=== PATIENT | male | born 1965 | race Caucasian/White ===

== ENCOUNTER 2017-09-25 05:50 | Day surgery (SDC) | payer MEDICAID, SELFPAY ==
[2017-09-25 06:14] VITALS: BP 140/97; PULSE 69; RESP 16; TEMP 36.5; O2SAT 98; BMI 28.0
--- NOTE | 2017-09-25 11:00 | COLBX_PTH ---
PATIENT: LISA LARSON LOC: EN U#:[id number] AGE/SX: 52/M ROOM: RE09/25/[address]: Dr. Nasreen Love MD : 1965 BED: DIS: 09/25/2017 SPEC #: [id number] RECD: 09/25/17 13:36 STATUS: DAMIR JODI #: [id number] MICKEY: 09/25/17 11:[address]: Nasreen Love DEPT: SURGICAL PATHOLOGY RECD BY: Bernadette Arredondo ENTERED: 09/25/17 14:08 SP TYPE: COLON BX OTHR DR: Dr. Tee Waite MD Tissues: POLYP Procedures: Surgery Specimen Level IV HEADER OPERATION: Colonoscopy (MAC) PRE-OP DIAGNOSIS: Screening TISSUE SUBMITTED: 25 cm polyp MICROSCOPIC DIAGNOSIS Colon, 25 cm polyp, polypectomy: Tubular adenoma. SJ:emiliano 09/28/17 MICROSCOPIC DESCRIPTION Slides are reviewed. GROSS DESCRIPTION Received in fixative is one container labeled with the patient's name and designated 25 cm polyp. The specimen consists of a pink-miller polyp measuring 1 x 0.8 x 0.6 cm. The presumed margin is inked. The specimen is trisected and totally submitted in one cassette. / AM:emiliano 09/25/17 TC:1 CPT: 69393
[2017-09-25 11:28] VITALS: BP 125/79; BP 140/97; PULSE 72; RESP 16; TEMP 36.1; O2SAT 98
[2017-09-25 11:33] VITALS: BP 126/81; BP 140/97; PULSE 71; RESP 16; O2SAT 98
[2017-09-25 11:38] VITALS: BP 139/91; BP 140/97; PULSE 68; RESP 16; O2SAT 97
[2017-09-25 11:45] VITALS: BP 137/86; BP 140/97; PULSE 65; RESP 16; TEMP 36.8; O2SAT 99
[2017-09-25 12:24] VITALS: BP 140/97
--- NOTE | 2017-09-25 12:34 | PCM.OPRPT ---
Report of Operation Date of Procedure: 09/25/17 Pre-Operative Diagnosis: screening for colon cancer Post-Operative Diagnosis: probable benign pedunculated polyp of rectosigmoid area of colon Surgery/Procedure Performed:: colonoscopy with hot snare polypectomy Description of Surgical Findings:: at rectosigmoid area - 25 cm from anal verge, pedunculated 2 cm polyp, excised completely with hot snare device, minimal hemorrhoidal changes Type of Anesthesia:: MAC Anesthesiologist: Abe Ruano Specimen's removed: rectosigmoid colon polyp Estimated Blood Loss (mL): none Fluids Replaced: see anesthesia note Description of Procedure: After informed consent was given, the patient was brought to the endoscopy suite. Appropriate time out protocol was followed. He was then placed in the supine position. Appropriate cardiac, blood pressure, and pulse oximetry monitoring was placed. After stable vital signs were noted, the patient was given anesthesia by the anesthesia provider. The patient was then placed in the left lateral decubitis position. The colonoscope was lubricated and carefully inserted into the patients anus. It was then advanced into the rectum, then into the sigmoid colon, then into the left descending colon, past the splenic flexure, into the transverse colon, past the hepatic flexure, then down into the right descending colon and into the cecum. The cecum was identified by: transillumination, confluence of the tenae coli, identification of the ileocecal valve and appendiceal orifice, and external pressure with indentation. At this point, the colonoscope was slowly retracted back and the entire colonic mucosa was examined. There was no evidence of extrinsic compression and no inflammatory changes were noted. The colon cleansing preparation was good. No intraluminal obstructing lesions, no strictures, and no ulcers were noted. There was a pedunculated polyp, 2 cm, noted at the rectosigmoid area, 25 cm from the anal verge. It was completely resected using the hot snare device. No bleeding was noted at the site. It was removed and send to pathology for analysis. Retroflex view in the rectum revealed no lesions in the rectal vault except minimal hemorrhoidal changes. The colonoscope was removed intact. Patient tolerated procedure well. - Complications none noted
--- NOTE | 2017-09-28 09:41 | PCM.HP.BLA ---
History and Physical Date of Admission: 09/25/17 HISTORY AND PHYSICAL Gabriel Carter 1965 REFERRING PHYSICIAN: Tee Waite MD CHIEF COMPLAINT: Consult (colonoscopy) HPI: The patient is a 52 year old male referred for endoscopy. Gabriel notes no history of colon complaints. He denies any change in bowel habits, weight changes, blood in stools, black tarry stools or abdominal pain. Denies upper GI complaints. Gabriel has not undergone prior endoscopy. The patient is being seen by me today at the request of Dr. Waite for my opinion and advice regarding screening colonoscopy. Past medical history significant for chronic pain for which he takes oxycodone regularly. Patient denies any cardiac or respiratory issues. He denies any known problems with sedation in the past. PAST MEDICAL HISTORY No past medical history on file. PAST SURGICAL HISTORY No past surgical history on file. CURRENT MEDICATIONS amoxicillin-clavulanic acid (AUGMENTIN) 875-125 mg per tablet Take 1 tablet by mouth twice daily for 10 days. oxyCODONE-acetaminophen (PERCOCET) 7.5-325 mg tablet Take 1 tablet by mouth twice daily as needed for up to 30 days.Earliest Fill Date: 06/25/17 buPROPion SR (ZYBAN SR; WELLBUTRIN SR) 150 mg 12 hr tablet Take 1 tablet by mouth twice daily. cyclobenzaprine (FLEXERIL) 10 mg tablet Take 1 tablet by mouth twice daily as needed. ALLERGIES: Patient has no known allergies. PERSONAL HISTORY: Marital status: Spouse name: Years of education: Number of children: Social History Main Topics Smoking status: Current Every Day Smoker Packs/day: 1.00 Years: 0.00 Smokeless tobacco: Never Used Alcohol use: Yes Comment: rarely Drug use: No FAMILY HISTORY: [place] palsy [OTHER] Mother Coronary Artery Disease Father Colon Cancer Maternal Grandfather REVIEW OF SYSTEMS: General: The patient denies fatigue, denies weight loss, denies weight gain, denies feeling hot, and denies feelings of cold. Eyes: The patient denies glaucoma, denies eye injury/surgery, does not wear glasses or contacts. Ear/Nose/Throat: The patient denies allergies, denies hayfever, denies ear infections, and denies bloody noses. Cardiovascular: The patient denies chest pain, denies heart disease, denies high blood pressure,denies cardiac stent, denies prior heart attack, denies irregular heart beat, denies high cholesterol, denies poor circulation, denies heart failure, other cardiac issues, denies claudication, denies cold feet, denies peripheral arterial stent. Respiratory: The patient denies tuberculosis, denies pneumonia, denies frequent cough, denies pulmonary embolism, denies shortness of breath, and denies coughing up blood. Gastrointestinal: The patient denies difficulty swallowing, denies acid reflux, denies ulcers, denies vomiting, denies jaundice/hepatitis, denies gallbladder problems, denies black or tarry stools, denies hemorrhoids, denies bleeding from rectum, denies diverticulitis, denies constipation, denies diarrhea, denies loss of stool control, and denies hernias. Kidney/Bladder: The patient denies kidney stones, denies urine infections, and denies bloody urine. Skin: The patient denies a history of skin cancer, denies bleeding/changing moles, and denies a history of skin rash. Neurologic: The patient denies a history of epilepsy/convulsions, denies headaches, denies head/spinal injuries, and denies stroke/TIA. Psychiatric: The patient denies psychiatric medications, denies depression, and denies voices, denies substance abuse. Endocrine: The patient denies thyroid disorders, denies diabetes, and denies hormonal problems. Hematologic: The patient denies a history of bruising, denies bleeding, and denies anemia, denies blood clots. Infections: The patient denies a history of measles and mumps, denies rheumatic fever, and denies sexually transmitted diseases. Musculoskeletal: The patient NOTES back pain/injury, NOTES back problems, denies sciatica, NOTES knee/foot trouble, denies arthritis, or denies gout. PHYSICAL EXAMINATION: General: The patient is 52 year old male, well nourished, well hydrated in no acute distress. The patient is oriented to time, place, and person. VITALS: Blood pressure 140/100, pulse 66, weight 93 kg (205 lb). Body mass index is 29.41 kg/m?. HEENT: Normal cephalic, ataumatic, pupils are equally round, sclera are anicteric, mucous membranes are moist, oropharynx is clear. Neck has no masses, asymmetry or lymphadenopathy. Respiratory: Clear to auscultation and percussion. Normal respiratory excursion and pattern. Cardiac: Examination is regular rate and rhythm. Abdominal exam: Soft, nontender, with no palpable masses. No hepatosplenomegaly. No palpable hernias. Rectal exam: exam deferred Extremities: no clubbing, cyanosis or edema. No adenopathy. IMPRESSION: encounter for screening colonoscopy, patient on narcotic for chronic pain-plan for MAC PLAN: We will plan for screening colonoscopy with MAC. We discussed the risks and benefits of the planned endoscopy. I have informed the patient that complications can occur including failure to complete the endoscopy and perforation. The patient had the opportunity to ask questions concerning the planned endoscopy. My staff has also explained the procedure to the patient in understandable terms and has given the patient printed material concerning the procedure. The patient freely consents to surgery. plan to use golytely bowel preparation for endoscopy plan for monitored anesthetic care. Diagnoses: (Z12.11) Encounter for screening for malignant neoplasm of colon (primary encounter diagnosis) Clary Royal PA-C
== END 2017-09-25 12:25 | disposition home or self-care (01) ==
LOC: EN 05:51 → AC 05:53
PROVIDERS: Family Provider Family Medicine; PCP Family Medicine; Visit Provider Surgery
PROC: 0DJD8ZZ Inspection of Lower Intestinal Tract, Via Natural or Artificial Opening Endoscopic (ICD-10-PCS; CPT 45378; principal; 2017-09-25 10:55)
DX: Z12.11 Encounter for screening for malignant neoplasm of colon (principal); D12.6 Benign neoplasm of colon, unspecified; G89.29 Other chronic pain; F17.200 Nicotine dependence, unspecified, uncomplicated
CPT/HCPCS: 45385; 88305; J7120

== ENCOUNTER 2018-02-22 06:15 | Observation (INO) | payer SELFPAY ==
[2018-02-22] VITALS (16 sets, daily range): BP systolic 116–195; BP diastolic 72–115; PULSE 52–90; RESP 10–19; TEMP 36–36.8; O2SAT 95–100; BMI 30.8; BMI 28.5; BMI 28.6
--- NOTE | 2018-02-22 06:19 | EKG12_ITS ---
Test Reason : CP Blood Pressure : / mmHG Vent. Rate : 076 BPM Atrial Rate : 076 BPM P-R Int : 128 ms QRS Dur : 084 ms QT Int : 354 ms P-R-T Axes : 062 050 040 degrees QTc Int : 398 ms Normal sinus rhythm Normal ECG Confirmed by HEATH COCHRAN, KHANH ([id number]), copy editor ISIDORO PENNINGTON ([id number]) on 02/23/2018 5:14:43 PM Referred By: DANIELA Confirmed By:KHANH JOE MD
--- NOTE | 2018-02-22 06:19 | RAD_ITS ---
STUDY: X-RAY CHEST REASON FOR EXAM: Male, 52 years old. Pain TECHNIQUE: PA and lateral COMPARISON: None. FINDINGS: The lungs are clear and expanded. There is no demonstrated pleural abnormality. Normal size heart. Normal mediastinum and corine. Normal visualized pulmonary arteries. Normal visualized aortic arch and descending thoracic aorta. Normal visualized thoracic spine. Normal visualized ribs, clavicles, and shoulders. There is no demonstrated abnormality of the visualized soft tissue structures of the upper abdomen. RAD/Chest PA and Lateral IMPRESSION: Normal x-ray examination of the chest. Electronically Signed: Frederick Bee MD at 7:09 EST , Service support ,
[2018-02-22] MEDS: Aspirin 81 MG TAB.CHEW 324 MG PO (06:22)
[2018-02-22 06:27] LABS: Absolute Lymphocyte Count 2.19 X10^3/ul (0.83-4.51); Absolute Neutrophil Count 3.6 X10^3/uL (2.0-7.7); Basophil# 0.01 X10^3/uL; Basophil% 0.1 % (0-1); Eosinophil# 0.17 X10^3/uL; Eosinophils% 2.5 % (0-5); Hematocrit 46.4 % (40-54); Hemoglobin 15.9 g/dl (13.0-16.5); Lymphocyte # 2.19 X10^3/ul (4.0); Lymphocyte % 32.1 % (19-41); Mean Corp Hgb Conc 34.3 g/gl (32-36); Mean Corpuscular Volume 93.4 fL (80-94); Mean Platelet Vol. 9.7 fl (6.2-12.0); Monocyte# 0.84 X10^3/uL; Monocyte% 12.3 % (0-10); Neutrophil % 52.9 % (47-70); Platelet Count 288 K/mm3 (150-450); RBC Distribution Width SD 44.2 fl (35.1-43.9); Red Blood Count 4.97 M/mm3 (4.6-6.2); White Blood Count 6.8 K/mm3 (4.4-11.0)
[2018-02-22 06:30] LABS: POSITIVE COUNT NO; POSITIVE DIFFERENTIAL NO; POSITIVE MORPHOLOGY NO
--- NOTE | 2018-02-22 06:33 | ED.RN ---
DR. SUAREZ SAID TO HOLD THE THIRD NITROGLYCERIN. PATIENT STILL C/O PAIN BUT HIS BP DROPPED SIGNIFICANTLY. HE ORDERED SOME MORPHINE FOR HIM.
--- NOTE | 2018-02-22 06:34 | NURSING ---
NO OLD EKGS
--- NOTE | 2018-02-22 06:36 | ED.DCSUM_ITS ---
- ER Visit Summary Date of Service: 02/22/18 Chief Complaint: Chest pain History of Present Illness: The patient is a 52 M presenting for evaluation secondary to chest pain. Patient reports that about 4:00 this morning he had a reasonably sudden onset of sharp chest pain. He reports that initially waxed a nd waned, but over the course of about the last hour or so it has become more continuous. Patient states that it is sharp located in his left chest. Associated with some shortness of breath and cough. Patient states that he gets some relief with lifting his arm, and significant worsening with taking a deep breath or coughing. He reports when he coughs he gets somewhat of a bloody taste in his mouth but has not had any overt hemoptysis. 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 Denies any history of PE. Denies any prior history of cardiovascular disease. Review of systems otherwise negative. Physical Examination: Vital signs are within normal limits, patient is afebrile. General: Patient is well-nourished well-developed and in no acute distress. Head: Normocephalic, atraumatic Eyes: Pupils equal round and reactive bilaterally, extra occular motion intact bialterally ENT: Moist mucous membranes Neck: Supple, no lymphadenopathy, no JVD, no meningismus CVS: Heart regular rate and rhythm, no murmurs, rubs or gallops, radial pulses 2+ bilaterally, 2+ PT pulses Resp: Respirations nondistressed, lung sounds clear bilaterally Abdomen: Soft, nontender, nondistended, no palpable masses, normal bowel sounds Back: Nontender Extremities: Nontender, atraumatic, active full range of motion, no peripheral edema Skin: warm, no rashes, no petechia Neuro: Alert and oriented x 4, CN 2-12 intact, no lateralizing neurological defecits Psyc: Somewhat anxious but otherwise normal affect Test Results: EKG demonstrates sinus rate is [address] segments normal T waves no evidence of acute ischemia or arrhythmia. Repeat EKG demonstrates some early repolarization with concave ST elevation noted in leads V3, V4, V5. There is no evidence of changes in leads I and aVL, abnormal aVR, and no evidence of reciprocal changes. CBC chemistry troponin and d-dimer negative. PA and lateral chest x-ray showed normal sized mediastinum, no evidence of acute cardiopulmonary pathology per my personal interpretation. Emergency Department Course and Treatment: Patient presented for evaluation secondary to chest pain. There was some concern for cardiac disease so the patient was evaluated. Initial EKG was unremarkable. A second EKG 20 minutes later was obtained, and shows some evidence of early repolarization. This does not appear to have atypical ST elevation pattern as there are no reciprocal changes, no changes in leads I and aVL. Patient was treated with aspirin nitro glycerin and morphine and did have some improvement. Patient's heart score is 4 I believe he requires admission for cardiac rule out. Patient will be admitted under the hospitalist. Disposition: Admission Impression: 1. Chest pain This note was generated with [employer] dictation software. It may contain incorrect words, spelling, and punctuation that were not noted in review of the chart prior to signing ED Disposition - Plan for ED Patient: Chief Complaint: Chest Pain Referrals: Tee Waite MD [Primary Care Provider] -
[2018-02-22] MEDS: Ondansetron 4 MG/2 ML Vial IV (06:37)
[2018-02-22] MEDS: Morphine 4 MG/ML Syringe IV ×2 (06:37→06:54)
--- NOTE | 2018-02-22 06:40 | EKG12_ITS ---
Test Reason : REPEAT Blood Pressure : / mmHG Vent. Rate : 063 BPM Atrial Rate : 063 BPM P-R Int : 126 ms QRS Dur : 084 ms QT Int : 388 ms P-R-T Axes : 053 049 045 degrees QTc Int : 397 ms Normal sinus rhythm Early repolarization Normal ECG Confirmed by HEATH COCHRAN, KHANH ([id number]), editor school photograph ISIDORO PENNINGTON ([id number]) on 02/23/2018 5:15:22 PM Referred By: DANIELA Confirmed By:KHANH JOE MD
[2018-02-22 06:54] LABS: D-Dimer Quantitative (DVT/PE) 0.47 FEU/ug/m (0.27-0.49)
--- NOTE | 2018-02-22 07:05 | EKG12_ITS ---
Test Reason : REPEAT #2 Blood Pressure : / mmHG Vent. Rate : 059 BPM Atrial Rate : 059 BPM P-R Int : 134 ms QRS Dur : 088 ms QT Int : 408 ms P-R-T Axes : 049 036 029 degrees QTc Int : 403 ms Sinus bradycardia Otherwise normal ECG Confirmed by HEATH COCHRAN, KHANH ([id number]), writer editor ISIDORO PENNINGTON ([id number]) on 02/23/2018 5:15:34 PM Referred By: DANIELA Confirmed By:KHANH JOE MD
--- NOTE | 2018-02-22 07:13 | ECHOD_ITS ---
Reason For Study: CHEST PAIN Procedure This was a 2D Doppler, Color Flow transthoracic echocardiogram. Exam performed portable in ICU/CCU. Left Ventricle Normal LV size. Left ventricular systolic function is normal. The estimated ejection fraction is 55 %. No evidence for diastolic dysfunction. No regional wall motion abnormalities noted. Right Ventricle Normal RV size. Normal systolic function. Atria Normal left atrium. Normal right atrium. Mitral Valve Normal mitral valve. Mild (1+) eccentric mitral valve insufficiency. Tricuspid Valve Normal tricuspid valve. Mild (1+) tricuspid valve insufficiency. Pulmonary artery systolic pressure is 25 mmHg. Aortic Valve Normal aortic valve. Trisinus/trileaflet aortic valve. Pulmonic Valve Normal pulmonic valve. Great Vessels Normal aortic root. The pulmonary artery is normal size. Normal inferior vena cava. Pericardium/Pleural No pericardial effusion. MMode/2D Measurements & Calculations LVIDd: 4.7 cm IVSd: 0.90 cm Ao root diam: 3.4 cm LVIDs: 3.4 cm LVPWd: 1.0 cm RVDd: 3.4 cm FS: 28.3 % LAV(MOD-bp): 44.0 ml LA A4 area: 15.8 cm2 LA dimension(2D): 3.6 cm LAV(MOD-bp) Indexed: 20.5 ml/m2 LAV(MOD-sp2): 50.3 ml LAV(MOD-sp4): 40.0 ml RA A4 area: 13.7 cm2 Time Measurements MV dec time: 0.16 sec Doppler Measurements & Calculations MV E max chris: 78.0 cm/sec Lat Peak E' Chris: 11.9 cm/sec Med Peak E' Chris: 9.4 cm/sec MV A max chris: 44.0 cm/sec E/E' lat: 6.5 E/E' med: 8.3 MV E/A: 1.8 Ao V2 max: 109.3 cm/sec LV V1 max: 89.5 cm/sec PA V2 max: 84.6 cm/sec Ao max P.8 mmHg LV V1 max P.2 mmHg TR max crhis: 230.5 cm/sec TR max P.6 mmHg Interpretation Summary Normal LV size. Left ventricular systolic function is normal. The estimated ejection fraction is 55 %. No evidence for diastolic dysfunction. Mild (1+) eccentric mitral valve insufficiency. Mild (1+) tricuspid valve insufficiency. Ordering Physician: Eliot Galdamez Referring Physician: REYES MG Performed By: Theresa Tarango, MARSHALLCS, RVT
--- NOTE | 2018-02-22 07:17 | NURSING ---
DR MIKE SUAREZ
--- NOTE | 2018-02-22 07:18 | HP.PCM_ITS ---
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 Patient symptoms started on the morning of his presentation was trying to change his truck. Pain lasted for about 30 minutes. He had tried to work through however in view of the persistent nature of the symptoms patient presented to the emergency department. Patient was given 3 doses of nitroglycerin as well as 4 baby aspirin without any relief. Initial set of cardiac enzymes came back negative given his presentation patient was admitted to a monitored bed for further management Past Medical History Past Medical History (Chronic Problems): Chronic Problems Essential hypertension (Chronic) Tobacco dependence (Chronic) Allergies No Known Allergies Allergy (Verified 02/22/18 06:20) Home Medications: Ambulatory Orders Medication Instructions Recorded Oxycodone HCl/Acetaminophen 1 tab PO BID 09/23/17 [Percocet 7.5-325 mg Tablet] Meloxicam 1 tab PO DAILY 02/22/18 Terbinafine HCl 1 tab PO DAILY 02/22/18 Smoking Status: Current every day smoker - *Family History Paternal History Items: Heart Disease - of NC at age 57 Review of Systems Constitutional: Denies: Anorexia, Chills, Fever, Night Sweats, Weight Change HEENT: Denies: Head Aches, Sinus Congestion, Sinus Drainage Cardiovascular: Reports: Chest Pain. Denies: Orthopnea, Palpitations, Paroxysmal Noc. Dyspnea Respiratory: Denies: Cough, Shortness of breath at rest, Shortness of breath upon exertion, Sputum production Gastrointestinal: Denies: Abdominal Pain, Hematemesis, Hematochezia, Nausea, Melena, Vomiting Genitourinary: Denies: Dysuria, Frequency, Hematuria, Urgency Musculoskeletal: Denies: Joint Pain, Joint Tenderness Skin: Denies: Rash Neurological: Denies: Focal weakness, Numbness, Tingling Psychiatric: Denies: Homicidal Ideations, Suicidal Ideations Hematologic/ Lymphatic: Denies: Easy Bruising, Easy Bleeding VTE Information - Inpt Only VTE Present on Admission: No VTE Mechan Device Prophylaxis: Knee High RON Hose VTE Pharm Prophylaxis ordered?: Yes Patient Problems: Active and Suspected Problems Chest pain (Acute) Objective: GENERAL: cooperative HEENT: Atraumatic; moist oral mucosa EYES; Anicteric, Normal Conjunctiva NECK; supple, normal thyroid, no distended JVD. RESPIRATORY: Diminished to auscultation bilaterally, CARDIOVASCULAR: Regular S1 S2, no audible murmurs GI: soft, non-tender, normoactive bowel sounds, : No Renal angle tenderness; EXTREMITIES: No edema, no clubbing, no cyanosis. MUSCULOSKELETAL: No Joint Tenderness; no muscle waisting NEURO: Awake; no lateralizing signs. SKIN: No Rash PSYCH; Normal affect - Physical Exam Vital Signs Temp Pulse Resp BP Pulse Ox 97.6 F L 60 15 116/72 100 02/22/18 06:16 02/22/18 06:56 02/22/18 06:56 02/22/18 06:56 02/22/18 06:56 Oxygen Flow Rate (L/min) 2 Oxygen Delivery Method Nasal Cannula Weight: 97.5 kg Body Mass Index (BMI) 30.8 Laboratory Tests Past 24 Hrs 02/22/18 02/22/18 02/22/18 06:20 06:20 06:20 WBC 6.8 RBC 4.97 Hgb 15.9 Hct 46.4 MCV 93.4 MCH 32.0 MCHC 34.3 RDW 13.0 RDW Differential 44.2 H Plt Count 288 MPV 9.7 Immature Gran % (Auto) 0.100 Neut % (Auto) 52.9 Lymph % (Auto) 32.1 [place] % (Auto) 12.3 H Eos % (Auto) 2.5 Baso % (Auto) 0.1 Absolute Neuts (auto) 3.6 Absolute Lymphs (auto) 2.19 Total Counted Not Reportable D-Dimer Quant (PE/DVT) 0.47 Sodium 142 Potassium 4.3 Chloride 109 H Carbon Dioxide 23.0 Anion Gap 10 BUN 18 Creatinine 1.09 Estim Creat Clear Calc 81.86 Est GFR (MDRD) Af Amer 91 Est GFR (MDRD) Non-Af 75 BUN/Creatinine Ratio 16.5 Glucose 96 Calcium 8.8 Troponin I < 0.015 Assessment/Plan All Active Problems Chest pain (Acute) Patient is a 52-year-old gentleman presented with chest pain 1. Chest pain patient has been placed on a monitored bed plan is rule out NC with serial cardiac enzymes if NC is ruled out patient undergo a nuclear stress test to rule out myocardial ischemia 2. Essential hypertension blood pressure controlled currently managed with diet 3. Tobacco dependence counseled on cessation, offered nicotine patch for tobacco cravings 4. DVT prophylaxis SC Lovenox Code Visit OBSV E&M: 22131 Initial observation care L3
--- NOTE | 2018-02-22 07:18 | NURSING ---
PCU OBS TOMMIE SAINZ
--- NOTE | 2018-02-22 07:29 | NURSING ---
ICU 8 PCU
[2018-02-22 07:45] LABS: Magnesium 1.9 mg/dL (1.6-2.6)
[2018-02-22 08:58] LABS: International Normalized Ratio 0.9; Prothrombin Time (Protime)PT. 12.5 SECONDS (11.7-14.9)
[2018-02-22] MEDS: oxyCODONE 5 MG Tablet PO (16:11)
[2018-02-23] VITALS (15 sets, daily range): BP systolic 141–162; BP diastolic 84–99; PULSE 56–71; RESP 14–18; TEMP 36.4–36.8; O2SAT 97–100
[2018-02-23 05:39] LABS: Hematocrit 42.7 % (40-54); Hemoglobin 14.3 g/dl (13.0-16.5); Mean Corp Hgb Conc 33.5 g/gl (32-36); Mean Corpuscular Hgb 31.5 pg (27.0-32.0); Mean Corpuscular Volume 94.1 fL (80-94); Mean Platelet Vol. 9.7 fl (6.2-12.0); Platelet Count 277 K/mm3 (150-450); RBC Distribution Width CV 12.8 % (11.6-14.6); RBC Distribution Width SD 43.2 fl (35.1-43.9); Red Blood Count 4.54 M/mm3 (4.6-6.2)
[2018-02-23 05:41] LABS: Anion Gap 6 (5-15); BUN 16 mg/dL (7-18); BUN/Creat Ratio 17.9 RATIO (10-20); Calcium,Total 8.6 mg/dL (8.5-10.1); Chloride 107 mmol/L (98-107); EST Glomerular Filtration Rate 94 mL/min (>60); Est Glom Filt Rate - Afr Amer 114 mL/min (>60); Estimated Creatinine Clearance 99.14 ml/min; Glucose 105 mg/dL (74-106); Potassium 4.6 mmol/L (3.5-5.1); Sodium Level 140 mmol/L (136-145)
[2018-02-23 05:45] LABS: Prothrombin Time (Protime)PT. 13.5 SECONDS (11.7-14.9)
[2018-02-23 05:46] LABS: Partial Thromboplast Time 29.2 Seconds (24.1-36.2)
[2018-02-23 05:55] LABS: Scan Indicated on CBC? Y/N NO
[2018-02-23] MEDS: oxyCODONE 5 MG Tablet PO (06:04)
--- NOTE | 2018-02-23 09:04 | STRESSREP ---
Stress Test Report Date: 02/23/2018 Procedure: Exercise tolerance test/nuclear imaging study Indications: Chest pain Consent: The patient Procedure: The patient exercised on a Ladarius protocol for 8 minutes completing Stage II and 2 minutes of Stage III achieving a peak heart rate of 155 beats per minute (92% predicted maximal heart rate) with peak blood pressure was 162/96 mmHg and a peak MET capacity of approximately 9 METS. The baseline ECG demonstrated sinus bradycardia. The peak exercise ECG demonstrated approximately [address] segment depression in leads II, III, aVF, and approximately 0.[address] segment depression in lead V6 with resolution to baseline in recovery There were no cardiac dysrhythmias during exercise and recovery The functional capacity was considered average The patient noted chest tightness at peak exercise with spontaneous resolution and recovery The examination was discontinued secondary to leg discomfort Impression: 1. Technically adequate (% predicted maximum heart rate greater than 85%) exercise tolerance test 2. Peak exercise ECG with approximately [address] segment depression in leads II, III, aVF, and approximately 0.[address] segment depression in lead V6 with resolution to baseline and recovering 3. Nuclear images pending Myocardial perfusion imaging study: Technique: The patient was injected with 12.0 mci of technetium-99m Cardiolite and subsequently rest SPECT Cardiolite nuclear imaging was obtained in the horizontal long, vertical long, and short axis views. The patient exercised on a Ladarius protocol for 8 minutes completing Stage II and 2 minutes of Stage III achieving a peak heart rate of 155 beats per minute (92% predicted maximal heart rate) with a peak blood pressure was 62/96 mmHg and a peak MET capacity of approximately 9 METS. The patient was injected with 35.3 mci of technetium 99 and Cardiolite and subsequently stress SPECT Cardiolite nuclear imaging was obtained in the horizontal long, vertical long, and short axis views. A gated Cardiolite study at peak stress was obtained. Interpretation: Rest and stress SPECT Cardiolite nuclear imaging status post realignment and normalization demonstrates the appearance of relative uniform tracer uptake at rest and status post stress an area of diminished tracer uptake in portions of the basal inferior septal/basal inferior segments extending to the mid inferior segments. Status post attenuation correction there appears to be relative uniform tracer uptake at rest with the exception of a small area of subtle diminished tracer uptake in the mid anterior segments and status post stress a continued small area of subtle diminished tracer uptake in the mid anterior segments. There is an systolic thickening and broadening. The gated Cardiolite study demonstrates myocardial thickening and normal wall motion. A reported LVEF is 44%. Impression: 1. Rest and stressed by current nuclear imaging demonstrate pre attenuation correction post stress myocardial perfusion changes potentially compatible with an area of stress induced myocardial ischemia involving portions of the basal inferior septal/inferior segments extending to the mid inferior segments. Status post attenuation correction this area appears to improve and/or normalize thus raising the concern of potential shifting soft tissue attenuation/artifact . Status post attenuation correction there is a small area of subtle diminished tracer uptake in the mid anterior segments at both rest and stress without significant change and potentially compensable the effect of soft tissue attenuation/artifact. 2. The gated Cardiolite study reports an LVEF of 44%. This note was generated using a voice recognition system and there may be incorrect words, spelling or punctuation that were not noted when reviewing the office note prior to saving.
[2018-02-23] MEDS: Meloxicam 15 MG Tablet PO (09:54)
[2018-02-23] MEDS: TERBINAFINE HCL 250 MG TABLET PO (09:56)
--- NOTE | 2018-02-23 09:59 | PN_ITS ---
Patient Problems: Active and Suspected Problems Chest pain (Acute) Subjective: Patient underwent a nuclear stress test on 02/23/2018 which demonstrated post stress myocardial perfusion changes potentially compatible with an area of stress induced myocardial ischemia involving portions of the basal inferior septal/inferior segments extending to the mid inferior segments.The gated Cardiolite study reports an LVEF of 44%. Consultation placed to cardiology Objective: GENERAL: cooperative HEENT: Atraumatic; moist oral mucosa EYES; Anicteric, Normal Conjunctiva NECK; supple, normal thyroid, no distended JVD. RESPIRATORY: Diminished to auscultation bilaterally, CARDIOVASCULAR: Regular S1 S2, no audible murmurs GI: soft, non-tender, normoactive bowel sounds, : No Renal angle tenderness; EXTREMITIES: No edema, no clubbing, no cyanosis. MUSCULOSKELETAL: No Joint Tenderness; no muscle waisting NEURO: Awake; no lateralizing signs. SKIN: No Rash PSYCH; Normal affect Vitals/I&O's: Vital Signs Temp Pulse Resp BP Pulse Ox 97.6 F L 59 L 14 141/94 H 98 02/23/18 09:03 02/23/18 09:03 02/23/18 09:03 02/23/18 09:03 02/23/18 09:03 Oxygen Flow Rate (L/min) 2 Oxygen Delivery Method Room Air Weight: 90.3 kg Body Mass Index (BMI) 28.5 Intake and Output for Last 24 Hours 02/21/18 02/22/18 02/23/18 23:59 23:59 23:59 Intake Total 640 / 640 Balance 640 / 640 Laboratory Results 02/22/18 11:00: Troponin I < 0.015 02/22/18 14:10: Troponin I < 0.015 02/23/18 05:15: PT 13.5, INR 1.0, APTT 29.2 02/23/18 05:15: Sodium 140, Potassium 4.6, Chloride 107, Carbon Dioxide 27.0, Anion Gap 6, BUN 16, Creatinine 0.90, Estim Creat Clear Calc 99.14, Est GFR (MDRD) Af Amer 114, Est GFR (MDRD) Non-Af 94, BUN/Creatinine Ratio 17.9, Glucose 105, Calcium 8.6 02/23/18 05:15: WBC 6.0, RBC 4.54 L, Hgb 14.3, Hct 42.7, MCV 94.1 H, MCH 31.5, MCHC 33.5, RDW 12.8, RDW Differential 43.2, Plt Count 277, MPV 9.7 Current Medications Al Hydroxide/Mg Hydroxide (Mylanta Ii) 30 ml PO Q6H PRN PRN PRN Reason: Gastric burning Enoxaparin Sodium (Lovenox) 40 mg SC DAILY@1000 JENELLE Last Admin: 02/22/18 15:21 Dose: Not Given Sodium Chloride () 250 mls @ 15 mls/hr IV .[id number] PRN PRN Reason: SALINE FLUSH Sodium Chloride () 250 mls @ 15 mls/hr IV .[id number] PRN PRN Reason: SALINE FLUSH Magnesium Hydroxide (Milk Of Magnesia) 30 ml PO DAILY PRN PRN Reason: Constipation Meloxicam (Mobic) 15 mg PO DAILY JENELLE Ondansetron HCl (Zofran) 4 mg IV Q8H PRN PRN PRN Reason: NAUSEA Oxycodone HCl (Oxyir) 5 mg PO BID PRN PRN PRN Reason: PAIN Last Admin: 02/23/18 06:04 Dose: 5 mg Psyllium Hydrophilic Mucilloid (Metamucil) 1 packet PO DAILY PRN PRN PRN Reason: CONSTIPATION Sodium Chloride () 5 - 15 ml IV UD PRN PRN Reason: SALINE FLUSH Terbinafine HCl (Terbinafine Hcl) 250 mg PO DAILY JENELLE Zolpidem Tartrate (Ambien (Generic)) 5 mg PO QHS PRN PRN PRN Reason: INSOMNIA Medical Necessity - Tobacco Use Smoking Status: Current every day smoker Assessment/Plan All Active Problems Chest pain (Acute) Patient is a 52-year-old gentleman presented with chest pain 1. Chest pain patient has been placed on a monitored bed did rule out [place] with serial cardiac enzymes. Patient underwent a nuclear stress test on 02/23/2018 which demonstrated post stress myocardial perfusion changes potentially compatible with an area of stress induced myocardial ischemia involving portions of the basal inferior septal/inferior segments extending to the mid inferior segments.The gated Cardiolite study reports an LVEF of 44%. EF on a 2D echo was 65% consultation placed to cardiology 2. Essential hypertension blood pressure controlled currently managed with diet 3. Tobacco dependence counseled on cessation, offered nicotine patch for to bacco cravings 4. DVT prophylaxis SC Lovenox Clinical Impression(s) from Imaging Studies Chest X-Ray 02/22/18 06:19 IMPRESSION: Normal x-ray examination of the chest. Electronically Signed: Frederick Bee MD at 7:09 EST , Service support , Code Visit OBSV E&M: [id number] Subsequent observation care L3
[2018-02-23] MEDS: TICAGRELOR 90 MG TABLET 180 MG PO (12:54)
[2018-02-23] MEDS: 0.9% NaCl Peripheral Flush Adult/Peds IV (13:06)
[2018-02-23] MEDS: Aspirin 81 MG TAB.CHEW PO (13:10)
--- NOTE | 2018-02-23 13:22 | CON.PCM_ITS ---
Problem List (1) Chest pain Status: Acute (2) Abnormal stress test Status: Acute (3) Essential hypertension Status: Chronic (4) Tobacco dependence Status: Chronic Reason for Consult Date of Consultation: 02/23/18 History of Present Illness: The patient is a 52 year old white male with a past medical history of hypertension who was evaluated for ongoing chest discomfort and findings of an abnormal stress nuclear imaging study. He states that he has had hypertension which is been followed but not yet treated because he is considered a borderline . To the best of his knowledge she has no other cardiovascular disease process. He states he does have a family history of cardiovascular disease where his father of a massive heart attack in his 50s. 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 It was associated with some element of dyspnea, nausea, and diaphoresis. He was able to drive his truck back to [place] where he contacted his to bring him to the emergency department. He was subsequently evaluated and found to have a negative troponin I level. His ECG demonstrated sinus rhythm with ST segment changes considered compatible with early repolarization. His chest x-ray demonstrated no acute findings. He was placed in the PCU for further evaluation and care. His troponin I levels have remained negative. His repeat ECGs have been remained without significant change. He did undergo a transthoracic echocardiogram. His left ventricle was reported as normal with an LVEF of 55%. He was noted to have mild MR/TR. He also underwent a stress nuclear imaging study. His stress nuclear imaging study did bring out symptoms at peak exercise of left-sided chest discomfort, electric cardiographic changes with ST segment depression, and nuclear imaging changes between his pre-attenuation and post attenuation images that raise concern of possible ischemia versus possible soft tissue attenuation/artifact-shifting. Thus he was recommended for further cardiovascular evaluation including diagnostic cardiac catheterization. He denies a history of orthopnea or PND or peripheral pitting edema. He denies any near syncope or syncope. He denies any history of hyperlipidemia or diabetes mellitus. He does admit to a long-standing history of tobacco use. [] Past Medical History Allergies/Adverse Reactions: Allergies No Known Allergies Allergy (Verified 02/22/18 06:20) Home Medications: Ambulatory Orders Medication Instructions Recorded Meloxicam 1 tab PO DAILY 02/22/18 Oxycodone HCl/Acetaminophen 1 tablet PO BID PRN 02/22/18 [Percocet 5/325] Terbinafine HCl 1 tab PO DAILY 02/22/18 Past Medical History (Chronic Problems): Chronic Problems Essential hypertension (Chronic) Tobacco dependence (Chronic) - *Family History Paternal History Items: Heart Disease - of [place] at age 57 Lives: Spouse/ Significant Other Smoking Status: Current every day smoker Alcohol: None Drugs: None Review of Systems - Review of Systems General: Denies: Fever, Night Sweats, Fatigue Cardiovascular: Reports: Chest Discomfort, Shortness of Breath. Denies: Orthopnea, PND, Peripheral Edema, Palpitations, Lightheadedness, Dizziness, Near Syncope, Syncope Respiratory: Denies: Cough, Sputum Production, Hemoptysis Gastrointestinal: Reports: Nausea. Denies: Hematemesis, Hematochezia, Melena Genitourinary: Denies: Dysuria, Hematuria Skin: Denies: Rash Subjectve: This is a 52-year-old white male who appears to be resting comfortably at the moment in no acute distress. Objective: Vital Signs Temp Pulse Resp BP Pulse Ox 97.6 F L 60 14 141/94 H 98 02/23/18 09:03 02/23/18 11:15 02/23/18 09:03 02/23/18 09:03 02/23/18 09:03 Oxygen Flow Rate (L/min) 2 Oxygen Delivery Method Room Air Weight: 199 lb 1.239 oz Body Mass Index (BMI) 28.5 Intake and Output for Last 24 Hours 02/21/18 02/22/18 02/23/18 23:59 23:59 23:59 Intake Total 1040 / 1040 Balance 1040 / 1040 General: Awake, Alert, Oriented x 3, Cooperative, No Acute Distress HEENT: Atraumatic, Normocephalic, PERRL, EOMI, Sclera Non Icteric Oral: Moist Mucosa Neck: Supple, Good ROM, No JVD Lungs: Clear to auscultation Cardiovascular: Regular Rhythm, Normal S1, Normal S2 Vascular: No Carotid Bruits Abdomen: Bowel Sounds Present, Soft, Non Tender Extremities: No Cyanosis, No Clubbing, No edema Neurological: No Focal Motor or Sensory Deficit Psych/Mental Status: Appropriate 02/22/18 14:10: Troponin I < 0.015 02/23/18 05:15: PT 13.5, INR 1.0, APTT 29.2 02/23/18 05:15: Sodium 140, Potassium 4.6, Chloride 107, Carbon Dioxide 27.0, An ion Gap 6, BUN 16, Creatinine 0.90, Est GFR (MDRD) Af Amer 114, Est GFR (MDRD) Non-Af 94, BUN/Creatinine Ratio 17.9, Glucose 105, Calcium 8.6 02/23/18 05:15: WBC 6.0, RBC 4.54 L, Hgb 14.3, Hct 42.7, MCV 94.1 H, MCH 31.5, MCHC 33.5, RDW 12.8, RDW Differential 43.2, Plt Count 277, MPV 9.7 Rhythm: Sinus rhythm EKG: As noted above ECHO: 02/22/2018 Interpretation Summary Normal LV size. Left ventricular systolic function is normal. The estimated ejection fraction is 55 %. No evidence for diastolic dysfunction. Mild (1+) eccentric mitral valve insufficiency. Mild (1+) tricuspid valve insufficiency. Stress Test: 02/23/2018 The patient exercised on a Ladarius protocol for 8 minutes completing Stage II and 2 minutes of Stage III achieving a peak heart rate of 155 beats per minute (92% predicted maximal heart rate) with peak blood pressure was 162/96 mmHg and a peak MET capacity of approximately 9 METS. The baseline ECG demonstrated sinus bradycardia. The peak exercise ECG demonstrated approximately [address] segment depression in leads II, III, aVF, and approximately 0.[address] segment depression in lead V6 with resolution to baseline in recovery There were no cardiac dysrhythmias during exercise and recovery The functional capacity was considered average The patient noted chest tightness at peak exercise with spontaneous resolution and recovery The examination was discontinued secondary to leg discomfort Impression: 1. Technically adequate (% predicted maximum heart rate greater than 85%) exercise tolerance test 2. Peak exercise ECG with approximately [address] segment depression in leads II, III, aVF, and approximately 0.[address] segment depression in lead V6 with resolution to baseline and recovering 3. Nuclear images pending Myocardial perfusion imaging study: Technique: The patient was injected with 12.0 mci of technetium-99m Cardiolite and subsequently rest SPECT Cardiolite nuclear imaging was obtained in the horizontal long, vertical long, and short axis views. The patient exercised on a Ladarius protocol for 8 minutes completing Stage II and 2 minutes of Stage III achieving a peak heart rate of 155 beats per minute (92% predicted maximal heart rate) with a peak blood pressure was 62/96 mmHg and a peak MET capacity of approximately 9 METS. The patient was injected with 35.3 mci of technetium 99 and Cardiolite and subsequently stress SPECT Cardiolite nuclear imaging was obtained in the horizontal long, vertical long, and short axis views. A gated Cardiolite study at peak stress was obtained. Interpretation: Rest and stress SPECT Cardiolite nuclear imaging status post realignment and normalization demonstrates the appearance of relative uniform tracer uptake at rest and status post stress an area of diminished tracer uptake in portions of the basal inferior septal/basal inferior segments extending to the mid inferior segments. Status post attenuation correction there appears to be relative uniform tracer uptake at rest with the exception of a small area of subtle diminished tracer uptake in the mid anterior segments and status post stress a continued small area of subtle diminished tracer uptake in the mid anterior segments. There is an systolic thickening and broadening. The gated Cardiolite study demonstrates myocardial thickening and normal wall motion. A reported LVEF is 44%. Impression: 1. Rest and stressed by current nuclear imaging demonstrate pre attenuation correction post stress myocardial perfusion changes potentially compatible with an area of stress induced myocardial ischemia involving portions of the basal inferior septal/inferior segments extending to the mid inferior segments. Status post attenuation correction this area appears to improve and/or normalize thus raising the concern of potential shifting soft tissue attenuation/artifact . Sta tus post attenuation correction there is a small area of subtle diminished tracer uptake in the mid anterior segments at both rest and stress without significant change and potentially compensable the effect of soft tissue attenuation/artifact. 2. The gated Cardiolite study reports an LVEF of 44%. CXR: As noted above: Please see official report Assessment/Plan 1. Chest pain The patient experienced chest pain. He does have features concerning for angina pectoris. This is a relatively nonexertional chest pain as he was driving. His chest pain does not appear to be classic with respect to history of pericarditis. He had a d-dimer level performed which was negative. Thus making it less likely that this is thromboembolic disease. There is a possibility that he could have underlying musculoskeletal discomfort related to his work. However at the present time he does have cardiovascular risk factors and he has now had an abnormal stress nuclear imaging study. Thus it was felt prudent that the patient undergo further evaluation with diagnostic cardiac catheterization. The procedure and risks were discussed with him and his . They were both agreeable to this approach. In the interim he will continue medical therapy as deemed appropriate. This will include antiplatelet therapy with aspirin and agents such as Brilinta. Other agents can be used as deemed appropriate. 2. Abnormal stress test Patient does have an abnormal stress test as noted above. Again it does raise concerns as to whether or not his stress test represents true myocardial ischemia versus a false examination secondary to shifting soft tissue attenuation/artifact. 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 3. Hypertension He states his blood pressures been described as borderline . He has not been treated for it. However his blood pressure remains elevated he should be considered for antihypertensive therapy. 4. Tobacco use The patient states he has stopped cigarette smoking the past. He states he will do so again based upon this event. Plan: The above was discussed with the patient, spouse, and Dr. Galdamez. This note was generated with [employer] dictation software. It may contain incorrect words, spelling, and punctuation that were not noted in checking the note before signing.
[2018-02-23 13:41] LABS: AST(SGOT) 20 U/L (15-37); Alanine Aminotransfer ALT/SGPT 26 U/L (16-61); Albumin, Serum 3.3 g/dL (3.2-5.0); Alkaline Phosphatase 93 U/L (45-117); Bilirubin, Direct 0.08 mg/dL (0.00-0.30); Cholesterol 111 mg/dL (200); Globulin 3.4 g/dL (2.2-4.2); High Density Lipoprotein 26 mg/dL; Protein, Total 6.7 g/dL (6.4-8.2); Triglycerides 152 mg/dL; Very Low Density Lipoprotein 30 mg/dL (5-40)
--- NOTE | 2018-02-23 14:35 | CL.D_ITS ---
Patient Name: LISA LARSON Study Date: 02/23/2018 Performing: Parag Bowers MD Ht: 70 inches 178 cm : 1965 Wt: 198.7 lbs 90 kg Age: 52 Gender: male BSA: 2.08 PROCEDURE(S) PERFORMED [id number]/LV CLINICAL PROFILE AND INDICATIONS Indications: Suspected CAD Heart Failure: None Stress/Imaging Stress Test w/SPECT MPI: Yes Result: PositiveStress Test with SPECT MPI: Positive Angina Classification Anginal Classification w/in 2 Weeks: CCS III CAD Presentations: Unstable angina. CONCLUSIONS Normal Left Ventricular End Diastolic Pressure Normal LV size, wall motion,and systolic function LVEF: by LV gram 60 % Normal coronary arteries RECOMMENDATIONS Risk factor modification Medical therapy DESCRIPTION OF PROCEDURE The patient arrived to the procedure lab. The risks and benefits of the procedure as well as a full d escription of our services here and current unavailability of surgical backup were fully explained to the patient and/or their significant other prior to the catheterization. The Timeout was completed, verifying the correct patient and procedure. The patient's procedural site was prepped and draped in the usual fashion. Local anesthetic was given subcutaneously to right radial region with Lidocaine 2% . Using a modified Seldinger technique, arterial access was obtained via the right radial artery, a 6 Fr sheath was inserted. Right Coronary Artery selective angiography was performed in multiple views using a 5 Fr. 4.0 [place] catheter. Left Ventriculography was performed in GRAVES projection using a 5 Fr. Pigtail catheter. LV to AO pullback pressures were then recorded.The arterial sheath was pulled and a TR Band was applied for hemostasis CORONARY ANGIOGRAPHY DOMINANCE: Right Dominant LEFT HEART ASSESSMENT Left Ventricular Ejection Fraction: by LV Gram 60 % Normal LV wall motion Normal Left Ventricular End Diastolic Pressure LVEDP: 14 mmHg LEFT MAIN: Angiographically normal LEFT ANTERIOR DECENDING ARTERY: Angiographically normal CIRCUMFLEX ARTERY: Angiographically normal RAMUS: Angiographically normal RIGHT CORONARY ARTERY: Angiographically normal VALVE FINDINGS: Normal Aortic Valve function Normal Mitral Valve function AORTIC ROOT: Angiographically normal COMPLICATIONS No Complications PROCEDURE MEDICATIONS Versed 1 mg IV Fentanyl 50 mcg IV Fentanyl 50 mcg IV Versed 1 mg IV Oxygen: 2 L/min via nasal cannula SUMMARY OF HEMODYNAMIC DATA Time AIR REST ECG 13:35:12 AO 129/84 (105) SA 13:58:47 LV 144/5, 16 14:13:25 LV 146/0, 14 14:13:31 LV 152/0, 18 14:14:34 LV 156/1, 23 14:14:41 LVp 149/0, 19 14:14:46 AOp 154/87 (113) 14:14:51 Signed By Parag Bowers MD On 02/23/2018 14:34:59 Parag Bowers MD
--- NOTE | 2018-02-23 16:03 | PCM.DC ---
- Discharge Diagnoses Current Active Problems: Current Active and Chronic Problems Chest pain (Acute) Essential hypertension (Chronic) Tobacco dependence (Chronic) Abnormal stress test (Acute) You will use the following diet at home:: Cardiac Your food should be the consistency of: Regular Your liquids should be the consistency of: Regular/Thin Discharge Activity: Return to Normal Activity Allergies/Adverse Reactions: Allergies No Known Allergies Allergy (Verified 02/22/18 06:20) Medications to take at Discharge Meloxicam 1 tab PO DAILY 02/22/18 Oxycodone HCl/Acetaminophen [Percocet 5-325] 1 tablet PO BID PRN 02/22/18 Terbinafine HCl 1 tab PO DAILY 02/22/18 Amlodipine [Norvasc] 5 mg PO DAILY #30 tab 02/23/18 Aspirin E.C. [Ecotrin] 81 mg PO DAILY@0800 tablet 02/23/18 The following prescriptions were given: Amlodipine [Norvasc] 5 mg PO DAILY #30 tab Primary Care Physician: Tee Waite MD [Primary Care Provider] - Please follow up with your Primary Care Physician in: 1-2 weeks Test Results: Test results from this visit will be discussed in further detail at your follow-up appointment, if applicable. Please Follow Up With: Parag Bowers MD When: 2 weeks Proposed Discharge Date: 02/23/18
--- NOTE | 2018-02-23 16:06 | DCINST_ITS ---
- Discharge Diagnoses Current Active Problems: Current Active and Chronic Problems Chest pain (Acute) Essential hypertension (Chronic) Tobacco dependence (Chronic) Abnormal stress test (Acute) You will use the following diet at home:: Cardiac Your food should be the consistency of: Regular Your liquids should be the consistency of: Regular/Thin Discharge Activity: Return to Normal Activity Allergies/Adverse Reactions: Allergies No Known Allergies Allergy (Verified 02/22/18 06:20) Medications to take at Discharge Meloxicam 1 tab PO DAILY 02/22/18 Oxycodone HCl/Acetaminophen [Percocet 5-325] 1 tablet PO BID PRN 02/22/18 Terbinafine HCl 1 tab PO DAILY 02/22/18 Amlodipine [Norvasc] 5 mg PO DAILY #30 tab 02/23/18 Aspirin E.C. [Ecotrin] 81 mg PO DAILY@0800 tablet 02/23/18 The following prescriptions were given: Amlodipine [Norvasc] 5 mg PO DAILY #30 tab Primary Care Physician: Tee Waite MD [Primary Care Provider] - Please follow up with your Primary Care Physician in: 1-2 weeks Test Results: Test results from this visit will be discussed in further detail at your follow- up appointment, if applicable. Please Follow Up With: Parag Bowers MD When: 2 weeks Proposed Discharge Date: 02/23/18
[2018-02-23] MEDS: amLODIPine 5 MG Tablet PO (17:03)
--- NOTE | 2018-02-24 12:17 | PCM.DC.SUM ---
Discharge Date and Diagnosis Date of Admission: 02/22/18 Date of Discharge: 02/24/18 - Primary Discharge Diagnosis Atypical chest pain - Secondary Discharge Diagnosis Chronic Problems Essential hypertension (Chronic) Tobacco dependence (Chronic) Hospital Course and Treatment Summary of Care Provided: Patient is a 52-year-old gentleman presented with chest pain 1. Chest pain patient has been placed on a monitored bed did rule out [facility] with serial cardiac enzymes. Patient underwent a nuclear stress test on 02/23/2018 which demonstrated post stress myocardial perfusion changes potentially compatible with an area of stress induced myocardial ischemia involving portions of the basal inferior septal/inferior segments extending to the mid inferior segments.The gated Cardiolite study reports an LVEF of 44%. EF on a 2D echo was 65% consultation placed to cardiology patient was seen by Dr. Bowers who recommended for patient undergo left heart catheterization which was performed on 02/24/2018 which was negative for any hemodynamically significant obstructive lesions. 2. Essential hypertension blood pressure controlled currently managed with diet 3. Tobacco dependence counseled on cessation, offered nicotine patch for tobacco cravings 4. DVT prophylaxis SC Lovenox - Physical Exam General: Well developed Neck: Supple Lungs: Clear to auscultation Cardiovascular: Regular rate, Regular Rhythm Extremities: No clubbing, No cyanosis Neurological: Neuro grossly intact Vital Signs Temp Pulse Resp BP Pulse Ox 98.0 F 71 14 154/88 H 98 02/23/18 16:44 02/23/18 16:44 02/23/18 16:44 02/23/18 16:44 02/23/18 16:44 Oxygen Flow Rate (L/min) 2 Oxygen Delivery Method Room Air Weight: 90.3 kg Body Mass Index (BMI) 28.5 Intake and Output for Last 24 Hours 02/22/18 02/23/18 02/24/18 23:59 23:59 23:59 Intake Total 1040 / 1040 Balance 1040 / 1040 Laboratory Tests Past 24 Hrs 02/23/18 05:15 Total Bilirubin 0.30 Direct Bilirubin 0.08 AST 20 ALT 26 Alkaline Phosphatase 93 Total Protein 6.7 Albumin 3.3 Globulin 3.4 Triglycerides 152 Cholesterol 111 LDL Cholesterol 55 VLDL Cholesterol 30 HDL Cholesterol 26 L Discharge Diet: No Restrictions Discharge Activity: Return to Normal Activity Home Medications: Medications to take at Discharge Meloxicam 1 tab PO DAILY 02/22/18 Oxycodone HCl/Acetaminophen [Percocet 5-325] 1 tablet PO BID PRN 02/22/18 Terbinafine HCl 1 tab PO DAILY 02/22/18 Amlodipine [Norvasc] 5 mg PO DAILY #30 tab 02/23/18 Aspirin E.C. [Ecotrin] 81 mg PO DAILY@0800 tablet 02/23/18 Following Prescrptions Were Given to Patient: Amlodipine [Norvasc] 5 mg PO DAILY #30 tab Primary Care Physician: Tee Waite MD [Primary Care Provider] - Please follow up with your Primary Care Physician in: 1-2 weeks Please Follow Up With: Parag Bowers MD When: 2 weeks Disposition: Home Minutes spent on discharge:: 45 Medical Necessity - Tobacco Use Smoking Status: Current every day smoker Tobacco Use: Cigarettes Meaningful Use Info Meaningful Use Diagnoses (Choose all that apply): None applicable Code Visit OBSV E&M: 38668 Observation care discharge
== END 2018-02-23 16:06 | disposition home or self-care (01) ==
LOC: ED 06:56 → ICU 07:31 → PCU 16:41
PROVIDERS: Internal Medicine Cardiovascular Disease; Admitting Provider Internal Medicine; Emergency Provider Emergency Medicine; Family Provider Family Medicine; PCP Family Medicine; Visit Provider Internal Medicine
DX: R07.89 Other chest pain (principal); R06.02 Shortness of breath; I10 Essential (primary) hypertension; Z79.899 Other long term (current) drug therapy; R94.39 Abnormal result of other cardiovascular function study; F17.210 Nicotine dependence, cigarettes, uncomplicated
CPT/HCPCS: 36415; 71046; 78452; 80048; 80061; 80076; 83735; 84484; 85025; 85027; 85379; 85610; 85730; 93005; 93017; 93306; 93458; 96374; 96375; 99152; 99153; 99218; 99251; 99285; A9500; J7050; Q9967; A4216; C1769; C1894; G0378; G0463; J2405

== ENCOUNTER 2022-06-02 12:18 | Emergency (ER) | payer BC, SELFPAY ==
[2022-06-02] VITALS (16 sets, daily range): BP systolic 56–100; BP diastolic 37–75; PULSE 58–135; RESP 13–23; TEMP 36.3–37.2; O2SAT 95–100; BMI 26.3
--- NOTE | 2022-06-02 12:32 | EX.ED.UPPERE ---
HPI History of Present Illness Chief Complaint: Upper Extremity Injury Narrative Narrative: 57-year-old male here for right arm pain. Patient notes diffuse swelling redness and pain in the right arm that started several days ago. He denies any IV drugs. Denies any recent trauma but does note he had some swelling in the finger for which she tried to drain the area. Patient denies active cancer, being bedridden for greater than 3 days, denies unilateral leg swelling, denies any varicose veins, denies any calf tenderness, denies any edema. Denies major surgery within 12 weeks, recent paralysis, previous DVT. Denies fever, chest pain or shortness of breath. Denies lower extremity swelling. [facility] Medical History (Updated 06/02/22 @ 16:[address] Papi Ricketts DO) HTN (hypertension) Home Medications aspirin 81 mg tablet,delayed release 81 mg PO DAILY@0800 02/23/18 [Rx Last Taken Unknown] lisinopril 20 mg tablet 20 mg PO DAILY 06/02/22 [History Last Taken Unknown] Allergy/AdvReac Type Severity Reaction Status Date / Time No Known Allergies Allergy Verified 06/02/22 12:24 Surgical History S/P cardiac catheterization (~02/23/18) Social History Smoking Status: Current every day smoker tobacco type: cigarettes ROS ROS ED ROS Narrative Constitutional: Denies fever HEENT: Denies sore throat Neck: Denies neck pain Cardiovascular: Denies chest pain, syncope Respiratory: Denies shortness of breath GI: Denies nausea vomiting or abdominal pain : Denies changes in urinary habits Musculoskeletal: Endorses right arm pain Neurologic: Denies numbness weakness or loss of sensation Skin denies rash EXAM Physical Exam Narrative Exam Narrative: Nursing triage notes reviewed, Vital signs reviewed Constitutional: please see mdm HENT: MMM Eyes: Pupils equal round and reactive to light, Extraocular muscles intact Neck: No stridor, no JVD, full neck ROM Lungs: Clear to auscultation, No wheezing or rales. No increased work of breathing, no conversational dyspnea, no accessory muscle use, no nasal flaring. No respiratory distress noted Heart: Regular rate and rhythm, No murmurs, No rubs and No gallops, 2+ distal pulses (radial, femoral, posterior tibial) in all extremities Abdomen: Soft, there is no tenderness, rigidity, rebound or guarding, no obvious peritoneal signs, no palpable pulsatile abdominal masses, no auscultated abdominal bruit : No CVAT Extremities: 2+ pitting edema noted right upper extremity, intact pulses, no obvious bullae, no crepitus however there is diffuse severe tenderness that is out of proportion to exam. Neuro: Intact 5/5 strength with ok sign (median), intact finger abduction (ulnar) intact wrist extension (radial n). Intact sensation in the radial, ulnar, and median nerve distributions. Skin: No rash or lesions noted Const Vital Signs: 06/02/22 12:23 06/02/22 12:27 06/02/22 12:30 Temperature 99 F Temperature Source Temporal Pulse Rate 135 H 97 88 Respiratory Rate 22 H 23 H Blood Pressure 56/44 L 64/37 L 81/53 L Blood Pressure Mean 48 46 62 Pulse Ox 98 Oxygen Delivery Method Room Air MDM MDM MDM Narrative Medical decision making narrative: Chief Complaint: Right arm pain External records reviewed: No recent advanced imaging of the chest, involved extremity. Last ED visit in 2019 for abnormal stress test MDM: Patient was initially hypotensive, tachycardic, tachypneic he was afebrile. Exam with diffuse swelling right upper extremity, no obvious crepitus ability pain was out of proportion to exam. I considered the following differential diagnosis: Right upper extremity cellulitis, necrotizing fasciitis, DVT, sepsis, flexor tenosynovitis I obtained a broad lab and imaging work-up to further elucidate etiology of his complaints. Gave the patient least 30 cc/kg bolus. He was started on broad-spectrum antibiotics after lactate and blood cultures were drawn. I obtained a right upper extremity duplex ultrasound to rule out DVT. I obtained an x-ray of the right hand rule out foreign body or signs of gas producing organism. X-ray without evidence of osteomyelitic changes, subcutaneous gas. Ultrasound showed no evidence of DVT. Patient was given broad-spectrum antibiotics. Patient also had concerning signs of severe acute kidney injury, hyperbilirubinemia, marked leukocytosis. Patient's LRINEC score is elevated which is concerning for necrotizing fasciitis. Exam also concerning for flexor tenosynovitis repeat exam shows improvement of patient symptomatology. Improvement in blood pressure. Maps greater than 65. Patient does not require pressors at this time. I did discuss with our hospitalist here admission however Dr. Guerrier recommended transfer to higher level of care given lack of hand surgical availability. I discussed the case with Dr. Hinds (orthopedic surgeon at [facility]) who recommended immediate transfer. Discussed with the ED attending physician Dr. Joseph who also accepted the case. Factors affecting care: History of hypertension, tobacco abuse chest pain abnormal stress test Social determinants of health: Every day smoker History obtained from others: Shared decision making: I will have a discussion with the patient and or visitors regarding risk/benefits of further testing or admission. They will be made aware of of the risk/benefits inherent in this decision they will be given the opportunity to voice understanding. Consults: Internal medicine, orthopedic surgery, emergency medicine [facility] Lab Data Attestation: I reviewed the patient's lab results. Lab results narrative: Right upper extremity duplex ultrasound showed no evidence of acute DVT EKG with normal sinus rhythm, normal axis, normal intervals, no obvious STEMI pattern X-ray of the right hand without foreign body, osteomyelitic changes CBC with marked leukocytosis suggestive of systemic inflammation, no anemia or thrombocytopenia noted BMP with hyponatremia, no anion gap, creatinine of 5.53. LFTs with hyperbilirubinemia CK elevated however not consistent with rhabdomyolysis CRP grossly elevated consistent with systemic inflammation Lactate elevated consistent with endorgan hypoperfusion Radiography Chest X-Ray - ED: Read by ED Physician Diagnostic Testing: I have personally reviewed the patient's chest x-ray. Chest x-ray is unremarkable for pulmonary edema, pneumothorax, pneumonia or focal cardiopulmonary abnormality. Critical Care Time Critical Care Time: Yes Critical care time (excluding procedures): 30-74 minutes, Discussing w/Patient &/or Family/Group Segment Consultant, Arranging Admission or Transfer and Performing Direct Patient Care at Bedside Discharge Plan Triage Chief Complaint: Upper Extremity Injury ED Provider: Papi Ricketts Dx/Rx/DC Orders Clinical Impression: Sepsis, Cellulitis, Acute hypotension, Acute renal failure Prescriptions: No Action aspirin 81 MG tablet 81 mg PO DAILY@0800 0RF lisinopril 20 mg tablet 20 mg PO DAILY Label Comments: take 1 tablet by mouth once daily Primary Care Provider: Tee Waite Referrals: Tee Waite MD [Primary Care Provider] -
--- NOTE | 2022-06-02 12:44 | EKG12_ITS ---
Test Reason : DIZZY Blood Pressure : / mmHG Vent. Rate : 092 BPM Atrial Rate : 092 BPM P-R Int : 128 ms QRS Dur : 090 ms QT Int : 314 ms P-R-T Axes : 077 064 060 degrees QTc Int : 388 ms Normal sinus rhythm Possible Left atrial enlargement Borderline ECG Confirmed by HEATH COCHRAN, KHANH ([id number]), technical writer and editor JESSICA BINGHAM ([id number]) on 06/05/2022 9:18:44 AM Referred By: BB Confirmed By:KHANH JOE MD
--- NOTE | 2022-06-02 12:45 | VDUE_ITS ---
Reason For Study: RUE swelling Right Proximal Right jugular vein is spontaneous, widely patent, phasic, with no intraluminal echogenicity noted. Right subclavian vein is spontaneous, widely patent, phasic, with no intraluminal echogenicity noted. Right Lower Arm Right radial vein is compressible. Right ulnar vein is compressible. Right Arm Right axillary vein is spontaneous, patent, phasic, competent, compressible and demonstrates augmentation. Right brachial vein is compressible. Right cephalic vein is compressible. Right basilic vein is compressible. Patient Safety Technically difficult study. PT had DIFFICULTY toloerating touch and compressions. Any touch caused pain. Dr. Ricketts in ED notified at 2;07 pm. VL/Venous Duplex US, Unilateral Interpretation Summary Deep veins of the right upper extremity are patent and compressible segmentally . There is no evidence of deep vein thrombosis. Superficial veins of the right upper extremity are patent and compressible segm entally. There is no evidence of superficial vein thrombosis. Ordering Physician: Papi Ricketts Referring Physician: Tee Waite Performed By: Yumiko Monique, EDMUNDO, RVT ???
--- NOTE | 2022-06-02 12:45 | RAD_ITS ---
STUDY: X-RAY - RIGHT HAND REASON FOR EXAM: Male, 57 years old. Right hand pain, swelling. Possible infection. TECHNIQUE: 3 view(s) of the hand. COMPARISON: None. FINDINGS: Normal radiocarpal articulation. Normal distal radioulnar joint. Normal visualized carpal bones. Normal carpal articulations Normal carpometacarpal articulation of the thumb. Normal second through fifth carpometacarpal joints. Normal metacarpi. Normal metacarpophalangeal joint of the thumb. Normal interphalangeal joint of the thumb. Normal proximal and distal phalanges of the thumb. Normal metacarpophalangeal joints of the second through fifth fingers. Flexion deformity of the proximal and distal phalangeal joints. Patient is unable to straighten the fingers. Normal phalanges of the second through fifth fingers. Diffuse soft tissue swelling. RAD/Hand Min 3 Views IMPRESSION: Diffuse soft tissue swelling. Electronically Signed: Basilio Mccallum MD at 13:52 EDT ,
[2022-06-02] MEDS: 0.9% Normal Saline 1,000 ML 3000 ML IV (13:02)
--- NOTE | 2022-06-02 13:04 | RAD_ITS ---
STUDY: X-RAY CHEST REASON FOR EXAM: Male, 57 years old. Hypotension, rule out pneumonia TECHNIQUE: Single AP portable view of the chest. COMPARISON: Comparison is made with prior study dated February 22, 2018. FINDINGS: EKG electrodes are seen. The lungs are clear and expanded. There is no demonstrated pleural abnormality. Normal size heart. Normal mediastinum and corine. Normal visualized pulmonary arteries. Normal visualized aortic arch and descending thoracic aorta. There are degenerative changes of the visualized thoracic spine. Normal visualized ribs, clavicles, and shoulders. There is no demonstrated abnormality of the visualized soft tissue structures of the upper abdomen. RAD/Chest 1 View (Portable) IMPRESSION: No acute abnormality is seen. Electronically Signed: Basilio Mccallum MD at 13:58 EDT ,
[2022-06-02 13:11] LABS: Absolute Neutrophil Count 24.3 X10^3/uL (2.0-7.7); Basophil% 0.4 % (0-1); Eosinophil# 0.19 X10^3/uL; Eosinophils% 0.7 % (0-5); Hematocrit 46.2 % (40-54); Hemoglobin 15.7 g/dL (13.0-16.5); Lymphocyte % 3.9 % (19-41); Mean Corpuscular Hgb 31.6 pg (27.0-32.0); Mean Platelet Vol. 9.8 fl (6.2-12.0); Monocyte# 1.78 X10^3/uL; Monocyte% 6.3 % (0-10); NRBC Flagged by Analyzer 0 % (0-5); Neutrophil # 24.27 X10^3/uL (2.7-7.7); Neutrophil % 85.7 % (47-70); POSITIVE DIFFERENTIAL YES; Platelet Count 358 K/mm3 (150-450); RBC Distribution Width CV 12.5 % (11.6-14.6); RBC Distribution Width SD 42.8 fl (35.1-43.9); Red Blood Count 4.97 M/mm3 (4.6-6.2); White Blood Count 28.3 K/mm3 (4.4-11.0)
[2022-06-02 13:15] LABS: Differential Indicated SCAN CRITERIA MET
[2022-06-02 13:20] LABS: International Normalized Ratio 1.3; Prothrombin Time (Protime)PT. 15.6 SECONDS (11.7-14.9)
[2022-06-02 13:21] LABS: Partial Thromboplast Time 34.6 Seconds (24.1-36.2)
[2022-06-02] MEDS: Ketorolac 15 MG/ML Vial IV (13:27)
[2022-06-02 13:32] LABS: CPK Total, Creatine Kinase 457 U/L (39-308)
[2022-06-02 13:45] LABS: Lactic Acid 2.1 mmol/L (0.4-1.9)
[2022-06-02 13:50] LABS: Erythrocyte Sedimentation Rate 63 mm/hr (0-20)
[2022-06-02 14:04] LABS: ALB/GLOB Ratio 0.6 RATIO (0.9-2.4); AST(SGOT) 25 U/L (15-37); Alanine Aminotransfer ALT/SGPT 25 U/L (16-61); Alkaline Phosphatase 121 U/L (45-117); Anion Gap 8 (5-15); BUN 53 mg/dL (7-18); BUN/Creat Ratio 9.6 RATIO (10-20); Calcium,Total 9.6 mg/dL (8.5-10.1); Chloride 98 mmol/L (98-107); Creatinine, Serum 5.53 mg/dL (0.70-1.30); EST Glomerular Filtration Rate 11 mL/min (>60); Est Glom Filt Rate - Afr Amer 14 mL/min (>60); Estimated Creatinine Clearance 16.18 ml/min; Globulin 4.8 g/dL (2.2-4.2); Glucose 106 mg/dL (74-106); Potassium 3.8 mmol/L (3.5-5.1); Protein, Total 7.8 g/dL (6.4-8.2); Sodium Level 129 mmol/L (136-145)
[2022-06-02] MEDS: Morphine 4 MG/ML Syringe IV (15:12)
--- NOTE | 2022-06-02 16:00 | PCM.HOSP.N ---
Hospitalist Note Paged regarding admission for Mr. Carter. Obtain checkout, reviewed chart and then went to evaluate patient. Given the severity of his restriction mobility with fairly rapid progression and severe sepsis with continued borderline blood pressures feel he needs to be evaluated at a facility with a dedicated hand surgeon available. Discussed with Dr. Ricketts, he is going to inquire about transfer to tertiary facility
--- NOTE | 2022-06-02 16:30 | NURSING ---
[facility] WAS CALLED TO TRANSPORT PATIENT TO [facility]-- ETA GIVEN WAS 90 MINUTES SO AN 1800 ETA
[2022-06-02 17:04] LABS: Reflex Lactate? Y
--- NOTE | 2022-06-02 17:59 | NURSING ---
CALLED FOR AN UPDATED ETA FROM [facility] NEW ETA IS 190
[2022-06-02 18:11] LABS: Lactic Acid 1.3 mmol/L (0.4-1.9)
[2022-06-02] MEDS: 0.9% Normal Saline 1,000 ML 999 ML IV (18:15)
--- NOTE | 2022-06-02 18:22 | ED.RN ---
PER AMANDA, NURSING CEREAL POPPER, A CENTRAL LINE IS INDICATED FOR LEVOPHED. PER DR. CHILDRESS, WE WILL NOT BE DOING A CENTRAL LINE. RUN PERIPHERALLY.
[2022-06-02 18:24] LABS: Mucous, Urine 0 SEEN /hpf (<or=2+)
[2022-06-02 18:32] LABS: Color, Urine Yellow (Yellow); Glucose, Dipstick Normal (Normal); Ketone-Dipstick 5 mg/dl (Negative); Leukocyte Esterase-Dipstick 25 /ul (Negative); Nitrite-Dipstick Negative (Negative); Occult Blood-Urine 50 /ul (Negative); Protein-Dipstick 30 mg/dl (Negative); Specific Gravity, Urine 1.025 (1.002-1.030); Urine Clarity Cloudy (Clear); Urine Urobilinogen 1 mg/dl (Normal)
--- NOTE | 2022-06-02 18:52 | EX.ED.UPPERE ---
HPI History of Present Illness Chief Complaint: Upper Extremity Injury [facility] Medical History (Updated 06/02/22 @ 16:[address] Papi Ricketts, DO) HTN (hypertension) Home Medications aspirin 81 mg tablet,delayed release 81 mg PO DAILY@0800 02/23/18 [Rx Last Taken Unknown] lisinopril 20 mg tablet 20 mg PO DAILY 06/02/22 [History Last Taken Unknown] Allergy/AdvReac Type Severity Reaction Status Date / Time No Known Allergies Allergy Verified 06/02/22 12:24 Surgical History S/P cardiac catheterization (~02/23/18) Social History Smoking Status: Current every day smoker tobacco type: cigarettes EXAM Physical Exam Const Vital Signs: 06/02/22 12:23 06/02/22 12:27 06/02/22 12:30 Temperature 99 F Temperature Source Temporal Pulse Rate 135 H 97 88 Respiratory Rate 22 H 23 H Blood Pressure 56/44 L 64/37 L 81/53 L Blood Pressure Mean 48 46 62 Pulse Ox 98 Oxygen Delivery Method Room Air 06/02/22 13:03 06/02/22 13:05 06/02/22 13:24 Temperature 97.7 F L Temperature Source Oral Pulse Rate 85 88 Respiratory Rate 16 18 Blood Pressure 98/70 98/72 Blood Pressure Mean 79 80 Pulse Ox 98 97 Oxygen Delivery Method Room Air Room Air Room Air 06/02/22 14:00 06/02/22 14:27 06/02/22 14:42 Temperature 97.8 F 98 F Temperature Source Temporal Temporal Pulse Rate 87 87 86 Respiratory Rate 17 16 19 H Blood Pressure 93/72 98/61 93/63 Blood Pressure Mean 79 73 73 Pulse Ox 98 100 100 Oxygen Delivery Method Room Air Room Air Room Air 06/02/22 14:57 06/02/22 15:12 06/02/22 16:42 Temperature 98 F 98 F 97.3 F L Temperature Source Temporal Temporal Temporal Pulse Rate 86 86 92 Respiratory Rate 13 15 13 Blood Pressure 87/61 L 100/62 87/67 L Blood Pressure Mean 69 74 73 Pulse Ox 100 100 99 Oxygen Delivery Method Room Air Room Air Room Air 06/02/22 17:00 06/02/22 18:00 06/02/22 18:27 Temperature Temperature Source Pulse Rate 77 89 78 Respiratory Rate 14 16 13 Blood Pressure 86/62 L 84/59 L 92/57 L Blood Pressure Mean 70 67 68 Pulse Ox 100 100 100 Oxygen Delivery Method Room Air Room Air 06/02/22 18:48 Temperature Temperature Source Pulse Rate 58 L Respiratory Rate 18 Blood Pressure 100/74 Blood Pressure Mean 82 Pulse Ox 95 Oxygen Delivery Method MDM MDM MDM Narrative Medical decision making narrative: Patient is being transferred to [facility]. Nurse came to tell me that the patient was just had peripheral levo ordered. They will need central line to be placed. I explained we can initiate levo on a peripheral IV initially. I went to see the patient. He actually looks shockingly good. He is pleasant he is got good color he immediately wakes up and talks. He is joking with me. We talked about putting in a central line. He states he does not even want to go to [place]. He would prefer not having that. He actually seems to have good perfusion throughout. He states he has had something similar to this happen to a knee and ankle over the last few months. I explained that he does have a high white count signs of infection signs of dehydration and he needs to be in the hospital. He states he really did not eat or drink much for couple days. He had fevers at home and was sweating. He feels dehydrated but is feeling a lot better with IV fluids. He states he had not urinated for almost 2 days. He is now starting to urinate. His lactate is also come down. He is being given more fluids as his creatinine is significantly high at 5-1/2. I think we can hold off on the central line per his wishes. We will get him some more fluids and reassess him. With more fluids, his blood pressure came up to 100/74. This patient has shown improvement in blood pressure, decrease in heart rate, improvement in lactate, is awake alert appropriate and nontoxic in appearance. At this point our Levophed is not running. I do not think he needs a central line. Lab Data Labs: Laboratory Results - last 24 hr 06/02/22 06/02/22 06/02/22 12:55 12:55 12:55 WBC 28.3 H RBC 4.97 Hgb 15.7 Hct 46.2 MCV 93.0 MCH 31.6 MCHC 34.0 RDW Std Deviation 42.8 RDW Coeff of Li 12.5 Plt Count 358 MPV 9.8 Immature Gran % (Auto) 3.000 H Neut % (Auto) 85.7 H Lymph % (Auto) 3.9 L [place] % (Auto) 6.3 Eos % (Auto) 0.7 Baso % (Auto) 0.4 Absolute Neuts (auto) 24.3 H Absolute Lymphs (auto) 1.10 Nucleated RBC % 0 Diff Path Review May foll ESR 63 H PT 15.6 H INR 1.3 APTT 34.6 Sodium 129 L Potassium 3.8 Chloride 98 Carbon Dioxide 23.0 Anion Gap 8 BUN 53 H Creatinine 5.53 H Estim Creat Clear Calc 16.18 Est GFR (MDRD) Af Amer 14 L Est GFR (MDRD) Non-Af 11 L BUN/Creatinine Ratio 9.6 L Glucose 106 Lactic Acid Calcium 9.6 Total Bilirubin 1.20 H AST 25 ALT 25 Alkaline Phosphatase 121 H Total Creatine Kinase C-React Prot Ext Range 331.00 H Total Protein 7.8 Albumin 3.0 L Globulin 4.8 H Albumin/Globulin Ratio 0.6 L 06/02/22 06/02/22 06/02/22 12:55 12:55 17:10 WBC RBC Hgb Hct MCV MCH MCHC RDW Std Deviation RDW Coeff of Li Plt Count MPV Immature Gran % (Auto) Neut % (Auto) Lymph % (Auto) [place] % (Auto) Eos % (Auto) Baso % (Auto) Absolute Neuts (auto) Absolute Lymphs (auto) Nucleated RBC % Diff Path Review ESR PT INR APTT Sodium Potassium Chloride Carbon Dioxide Anion Gap BUN Creatinine Estim Creat Clear Calc Est GFR (MDRD) Af Amer Est GFR (MDRD) Non-Af BUN/Creatinine Ratio Glucose Lactic Acid 2.1 H* 1.3 Calcium Total Bilirubin AST ALT Alkaline Phosphatase Total Creatine Kinase 457 H C-React Prot Ext Range Total Protein Albumin Globulin Albumin/Globulin Ratio Radiography Diagnostic Testing: Clinical Impression(s) from Imaging Studies Hand X-Ray 06/02/22 12:45 IMPRESSION: Diffuse soft tissue swelling. Electronically Signed: Basilio Mccallum MD at 13:52 EDT , Venous Doppler Study 06/02/22 12:45 Interpretation Summary Deep veins of the right upper extremity are patent and compressible segmentally. There is no evidence of deep vein thrombosis. Superficial veins of the right upper extremity are patent and compressible segmentally. There is no evidence of superficial vein thrombosis. Ordering Physician: Papi Ricketts Referring Physician: Tee Waite Performed By: Yumiko Monique, EDMUNDO, RVT ??? Chest X-Ray 06/02/22 13:04 IMPRESSION: No acute abnormality is seen. Electronically Signed: Basilio Mccallum MD at 13:58 EDT , Discharge Plan Triage Chief Complaint: Upper Extremity Injury ED Provider: Papi Ricketts Dx/Rx/DC Orders Clinical Impression: Sepsis, Cellulitis, Acute hypotension, Acute renal failure Prescriptions: No Action aspirin 81 MG tablet 81 mg PO DAILY@0800 0RF lisinopril 20 mg tablet 20 mg PO DAILY Label Comments: take 1 tablet by mouth once daily Primary Care Provider: Tee aWite Referrals: Tee Waite MD [Primary Care Provider] -
[2022-06-02 19:02] LABS: Urine Bilirubin Dipstick 1 mg/dL (Negative)
[2022-06-02] MEDS: fentaNYL 100 MCG/2 ML Ampul 25 MCG IV (19:08)
[2022-06-02 19:14] LABS: Bacteria RARE /hpf (None Seen); Red Blood Cells-Urine 0-5 SEEN /hpf (0-5); Squamous Epithelial Cells - UA 0-5 SEEN /hpf (0-5); White Blood Cells 0-5 SEEN /hpf (0-5)
--- NOTE | 2022-06-02 19:21 | ED.RN ---
REPORT CALLED TO [facility] RELEASE MANAGER NURSE.
[2022-06-03 12:53] LABS: Pathologist Review Reviewed
== END 2022-06-02 19:23 | disposition short-term general hospital (02) ==
PROVIDERS: Emergency Provider Emergency Medicine; PCP Family Medicine; Visit Provider Emergency Medicine
DX: A41.9 Sepsis, unspecified organism (principal); N17.9 Acute kidney failure, unspecified; R65.20 Severe sepsis without septic shock; I10 Essential (primary) hypertension; F17.210 Nicotine dependence, cigarettes, uncomplicated; M79.601 Pain in right arm; L03.90 Cellulitis, unspecified; Z79.82 Long term (current) use of aspirin
CPT/HCPCS: 71045; 73120; 73130; 80053; 81001; 82550; 83605; 85025; 85610; 85652; 85730; 86140; 87040; 87086; 93005; 93971; 96365; 96366; 96367; 96374; 99285; J7030; J7040; J7050; A4216

== ENCOUNTER 2022-09-05 11:00 | Outpatient (RCR) | payer BC, SELFPAY ==
--- NOTE | 2022-08-18 14:18 | HP.OTEVAL ---
Patient's Visit Information Visit Information Visit Information: LISA LARSON is a 57 year old M, referred to Occupational Therapy by BHARATHI CHOWDARY MD, with a diagnosis of . Date of Evaluation: 07/28/22 Occupational Therapist: Alissa Booker Subjective Subjective: Pt presents with 2 surgeries on R forearm due to infection. Pt had cut on his R finger and then swelling happened in L hand and rushed to ER d/t infection. He's had several issues with swelling in multiple extremities that have led to swelling other places. Surgery was approx 6-7 weeks ago. No restrictions on motion per doctors orders. Pt is R hand dominant. Pt recently got PIC line removed d/t having antibiotics daily. 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 Pt is off work currently due to injury. is home with him. He can now button pants and don pants independently. Can do grooming tasks but difficult. Pain R wrist/hand: Current Pain Intensity: 5 Pain Intensity Range: 4 and 10 Objective Objective/Observation: Pt with increased pain during PROM/AAROM to wrist, forearm, fingers. Pt c/o shocking pain sensation with PROM WF along dorsal hand. Pt with increased difficulty to complete 9HPT d/t issue with sensation and coordination. ROM Shoulder: WFL Elbow: WFL Forearm: WFL Wrist: L WF 65, L WE 55; R WF 20, R WE 30; L RD 15, L UD 25; R RD 10, R UD 10 Radial Abduction: L -20/65, R -20/55 Palmar Abduction: L -20/60, R -20/45 MP: R D2 -15/37, D3 -18/49, D4 -18/37, D5 -15/35 PIP: R D2 -30/67, D3 -33/72, D4 -40/75, D5 -34/72 DIP: R D2 -10/32, D3 -7/40, D4 -8/40, D5 -8/40 ROM Comments: GONSALES: R D2 80, D3 94, D4 86, D5 90 GONSALES: L D2 246, D3 249, D4 239, D5 253 Nine Hole Peg Right: 32 Left: 27 Quick DASH-Disab of Arm,Shoulder& Hand Quick DASH Score: 72.7250 Goals Goal:: Pt to demo increased R head tennis professional strength by 20# for improved use of dominant hand to lift objects with a mass grasp to complete functional tasks at home. Goal:: Pt to demo improved WE/WF by 20'/30' respectively in order to use dominant hand to complete dressing and grooming tasks with greater ease/indep and decreased pain. Goal:: Pt to demo decreased overall average pain to no more than 4/10 in order to increase compliance and participation in HEP Goal:: Pt to demo improved FMC in dominant hand in order to manipulate small objects to complete functional tasks by decreased 9HPT time of 4 seconds without drops. Goal:: Pt to demo overall decreased swelling in R digits/hand in order to improve participation in daily HEP and to decrease overall pain. Goal:: Pt to demo improved GONSALES of R MP D2-5 by 30' each digit in order to improve grasp patterns on all ADL objects. Rehabilitation General Assessment: Pt presenting with cellulitis in RUE with s/p surgery to dorsal R forearm/hand. Pt with severe limitations in ROM and head tennis professional strength on affected side compared to left. Pt is right hand dominant and has difficulty completing all tasks at home. Pt ed on importance of edema control with HEP for retrograde massage and AROM exercises. Pt would benefit from skilled OT services in OP setting x3/week for 4 weeks to reassess at that time for progress made and any POC modifications. Rehabilitation Potential: Good Anticipated Interventions Anticipated Interventions: A/AAROM/PROM, Strengthening, Edema Control, Scar Care, Massage, Desensitization, Modalities, Fine Motor Coord/Cameron, Neuro Reeducation, Sensory Stimulation and Home Program Visit Plan Frequency: 3x /Week Duration: 4 Weeks General Plan: Pt would benefit from skilled OT services 3x/week for 4 weeks for initial POC to address ROM, strength, edema, pain, and sensation to improve overall indep in ADL/IADL/work tasks. TEXT: Thank you for the opportunity to evaluate your patient. For Medicare and Medicare HMO plans, please review the plan of care and approve it. It will need to be FAXED BACK to us at [phone] for Medicare purposes. Please let me know if there are questions or concerns regarding this plan of care. Physician Signature: Date:
--- NOTE | 2022-09-08 09:01 | OTREVAL_ITS ---
Re-Evaluation Intro: BHARATHI CHOWDARY MD, It has been my pleasure to treat LISA LARSON over the last 13 visits for . Please see the progress note below for an update on the occupational therapy plan of care! Subjective Subjective: Pt arrives to appointment on time with compression glove. Pt reports he did a lot of work yesterday and am really sore this date. Pt reports that he needs to go back to work. Pt states he is returning to [employer] early Sep. in hopes to be released to work. 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 pt unsure if he will be able to tolerate shifting but states he needs the income. Objective Objective/Function: Banquet Cook strength R 31# L 89# Lateral pinch strength R 18# L 24# Tripod pinch strength R 16# L 19# Wrist at Eval 30/20 Current 45/15 MP Prior IF -15/37 MF -18/49 RF -18/37 LF -15/37 Current IF -11/45 MF -20/30 RF -20/50 LF -9/60 PIP Prior IF -30/67 MF -33/72 RF -40/75 LF -34/72 Current IF -35/69 MF -40/79 RF -45/86 LF -40/75 DIP Prior IF -10/32 MF -7/40 RF -8/40 LF -8/40 Current IF -13/35 MF -10/50 RF -14/57 LF -15/60 9HPT: Current R 27 Prior 32 pt demo with scar adhesions limit gains in ROM of wrist/digits due to limited ability to flatten hand pt was approached that a split would help prevent fisting at night and give light stretch- pt was not receptive. Plan Plan Frequency: 3x /Week Duration: 4 Weeks Visits in this POC: 14 Plan: Patient has been seen for 13 skilled OT visits for right hand and wrist infection. Pt made minimal improvements with ROM, scar management. pt continues to struggle with hypersensitivity on dorsal side of hand and forearm limiting ability to tolerate pressure. Due to limited gains question pts follow through with his HEP of PROM, AAROM, Place and hold, scar massage and edema mtg. Pt consistently states that pain medication is what he needs and would help and is insisting that he needs to return back to work. Pt made some gains today with approach of stretching post paraffin bath to increased circulation. Pt would benefit from further skilled OT treatment for 1-2x a week for 4 weeks to monitor progress and continue stretching and desensitization as pt returns back to work. 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 Goal:: Pt to demo improved WE/WF by 20'/30' respectively in order to use dominant hand to complete dressing and grooming tasks with greater ease/indep and decreased pain. Goal:: Pt to demo decreased overall average pain to no more than 4/10 in order to increase compliance and participation in HEP Goal:: Pt to demo improved FMC in dominant hand in order to manipulate small objects to complete functional tasks by decreased 9HPT time of 4 seconds without drops. Goal:: Pt to demo overall decreased swelling in R digits/hand in order to improve participation in daily HEP and to decrease overall pain. Goal:: Pt to demo improved GONSALES of R MP D2-5 by 30' each digit in order to improve grasp patterns on all ADL objects. Anticipated Interventions Anticipated Interventions Anticipated Interventions: A/AAROM/PROM, Strengthening, Edema Control, Scar Care , Massage, Desensitization, Modalities, Fine Motor Coord/Cameron, Neuro Reeducation, Sensory Stimulation and Home Program Re-Evaluation Ending Re-evaluation ending: Please do not hesitate to contact me at [phone] by phone or if you have questions or concerns regarding this new plan of care! Sincerely, Ro Merida, OTR/L, CHT
--- NOTE | 2023-01-21 07:45 | HP.OT.NRP ---
Patient Information Patient Information: LISA LARSON was seen in my office for initial evaluation on 07/28/22. The following Plan of Care was established for this patient: POC Established Initial Frequency: 3x /Week Initial Duration: 4 Weeks Plan: Patient has been seen for 13 skilled OT visits for right hand and wrist infection. Pt made minimal improvements with ROM, scar management. pt continues to struggle with hypersensitivity on dorsal side of hand and forearm limiting ability to tolerate pressure. Due to limited gains question pts follow through with his HEP of PROM, AAROM, Place and hold, scar massage and edema mtg. Pt consistently states that pain medication is what he needs and would help and is insisting that he needs to return back to work. Pt made some gains today with approach of stretching post paraffin bath to increased circulation. Pt would benefit from further skilled OT treatment for 1-2x a week for 4 weeks to monitor progress and continue stretching and desensitization as pt returns back to work. Anticipated Interventions Anticipated Interventions: A/AAROM/PROM, Strengthening, Edema Control, Scar Care, Massage, Desensitization, Modalities, Fine Motor Coord/Cameron, Neuro Reeducation, Sensory Stimulation and Home Program Last Seen Last Seen: This patient was last seen in our office 09/05/22. Pertinent comments regarding their Occupational therapy will appear below: Pt was seen in OT for 13 sessions. Pt has not scheduled further apts and due to time lapse in services pt is d/c. At this point I will be discontinuing this patient from occupational therapy. I would be happy to see this patient again in the future if found appropriate by the physician. Thank you! Ro Merida, OTR/L, CHT
== END 2022-09-05 19:00 | disposition home or self-care (01) ==
LOC: OT 11:00
PROVIDERS: PCP Family Medicine; Referring Provider Orthopaedic Surgery; Visit Provider Orthopaedic Surgery
DX: L03.113 Cellulitis of right upper limb (principal); M72.6 Necrotizing fasciitis
CPT/HCPCS: 97110; 97140; 97165; 97530

== ENCOUNTER 2022-11-24 10:37 | Emergency (ER) | payer BC, SELFPAY ==
[2022-11-24 10:39] VITALS: BP 153/91; PULSE 93; RESP 16; TEMP 36.3; O2SAT 100; BMI 27.9
--- NOTE | 2022-11-24 10:46 | EX.ED.DYSGE1 ---
HPI History of Present Illness Chief Complaint: Rash Informant: patient Onset/Context/Timing Onset: Days (5) Context: Sudden Onset Timing: Continuous Quality: Itching, burning, sharp Location: Left side Worsened by: Nothing Relieved by: Hot shower Narrative Narrative: Patient presents with painful rash to the left lower back that wraps around to his abdomen. Patient states this has been going on for the last 5 days. Patient states the pain is getting progressively worse. Patient describes his pain as sharp, burning, and itching. Patient states it is over the left side of his abdomen. Patient dates he gets better with a hot shower. Patient denies any fevers or chills. Patient denies any cough. Patient denies any nausea or vomiting. Patient denies any discharge or drainage. [facility] Medical History HTN (hypertension) Home Medications aspirin 81 mg tablet,delayed release 81 mg PO DAILY@0800 02/23/18 [Rx Last Taken Unknown] lisinopril 20 mg tablet 20 mg PO DAILY 06/02/22 [History Last Taken Unknown] hydrocodone-acetaminophen 5-325mg 5mg-325mg 1 tab PO Q6H PRN PRN Pain 3 days #10 TABLETS 11/24/22 [Rx Last Taken Unknown] valacyclovir 1 gram tablet (Valtrex) 1,000 mg PO TID 7 days #21 tabs 11/24/22 [Rx Last Taken Unknown] Allergy/AdvReac Type Severity Reaction Status Date / Time No Known Allergies Allergy Verified 11/24/22 10:40 Surgical History S/P cardiac catheterization (~02/23/18) Social History Smoking Status: Current every day smoker tobacco type: cigarettes ROS ROS ED Constitutional Constitutional ED: Denies chills or fever(s) Eyes Eyes: Denies blurry vision or change in vision ENT ENT ED: Denies rhinorrhea or sore throat Cardiovascular Cardiovascular: Denies chest pain or palpitations Respiratory/Chest Respiratory/Chest: Denies cough or dyspnea Gastrointestinal Gastrointestinal: Denies nausea or vomiting Genitourinary Genitourinary ED: Denies dysuria or hematuria Musculoskeletal Musculoskeletal: Reports back pain; Denies neck pain Integumentary Reports rash; Denies abscess Neurologic Neurologic: Denies headache(s) or weakness Allergic/Immunologic Allergic/Immunologic ED: Denies mouth swelling or urticaria EXAM Physical Exam Const Vital Signs: 11/24/22 10:39 Temperature 97.4 F L Temperature Source Temporal Pulse Rate 93 Respiratory Rate 16 Blood Pressure 153/91 H Blood Pressure Mean 111 Pulse Ox 100 Oxygen Delivery Method Room Air Positive well nourished and well developed General Appearance ED: well developed and NAD HEENT Reports moist mucous membranes Chest Wall inspection of chest normal and palpation of chest normal Resp normal respiratory effort and clear to auscultation bilaterally Cardio regular rate and regular rhythm GI non-tender and non-distended Palpation: soft Extremity normal to inspection Neuro oriented x3, CN's II-XII intact bilaterally and no sensory deficits noted Sensorium / Orientation: alert Motor Exam: strength 5/5 throughout Psych mental status grossly normal Skin Skin Narrative: There is a patchy erythematous macular rash along the left T10 dermatome. There are no vesicles noted. There is no discharge or drainage. There is no crusting noted. There is no petechia noted. There is no involvement of the mucous membranes. There is no sloughing of the skin. There is no involvement of the palms or soles. MDM MDM MDM Narrative Medical decision making narrative: Smoking cessation was discussed. Patient was advised that this is likely varicella-zoster. Patient was given prescription for Valtrex. Patient was given a prescription for a short course of Minong. Patient was instructed to follow-up with his primary care physician in 5 to 7 days. Patient understood and was agreeable with the plan. All questions were answered. Discharge Plan Triage Chief Complaint: Rash ED Provider: Trey Meneses Dx/Rx/DC Orders Clinical Impression: Tobacco dependence, Varicella zoster Instructions: ED Shingles (Herpes Zoster) Prescriptions: New valacyclovir [Valtrex] 1 gram tablet 1,000 mg PO TID 7 Days Qty: 21 0RF hydrocodone-acetaminophen [hydrocodone-acetaminophen] 5-325 mg tablet 1 tab PO Q6H PRN PRN (Reason: Pain) 3 Days Qty: 10 0RF No Action aspirin 81 MG tablet 81 mg PO DAILY@0800 0RF lisinopril 20 mg tablet 20 mg PO DAILY Patient Comments: take 1 tablet by mouth once daily Primary Care Provider: Tee Waite Referrals: Tee Waite MD [Primary Care Provider] - 5-7 Days Disposition Disposition: Home, Self Care
[2022-11-24] MEDS: HYDROcodone Bitartrate/Apap 5/325 Tablet PO (11:06)
[2022-11-24 11:13] VITALS: BP 134/78; PULSE 64; RESP 14; TEMP 36.4; O2SAT 99
== END 2022-11-24 11:16 | disposition home or self-care (01) ==
LOC: ED 11:13
PROVIDERS: Emergency Provider Emergency Medicine; PCP Family Medicine; Visit Provider Emergency Medicine
DX: B02.1 Zoster meningitis (principal); I10 Essential (primary) hypertension; F17.210 Nicotine dependence, cigarettes, uncomplicated
CPT/HCPCS: 99282

== ENCOUNTER 2023-02-16 21:33 | Emergency (ER) | payer BC, SELFPAY ==
[2023-02-16 21:34] VITALS: BP 124/101; PULSE 109; RESP 18; TEMP 35.8; O2SAT 98; BMI 28.2
--- NOTE | 2023-02-16 22:04 | CT_ITS ---
STUDY: CT ABDOMEN AND PELVIS WITH CONTRAST REASON FOR EXAM: Male, 57 years old. LLQ Pain RADIATION DOSAGE (If Supplied By Facility): CTDIvol = ( 14.32 ) mGy, DLP = ( 981.74 ) mGycm TECHNIQUE: Transaxial images were obtained from the dome of the diaphragm to the symphysis pubis without oral contrast. IV 100mL Isovue-370 was administered. Sagittal and coronal images were reconstructed. Individualized dose optimization techniques were used for this CT. COMPARISON: None. FINDINGS: The visualized lung bases are unremarkable. The visualized portions of the heart are within normal limits. Normal liver. Normal gallbladder and extrahepatic biliary system. Normal spleen. Normal pancreas. Normal bilateral adrenal glands. Right lower renal pole simple cyst measuring 2.3 cm. Otherwise normal right kidney. Mild left hydronephrosis and hydroureter with mild periureteral stranding. The left ureter is distended to near the UV junction. The stone measuring 4.5 mm seen located approximately 1.8 cm above the UV junction. Normal visualized stomach. Normal small intestine. Increased fecal debris within the colon, more significant along the descending portion consistent with constipation. The appendix is visualized and appears normal. Normal abdominal aorta. Normal inferior vena cava. Normal retroperitoneum. Normal urinary bladder. Normal abdominal wall. There are diffuse degenerative changes of the visualized lumbar spine. CT/Abdomen/Pelvis W IV Cont ONLY IMPRESSION: Mild left hydronephrosis due to a 4.5 mm stone seen 1.8 cm above the UV junction. Constipation. Right lower renal pole simple cyst as described measuring 2.3 cm with no further follow-up imaging recommended. Electronically Signed: Nuria Ugalde MD at 23:12 EST ,
--- NOTE | 2023-02-16 22:05 | ED.VIS.GI ---
HPI HPI - GI History of Present Illness Chief Complaint: Abd Pain Narrative Narrative: 57-year-old male past medical history of hypertension, chronic pain in his right arm, started on Lyrica recently presents with 3 days of left lower quadrant abdominal pain radiating to the other side. States his pain started on Thursday, lasted all day, then went away Thursday. It came back this morning. He describes it more of his pain, but then it becomes very sharp and stabbing. He denies any previous abdominal surgeries. He states he has not had a bowel movement in the last few days. He tried an enema without relief. He is nauseated but has not vomited. He denies any dysuria or hematuria. No exacerbating or alleviating factors. [facility] Medical History HTN (hypertension) Home Medications aspirin 81 mg tablet,delayed release 81 mg PO DAILY@0800 02/23/18 [Rx Last Taken Unknown] lisinopril 20 mg tablet 20 mg PO DAILY 06/02/22 [History Last Taken Unknown] hydrocodone-acetaminophen 5-325mg 5mg-325mg 1 tab PO Q6H PRN PRN Pain 3 days #10 TABLETS 11/24/22 [Rx Last Taken Unknown] valacyclovir 1 gram tablet (Valtrex) 1,000 mg PO TID 7 days #21 tabs 11/24/22 [Rx Last Taken Unknown] hydrocodone-acetaminophen 5-325mg 5mg-325mg 1 tab PO Q6H PRN PRN Pain 3 days #12 TABLETS 02/17/23 [Rx Last Taken Unknown] ketorolac 10 mg tablet 10 mg PO TID PRN pain 5 days #15 tabs 02/17/23 [Rx Last Taken Unknown] tamsulosin 0.4 mg capsule (Flomax) 0.4 mg PO QHS #10 caps 02/17/23 [Rx Last Taken Unknown] Allergy/AdvReac Type Severity Reaction Status Date / Time No Known Allergies Allergy Verified 02/16/23 21:36 Surgical History S/P cardiac catheterization (~02/23/18) Social History Smoking Status: Current every day smoker tobacco type: cigarettes ROS ROS ED ROS Narrative Constitutional: No fever, no chills. HEENT: No sore throat. No neck pain. No loss of vision. No rhinorrhea. Cardiovascular: No chest pain. No palpitations. No pedal edema. Respiratory: No cough, no shortness of breath. Abdominal: Left lower quadrant abdominal pain. Positive nausea. No vomiting. Patient. Genitourinary: No dysuria. No hematuria. Musculoskeletal: No myalgias. No arthralgias. Neurologic: No headaches. No dizziness. No lightheadedness. Skin: No rash. No change in color. Psychiatric: No depression. No anxiety. EXAM Physical Exam Narrative Exam Narrative: Afebrile. Vital signs noted. HEENT: Normocephalic. Atraumatic. PERRL, EOMI. Neck soft and supple. No point tenderness or step off. Cardiovascular: Regular rate and rhythm. No murmurs, rubs, or gallops appreciated. Respiratory: No tachypnea. Lungs clear to auscultation bilaterally. Gastrointestinal: Abdomen soft, tenderness in left lower quadrant with normoactive bowel sounds. No distention. No rebound or guarding. Neurological: Awake. Alert. Nonfocal, nonlateralizing. Skin: No rash. Normal color. No pallor. Musculoskeletal: No pedal edema. Full range of motion extremities. Const Vital Signs: 02/16/23 21:34 Temperature 96.5 F L Temperature Source Temporal Pulse Rate 109 H Respiratory Rate 18 Blood Pressure 124/101 H Blood Pressure Mean 108 Pulse Ox 98 MDM MDM MDM Narrative Medical decision making narrative: Differential diagnosis would be fecal impaction versus bowel obstruction versus diverticulitis versus colitis. Comprehensive workup was pursued. Patient does have intermittent tachycardia. He will be bolused normal saline 1 L intravenously. He was administered morphine and ondansetron for pain. I do feel that CT imaging with IV contrast is indicated. I reviewed his laboratory work and he has slightly elevated white count of 14.6 which I think is nonspecific, hemoglobin normal at 15.3, platelet count normal at 395. Electrolyte panel shows chloride elevated at 108 with a creatinine of 1.78 and BUN of 21. Previously had a creatinine as high as 5. I do feel that this may be more of a chronic kidney injury. Glucose is appropriately elevated at 105. AST is low at 12 with a normal ALT of 23. Alk phos normal at 113. Lipase normal at 16. Urinalysis is negative for infection with 0 WBCs and 0 RBCs. I do not feel antibiotics are indicated. I reviewed the CT imaging and the radiology report for the CT of the abdomen and pelvis which shows a right renal cyst, but of most significance is a 4.5 mm ureteral stone that is located 1.8 cm above the left ureterovesicular junction. I do feel this is the cause of his pain. Repeat examination after morphine shows him to be improved. He was given an additional dose of Toradol to help with his pain. While I do not feel antibiotics are indicated, I do feel he can be discharged to follow-up with urology. He was referred to Dr. Chong. Return instructions were reviewed. I wrote him prescriptions for [place] although he is in pain management he states he does not have a narcotic contract with pain management. He is only taking Lyrica. He was also given a prescription for Toradol and told not to take his Mobic. I wrote him a prescription for Flomax and informed him of the risk of dizziness as well. Return instructions to the emergency department were reviewed. Disposition is discharged home in stable condition. History & Record Review Discussion w/independent historian: Patient and Family () Additional record(s) reviewed:: Prior labs Lab Data Attestation: I reviewed the patient's lab results. Labs: Laboratory Results - last 24 hr 02/16/23 02/16/23 22:18 23:46 WBC 14.6 H RBC 5.03 Hgb 15.3 Hct 45.0 MCV 89.5 MCH 30.4 MCHC 34.0 RDW Std Deviation 39.7 RDW Coeff of Li 12.2 Plt Count 395 MPV 9.5 Immature Gran % (Auto) 0.300 Neut % (Auto) 68.1 Lymph % (Auto) 20.5 [place] % (Auto) 9.9 Eos % (Auto) 0.8 Baso % (Auto) 0.4 Absolute Neuts (auto) 9.9 H Absolute Lymphs (auto) 2.99 Nucleated RBC % 0 Sodium 137 Potassium 4.2 Chloride 108 H Carbon Dioxide 23.0 Anion Gap 6 BUN 21 H Creatinine 1.78 H Estim Creat Clear Calc 47.28 Est GFR (MDRD) Af Amer 51 L Est GFR (MDRD) Non-Af 42 L BUN/Creatinine Ratio 11.8 Glucose 105 Calcium 9.9 Total Bilirubin 0.60 AST 12 L ALT 23 Alkaline Phosphatase 113 Total Protein 7.3 Albumin 3.4 Globulin 3.9 Albumin/Globulin Ratio 0.9 Lipase 16 Urine Color Yellow Urine Clarity Clear Urine pH 6.0 Ur Specific [place] 1.010 Urine Protein Negative Urine Glucose (UA) Normal Urine Ketones 5 H Urine Occult Blood Negative Urine Nitrite Negative Urine Bilirubin Negative Urine Urobilinogen Normal Ur Leukocyte Esterase Negative Urine RBC 0 SEEN Urine WBC 0 SEEN Ur Squamous Epith Cells 0 SEEN Urine Bacteria 0 SEEN Urine Mucus 0 SEEN Radiography Diagnostic Testing: Clinical Impression(s) from Imaging Studies Abdomen/Pelvis CT 02/16/23 22:04 IMPRESSION: Mild left hydronephrosis due to a 4.5 mm stone seen 1.8 cm above the UV junction. Constipation. Right lower renal pole simple cyst as described measuring 2.3 cm with no further follow-up imaging recommended. Electronically Signed: Nuria Ugalde MD at 23:12 EST Reading Location ID and State: [facility] / [place] , Service support , Discharge Plan Triage Chief Complaint: Abd Pain ED Provider: Terrance Segundo Dx/Rx/DC Orders Clinical Impression: Kidney cysts, Ureterolithiasis Prescriptions: New hydrocodone-acetaminophen 5-325 mg tablet 1 tab PO Q6H PRN PRN (Reason: Pain) 3 Days Qty: 12 0RF tamsulosin [Flomax] 0.4 mg capsule 0.4 mg PO QHS Qty: 10 0RF ketorolac 10 mg tablet 10 mg PO TID PRN (Reason: pain) 5 Days Qty: 15 0RF No Action aspirin 81 MG tablet 81 mg PO DAILY@0800 0RF lisinopril 20 mg tablet 20 mg PO DAILY Patient Comments: take 1 tablet by mouth once daily valacyclovir [Valtrex] 1 gram tablet 1,000 mg PO TID 7 Days Qty: 21 0RF hydrocodone-acetaminophen [hydrocodone-acetaminophen] 5-325 mg tablet 1 tab PO Q6H PRN PRN (Reason: Pain) 3 Days Qty: 10 0RF Primary Care Provider: Tee Waite Referrals: Jeffrey Chong MD [Med Staff - Active Staff] - 3-5 Days Tee Waite MD [Primary Care Provider] - Activity Restrictions/Additional Instructions: Return with fever, intractable pain, new or worsening symptoms. Do not take Mobic with Toradol. Inform your pain management doctor that you are given a prescription for [place] for your ureteral/kidney stone. Disposition Disposition: Home, Self Care
[2023-02-16] MEDS: Morphine 4 MG/ML Syringe IV (22:18)
[2023-02-16] MEDS: Ondansetron 4 MG/2 ML Vial IV (22:18)
[2023-02-16] MEDS: 0.9% Normal Saline (1000mL) 1,000 ML 1000 ML IV (22:18)
[2023-02-16 22:25] LABS: Absolute Lymphocyte Count 2.99 X10^3/uL (0.83-4.51); Absolute Neutrophil Count 9.9 X10^3/uL (2.0-7.7); Basophil# 0.06 X10^3/uL; Basophil% 0.4 % (0-1); Eosinophil# 0.11 X10^3/uL; Eosinophils% 0.8 % (0-5); Hemoglobin 15.3 g/dL (13.0-16.5); Lymphocyte # 2.99 X10^3/ul (0.83-4.51); Lymphocyte % 20.5 % (19-41); Mean Corpuscular Hgb 30.4 pg (27.0-32.0); Mean Corpuscular Volume 89.5 fL (80-94); Mean Platelet Vol. 9.5 fl (6.2-12.0); Monocyte# 1.44 X10^3/uL; Monocyte% 9.9 % (0-10); NRBC Flagged by Analyzer 0 % (0-5); Neutrophil # 9.93 X10^3/uL (2.7-7.7); Neutrophil % 68.1 % (47-70); Platelet Count 395 K/mm3 (150-450); RBC Distribution Width CV 12.2 % (11.6-14.6); RBC Distribution Width SD 39.7 fl (35.1-43.9); Red Blood Count 5.03 M/mm3 (4.6-6.2); White Blood Count 14.6 K/mm3 (4.4-11.0)
--- OUTSIDE RECORDS SUMMARY | 2023-02-16 22:29 | XMS RPT_ITS | CCD ---
Author Name Unknown Address [address] [place] [address] Organization [facility] Care Team Providers Care Podiatric Surgeon Name Role Phone Reyes Waite MD Primary Care Provider Papi Ricketts DO Primary Care Provider Reyes Waite MD Primary Care Provider Papi Ricketts DO Primary Care Provider REYES WAITE Primary Care Unavailable REYES WAITE Attending Unavailable REYES WAITE Primary Care Unavailable ZURI, ELMER Referring Unavailable ZURI, ELMER Referring Unavailable REYES WAITE Primary Care Unavailable ZURI, ELMER Attending Unavailable REYES WAITE Primary Care Unavailable CHAPARRO GRESHAM Attending Unavailab le REYES WAITE Primary Care Unavailable ZURI, ELMER Attending Unavailable REYES WAITE Primary Care Unavailable REYES WAITE Primary Care Unavailable ZURI, ELMER Referring Unavailable REYES WAITE Primary Care Unavailable ZURI, ELMER Attending Unavailable NISA, PAPI Primary Care Unavailable KODAKANDLA, NARSIMHA KELLER Admitting Unava ilable RY FOSTER Attending Unavailable JERRY BELTRAN Consulting Unavailable FERNANDO WRIGHT Attending Unavailable BHARATHI AYALA Referring Unavailable NISA, PAPI Primary Care Unavailable BHARATHI AYALA Attending Unavailable NISA, PAPI Primary Care Unavailable SEAN GREEN Attending Unavailable NISA, PAPI Primary Care Unavailable BHRAATHI AYALA Attending Unavailable NISA, PAPI Primary Care Unavailable SEAN GREEN Attending Unavailable NISA, PAPI Primary Care Unavailable BHARATHI AYALA Attending Unavailable NISA, PAPI Primary Care Unavailable BHARATHI AYALA Attending Unavailable NISA, PAPI Primary Care Unavailable SEAN GREEN Attending Unavailable NISA, PAPI Primary Care Unavailable BHARATHI AYALA Attending Unavailable NISA, PAPI Primary Care Unavailable BHARATHI AYALA Attending Unavailable NISA, PAPI Primary Care Unavailable Allergies Allergy Classification Reported Allergen(s) Allergy Type Date of Onset Reaction(s) Facility (8 sources) Naproxen; Translations: [NAPROXEN] Drug Allergy 04-18-2019 GI Upset [facility] Medications Current Medications Medication Drug Class(es) Dates Sig (Normalized) Sig (Original) amitriptyline hydrochloride 10 mg oral tablet (1 source) Tricyclic Antidepressant Start: 11-28-2022 End: 12-28-2022 take 1 tablet by mouth once daily at bedtime amitriptyline (ELAVIL) 10 mg tablet Take 1 tablet by mouth daily at bedtime. 30 tablet 0 11/28/2022 12/28/2022 Active Completed/Discontinued Medications Medication Drug Class(es) Dates Sig (Normalized) Sig (Original) acetaminophen 325 mg oral tablet (2 sources) Start: 06-03-2022 End: 06-08-2022 take 1 tablet by mouth every four hours acetaminophen (Tylenol) tablet 650 mg aluminum hydroxide 40 mg/ml / magnesium hydroxide 40 mg/ml / simethicone 4 mg/ml oral suspension (2 sources) Start: 06-06-2022 End: 06-08-2022 take 20 mL by mouth every six hours as needed for gastroesophageal reflux disease aluminum & magnesium hydroxide-simethic one (Mylanta) 200-200-20 MG/5ML oral suspension 20 mL aspirin 81 mg delayed release oral tablet (18 sources) Platelet Aggregation Inhibitor, Nonsteroidal Anti-inflammatory Drug Start: 02-18-2022 End: 09-25-2022 take 2 tablets by mouth once daily aspirin, enteric coated (ASPIRIN, ENTERIC COATED) 81 mg EC tablet Take 2 tablets by mouth once daily. 0 02/18/2022 Active Problems Active Problems Problem Classification Problem Date Documented Da te Episodic/Chronic Anxiety disorders (7 sources) Anxiety; Translations: [Anxiety disorder, unspecified] Onset: 08-27-2018 08-27-2018 Chronic Essential hypertension (20 sources) Essential hypertension; Translations: [Essential (primary) hypertension] Onset: 04-22-2018 04-22-2018 Chronic Miscellaneous mental health disorders (7 sources) Chronic insomnia; Translations: [Psychophysiologic insomnia] Onset: 04-07-2017 04-07-2017 Chronic Other connective tissue disease (1 source) Tendonitis of right patellar tendon; Translations: [Patellar tendinitis, right knee] Episodic Other connective tissue disease (1 source) Chronic pain of right upper limb; Translations: [Pain in right arm] 09-25-2022 Episodic Other connective tissue disease (2 sources) Pain in right arm; Translations: [Pain in right arm] Onset: 01-13-2023 Episodic Other nervous system disorders (2 sources) Other chronic pain; Translations: [Other chronic pain] Onset: 01-13-2023 Chronic Substance-related disorders (7 sources) Smoker; Translations: [Nicotine dependence, unspecified, uncomplicated] Onset: 04-07-2017 04-07-2017 Chronic Viral infection (1 source) Herpes zoster without complication; Translations: [Zoster without complications] 11-28-2022 Episodic Past or Other Problems Problem Classification Problem Date Documented Da te Episodic/Chronic Acute and unspecified renal failure (4 sources) Acute injury of kidney; Translations: [Acute kidney failure, unspecified] Onset: 06-02-2022 Episodic Fluid and electrolyte disorders (2 sources) Hyperkalemia; Translations: [Hyperkalemia] Onset: 03-06-2022 Episodic Other aftercare (8 sources) Patient encounter status; Translations: [Encounter for therapeutic drug level monitoring] Onset: 12-31-2016 12-31-2016 Episodic Other connective tissue disease (6 sources) Myofascial pain syndrome of lumbar spine; Translations: [Myalgia, other site] Onset: 05-15-2021 05-15-2021 Episodic Other connective tissue disease (20 sources) Necrotizing fasciitis; Translations: [Necrotizing fasciitis] Onset: 06-02-2022 Episodic Other connective tissue disease (1 source) Necrotizing fasciitis; Translations: [Necrotizing fasciitis (HCC)] Onset: 06-03-2022 Episodic Other non-traumatic joint disorders (7 sources) Pain in right knee; Translations: [Pain in joint, lower leg] Onset: 01-19-2017 01-19-2017 Episodic Other non-traumatic joint disorders (1 source) Pain in left ankle and joints of left foot; Translations: [Acute left ankle pain] Onset: 05-26-2022 Episodic Other screening for suspected conditions (not mental disorders or infectious disease) (1 source) Encounter for screening for malignant neoplasm of prostate; Translations: [Screening for prostate cancer] Onset: 02-18-2022 Episodic Skin and subcutaneous tissue infections (20 sources) Cellulitis of skin; Translations: [Cellulitis, unspecified] Onset: 06-02-2022 Episodic Spondylosis; intervertebral disc disorders; other back problems (20 sources) Lumbago with sciatica; Translations: [Lumbago with sciatica, right side] Onset: 12-31-2016 Episodic Sprains and strains (7 sources) Shoulder strain; Translations: [Strain of unspecified muscle, fascia and tendon at shoulder and upper arm level, left arm, initial encounter] Onset: 03-26-2016 03-26-2016 Episodic Superficial injury; contusion (7 sources) Contusion of left shoulder; Translations: [Contusion of left shoulder, initial encounter] Onset: 03-26-2016 03-26-2016 Episodic Results Test Name Value Interpretation Reference Range Facil ity Vital Signs Date Time Vital Sign Value Performing Clinician Faci lity 11-28-2022 10:22-0400 Body temperature 97.5 [degF] Chaparro Gresham MD Work Phone: [facility] 11-28-2022 10:22-0400 Diastolic blood pressure 76 mm[Hg] Chaparro Gresham MD Work Phone: [facility] 11-28-2022 10:22-0400 Heart rate 104 /min Chaparro Gresham MD Work Phone: [facility] 11-28-2022 10:22-0400 Respiratory rate 18 /min Chaparro Gresham MD Work Phone: [facility] 11-28-2022 10:22-0400 SaO2% (BldA) [Mass fraction] 96 % Chaparro Gresham MD Work Phone: [facility] 11-28-2022 10:22-0400 Systolic blood pressure 130 mm[Hg] Chaparro Gresham MD Work Phone: [facility] 09-25-2022 10:15-0400 Body height 177.8 cm Bharathi Ayala MD Work Phone: [facility] [facility] 09-25-2022 10:15-0400 Body mass index (BMI) [Ratio] 27.98 kg/m2 Bharathi Ayala MD Work Phone: [facility] 09-25-2022 10:15-0400 Body weight 88.45 kg Bharathi Ayala MD Work Phone: [facility] 09-25-2022 10:15-0400 Diastolic blood pressure 68 mm[Hg] Bharathi Ayala MD Work Phone: [facility] 09-25-2022 10:15-0400 Systolic blood pressure 120 mm[Hg] Bharathi Ayala MD Work Phone: [facility] 07-24-2022 09:55-0400 Body height 177.8 cm Bharathi Ayala MD Work Phone: [facility] 07-24-2022 09:55-0400 Body mass index (BMI) [Ratio] 27.26 kg/m2 Bharathi Ayala MD Work Phone: [facility] 07-24-2022 09:55-0400 Body weight 86.18 kg Bharathi Ayala MD Work Phone: [facility] 07-24-2022 09:55-0400 Diastolic blood pressure 72 mm[Hg] Bharathi Ayala MD Work Phone: [facility] 07-24-2022 09:55-0400 Systolic blood pressure 114 mm[Hg] Bharathi Ayala MD Work Phone: [facility] 06-19-2022 10:05-0400 Body height 177.8 cm Bharathi Ayala MD Work Phone: [facility] 06-19-2022 10:05-0400 Body mass index (BMI) [Ratio] 27.41 kg/m2 Bharathi Ayala MD Work Phone: [facility] 06-19-2022 10:05-0400 Body weight 86.64 kg Bharathi Ayala MD Work Phone: [facility] 06-19-2022 10:05-0400 Diastolic blood pressure 76 mm[Hg] Bharathi Ayala MD Work Phone: [facility] 06-19-2022 10:05-0400 Systolic blood pressure 118 mm[Hg] Bharathi Ayala MD Work Phone: [facility] 06-17-2022 13:50-0400 Body height 177.8 cm Sean Peter DO Work Phone: [facility] 06-17-2022 13:50-0400 Body mass index (BMI) [Ratio] 27.41 kg/m2 Sean Peter DO Work Phone: [facility] 06-17-2022 13:50-0400 Body temperature 97.59 [degF] Sean Peter DO Work Phone: [facility] 06-17-2022 13:50-0400 Body weight 86.64 kg Sean Peter DO Work Phone: [facility] 06-17-2022 13:50-0400 Diastolic blood pressure 80 mm[Hg] Sean Peter DO Work Phone: [facility] 06-17-2022 13:50-0400 Heart rate 79 /min Sean Peter DO Work Phone: [facility] 06-17-2022 13:50-0400 SaO2% (BldA) [Mass fraction] 91 % Sean Peter DO Work Phone: [facility] 06-17-2022 13:50-0400 Systolic blood pressure 122 mm[Hg] Sean Peter DO Work Phone: [facility] 06-11-2022 13:01-0400 Body height 177.8 cm Bharathi Ayala MD Work Phone: [facility] 06-11-2022 13:01-0400 Body mass index (BMI) [Ratio] 27.41 kg/m2 Bharathi Ayala MD Work Phone: 06-11-2022 13:01-0400 Body weight 86.64 kg Bharathi Ayala MD Work Phone: 06-07-2022 20:20-0400 Body temperature 97.7 [degF] Beau Voll DO Work Phone: 06-07-2022 20:20-0400 Diastolic blood pressure 87 mm[Hg] Beau Voll DO Work Phone: 06-07-2022 20:20-0400 Heart rate 70 /min Beau Voll DO Work Phone: 06-07-2022 20:20-0400 Respiratory rate 16 /min Beau Voll DO Work Phone: 06-07-2022 20:20-0400 SaO2% (BldA) [Mass fraction] 97 % Beau Voll DO Work Phone: 06-07-2022 20:20-0400 Systolic blood pressure 158 mm[Hg] Beau Voll DO Work Phone: 06-02-2022 20:36-0400 Body height 177.8 cm Beau Voll DO Work Phone: 06-02-2022 20:36-0400 Body mass index (BMI) [Ratio] 27.98 kg/m2 Beau Voll DO Work Phone: 06-02-2022 20:36-0400 Body weight 88.45 kg Beau Voll DO Work Phone: 06-02-2022 11:45-0400 Body temperature 96.49 [degF] Elmer Rodriguez APRN.ADJUNCT NURSING FACULTY Work Phone: [facility] 06-02-2022 11:45-0400 Body weight 90.27 kg Elmer Zuri NDIAYE Work Phone: [facility] 06-02-2022 11:45-0400 Heart rate 74 /min Elmer Zuri HEAVY DUTY TRUCK MECHANIC.ADJUNCT NURSING FACULTY Work Phone: [facility] 06-02-2022 11:45-0400 Respiratory rate 24 /min Elmer Zuri HEAVY DUTY TRUCK MECHANIC.ADJUNCT NURSING FACULTY Work Phone: [facility] 04-24-2022 09:52-0400 Body weight 90.45 kg Reyes Waite MD Work Phone: [facility] 04-24-2022 09:52-0400 Diastolic blood pressure 98 mm[Hg] Reyes Waite MD Work Phone: [facility] 04-24-2022 09:52-0400 Heart rate 88 /min Reyes Waite MD Work Phone: [facility] 04-24-2022 09:52-0400 Respiratory rate 16 /min Reyes Waite MD Work Phone: [facility] 04-24-2022 09:52-0400 Systolic blood pressure 142 mm[Hg] Reyes Waite MD Work Phone: [facility] 02-18-2022 13:35-0500 Body weight 91.17 kg Elmer Zuri HEAVY DUTY TRUCK MECHANIC.ADJUNCT NURSING FACULTY Work Phone: [facility] 02-18-2022 13:35-0500 Diastolic blood pressure 80 mm[Hg] Elmer Zuri HEAVY DUTY TRUCK MECHANIC.ADJUNCT NURSING FACULTY Work Phone: [facility] 02-18-2022 13:35-0500 Heart rate 93 /min Elmer Zuri HEAVY DUTY TRUCK MECHANIC.ADJUNCT NURSING FACULTY Work Phone: [facility] 02-18-2022 13:35-0500 Respiratory rate 16 /min Elmer Zuri HEAVY DUTY TRUCK MECHANIC.ADJUNCT NURSING FACULTY Work Phone: [facility] 02-18-2022 13:35-0500 SaO2% (BldA) [Mass fraction] 98 % Elmer Zuri HEAVY DUTY TRUCK MECHANIC.ADJUNCT NURSING FACULTY Work Phone: [facility] 02-18-2022 13:35-0500 Systolic blood pressure 112 mm[Hg] Elmer Zuri HEAVY DUTY TRUCK MECHANIC.ADJUNCT NURSING FACULTY Work Phone: [facility] 05-03-2021 09:26-0400 Body weight 88.18 kg An Haagen HEAVY DUTY TRUCK MECHANIC.ADJUNCT NURSING FACULTY Work Phone: [facility] 05-03-2021 09:26-0400 Diastolic blood pressure 82 mm[Hg] An Haagen HEAVY DUTY TRUCK MECHANIC.ADJUNCT NURSING FACULTY Work Phone: [facility] 05-03-2021 09:26-0400 Heart rate 123 /min An Haagen HEAVY DUTY TRUCK MECHANIC.ADJUNCT NURSING FACULTY Work Phone: [facility] 05-03-2021 09:26-0400 Respiratory rate 20 /min An Haagen HEAVY DUTY TRUCK MECHANIC.ADJUNCT NURSING FACULTY Work Phone: [facility] 05-03-2021 09:26-0400 SaO2% (BldA) [Mass fraction] 94 % An Haagen HEAVY DUTY TRUCK MECHANIC.ADJUNCT NURSING FACULTY Work Phone: [facility] 05-03-2021 09:26-0400 Systolic blood pressure 142 mm[Hg] An Haagen HEAVY DUTY TRUCK MECHANIC.ADJUNCT NURSING FACULTY Work Phone: [facility] Encounters Encounter Date Encounter Type Care Provider Facility Start: 01-13-2023 End: 01-13-2023 ambulatory [facility] Start: 12-23-2022 Telephone encounter Fernando woods MD Work Phone: [facility] Procedures Date Procedure Procedure Detail Performing Clinician Start: 07-14-2022 Basic metabolic 2000 panel - Serum or Plasma Sean Green DO Work Phone: Start: 07-14-2022 Complete blood count with white cell differential, automated Sean Green DO Work Phone: Start: 07-09-2022 Complete blood count with white cell differential, automated Sean Green DO Work Phone: Start: 07-01-2022 Follow-up visit Follow-up SEAN CALVIN Start: 06-08-2022 Basic metabolic pane l calcium total Hina Cook MD Work Phone: Start: 06-08-2022 C-reactive protein Katie Cook MD Work Phone: Start: 06-07-2022 Basic metabolic pane l calcium total Hina Cook MD Work Phone: Start: 06-07-2022 C-reactive protein Katie Cook MD Work Phone: Start: 06-06-2022 Ecg routine ecg w/le ast 12 lds trcg only w/o i&r Ry Foster MD Work Phone: Start: 06-06-2022 Radiologic exam ches t single view Kirston Call HEAVY DUTY TRUCK MECHANIC - ADJUNCT NURSING FACULTY Work Phone: Start: 06-06-2022 Basic metabolic pane l calcium total Hina Cook MD Work Phone: Start: 06-06-2022 C-reactive protein Katie Cook MD Work Phone: Start: 06-05-2022 End: 06-05-2022 Incision & drainage forearm&/wrist bursa Bharathi Ayala MD Work Phone: Start: 06-05-2022 Basic metabolic pane l calcium total Hina Cook MD Work Phone: Start: 06-05-2022 Drug screen quantita tive vancomycin Hina Cook MD Work Phone: Start: 06-04-2022 Basic metabolic pane l calcium total Hina Cook MD Work Phone: Start: 06-04-2022 Drug screen quantita tive vancomycin Hina Cook MD Work Phone: Start: 06-03-2022 End: 06-03-2022 Culture bacterial any source anaerobic iso&id Bharathi Ayala MD Work Phone: Start: 06-03-2022 End: 06-03-2022 Incision & drainage forearm&/wrist bursa Bharathi Ayala MD Work Phone: Start: 06-03-2022 Assay of lactate Lily Foster MD Work Phone: Start: 06-03-2022 Bacteria identified in Blood by Culture Reny Mar MD Work Phone: Start: 06-03-2022 Radiologic exam ches t single view Johanna Bates PA-C Work Phone: Start: 06-03-2022 Ecg routine ecg w/le ast 12 lds trcg only w/o i&r Johanna Bates PA-C Work Phone: Start: 06-03-2022 C-reactive protein Katie Cook MD Work Phone: Start: 06-03-2022 Comprehensive metabo lic panel Rob Dick MD Work Phone: Start: 06-02-2022 Basic metabolic pane l calcium total Reny Mar MD Work Phone: Start: 06-02-2022 ABO and Rh group [Ty pe] in Blood by Confirmatory method Reny Mar MD Work Phone: Start: 06-02-2022 Bacteria identified in Blood by Culture Reny Mar MD Work Phone: Start: 06-02-2022 Blood typing serolog ic rh (d) Reny Mar MD Work Phone: Start: 06-02-2022 Radex forearm 2 views T juliann Mar MD Work Phone: Start: 06-02-2022 C-reactive protein Richard Cabral PA-C Work Phone: Start: 06-02-2022 End: 06-02-2022 Comprehensive metabolic panel Jesse Cabral PA-C Work Phone: Start: 06-02-2022 Manual differential performed [Presence] in Blood Jesse Cabral PA-C Work Phone: Start: 12-07-2020 Adult depression scr eening assessment An Garrison APRN.ADJUNCT NURSING FACULTY Work Phone: Start: 03-13-2018 Lipid 1996 panel - S bassam or Plasma Chaparro Gresham MD Work Phone: Start: 09-25-2017 Colonoscopy An Reinoso deanna CARRILLO.ADJUNCT NURSING FACULTY Work Phone: Plan of Treatment Date Care Activity Detail Author Start: 02-18-2027 PROSTATE CANCER SCRE ENING DISCUSSION PROSTATE CANCER SCREENING DISCUSSION [facility] Start: 2025 RSV Immunization age d 60 or older (1 - 1-dose 60+ series) RSV Immunization aged 60 or older (1 - 1-dose 60+ series) Start: 03-06-2025 DIABETES SCREEN DIABETES SCREEN [facility] Start: 03-06-2025 Diabetes Screening Diabetes Screenin g [facility] Start: 02-18-2025 DIABETES SCREEN DIABETES SCREEN [facility] Start: 11-29-2023 Annual PCP Team Fluorescent Solution Mixer kemal Disease Visit Annual PCP Team Chronic Disease Visit [facility] Start: 06-03-2023 ANNUAL PCP TEAM ROAST MASTER KEMAL DISEASE VISIT ANNUAL PCP TEAM CHRONIC DISEASE VISIT [facility] Start: 04-25-2023 ANNUAL PCP TEAM ROAST MASTER KEMAL DISEASE VISIT ANNUAL PCP TEAM CHRONIC DISEASE VISIT [facility] Start: 03-13-2023 Lipid 1996 panel - S bassam or Plasma Lipid Screening [facility] Start: 03-13-2023 LIPID SCREEN LIPID SCREEN [facility] Start: 02-18-2023 ANNUAL PCP TEAM ROAST MASTER KEMAL DISEASE VISIT ANNUAL PCP TEAM CHRONIC DISEASE VISIT [facility] Start: 02-18-2023 BP CONTROLLED (<130/80) BP CONTROLLE D (<130/80) [facility] Start: 02-18-2023 HEPATITIS C SCREENING HEPATITIS C SC MARISOL [facility] Immunizations Immunization Date Immunization Notes Care Provider Corrie koo 01-11-2018 influenza virus vaccine, unspecified formulation Chaparro Gresham MD Work Phone: [facility] Payers Date Payer Category Payer Unknown JOLENE COTTRELL PPO [id number] 2020-Present [phone] [address] [place] [address] PPO [id number] 2020 Unknown [id number] 2020 Unknown [id number] Social History Date Type Detail Facility Start: 04-23-2021 End: 02-18-2022 Tobacco smoking status NHIS Ex-smoker [facility] Start: 04-23-2021 End: 09-25-2022 Cigarettes smoked current (pack per day) - Reported 1 [facility] Start: 04-23-2021 End: 06-17-2022 Tobacco use and exposure Smokeless tobacco non-user [facility] Start: 05-03-2021 End: 11-28-2022 Alcohol intake Current drinker of alcohol (finding) [facility] Start: 07-02-2017 History SDOH Alcohol Comment rarely [facility] Start: 04-02-2018 End: 02-18-2022 Tobacco Comment Quit smoking, occasional hit off 's cigarettes [facility] Start: 1965 Sex Assigned At Not on file [facility] Start: 04-23-2021 End: 07-22-2022 Exposure to SARS-CoV-2 (event) Not sure [facility] History of tobacco use Current smoker [facility] History of tobacco use Cigarette Smoker C [facility] Start: 04-24-2022 End: 06-17-2022 Tobacco smoking status VAIS Smokes tobacco daily [facility] Start: 06-03-2022 Tobacco smoking status VAIS Tobacco smoking consumption unknown Start: 06-03-2022 History SDOH Alcohol Frequency 2 Start: 06-17-2022 End: 09-25-2022 Alcohol intake Ex-drinker (finding) Start: 06-02-2022 End: 09-25-2022 Alcohol Use Disorder Identification Test - Consumption [AUDIT-C] How often to you hav e a drink containing alcohol? Monthly or less Average Number of Drinks Not on file [facility] Work Phone: Clinical Notes 05-03-2021 to 12-23-2022 Telephone Encounter - Arpita Cano MA - 12/23/2022 6:01 PM ESTTelephone Encounter - Arpita Cano MA - 12/23/2022 6:01 PM ESTTelephone Encounter - Adina Morris - 12/23/2022 3:41 PM EST Note Date & Type Note Facility 12-23-2022 Telephone encounter Note Called informed ppw mailed 12-23-2022 Miscellaneous Notes Called informed ppw mailed Name of caller: Arpita Contact phone number: [phone] Relationship to Patient: spouse/SO Provider: Dr. Wright Practice: [facility] Chief Complaint/Reason for Call: Arpita states that the pt was suppose to receive a business process specialist packet via postal mail and it still has not been received. Arpita states that she would like for the packet to be mailed to the pt home address as soon as possible so he can have them filled out in time for his 01/13 appt. Please advise. Best time of day caller can be reached: Any Patient advised that office/PCP has 24-48 business hours to return their call: No documented in this encounter 12-23-2022 Telephone encounter Note Name of caller: Arpita Contact phone number: [phone] Relationship to Patient: spouse/SO Provider: Dr. Wright Practice: [facility] Chief Complaint/Reason for Call: Arpita states that the pt was suppose to receive a business process specialist packet via postal mail and it still has not been received. Arpita states that she would like for the packet to be mailed to the pt home address as soon as possible so he can have them filled out in time for his 01/13 appt. Please advise. Best time of day caller can be reached: Any Patient advised that office/PCP has 24-48 business hours to return their call: No 11-28-2022 Note HNO ID: [id number] Author: Chaparro Gresham MD Service: ? Author Type: Physician Type: Progress Notes Filed: 11/28/2022 2:17 PM Note Text: Chief Complaint Patient presents with: ER F/U: Shingles HPI Gabriel Carter is a 57 year old male who presents here today for ER Follow Up. Patient evaluated in the ED on 11/24 for complaint of left lower back that wrapped around his abdomen which started 5 days prior. Diagnosed with shingles of T10 dermatome. Given rx for 7 days of Valtrex and Batchelor for home. Since discharge, patient has been taking the Valtrex as prescribed without side effects. Patient states that he took his last Batchelor this morning which has not been helping. Also tried aleve without improvement in his pain. Denies fever/chills, new rash or lesions. Past medical history, appointments, medications, allergies reviewed. Previous Medical History PAST MEDICAL HISTORY Diagnosis Date Essential hypertension Previous Surgical History PAST SURGICAL HISTORY Procedure Laterality Date COLONOSCOPY 09/2017 PAST SURGICAL HISTORY OF N/A 02/22/2018 Heart Cath at [facility] Family History FAMILY HISTORY Problem Relation Age of Onset other (Harrison palsy) Mother Coronary Artery Disease Father Colon Cancer Maternal Grandfather Patient Allergies ALLERGIES Allergen Reactions Naproxen GI Upset Pt notes he is not allergic to this. Is okay with taking this. Current Medications Current Outpatient Medications on File Prior to Visit Medication Sig valACYclovir (VALTREX) 500 mg tablet Take 500 mg by mouth three times a day. lisinopril (ZESTRIL, PRINIVIL) 20 mg tablet Take 1 tablet by mouth once daily. pantoprazole DR (PROTONIX) 40 mg tablet Take 1 tablet by mouth daily before breakfast. Take on empty stomach, 1/2 hr before meal. (Patient not taking: Reported on 11/28/2022) aspirin, enteric coated (ASPIRIN, ENTERIC COATED) 81 mg EC tablet Take 2 tablets by mouth once daily. (Patient not taking: Reported on 11/28/2022) cyclobenzaprine (FLEXERIL) 10 mg tablet Take 1 tablet by mouth three times daily as needed for muscle spasm. (Patient not taking: Reported on 11/28/2022) gabapentin (NEURONTIN) 100 mg capsule Take 1-2 capsules by mouth three times daily as needed for up to 30 days. fluticasone (FLONASE) 50 mcg/actuation nasal spray Use 2 Sprays in each nostril once daily. Rinse mouth after use. (Patient not taking: Reported on 11/28/2022) No current facility-administered medications on file prior to visit. Social History Social History Tobacco Use Smoking status: Every Day Packs/day: 1 Types: Cigarettes Smokeless tobacco: Never Tobacco comments: Quit smoking, occasional hit off 's cigarettes Vaping Use Vaping Use: Never used Substance Use Topics Alcohol use: Yes Comment: rarely Drug use: No Review of Symptoms REVIEW OF SYSTEMS See HPI EXAM: BP 130/76 Pulse 104 Temp 36.4 ?C (97.5 ?F) Resp 18 SpO2 96% General Appearance: Well appearing, alert, in no acute distress, well-hydrated, well nourished.. Skin: Healing shingles rash of left T10 dermatome without open sores, cellulitis, or new lesions. Health Maintenance List Hepatitis B Vaccine(1 of 3 - 3-dose series) Never done Covid-19 Vaccine(1) Never done Pneumococcal Vaccine(1 - PCV) Never done DTaP,Tdap,Td Vaccine(1 - Tdap) Never done Shingrix Vaccine(1 of 2) Never done Colorectal Cancer Screening due on 09/25/2022 Influenza Vaccine(1) due on 10/10/2022 Hepatitis C Screening due on 02/18/2023 BP Controlled (<130/80) due on 02/18/2023 Lipid Screening due on 03/13/2023 Annual PCP Team Chronic Disease Visit due on 06/03/2023 Diabetes Screening due on 03/06/2025 Prostate Cancer Screening Discussion due on 02/18/2027 Depression Assessment Completed HIV Screening Discontinued ASSESSMENT/PLAN: 1. Herpes zoster without complication - ICD9: 053.9, ICD10: B02.9 Rash healing with continued pain. 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 Recommend starting on Amitriptyline 10 mg nightly with OTC analgesics. If not improving pain, will increase to 25 mg. Discussed possible transmission to others who have not had chicken pox when he has open sores. Chaparro Gresham MD [facility] 11-28-2022 History of Present illness Narrative Chief Complaint Patient presents with: ER F/U: Shingles HPI Gabriel Carter is a 57 year old male who presents here today for ER Follow Up. Patient evaluated in the ED on 11/24 for complaint of left lower back that wrapped around his abdomen which started 5 days prior. Diagnosed with shingles of T10 dermatome. Given rx for 7 days of Valtrex and Batchelor for home. Since discharge, patient has been taking the Valtrex as prescribed without side effects. Patient states that he took his last Batchelor this morning which has not been helping. Also tried aleve without improvement in his pain. Denies fever/chills, new rash or lesions. Past medical history, appointments, medications, allergies reviewed. Previous Medical History PAST MEDICAL HISTORY Diagnosis Date Essential hypertension Previous Surgical History PAST SURGICAL HISTORY Procedure Laterality Date COLONOSCOPY 09/2017 PAST SURGICAL HISTORY OF N/A 02/22/2018 Heart Cath at [facility] Family History FAMILY HISTORY Problem Relation Age of Onset other (Harrison palsy) Mother Coronary Artery Disease Father Colon Cancer Maternal Grandfather Patient Allergies ALLERGIES Allergen Reactions Naproxen GI Upset Pt notes he is not allergic to this. Is okay with taking this. Current Medications Current Outpatient Medications on File Prior to Visit Medication Sig valACYclovir (VALTREX) 500 mg tablet Take 500 mg by mouth three times a day. lisinopril (ZESTRIL, PRINIVIL) 20 mg tablet Take 1 tablet by mouth once daily. pantoprazole DR (PROTONIX) 40 mg tablet Take 1 tablet by mouth daily before breakfast. Take on empty stomach, 1/2 hr before meal. (Patient not taking: Reported on 11/28/2022) aspirin, enteric coated (ASPIRIN, ENTERIC COATED) 81 mg EC tablet Take 2 tablets by mouth once daily. (Patient not taking: Reported on 11/28/2022) cyclobenzaprine (FLEXERIL) 10 mg tablet Take 1 tablet by mouth three times daily as needed for muscle spasm. (Patient not taking: Reported on 11/28/2022) gabapentin (NEURONTIN) 100 mg capsule Take 1-2 capsules by mouth three times daily as needed for up to 30 days. fluticasone (FLONASE) 50 mcg/actuation nasal spray Use 2 Sprays in each nostril once daily. Rinse mouth after use. (Patient not taking: Reported on 11/28/2022) No current facility-administered medications on file prior to visit. Social History Social History Tobacco Use Smoking status: Every Day Packs/day: 1 Types: Cigarettes Smokeless tobacco: Never Tobacco comments: Quit smoking, occasional hit off 's cigarettes Vaping Use Vaping Use: Never used Substance Use Topics Alcohol use: Yes Comment: rarely Drug use: No Review of Symptoms REVIEW OF SYSTEMS See HPI EXAM: BP 130/76 Pulse 104 Temp 36.4 C (97.5 F) Resp 18 SpO2 96% General Appearance: Well appearing, alert, in no acute distress, well-hydrated, well nourished.. Skin: Healing shingles rash of left T10 dermatome without open sores, cellulitis, or new lesions. Health Maintenance List Hepatitis B Vaccine(1 of 3 - 3-dose series) Never done Covid-19 Vaccine(1) Never done Pneumococcal Vaccine(1 - PCV) Never done DTaP,Tdap,Td Vaccine(1 - Tdap) Never done Shingrix Vaccine(1 of 2) Never done Colorectal Cancer Screening due on 09/25/2022 Influenza Vaccine(1) due on 10/10/2022 Hepatitis C Screening due on 02/18/2023 BP Controlled (<130/80) due on 02/18/2023 Lipid Screening due on 03/13/2023 Annual PCP Team Chronic Disease Visit due on 06/03/2023 Diabetes Screening due on 03/06/2025 Prostate Cancer Screening Discussion due on 02/18/2027 Depression Assessment Completed HIV Screening Discontinued ASSESSMENT/PLAN: 1. Herpes zoster without complication - ICD9: 053.9, ICD10: B02.9 Rash healing with continued pain. 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 Recommend starting on Amitriptyline 10 mg nightly with OTC analgesics. If not improving pain, will increase to 25 mg. Discussed possible transmission to others who have not had chicken pox when he has open sores. Chaparro Gresham MD documented in this encounter [facility] 09-29-2022 Telephone encounter Note Scheduled appointment 09-29-2022 Miscellaneous Notes Scheduled appointment Name of caller: Gabriel Contact phone number: [phone] Relationship to Patient: patient Provider: Practice: Pain Management Chief Complaint/Reason for Call: Patient states he has a referral and is requesting a call back for a new patient appointment. Please advise Best time of day caller can be reached: Any Patient advised that office/PCP has 24-48 business hours to return their call: No documented in this encounter 09-26-2022 Telephone encounter Note Name of caller: Gabriel Contact phone number: [phone] Relationship to Patient: patient Provider: Practice: Pain Management Chief Complaint/Reason for Call: Patient states he has a referral and is requesting a call back for a new patient appointment. Please advise Best time of day caller can be reached: Any Patient advised that office/PCP has 24-48 business hours to return their call: No 09-25-2022 History of Present illness Narrative Images from the original note were not included. [facility] [address] [place] [address] Dept: [phone] Dept 09/25/2022 Chief Complaint Patient presents with Post-op DOS 06/05/2022 Repeat excisional debridement skin, subcutaneous tissue, and fascia of right hand/wrist/forearm measuring 300 sq cm with secondary wound closure. DOS 06/03/2022 Excisional debridement skin, subcutaneous tissue, and fascia of right hand/wrist/forearm measuring 300 sq cm, extensor synovectomy right wrist. SUBJECTIVE Edward is approximately 4 months s/p repeat excisional debridement skin, subcutaneous tissue, and fascia of right hand/wrist/forearm measuring 300 sq cm with secondary wound closure AND DOS 06/03/2022 Excisional debridement skin, subcutaneous tissue, and fascia of right hand/wrist/forearm measuring 300 sq cm, extensor synoectomy right wrist. He is taking Tylenol for pain relief. He complains of continued symptoms to include persistent hand and wrist stiffness, his last OT appt was 2 weeks ago, on hold currently due to Insurance authorization. Still complains of pain along the dorsum of the hand. Stiffness of the wrist and fingers slowly improving. OBJECTIVE BP 120/68 Ht 5' 10 (1.778 m) Wt 195 lb (88.5 kg) BMI 27.98 kg/m Ortho Exam Focused Exam of the RIGHT Upper Extremity Wound completely healed. No swelling in the wrist or forearm. Mild global swelling throughout the entire to the hand improved from previous. Finger range of motion per clinical images below. Wrist ROM: Flexion 10 Extension 20 Supination 80 Pronation 80 Clinical image(s): IMAGING NONE ASSESSMENT (M72.6) Necrotizing fasciitis of forearm (CMS/HCC) (HCC) (L03.113) Cellulitis of right upper extremity 1. Necrotizing fasciitis of forearm (CMS/HCC) (HCC) 2. Cellulitis of right upper extremity PLAN Edward is recovering as expected. Told him there is not much else I can offer him other than considering MCP extension contracture releases which I would not recommend at this point. He was in agreement. He will continue working aggressive range of motion and strengthening to pain tolerance and follow-up in apparent basis. OTC medications for pain. Future Imaging: NONE Bharathi Ayala MD Hand and Upper Extremity Surgery [facility] Department of Orthopaedics and Sports Medicine 09/25/2022 at 10:18 AM (Please note that portions of this note may have been completed with a voice recognition program. Efforts were made to edit the dictations but occasionally words are mis-transcribed.) \ documented in this encounter 09-25-2022 Instructions Yoel Knowles ATC - 09/25/2022 10:15 AM EDT Referred to Department: [facility] Family Medicine & Pain Management Address: [place] documented in this encounter 07-24-2022 History of Present illness Narrative Images from the original note were not included. [facility] [address] [place] [address] Dept: [phone] Dept 07/24/2022 Chief Complaint Patient presents with Post-op Wound check, DOS 06/05/2022 Repeat excisional debridement skin, subcutaneous tissue, and fascia of right hand/wrist/forearm measuring 300 sq cm with secondary wound closure. DOS 06/03/2022 Excisional debridement skin, subcutaneous tissue, and fascia of right hand/wrist/forearm measuring 300 sq cm, extensor synovectomy right wrist. SUBJECTIVE Edward is approximately 7 week(s) s/p repeat excisional debridement skin, subcutaneous tissue, and fascia of right hand/wrist/forearm measuring 300 sq cm with secondary wound closure AND DOS 06/03/2022 Excisional debridement skin, subcutaneous tissue, and fascia of right hand/wrist/forearm measuring 300 sq cm, extensor synoectomy right wrist. He is no longer taking anything for pain. He denies significant complaints other than the expected amount of pain. His PICC line was removed on 07/22/22. OBJECTIVE BP 114/72 Ht 5' 10 (1.778 m) Wt 190 lb (86.2 kg) BMI 27.26 kg/m Ortho Exam Wound completely healed. No swelling in the wrist or forearm. Mild global swelling throughout the entire to the hand improved from previous. Finger range of motion per clinical images below. Wrist ROM: Flexion 10 Extension 30 Supination 60 Pronation 80 Clinical image(s): IMAGING NONE ASSESSMENT (M72.6) Necrotizing fasciitis of forearm (CMS/HCC) ([facility]) (L03.113) Cellulitis of right upper extremity 1. Necrotizing fasciitis of forearm (CMS/HCC) ([facility]) External referral to Occupational Therapy 2. Cellulitis of right upper extremity External referral to Occupational Therapy PLAN Edphyllis is infection free. He has wrist and finger stiffness secondary to swelling and disuse. I gave him prescription to work aggressive hand therapy in [place] to help regain motion. I was very clear with him that he is to stretch past his pain limitations in order to achieve the best possible functional outcome. He requested pain medication which I declined stating at this point he needs to transition to OTC medications. He will follow-up in 2 months time. Immobilization: NO immobilization required at this point - FULL ROM encouraged without resitrictions Weight Bearing: Weight Bearing As Tolerated Rehabilitation: OT/PT Rx given: To follow protocol. Follow-up: Edphyllis will followup with me in 8 weeks. He knows to call the office with any questions or concerns in the interim. Future Imaging: NONE Bharathi Ayala MD Hand and Upper Extremity Surgery [facility] Department of Orthopaedics and Sports Medicine 07/24/2022 at 10:08 AM (Please note that portions of this note may have been completed with a voice recognition program. Efforts were made to edit the dictations but occasionally words are mis-transcribed.) documented in this encounter 07-24-2022 Instructions Yoel Knowles ATC - 07/24/2022 10:00 AM EDT [facility] Occupational therapy Address: [address] [place] [address], [place] [address] documented in this encounter 07-22-2022 Note [facility] Infectious Diseases Attending Outpatient Progress Note HISTORY OF PRESENT ILLNESS Mr. Carter is a 57 y/o M w/ PMH of HTN. He presents to the ID clinic 07/22/22 for a post-hospitalization f/u visit for 06/17/22. He was admitted to [facility] 06/02-06/09. He originally presented to [facility] ED 06/02 for RUE swelling. He was transferred from outside ED d/t concern of RUE NF. Reported a RUE abrasion a few days prior to presentation. ED w/u was notable for WBC 24.3, Hgb 12.3, ESR/CRP 61/236.3, SCr 3.74. RUE XR showed no acute findings. Orthopedics consulted, and he underwent debridement of RUE. CXs were (+) for S pyogenes. He was d/c'd w/ IV ceftriaxone x14d. He presented to the ID clinic for f/u 06/17; was noted to have continued pain and swelling; therapy was extended by 2w. He presents today for f/u. Patient reports ongoing pain of the RUE; mild swelling present on dorsum of hand, but area appears significantly improved. Wound has closed. Denies F/C, N/V, abdominal pain. No further complaints. Review of Systems Constitutional: Negative for appetite change, chills, diaphoresis, fatigue and fever. Respiratory: Negative for cough, shortness of breath and wheezing. Cardiovascular: Negative for chest pain, palpitations and leg swelling. Gastrointestinal: Negative for abdominal distention, abdominal pain, constipation, diarrhea, nausea and vomiting. Skin: Positive for wound. Negative for color change. Social History Socioeconomic History Marital status: Spouse name: Not on file Number of children: Not on file Years of education: Not on file Highest education level: Not on file Occupational History Not on file Tobacco Use Smoking status: Every Day Packs/day: 0.50 Types: Cigarettes Smokeless tobacco: Never Substance and Sexual Activity Alcohol use: Not Currently Drug use: Not Currently Sexual activity: Yes Other Topics Concern Not on file Social History Narrative Not on file Social Determinants of Health Financial Resource Strain: Not on file Food Insecurity: Not on file Transportation Needs: Not on file Physical Activity: Not on file Stress: Not on file Social Connections: Not on file Intimate Partner Violence: Not on file Housing Stability: Not on file Past Medical History: Diagnosis Date High blood pressure No family history on file. Visit Vitals BP 122/78 Pulse 63 Temp 36.4 ?C (97.6 ?F) Wt Readings from Last 3 Encounters: 07/22/22 190 lb (86.2 kg) 07/03/22 190 lb (86.2 kg) 07/01/22 190 lb (86.2 kg) Physical Exam Constitutional: Appearance: He is not ill-appearing or diaphoretic. HENT: Head: Normocephalic and atraumatic. Nose: Nose normal. Mouth/Throat: Mouth: Mucous membranes are dry. Eyes: General: No scleral icterus. Extraocular Movements: Extraocular movements intact. Pupils: Pupils are equal, round, and reactive to light. Cardiovascular: Rate and Rhythm: Normal rate and regular rhythm. Pulses: Normal pulses. Heart sounds: Normal heart sounds. No murmur heard. No friction rub. No gallop. Pulmonary: Effort: Pulmonary effort is normal. No respiratory distress. Breath sounds: Normal breath sounds. No wheezing, rhonchi or rales. Abdominal: General: Abdomen is flat. Bowel sounds are normal. There is no distension. Palpations: Abdomen is soft. There is no mass. Tenderness: There is no abdominal tenderness. Hernia: No hernia is present. Musculoskeletal: General: Normal range of motion. Cervical back: Normal range of motion and neck supple. Right lower leg: No edema. Left lower leg: No edema. Comments: Mild swelling present on dorsum of R hand RUE surgical incision site present; no visible drainage Skin: General: Skin is warm and dry. Capillary Refill: Capillary refill takes less than 2 seconds. Neurological: General: No focal deficit present. Mental Status: He is alert. Psychiatric: Mood and Affect: Mood normal. Judgment: Judgment normal. Orders Only on 07/21/2022 Component Date Value Ref Range Status White Blood Cell Count 07/21/2022 4.7 3.8 - 10.8 Thousand/uL Final RBC 07/21/2022 4.27 4.20 - 5.80 Million/uL Final HEMOGLOBIN 07/21/2022 13.0 (L) 13.2 - 17.1 g/dL Final HEMATOCRIT 07/21/2022 38.5 38.5 - 50.0 % Final MCV 07/21/2022 90.2 80.0 - 100.0 fL Final MCH 07/21/2022 30.4 27.0 - 33.0 pg Final MCHC 07/21/2022 33.8 32.0 - 36.0 g/dL Final RDW 07/21/2022 13.1 11.0 - 15.0 % Final Platelet Count 07/21/2022 339 140 - 400 Thousand/uL Final Mean Platelet Volume (MPV) 07/21/2022 9.5 7.5 - 12.5 fL Final Absolute Neutrophils 07/21/2022 2,167 1,500 - 7,800 cells/uL Final ABSOLUTE LYMPHOCYTES - [facility] 07/21/2022 1,669 850 - 3,900 cells/uL Final Monocytes Absolute 07/21/2022 635 200 - 950 cells/uL Final ABSOLUTE EOSINOPHILS - [facility] 07/21/2022 212 15 - 500 cells/uL Final ABSOLUTE BASOPHILS - [facility] 07/21/2022 19 0 - 200 cells/uL Final Neutrophils Relative 07/21 (more content not included)... [facility] 07-17-2022 Note Patient: Gabriel sousater Procedure Summary Date: 06/03/22 Room / Location: [address] Operating Room Anesthesia Start: 1603 Anesthesia Stop: 1757 Procedure: INCISION AND DRAINAGE FOREARM AND OR WRIST BURSA, WOUND VAC PLACEMENT (Right: Wrist) Diagnosis: Cellulitis of right upper extremity (Cellulitis of right upper extremity [L03.113]) Surgeons: Bharathi Ayala MD Responsible Provider: Christoph Maldonado MD Anesthesia Type: general ASA Status: 2 Anesthesia Type: general Vitals Value Taken Time BP 90/62 06/03/221999 Temp 36.7 ?C (98 ?F) 06/03/22 175 Pulse 66 06/03/221999 Resp 14 06/03/221999 SpO2 100 % 06/03/22 1930 Anesthesia Post Evaluation Patient location during evaluation: PACU Patient participation: complete - patient participated Level of consciousness: awake and alert Pain management: satisfactory to patient Airway patency: patent Dental Injury: no Cardiovascular status: acceptable, blood pressure returned to baseline and hemodynamically stable Respiratory status: acceptable and spontaneous ventilation Hydration status: euvolemic Nausea/Vomiting: controlled No notable events documented. Patient can be discharged once all PACU criteria has been met. [facility] 07-17-2022 Note Patient: Gabriel balbuenapenter Procedure Summary Date: 06/03/22 Room / Location: [address] Operating Room Anesthesia Start: 1603 Anesthesia Stop: 1757 Procedure: INCISION AND DRAINAGE FOREARM AND OR WRIST BURSA, WOUND VAC PLACEMENT (Right: Wrist) Diagnosis: Cellulitis of right upper extremity (Cellulitis of right upper extremity [L03.113]) Surgeons: Bharathi Ayala MD Responsible Provider: Christoph Maldonado MD Anesthesia Type: general ASA Status: 2 Anesthesia Type: general Vitals Value Taken Time BP 90/62 06/03/221999 Temp 36.7 ?C (98 ?F) 06/03/22 1752 Pulse 66 06/03/221999 Resp 14 06/03/221999 SpO2 100 % 06/03/22 1930 Anesthesia Post Evaluation Patient location during evaluation: PACU Patient participation: complete - patient participated Level of consciousness: awake and alert Pain management: satisfactory to patient Multimodal analgesia pain management approach Airway patency: patent Two or more strategies used to mitigate risk of obstructive sleep apnea Cardiovascular status: acceptable and hemodynamically stable Respiratory status: acceptable Hydration status: acceptable No notable events documented. MIPS #[id number] PONV Patient received an inhalational anesthetic (4554F) Patient exhibits three or more risk factors for PONV (4556F) Patient received at leaset 2 prophylactic Rx PONV anti-emtic agents of different classes preop and/or intraop (G9775) MIPS # 424 Perioperative Temperature Management Anesthesia time was 60 minutes or longer (4255F) Anesthesai administered was General (inhalational or TIVA) or Neuraxial block (X0424) At least one body temperature greater than 95.8F/35.5C achieved within the 30 mins immediately prior to or the 15 minutes immediately following anesthesia end time (G9771) MIPS #477 Multimodal Pain Management Not emergent case Patient was administered multimodal pain management (two or more drugs and/or interventions excluding systemic opioids) in the periopeartive period occurring at some time between 6 hours prior to anesthesia start time until discharged from PACU (G2148) MIPS #404 Anesthesiology Smoking Abstinence The patient is not a current smoker (e.g. cigarette, cigar, pipe, e-cigarette/vaping/marijuana) If no stop here (XX404) I completed my handoff to the receiving clinician during which we: 1. Identified the patient 2. Identified the responsible provider 3. Reviewed the pertinent medical history 4. Discussed the surgical course 5. Reviewed intra-op anesthesia management and issues during anesthesia 6. Set expectations for post-procedure period 7. Allowed opportunity for questions and acknowledgement of understanding. [facility] 07-01-2022 Note Medical Group Infectious Diseases Attending Outpatient Progress Note HISTORY OF PRESENT ILLNESS Mr. Carter is a 57 y/o M w/ PMH of HTN. He presents to the ID clinic 07/01/22 for a post-hospitalization f/u visit for 06/17/22. He was admitted to [facility] 06/02-06/09. He originally presented to [facility] ED 06/02 for RUE swelling. He was transferred from outside ED d/t concern of RUE NF. Reported a RUE abrasion a few days prior to presentation. ED w/u was notable for WBC 24.3, Hgb 12.3, ESR/CRP 61/236.3, SCr 3.74. RUE XR showed no acute findings. Orthopedics consulted, and he underwent debridement of RUE. CXs were (+) for S pyogenes. He was d/c'd w/ IV ceftriaxone x14d. He presented to the ID clinic for f/u 06/17; was noted to have continued pain and swelling; therapy was extended by 2w. He presents today w/ similar complaints, but states that the swelling is starting to improve. Wound is starting to close. Denies F/C, N/V, abdominal pain. No further complaints. Review of Systems Constitutional: Negative for appetite change, chills, diaphoresis, fatigue and fever. Respiratory: Negative for cough, shortness of breath and wheezing. Cardiovascular: Negative for chest pain, palpitations and leg swelling. Gastrointestinal: Negative for abdominal distention, abdominal pain, constipation, diarrhea, nausea and vomiting. Skin: Positive for color change and wound. Social History Socioeconomic History Marital status: Spouse name: Not on file Number of children: Not on file Years of education: Not on file Highest education level: Not on file Occupational History Not on file Tobacco Use Smoking status: Every Day Packs/day: 0.50 Types: Cigarettes Smokeless tobacco: Never Substance and Sexual Activity Alcohol use: Not Currently Drug use: Not Currently Sexual activity: Yes Other Topics Concern Not on file Social History Narrative Not on file Social Determinants of Health Financial Resource Strain: Not on file Food Insecurity: Not on file Transportation Needs: Not on file Physical Activity: Not on file Stress: Not on file Social Connections: Not on file Intimate Partner Violence: Not on file Housing Stability: Not on file Past Medical History: Diagnosis Date High blood pressure No family history on file. Visit Vitals BP 122/76 (BP Location: Left arm, Patient Position: Sitting, BP Cuff Size: Adult) Pulse (!) 113 Temp 36.5 ?C (97.7 ?F) Wt Readings from Last 3 Encounters: 07/03/22 190 lb (86.2 kg) 07/01/22 190 lb (86.2 kg) 06/26/22 190 lb (86.2 kg) Physical Exam Constitutional: Appearance: He is not ill-appearing or diaphoretic. HENT: Head: Normocephalic and atraumatic. Nose: Nose normal. Mouth/Throat: Mouth: Mucous membranes are dry. Eyes: General: No scleral icterus. Extraocular Movements: Extraocular movements intact. Pupils: Pupils are equal, round, and reactive to light. Cardiovascular: Rate and Rhythm: Normal rate and regular rhythm. Pulses: Normal pulses. Heart sounds: Normal heart sounds. No murmur heard. No friction rub. No gallop. Pulmonary: Effort: Pulmonary effort is normal. No respiratory distress. Breath sounds: Normal breath sounds. No wheezing, rhonchi or rales. Abdominal: General: Abdomen is flat. Bowel sounds are normal. There is no distension. Palpations: Abdomen is soft. There is no mass. Tenderness: There is no abdominal tenderness. Hernia: No hernia is present. Musculoskeletal: General: Swelling, tenderness, deformity and signs of injury present. Normal range of motion. Cervical back: Normal range of motion and neck supple. Right lower leg: No edema. Left lower leg: No edema. Comments: Mild swelling present on dorsum of R hand RUE surgical incision site present; no visible drainage Skin: General: Skin is warm and dry. Capillary Refill: Capillary refill takes less than 2 seconds. Neurological: General: No focal deficit present. Mental Status: He is alert. Psychiatric: Mood and Affect: Mood normal. Judgment: Judgment normal. Lab Requisition on 06/30/2022 Component Date Value Ref Range Status Auto WBC 06/30/2022 5.8 3.6 - 10.7 10*3/uL Final RBC 06/30/2022 3.97 (L) 4.40 - 5.90 10*6/uL Final Hemoglobin 06/30/2022 12.2 (L) 13.0 - 18.0 g/dL Final Hematocrit 06/30/2022 36.0 (L) 40.0 - 52.0 % Final MCV 06/30/2022 90.7 80.0 - 98.0 fL Final MCH 06/30/2022 30.7 26.0 - 34.0 pg Final MCHC 06/30/2022 33.9 32.0 - 36.0 % Final RDW 06/30/2022 12.1 11.5 - 14.5 % Final Platelets 06/30/2022 326 140 - 440 10*3/uL Final MPV 06/30/2022 9.7 7.4 - 12.4 fL Final Neutrophils Relative 06/30/2022 44.3 40.0 - 80.0 % Final Lymphocytes Relative 06/30/2022 36.6 20.0 - 40.0 % Final Monocytes Relative 06/30/2022 11.7 (H) 2.0 - 10.0 % Final Eosinophils Relative 06/30/2022 6.4 (H) 1.0 - 6.0 % Final Basophils Relative 06/30/2022 0.7 0.0 - 2.0 % Final Immature Grans % 06/30/2022 0.3 (H) (more content not included)... [facility] 06-19-2022 History of Present illness Narrative Images from the original note were not included. [facility] [address] [place] [address] Dept: [phone] Dept 06/19/2022 Chief Complaint Patient presents with Post-op DOS 06/05/2022 Repeat excisional debridement skin, subcutaneous tissue, and fascia of right hand/wrist/forearm measuring 300 sq cm with secondary wound closure. DOS 06/03/2022 Excisional debridement skin, subcutaneous tissue, and fascia of right hand/wrist/forearm measuring 300 sq cm, extensor synoectomy right wrist SUBJECTIVE Edward is approximately 2 week(s) s/p repeat excisional debridement skin, subcutaneous tissue, and fascia of right hand/wrist/forearm measuring 300 sq cm with secondary wound closure AND DOS 06/03/2022 Excisional debridement skin, subcutaneous tissue, and fascia of right hand/wrist/forearm measuring 300 sq cm, extensor synoectomy right wrist. He is taking Oxycodone as needed for pain relief. He is changing the dressing once or twice daily. He will continue his antibiotic once daily and the antibiotic was extended for two more weeks per ID on Thursday. Continues to complain of pain. Taking 2-3 times daily. Drainage has decreased and only present on the dorsal wrist. No systemic complaints. Tolerating his antibiotics. OBJECTIVE BP 118/76 Ht 5' 10 (1.778 m) Wt 191 lb (86.6 kg) BMI 27.41 kg/m Ortho Exam Focused Exam of the RIGHT Upper Extremity All incisions healing appropriately. Skin over the dorsal wrist drying up an eschar. Majority of skin and soft tissues and appear to be healing without issue. Overall swelling decreased. Diffusely tender over the dorsal hand and wrist but decreased and without evidence of crepitation. Stiffness of the thumb and finger secondary to pain. Clinical image(s): IMAGING NONE ASSESSMENT (M72.6) Necrotizing fasciitis of forearm (CMS/HCC) (HCC) 1. Necrotizing fasciitis of forearm (CMS/HCC) ([facility]) PLAN Gabriel had the proximal one half of the sutures removed today in the office. He can continue working aggressive range of motion of the elbow wrist and fingers particularly focusing on the MCP joints. Understands he may have an element of permanent stiffness if he does not work through the pain and range of motion. Follow-up next week for remaining suture removal. Prescription of oxycodone was refilled to be taken twice daily with plans to continue to decrease frequency. Immobilization: NO immobilization required at this point - FULL ROM encouraged without resitrictions Weight Bearing: Non Weight Bearing Rehabilitation: NO formal rehabilitation required at this point. Follow-up: Gabriel will followup with me in 1 week for rest of suture removal. He knows to call the office with any questions or concerns in the interim. Future Imaging: NONE Bharathi Ayala MD Hand and Upper Extremity Surgery [facility] Department of Orthopaedics and Sports Medicine 06/19/2022 at 10:42 AM (Please note that portions of this note may have been completed with a voice recognition program. Efforts were made to edit the dictations but occasionally words are mis-transcribed.) documented in this encounter 06-19-2022 Instructions Bharathi Ayala MD - 06/19/2022 10:00 AM EDT Take Oxycodone 5mg twice daily Take Naproxen 500mg twice daily Take Tylenol 1000mg three times daily documented in this encounter 06-17-2022 Note [facility] Attending Outpatient Progress Note HISTORY OF PRESENT ILLNESS Mr. Carter is a 57 y/o M w/ PMH of HTN. He presents to the ID clinic 06/17/22 for a post-hospitalization f/u visit for 06/17/22. He was admitted to [facility] 06/02-06/09. He originally presented to [facility] ED 06/02 for RUE swelling. He was transferred from outside ED d/t concern of RUE NF. Reported a RUE abrasion a few days prior to presentation. ED w/u was notable for WBC 24.3, Hgb 12.3, ESR/CRP 61/236.3, SCr 3.74. RUE XR showed no acute findings. Orthopedics consulted, and he underwent debridement of RUE. CXs were (+) for S pyogenes. He was d/c'd w/ IV ceftriaxone x14d. During my assessment, patient reports ongoing pain of the RUE; mild swelling present on dorsum of hand. States that the pain has been ongoing for several days; unchanged over the last 24h. There is an open area of the surgical site on the dorsum; remainder of incision is healing appropriately. He is scheduled to see surgery in 2 days. Pt was asked if he would be willing to go to ER; pt stated that he did not want to go. He was instructed to go if his pain becomes worse. Denies F/C, N/V, abdominal pain. No further complaints. Review of Systems Constitutional: Negative for appetite change, chills, diaphoresis, fatigue and fever. Respiratory: Negative for cough, shortness of breath and wheezing. Cardiovascular: Negative for chest pain, palpitations and leg swelling. Gastrointestinal: Negative for abdominal distention, abdominal pain, constipation, diarrhea, nausea and vomiting. Skin: Positive for color change, rash and wound. Social History Socioeconomic History Marital status: Spouse name: Not on file Number of children: Not on file Years of education: Not on file Highest education level: Not on file Occupational History Not on file Tobacco Use Smoking status: Every Day Packs/day: 0.50 Types: Cigarettes Smokeless tobacco: Never Substance and Sexual Activity Alcohol use: Not Currently Drug use: Not Currently Sexual activity: Not Currently Other Topics Concern Not on file Social History Narrative Not on file Social Determinants of Health Financial Resource Strain: Not on file Food Insecurity: Not on file Transportation Needs: Not on file Physical Activity: Not on file Stress: Not on file Social Connections: Not on file Intimate Partner Violence: Not on file Housing Stability: Not on file Past Medical History: Diagnosis Date High blood pressure No family history on file. Visit Vitals BP 122/80 (BP Location: Left arm, Patient Position: Sitting, BP Cuff Size: Adult) Pulse 79 Temp 36.4 ?C (97.6 ?F) Wt Readings from Last 3 Encounters: 06/17/22 191 lb (86.6 kg) 06/11/22 191 lb (86.6 kg) 06/02/22 195 lb (88.5 kg) Physical Exam Constitutional: Appearance: He is not ill-appearing or diaphoretic. HENT: Head: Normocephalic and atraumatic. Nose: Nose normal. Mouth/Throat: Mouth: Mucous membranes are dry. Eyes: General: No scleral icterus. Extraocular Movements: Extraocular movements intact. Pupils: Pupils are equal, round, and reactive to light. Cardiovascular: Rate and Rhythm: Normal rate and regular rhythm. Pulses: Normal pulses. Heart sounds: Normal heart sounds. No murmur heard. No friction rub. No gallop. Pulmonary: Effort: Pulmonary effort is normal. No respiratory distress. Breath sounds: Normal breath sounds. No wheezing, rhonchi or rales. Abdominal: General: Abdomen is flat. Bowel sounds are normal. There is no distension. Palpations: Abdomen is soft. There is no mass. Tenderness: There is no abdominal tenderness. Hernia: No hernia is present. Musculoskeletal: General: Swelling, tenderness, deformity and signs of injury present. Normal range of motion. Cervical back: Normal range of motion and neck supple. Right lower leg: No edema. Left lower leg: No edema. Comments: Mild swelling present on dorsum of R hand RUE surgical incision site present; no visible drainage Skin: General: Skin is warm and dry. Capillary Refill: Capillary refill takes less than 2 seconds. Findings: Erythema and lesion present. Neurological: General: No focal deficit present. Mental Status: He is alert. Psychiatric: Mood and Affect: Mood normal. Judgment: Judgment normal. No results displayed because visit has over 200 results. ASSESSMENT/PLAN 1. Necrotizing fasciitis (HCC) 2. Cellulitis of right upper extremity ADDITIONAL PLAN NOTES Patient reports ongoing pain of the RUE; mild swelling present on dorsum of hand. Pt was asked if he would be willing to go to ER; pt stated that he did not want to go. He was instructed to go if his pain becomes worse. Will extend ABX x2 weeks, will f/u in 2 weeks to re-assess. On this date, 06/17/22 I have spent 30 minutes reviewing previous notes, test results and face to face with the patie (more content not included)... [facility] 06-17-2022 Telephone encounter Note Patient was seen in office by Dr Green. Ceftriaxone was extended for 2 weeks. Spoke to Pelon at [facility] and [facility] giving new stop date both voiced understanding of new orders. 06-17-2022 Miscellaneous Notes Patient was seen in office by Dr Green. Ceftriaxone was extended for 2 weeks. Spoke to Pelon at [facility] giving new stop date both voiced understanding of new orders. Patient discharged with [facility] and [facility]. I spoke with Gabriel and he is aware of his follow up with Dr. Green. Images from the original note were not included. Patient still admitted will need discharge information. Patient will need notified of follow up appt on 06/17/22 @130pm documented in this encounter 06-17-2022 History of Present illness Narrative [facility] Attending Outpatient Progress Note HISTORY OF PRESENT ILLNESS Mr. Carter is a 57 y/o M w/ PMH of HTN. He presents to the ID clinic 06/17/22 for a post-hospitalization f/u visit for 06/17/22. He was admitted to [facility] 06/02-06/09. He originally presented to [facility] ED 06/02 for RUE swelling. He was transferred from outside ED d/t concern of RUE NF. Reported a RUE abrasion a few days prior to presentation. ED w/u was notable for WBC 24.3, Hgb 12.3, ESR/CRP 61/236.3, SCr 3.74. RUE XR showed no acute findings. Orthopedics consulted, and he underwent debridement of RUE. CXs were (+) for S pyogenes. He was d/c'd w/ IV ceftriaxone x14d. During my assessment, patient reports ongoing pain of the RUE; mild swelling present on dorsum of hand. States that the pain has been ongoing for several days; unchanged over the last 24h. There is an open area of the surgical site on the dorsum; remainder of incision is healing appropriately. He is scheduled to see surgery in 2 days. Pt was asked if he would be willing to go to ER; pt stated that he did not want to go. He was instructed to go if his pain becomes worse. Denies F/C, N/V, abdominal pain. No further complaints. Review of Systems Constitutional: Negative for appetite change, chills, diaphoresis, fatigue and fever. Respiratory: Negative for cough, shortness of breath and wheezing. Cardiovascular: Negative for chest pain, palpitations and leg swelling. Gastrointestinal: Negative for abdominal distention, abdominal pain, constipation, diarrhea, nausea and vomiting. Skin: Positive for color change, rash and wound. Social History Socioeconomic History Marital status: Spouse name: Not on file Number of children: Not on file Years of education: Not on file Highest education level: Not on file Occupational History Not on file Tobacco Use Smoking status: Every Day Packs/day: 0.50 Types: Cigarettes Smokeless tobacco: Never Substance and Sexual Activity Alcohol use: Not Currently Drug use: Not Currently Sexual activity: Not Currently Other Topics Concern Not on file Social History Narrative Not on file Social Determinants of Health Financial Resource Strain: Not on file Food Insecurity: Not on file Transportation Needs: Not on file Physical Activity: Not on file Stress: Not on file Social Connections: Not on file Intimate Partner Violence: Not on file Housing Stability: Not on file Past Medical History: Diagnosis Date High blood pressure No family history on file. Visit Vitals BP 122/80 (BP Location: Left arm, Patient Position: Sitting, BP Cuff Size: Adult) Pulse 79 Temp 36.4 C (97.6 F) Wt Readings from Last 3 Encounters: 06/17/22 191 lb (86.6 kg) 06/11/22 191 lb (86.6 kg) 06/02/22 195 lb (88.5 kg) Physical Exam Constitutional: Appearance: He is not ill-appearing or diaphoretic. HENT: Head: Normocephalic and atraumatic. Nose: Nose normal. Mouth/Throat: Mouth: Mucous membranes are dry. Eyes: General: No scleral icterus. Extraocular Movements: Extraocular movements intact. Pupils: Pupils are equal, round, and reactive to light. Cardiovascular: Rate and Rhythm: Normal rate and regular rhythm. Pulses: Normal pulses. Heart sounds: Normal heart sounds. No murmur heard. No friction rub. No gallop. Pulmonary: Effort: Pulmonary effort is normal. No respiratory distress. Breath sounds: Normal breath sounds. No wheezing, rhonchi or rales. Abdominal: General: Abdomen is flat. Bowel sounds are normal. There is no distension. Palpations: Abdomen is soft. There is no mass. Tenderness: There is no abdominal tenderness. Hernia: No hernia is present. Musculoskeletal: General: Swelling, tenderness, deformity and signs of injury present. Normal range of motion. Cervical back: Normal range of motion and neck supple. Right lower leg: No edema. Left lower leg: No edema. Comments: Mild swelling present on dorsum of R hand RUE surgical incision site present; no visible drainage Skin: General: Skin is warm and dry. Capillary Refill: Capillary refill takes less than 2 seconds. Findings: Erythema and lesion present. Neurological: General: No focal deficit present. Mental Status: He is alert. Psychiatric: Mood and Affect: Mood normal. Judgment: Judgment normal. No results displayed because visit has over 200 results. ASSESSMENT/PLAN 1. Necrotizing fasciitis (HCC) 2. Cellulitis of right upper extremity ADDITIONAL PLAN NOTES Patient reports ongoing pain of the RUE; mild swelling present on dorsum of hand. Pt was asked if he would be willing to go to ER; pt stated that he did not want to go. He was instructed to go if his pain becomes worse. Will extend ABX x2 weeks, will f/u in 2 weeks to re-assess. On this date, 06/17/22 I have spent 30 minutes reviewing previous notes, test results and face to face with the patient discussing the diagnosis and importance of compliance with the treatment plan as well as documenting on the day of the visit. documented in this encounter 06-11-2022 History of Present illness Narrative Images from the original note were not included. [facility] [address] [facility] [address] Dept: [phone] Dept 06/11/2022 Chief Complaint Patient presents with Post-op DOS 06/05/2022 Repeat excisional debridement skin, subcutaneous tissue, and fascia of right hand/wrist/forearm measuring 300 sq cm with secondary wound closure. DOS 06/03/2022 Excisional debridement skin, subcutaneous tissue, and fascia of right hand/wrist/forearm measuring 300 sq cm, extensor synoectomy right wrist SUBJECTIVE Edward is approximately 6 day(s) s/p DOS 06/05/2022 Repeat excisional debridement skin, subcutaneous tissue, and fascia of right hand/wrist/forearm measuring 300 sq cm with secondary wound closure. DOS 06/03/2022 Excisional debridement skin, subcutaneous tissue, and fascia of right hand/wrist/forearm measuring 300 sq cm, extensor synoectomy right wrist. He is taking oxycodone for pain relief. He denies significant complaints other than the expected amount of pain. His is changing the dressing at home once a day Denies any systemic complaints. Pain is mostly along the dorsal wrist. Has been tolerating antibiotics without issue. OBJECTIVE Ht 5' 10 (1.778 m) Wt 191 lb (86.6 kg) BMI 27.41 kg/m Ortho Exam Focused Exam of the RIGHT Upper Extremity See clinical images. All wounds intact with nylon sutures. Overall swelling markedly improved from hospitalization. Finger and wrist stiffness secondary to pain. Skin over the dorsal wrist appears viable with slight superficial sloughing and fibrinous tissue. No expressible drainage or purulence. No fluctuance or crepitation. Neurovascularly intact with exception of decreased sensation along the dorsal hand. Clinical Photos: IMAGING NONE ASSESSMENT (M72.6) Necrotizing fasciitis of forearm (CMS/HCC) ([facility]) (L03.113) Cellulitis of right upper extremity 1. Necrotizing fasciitis of forearm (CMS/HCC) ([facility]) 2. Cellulitis of right upper extremity PLAN Edphyllis is recovering as expected. I recommended twice daily dry dressing changes and early range of motion elbow wrist and hand. He is to continue with his antibiotics and a prescription of oxycodone was provided. He will follow-up next week for repeat evaluation. Knows to call the office if his symptoms should worsen in any way. Immobilization: NO immobilization required at this point - FULL ROM encouraged without resitrictions Weight Bearing: Non Weight Bearing Rehabilitation: NO formal rehabilitation required at this point. Follow-up: Gabriel will followup with me in 1 weeks. He knows to call the office with any questions or concerns in the interim. Future Imaging: NONE Bharathi Ayala MD Hand and Upper Extremity Surgery [facility] Department of Orthopaedics and Sports Medicine 06/11/2022 at 1:27 PM (Please note that portions of this note may have been completed with a voice recognition program. Efforts were made to edit the dictations but occasionally words are mis-transcribed.) documented in this encounter 06-11-2022 Instructions Jaylene Escobar ATC - 06/11/2022 1:00 PM EDT Please send clinical photos to [email or web address] Please include your name and date of in the subject line of e-mail documented in this encounter 06-09-2022 Miscellaneous Notes called back and information listed below given. Ann Bautista LPN Called and left message on patients voicemail to return call to the office and ask to speak with a triage nurse. Please relay message to below from PCP. Shobha Thompson Ma OK for Protonix as ordered Reyes Waite MD Pt's calls to report that pt was at [facility] and was released yesterday. Pt had an infection in arm that required surgery. Pt has been having acid reflux really bad per . At the hospital they checked to make sure it was nothing to do with pt's heart and every checked out. reports they were advised to call pcp to get rx for something for acid reflux. is asking if provider will send rx to the local pharmacy. China Tobias LPN documented in this encounter [facility] 06-09-2022 Telephone encounter Note Patient discharged with [facility]. I spoke with Gabriel and he is aware of his follow up with Dr. Green. 06-08-2022 Note Discharge Summary Gabriel Carter : 1965 ADMIT DATE: 06/02/2022 DISCHARGE DATE: 06/08/2022 PRIMARY CARE PHYSICIAN: Papi Ricketts VISIT STATUS: Admission CODE STATUS: Prior DISCHARGE DIAGNOSES: Principal Problem: Cellulitis of right upper extremity Active Problems: HTN (hypertension) Necrotizing fasciitis (HCC) Cellulitis of right upper extremity and necrotizing fasciitis only/Leukocytosis--no sepsis on admission HOSPITAL COURSE: Gabriel Carter is a 57 y.o. male who presents to the emergency department for evaluation of right arm swelling and infection. Patient was transferred from outside ED for concerns for necrotizing fasciitis. Patient said initially he had an abrasion to his right hand a few days ago. Patient said the redness and swelling has increased and since traveled up his right arm. Denies any fever or chills. Denies any IV drug use. Denies any numbness or tingling in his right arm. In ED labs showed white blood cell count 24.3. Hemoglobin 12.3. Sed rate 61. CRP 236.3. Creatinine 3.74. Uric acid 6.1. INR 1.1. Right forearm xray as interpreted by me and confirmed by radiologist showed no acute findings. patient was admitted and placed on broad antibiotics. Seen by Ortho and underwent Incision and debridement (06/03), wound vac was placed and wound left open. He has subsequent surgery on 06/05 with Closure. Cultures grew Strep. Followed by ID and planned for 14 days of rocephin on discharge after cultures revealed Strep pyogenes. Picc placed, drain removed from surgical site. Patient stabilized and was clear for DC home with [facility] on 06/08. Pateint had ANGELIA on presentation that resolverd during hospitalization. Patient had high BP's once ANGELIA resolved he was put back on lisinopril at higher dose. SIGNIFICANT DIAGNOSTIC STUDIES: Patient Name: GABRIEL CARTER : 1965 Exam Date/Time: 06/02/2022 21:29 Procedure: XR FOREARM 2 VIEWS RIGHT Ordering Provider: JOSEPH MATTHEW Reason For Exam: pain/Reduced ROM/hx trauma CLINICAL INFORMATION: Right arm pain after trauma. Limited range of motion. AP and lateral views of the right forearm are provided. FINDINGS: The osseous structures are unremarkable. There is no fracture or dislocation. The bone mineralization is within normal limits. There is no radiopaque foreign body. IMPRESSION: 1. No acute findings. CONSULTANTS: Bharathi Ayala MD - orthopedics Jerry Beltran MD-Nephrology Sean Green DO- Infectious Disease RECOMMENDED NEXT STEPS: Complete course of IV antibiotics Followup with Ortho in 1-2 weeks Followup with PCP in approx 1 week DISCHARGE MEDICATIONS: Medication List START taking these medications oxyCODONE 5 MG immediate release tablet Commonly known as: Roxicodone Take 1 tablet (5 mg) by mouth every 4 hours as needed for moderate pain (4-6) for up to 3 days. CHANGE how you take these medications lisinopril 20 MG tablet Take 1 tablet (20 mg) by mouth daily. Do not start before June 09, 2022. What changed: medication strength how much to take CONTINUE taking these medications aspirin 81 MG EC tablet CEFTRIAXONE SODIUM IV Where to Get Your Medications These medications were sent to [facility]/pharmacy #[id number] - [place], [place] - [address] FROM [facility] [address], [facility] [address] Hours: 24-hours lisinopril 20 MG tablet oxyCODONE 5 MG immediate release tablet DIET: regular ACTIVITY: as tolerated. COMPLEXITY OF FOLLOW UP: [] Moderate Complexity: follow up within 7-14 calendar days (99374) [x] Severe Complexity: follow up within 7 calendar days (66305) FOLLOW UP TESTING, PENDING RESULTS OR REFERRALS AT TRANSITIONAL CARE VISIT: [] Yes [x] No DISPOSITION: Home with Home Health Care Follow up with Bharathi Ayala MD [address] [place] [id number] Follow up in 1 week(s) Papi Ricketts DO [address] [facility] [address] Follow up Patient provided Oxycodone on Discharge- PDMP reviewed. INSTRUCTIONS TO MA/SW: Please call patient on day after discharge (must document patient contacted within 2 business days of discharge). FOLLOW UP QUESTIONS FOR MA/SW: 1. Did you get medications filled and taking them as instructed from discharge? 2. Are you following your discharge instructions from your hospital stay? 3. Please confirm patient is scheduled for a follow up appointment within the above time frame. DISCHARGE TIME: >30 minuites SIGNED: Ry Foster MD 06/09/2022, 8:20 AM [facility] 06-08-2022 Nurse Note Dressing completed per ordered, educated patient's spouse through process. Spouse verbalizes understanding. Discharge instructions reviewed with patient and spouse, all questions answered, patient and spouse verbalize understanding. Patient take to private vehicle by wheelchair. 06-08-2022 Nurse Note Dressing completed per ordered, educated patient's spouse through process. Spouse verbalizes understanding. Discharge instructions reviewed with patient and spouse, all questions answered, patient and spouse verbalize understanding. Patient take to private vehicle by wheelchair. Completed patients dressing change. Patient tolerated well. Paged ortho that pt is refusing to keep arm and hand in ciarra wrap and splint. Dr Mar aware and told to give the pt ice for his arm. He would be up to see the pt. documented in this encounter 06-08-2022 Miscellaneous Notes Patient Choice Patient Name: GABRIEL CARTER Date of : 1965 All Providers Sent Referral Name: [facility] Phone: [phone] Address: [address] [place] [address] Name: At Home Phone: [phone] Address: [address] [place] [address] Name: [facility] Phone: [phone] Address: [address] [place] [address] Name: [facility] - [facility] (All Offices) Phone: [phone] Address: [address] [address] Name: [facility] Phone: [phone] Address: [address] [place] [address] Name: [facility] Phone: [phone] Address: [address] [place] [address] Name: [facility] Phone: [phone] Address: [address] [place] [address] Name: [facility] Phone: [phone] Address: [address] [place] [address] Name: [facility] Address: [address] [place] [address] Name: [facility] Phone: [phone] Address: [address] [place] [address] Name: [facility] Address: [address] [place] [address] Name: [facility] Address: [address] [place] [address] Name: [facility] [place] (Home Health) Address: [address] [place] [address] Start PACC Note Home Health Referral Educated patient on Home Care and services available. Patient offered choice of available HHC and agreeable to SN / PTservices with [facility] - Home Care. Care Types: [facility] Isolation Precautions: No active isolations Social Determinates of Health: Tobacco Use: Not on file Social History Substance and Sexual Activity Alcohol Use None Social History Substance and Sexual Activity Drug Use Not on file Does the patient have any financial resource strain? No Does the patient have any food insecurities? No Does the patient have any housing instabilities? No If any of the above is noted as yes - consider a [employer] SUPERINTENDENT evaluation once the patient returns home. START PATIENT REGISTRATION INFORMATION Order Information Order Signing Physician: Ry Foster MD Service Ordered RN ?: Yes Service Ordered PT ?: Yes Service Ordered OT ?: No Service Ordered ST ?: No Service Ordered [employer] SUPERINTENDENT?:No Service Ordered REMNANTS CUTTER?: No Following Physician: DR Bharathi Ayala Following Physician Overseeing Physician: (Required for Residents only) Agreeable to Follow? Yes Date/Time of Call 06/08/22 12:13 PM Office is closed Care Coordination SOC Call from [facility] Required?: No Same Day SOC?: No Primary Care Physician: Papi Ricketts DO Primary Care Physician Primary Care Physician Address: [address] / [facility] [address] Visit Instructions: N/A Service Discharge Location Type: Home with Home Health Care Service Facility Name: N/A Service Floor Facility: N/A Service Room No: N/A Demographics Patient Last Name: Emma Patient First Name: Gabriel Language/Communication Barrier: n/a Service Address: [address] [facility] [address] [facility] Service City: [facility] [address]: [place] Service ZIP: [address] Service (home) Other phone numbers: Arpita [phone] Emergency Contact: Extended Emergency Contact Information Primary Emergency Contact: arpita tolbert Mobile Relation: Relative Preferred language: Faroese Early Childhood Specialist needed? No Admission Information Admit Date: 06/02/2022 Patient status at discharge: Inpatient Admitting Diagnosis ANGELIA (acute kidney injury) (CMS/HCC) (HCC) [N17.9] Cellulitis of right upper extremity [L03.113] Caregiver Information Caregiver First Name: Arpita Caregiver Last Name: Uriel Caregiver Relationship to Patient spouse Caregiver Caregiver Notes: N/A HITECH [employer] List HIGHTECH: HI TECH - IV Orders: Ceftriaxone 2,000 mg every 24 hrs IV Method of Administration: IV Date and Time of Next Dose Due: 06/09/2022 between 12 noon and 2 pm Infusion Company: [facility] Infectious Disease Physician: Dr Sean Green Teachable Caregiver Teachable Caregiver First Name: Arpita Teachable Caregiver Last Name: Uriel Teachable Caregiver Relationship to Patient: spouse Teachable Caregiver Teachable Caregiver Notes: N/A Teachable Caregiver available for SOC visit?: Yes Teachable Caregiver agreeable to provide skilled HITECH care per physician's orders?: Yes HIGHTECH: HI TECH - WOUND CARE Orders: - Wound care as follows: Dress wound with adaptic, 4x4s, kerlix, and CIARRA 2 times daily. Teach pt and CG. Instruct on signs/symptoms infection. Wound following physician: Dr Bharathi Ayala Last time wound care completed?: 06/08/2022 Supplies sent home?: Yes How many days are covered with supplies?: 3 Days Teachable Caregiver Teachable Caregiver First Name: Arpita Trevino Caregiver Last Name: Uriel Trevino Caregiver Relationship to Patient: spouse Teachable Caregiver Teachable Caregiver Notes: N/A Teachable Caregiver available for SOC visit?: Yes Teachable Caregiver agreeable to provide skilled HITECH care per physician's orders?: Yes END PATIENT REGISTRATION INFORMATION Pt Home Health goal to remain at home COVID Status 1. Do you have any upper respiratory symptoms (cough, SOB, Fever)? Yes 2. Have you been exposed to anyone with COVID-19 Virus? No Answer only if pending or positive for COVID-19? 1. Agreeable to wear PPE at each visit? No 2. Is the hospital supplying them with PPE upon Discharge? No Start PACC Summary General Report/ Additional Comments Interval History: Gabriel Carter is a 57 y.o. male who presents to the emergency department for evaluation of right arm swelling and infection. Patient was transferred from outside ED for concerns for necrotizing fasciitis. Patient said initially he had an abrasion to his right hand a few days ago. Patient said the redness and swelling has increased and since traveled up his right arm. Denies any fever or chills. Denies any IV drug use. Denies any numbness or tingling in his right arm. In ED labs showed white blood cell count 24.3. Hemoglobin 12.3. Sed rate 61. CRP 236.3. Creatinine 3.74. Uric acid 6.1. INR 1.1. Right forearm xray as interpreted by me and confirmed by radiologist showed no acute findings. patient was admitted and placed on broad antibiotics. Seen by Ortho and underwent Incision and debridement (06/03) Discharge Date: 06/08/2022 Referral Source-PACC: (Hospital/Unit): [facility] / H-6109/H-6109 A End PACC Note Problem: Pain - Adult Goal: Verbalizes/displays adequate comfort level or baseline comfort level Outcome: Progressing Problem: Safety - Adult Goal: Free from fall injury Outcome: Progressing Problem: Discharge Planning Goal: Discharge to home or other facility with appropriate resources Outcome: Progressing Problem: Problem Interventions Goal: Assess Nutritional Intake Outcome: Progressing Images from the original note were not included. CARE COORDINATION DAILY NOTE/UPDATE Medical Plan: s/p I&D of RUE on 06/03 and rpt I&D of RUE on 06/05. PICC line placed 06/06. ID recommending ceftriaxone 2g every 24 hours with completion date of 06/20/22. Discharge Plan: home with Theresa available Thursday06/09/22, if patient receives IV antibiotic Thursday he can discharge home and be seen Thursday. Discharge Barriers: pending medical clearance and home care SOC 06/09/22 This TCC was tasked to follow this patient through the weekend assisting with discharge planning. Chart was reviewed. Expected discharge and Discharge Milestones reviewed and updated. TCC will continue to follow. Attempted to confirm patients discharge plan at the bedside, unsure if patient wishes to continue with the home care option or Outpatient options include [facility] or [facility]. Discharge Milestones and Delays Expected Date/Time: 06/09/[address] discharge order Enter post-discharge transportation status Complete med reconciliation Request transport Case mgmt discharge readiness PT discharge readiness Expected Discharge History Expected Date/Time Set By Reviewed At 06/09/2022 Adina Allan RN 06/07/2022 8:05 AM TCC estimate- pending medical clearance and home care SOC 06/09/22 Unknown GASPER Colon 06/06/2022 9:34 AM SW est Unknown GASPER Colon 06/05/2022 9:05 AM Unknown GASPER Colon 06/04/2022 9:16 AM 06/05/2022 Soco Jean, MEDICAL FACILITIES SECTION DIRECTOR 06/03/2022 9:49 AM 06/05/2022 Soco Jean, GASPER 06/03/2022 9:42 AM NPO- poss OR-if agrees 06/05/2022 Soco Jean, GASPER 06/03/2022 9:42 AM NPO- poss OR 06/05/2022 Jesse Cabral PA-C 06/03/2022 2:09 AM 06/05/2022 Jesse Cabral PA-C 06/02/2022 11:51 PM Length of Stay (Days): 5 GMLOS: 3.0 Case Management Progress Note TCC rec'd secure chat msg from Dr. Green that pt to receive PICC line with minimum of 2 weeks IV Antibiotics at [place]. Surgical drain remains, ortho notes plan to check in am. HC-L following and notified TCC that no home care agencies available Sat or Sun for home infusions and wound care needs if discharged prior to Thursday's antibiotic. TCC phoned [facility] at [phone] and left VMM with request to call back to discuss DC needs of pt. Contact info provided. Discharge Plan: Home Care available Thursday, if patient receives IV Antibiotic Thursday, can discharge home and be seen for timely administration on Thursday. Backup Options include [facility] or [facility]. Driving time to [facility] noted to be ~15 mins away from pts hometown of [place] whereas [facility] location is ~35 Pt refusing to work w/therapy and refused to speak with HC-L so he can sleep. TCC not able to meet w/him to discuss options above. Requested wknd TCC to follow and provided assistance if needed. Attempt to talk to pt, pt request I come back tomorrow, he is sleeping and doesn't want bothered now. Followed up with TCC regarding discharge plan. Informed TCC, at Home is unable to see pt for SOC until Thursday06/09/2022 due to staffing issues on weekend. Will send referral to other agencies that accept insurance/go to pt's area to see if any agency may be able to accept referral and able to see on weekend. Referrals sent to 12 agencies, received no from 8 and no response from 4. MARAVILLA can see pt on Thursday if pt is agreeable for agency and benefits. Will have w/e PACC follow up with pt. TCC was made aware earlier this afternoon. IV order received this evening and sent to [facility]. Images from the original note were not included. Care Management Progress Note Medical Plan: S/p repeat I&D with closure on 06/05. Surgical drain managed by Ortho. ID following with surgical cultures from I&D on 06/03 pending. BID dressing changes. Receiving IV Rocephin and pain managed with po meds. Trending BMP, CBC and CRP Discharge plan: Home Pending final ID plan- will need LT antibiotics and PICC line HC-L following Will review OP Infusion option available at [facility]. TCC will continue to follow Discharge Milestones and Delays Expected Date/Time: Unknown Discharge Milestones Place discharge order Enter post-discharge transportation status Complete med reconciliation Request transport Case mgmt discharge readiness PT discharge readiness Expected Discharge History Expected Date/Time Set By Reviewed At Unknown GASPER Colon 06/06/2022 9:34 AM est Unknown GASPER Colon 06/05/2022 9:05 AM Unknown GASPER Colon 06/04/2022 9:16 AM 06/05/2022 Soco Jean, [facility] 06/03/2022 9:49 AM 06/05/2022 Soco Jean, [facility] 06/03/2022 9:42 AM NPO- poss OR-if agrees 06/05/2022 GASPER Conroy 06/03/2022 9:42 AM NPO- poss OR 06/05/2022 Jesse Cabral PA-C 06/03/2022 2:09 AM 06/05/2022 Jesse Cabral PA-C 06/02/2022 11:51 PM Length of Stay (Days): 4 GMLOS: 3.0 Update to she will meet patient in room 6109 Images from the original note were not included. [place] [address] [address] [place] [id number] Dept: [phone] Loc: [phone] Operative Report Patient Name: Gabriel Carter Date of : 1965 Date of Surgery: 06/05/2022 Preoperative Diagnosis: Right upper extremity necrotizing fasciitis Postoperative Diagnosis: Same, with no extension of infection proximal to the elbow. Minimal necrosis skin flaps dorsal hand/wrist. Procedure: Repeat excisional debridement skin, subcutaneous tissue, and fascia of right hand/wrist/forearm measuring 300 sq cm with secondary wound closure Surgeon: Bharathi Ayala MD 1st Assist: Hina Cook MD 2nd Assist: None Implants: None Specimens Removed: None Anesthesia: General Local Anesthesia: None Tourniquet: Brachium Estimated Blood Loss: <5ml Pre Operative Antibiotics: Scheduled on the floor Post Operative Photos: Indications: Mr. Gabriel Carter is a 57 y.o. year-old male who presents today for second look debridement of right upper extremity necrotizing fasciitis and possible wound closure. I have discussed with him, preoperatively, the complications, limitations, expectations, alternatives, and risks of surgical intervention which he has demonstrated understanding. No guarantees were given or implied. After having all of his questions answered to his satisfaction, Mr. Gabriel Carter has provided written informed consent to proceed. Please see previous notes for full operative risk discussion. Procedure: Gabriel Carter was identified in the preoperative waiting area. His operative site was initialed and consent was reviewed. Final questions were answered. He was brought to the operating room and placed in the supine position. All bony prominences were well padded. The operative extremity was prepped and draped in the usual sterile fashion. A surgical timeout was then performed with the patient's identification, the procedure to be performed being reviewed, verification that the patient had received preoperative antibiotics if indicated, and verification of the correct surgical site. The patient's ASA was verified by the nurse screwdown operator and the anesthesia staff. Fire risk was assessed. Clay was used to exsanguinate the limb and the tourniquet was inflated to 250mm Hg. Previously placed wound VAC sponge was removed. The dorsum of the index finger wound was close inspected. There is no evidence of further necrosis. The dorsal hand, wrist, and forearm was close inspected. There was no evidence of infection at the most proximal extent of the wound. The skin flaps are largely viable with the exception of about 2 mm on both the radial and ulnar skin flaps directly overlying the wrist. All nonviable skin, subcutaneous tissue, and fascia was sharply excised from the entirety of the wound which measured 30 cm x 10 cm. I again copiously irrigated the wound with normal saline and felt it was safe to close the wound primarily. I placed a medium Hemovac drain along the dorsal forearm musculature brought out through the radial skin flap. Skin flaps were repairable over the dorsal hand and wrist with slight tension. The remainder of the wound was tension-free. The wounds were then dressed with Xeroform and fluffed gauze followed by Ciarra wrap from the fingertips to the mid brachium. The tourniquet was deflated and the fingers pinked up nicely with a capillary refill less than 2 seconds. Mr. Gabriel Carter was taken to the recovery room in stable condition. POST OPERATIVE PLAN Twice daily dry dressing changes Antibiotics per ID Encourage thumb and finger range of motion Pull drain Thursday morning Daily clinical images on rounds No plans for additional surgery F/U in office 2-3 days after DC Outpatient Follow-up XRays: None Bharathi Ayala MD Date: 06/05/2022 Location: [facility] OR Name: Gabriel Carter, : 1965, Diagnosis Pre-op Diagnosis * Necrotizing fasciitis (HCC) [M72.6] Post-op Diagnosis * Necrotizing fasciitis (HCC) [M72.6] Procedures INCISION AND DRAINAGE FOREARM AND OR WRIST BURSA, POSSIBLE CLOSURE, POSSIBLE WOUND VAC APPLICATION 73649 - [place] INCISION & DRAINAGE FOREARM&/WRIST BURSA Surgeons * Bharathi Ayala - Primary Procedure Summary Anesthesia: General ASA: III Estimated Blood Loss: 10 mL Drains: Closed/Suction Drain Inferior;Proximal;Right Accordion 10 Fr. (Active) Staff: Counter Person: Aldo Palafox RN Relief Counter Person: Elva Winkler RN Scrub Person: Shavon Short RN Findings: please see full op note Complications: None; patient tolerated the procedure well. Specimens Collected: No specimens collected during this procedure. Wound Class: Class IV: Dirty Blood Products: None Prophylactic Antibiotics: Procedure appropriate prophylactic antibiotic(s) given within 1 hour of surgical incision (two hours if receiving Vancomycin or flouroquinolone) Plan: -Weight bearing: NWB RUE -Ok for ROM as tolerated to RUE, encourage finger, hand, wrist, elbow ROM -BID dressing changes per nursing -Please redress with adaptic, 4x4s, kerlix, and CIARRA wraps -Drain in place (stitched in) -Please empty and record output q shift -Will d/w Dr. Ayala on 06/07 re drain outputs and determine if drain can be pulled -No return to OR planned -OK for diet from ortho standpoint -Abx per ID -OR cx +GPCs, strep pyogenes -DVT prophylaxis/medical management/pain control per 1 team -F/u OP w/ Dr Ayala in 1 weeks, discharge instructions in AVS Associated attestation - Bharathi Ayala MD - 06/06/2022 3:05 PM EDT Agree Bharathi Ayala MD Images from the original note were not included. Care Management Progress Note 57 yo here s/p I&D of R forearm with wound vac placement for necrotizing fasciitis on 06/03. NPO after midnight for RTOR tomorrow for repeat I&D and possible closure with ortho. ID- following, receiving IV Clinda, Zosyn and Vanc. Nephrology following for ANGELIA. Discharge Plan: Anticipate home with home health for wound care and possible LT IV ABX HC-L following with OOP benefits for HH noted. TCC will cont to follow and discuss options with pt after tomorrow's surgery to discuss next steps in DCP. Discharge Milestones and Delays Expected Date/Time: Unknown Discharge Milestones Place discharge order Enter post-discharge transportation status Complete med reconciliation Request transport Case mgmt discharge readiness OT discharge readiness Expected Discharge History Expected Date/Time Set By Reviewed At Unknown Kristen Perkins [facility] 06/04/2022 9:16 AM SW est 06/05/2022 Soco Jean [facility] 06/03/2022 9:49 AM 06/05/2022 Soco Jean [facility] 06/03/2022 9:42 AM NPO- poss OR-if agrees 06/05/2022 Soco Jean [facility] 06/03/2022 9:42 AM NPO- poss OR 06/05/2022 Jesse Cabral PA-C 06/03/2022 2:09 AM 06/05/2022 Jesse Cabral PA-C 06/02/2022 11:51 PM Length of Stay (Days): 2 GMLOS: No GMLOS Documented Day Worker following case for Discharge Needs. Check benefits for possible home IV needs. Per [facility]: Referral Received Jolene eff02/09/2022 DED $5000 ($ 4968.71 remaining) OOP $5000 ($ 4968.71 remaining) Coinsurance 0%. He wont have any upfront cost. Patient's Alison, updated and will meet patient in his room Patient family/visitor updated by RN at this time. [place] [address] [place] [phone] Dept: [phone] Loc: [phone] Operative Report Patient Name: Gabriel Carter Date of : 1965 Date of Surgery: 06/03/2022 Preoperative Diagnosis: Right upper extremity cellulitis Postoperative Diagnosis: Same, with clinical findings suggestive of necrotizing fasciitis coursing along the dorsal hand, wrist, and forearm. Procedure: Excisional debridement skin, subcutaneous tissue, and fascia of right hand/wrist/forearm measuring 300 sq cm Extensor synovectomy right wrist Application wound VAC measuring 2 cm by 30 cm Surgeon: Bharathi Ayala MD 1st Assist: Hina Cook MD 2nd Assist: None Implants: None Specimens Removed: Swab (X1), Tissue (X2) Anesthesia: General Local Anesthesia: None Tourniquet: Brachium Estimated Blood Loss: <5ml Pre Operative Antibiotics: Scheduled on the floor Indications: Mr. Gabriel Carter is a 57 y.o. year-old male transferred up from outside hospital with several day history of worsening right hand cellulitis and pain. He was seen at [facility] with markedly elevated infectious labs and transferred to [facility]. On arrival at [facility] the patient stated that he felt better after having started IV antibiotics. His symptoms had not progressed with serial checks and a trial of conservative care with IV antibiotics was offered. His exam overnight remained unchanged and the following day decision was made to take him for operative debridement. I have discussed with him, preoperatively, the complications, limitations, expectations, alternatives, and risks of surgical intervention which he has demonstrated understanding. No guarantees were given or implied. After having all of his questions answered to his satisfaction, Mr. Gabriel Carter has provided written informed consent to proceed. Please see previous notes for full operative risk discussion. Procedure: Gabriel Carter was identified in the preoperative waiting area. His operative site was initialed and consent was reviewed. Final questions were answered. He was brought to the operating room and placed in the supine position. All bony prominences were well padded. The operative extremity was prepped and draped in the usual sterile fashion. A surgical timeout was then performed with the patient's identification, the procedure to be performed being reviewed, verification that the patient had received preoperative antibiotics if indicated, and verification of the correct surgical site. The patient's ASA was verified by the nurse screwdown operator and the anesthesia staff. Fire risk was assessed. Clay was used to exsanguinate the limb and the tourniquet was inflated to 250mm Hg. A longitudinal incision was made centered over the third MCP joint extending across the dorsal wrist and forearm to the lateral elbow. Gross purulence was noted in the subcutaneous tissue along the dorsum of the hand and wrist which was swabbed for culture. There was significant subcu cutaneous fat necrosis of the skin flaps over the dorsum of the hand and wrist. In the dorsal forearm there was dishwater fluid and boggy. Fascial soft tissues with a slight [place] green hue. The subcutaneous tissue was well adherent to the underlying fascia radially but easily finger dissected from the fascia ulnarly to the level of the ulnar shaft. There was significant edema in the subcutaneous tissues without significant fat necrosis in the forearm. The edema and boggy soft tissues extended to the level of the lateral epicondyle. I extended my incision more proximal to the elbow and at this level the subcutaneous tissues and fascia appeared normal. With the hand, wrist, and forearm exposed I turned my attention to excisional debridement of any nonviable skin subcutaneous tissue and fascia. The majority of the soft tissue involvement was in the dorsal hand and wrist. There was extensive synovitis of the extensor tendons of the fourth compartment distal to the retinaculum. Synovitis was sharply excised from each individual tendon. The radial sensory nerve and dorsal ulnar cutaneous nerves were identified and protected within the skin flaps. The radial and ulnar flaps extended to the first metacarpal and fifth metacarpal respectively. A separate longitudinal incision was made over the dorsum of the index finger MCP joint overlying a small superficial ulcer. Ulcer was excised in full-thickness skin flaps elevated. Again, there is necrotic subcutaneous tissues noted but extensor tendons intact. Any nonviable soft tissues were sharply excised from the next finger. Following debridement of the entire dorsal hand, wrist, and forearm the entire wound measured 30 cm in length by 10 cm in width. Several liters of gravity fed normal saline were passed through the subcu tissues while gently curetting any remaining necrotic tissue. Incisions over the dorsum of the index and middle fingers were closed with nylon sutures. The remainder of the wound from the dorsal hand to the lateral elbow was packed with a black wound VAC sponge followed by a wound VAC bandage which was hooked to suction achieving excellent seal. The tourniquet was then deflated. The hand pinked up nicely in all 5 digits demonstrated brisk capillary refill less than 2 seconds. Patient was then placed in a well-padded posterior slab splint. Mr. Gabriel Carter was taken to the recovery room in stable condition. POST OPERATIVE PLAN Continue broad-spectrum antibiotics for necrotizing fasciitis Plan for second look debridement and possible closure in 48 hours Outpatient Follow-up XRays: None Bharathi Ayala MD Care Managment Initial Assessment Date: 06/03/2022 Patient Name: Gabriel Carter : 1965 Patient Information Source of Information: Cognition/Language: WFL - Within Functional Limits Permission given to speak with patient operations support representative/caregiver as indicated: Confirmation of Payer with patient/family: Yes Payer Name: Jolene Pacheco [email or web address] [place] : No Confirmation of Primary Care Physician: Confirmed PCP Name: Dr Ricketts Seen in last 2 years?: Yes Primary Caregiver: Self If assistance needed, confirmed caregiver ready, willing and able to care for patient at discharge: Confirmed with: Living Arrangements Current Residence: House Number of Floors 2 Number of Entry Steps: 4 Bed/Bath Levels: Both second floor Facility: Facility Name: Plan to Return: Lives with: Spouse/significant other, Children Support Systems: Spouse/significant other, Children, Parent, Family members, Friends/neighbors Activities of Daily Living Ambulation: Independent Bathing/Dressing: Independent Elimination/Continence/Toileting: Independent Feeding: Independent Who Assists with Activities of Daily Living: Instrumental Activities of Daily Living Prescription Coverage: Yes Pharmacy Used: [facility] in [place] Medication Management: Independent Transportation/Shopping: Independent Transportation Mode: Car Needs Assistance with Transportation at Discharge: No Meal Preparation: Assistance Provider Meal Prep Assistance Provider Name: family Laundry/Cleaning: Assistance Provider Laundry/Cleaning Assistance Provider Name: family Finances/Bill Paying: Assistance Provider Finances/Bill Payer Assistance Provider Name: family Communication: Independent Types of Care Services/Equipment Utilized Care Services: (n/a) Dialysis Type: NA Durable Medical Equipment: (n/a) Patient's Goal/Discharge Plan Patient expects to be discharged to: home Discharge Planning Actions: Continue to follow Patient's Choice Rights and [employer] and Collaborative Relationships Disclosed as Indicated for Post-Acute Care: Interdisciplinary Team Engagement: Social Work Referral for: Additional Information: Went into room introduced self and role to pt. He appears A 0 x 3. He was a transfer from [facility] for R arm swelling and possible need for surgery. ID, Nephrology, and ortho consulted. Started on IV antibiotics and IV fluids. Ortho wants to take to surgery and debride site. May need a wound vac. Wants to go home when stable, will follow for needs. Neetu Miranda RN documented in this encounter 06-08-2022 Note Formatting of this n ote might be different from the original. Patient Choice Patient Name: GABRIEL CARTER Date of : 1965 All Providers Sent Referral Name: [facility] Phone: [phone] Address: [facility] [place] [address] Name: [facility] Phone: [phone] Address: [address] [place], [place] [id number] Name: [facility] Phone: [phone] Address: [address] [place] [address] Name: [facility] [place] (All Offices) Phone: [phone] Address: [address] [place] [address] [address]: [facility] Phone: [phone] Address: [address] [place] [address] Name: [facility] Phone: [phone] Address: [address] [place] [address] Name: [facility] Phone: [phone] Address: [address] [place] [address] Name: [facility] Phone: [phone] Address: [address] [place] [address] Name: [facility] Address: [address] [facility] [address] [place] [address] Name: [facility] Phone: [phone] Address: [address] [place] [address] Name: [facility] Address: [address] [facility] [place] [address] Name: [facility] Address: [address] [facility] [address] [place] [address] Name: [facility] ([facility] Health) Address: [address] [facility] [address] [place] [address] 06-08-2022 Note Formatting of this n ote might be different from the original. Patient Choice Patient Name: GABRIEL CARTER Date of : 1965 All Providers Sent Referral Name: [facility] Phone: [phone] Address: [address] [place] [address] Name: [facility] Phone: [phone] Address: [address] [place] [address] Name: [facility] Phone: [phone] Address: [address] [place] [address] Name: [facility] [place] (All Offices) Phone: [phone] Address: [address] [place] [address] [facility] Phone: [phone] Address: [address] [place] [address] Name: [facility] Phone: [phone] Address: [address] [place] [address] Name: [facility] Phone: [phone] Address: [address] [place] [address] Name: [facility] Phone: [phone] Address: [address] [place] [address] [facility]: [facility] Address: [address] [facility] [address] [place] [address] Name: [facility] Phone: [phone] Address: [address] [place] [address] Name: [facility] Address: [address] [facility] [place] [address] Name: [facility] Address: [address] [facility] [place] [address] Name: [facility] ([facility] Health) Address: [address] [facility] [address] [place] [address] 06-08-2022 Note Start PACC Note Home Health Referral Educated patient on Home Care and services available. Patient offered choice of available HHC and agreeable to SN / PTservices with at Home - Home Care. Care Types: [facility] Isolation Precautions: No active isolations Social Determinates of Health: Tobacco Use: Not on file Social History Substance and Sexual Activity Alcohol Use None Social History Substance and Sexual Activity Drug Use Not on file Does the patient have any financial resource strain? No Does the patient have any food insecurities? No Does the patient have any housing instabilities? No If any of the above is noted as yes - consider a [employer] SUPERINTENDENT evaluation once the patient returns home. START PATIENT REGISTRATION INFORMATION Order Information Order Signing Physician: Ry Foster MD Service Ordered RN ?: Yes Service Ordered PT ?: Yes Service Ordered OT ?: No Service Ordered ST ?: No Service Ordered [employer] SUPERINTENDENT?:No Service Ordered REMNANTS CUTTER?: No Following Physician: DR Bharathi Ayala Following Physician Overseeing Physician: (Required for Residents only) Agreeable to Follow? Yes Date/Time of Call 06/08/22 12:13 PM Office is closed Care Coordination SOC Call from [facility] Required?: No Same Day SOC?: No Primary Care Physician: Papi Ricketts DO Primary Care Physician Primary Care Physician Address: [address] [facility] / [facility] [address] Visit Instructions: N/A Service Discharge Location Type: Home with Home Health Care Service Facility Name: N/A Service Floor Facility: N/A Service Room No: N/A Demographics Patient Last Name: Emma Patient First Name: Gabriel Language/Communication Barrier: n/a Service Address: [address] [place] [address] Service City: [facility] [place]: [place] Service ZIP: [address] Service (home) Other phone numbers: Arpita [phone] Emergency Contact: Extended Emergency Contact Information Primary Emergency Contact: arpita tolbert Mobile Relation: Relative Preferred language: Faroese Early Childhood Specialist needed? No Admission Information Admit Date: 06/02/2022 Patient status at discharge: Inpatient Admitting Diagnosis ANGELIA (acute kidney injury) (CMS/HCC) (HCC) [N17.9] Cellulitis of right upper extremity [L03.113] Caregiver Information Caregiver First Name: Arpita Caregiver Last Name: Uriel Caregiver Relationship to Patient spouse Caregiver Caregiver Notes: N/A [employer] List HIGHTECH: HI TECH - IV Orders: Ceftriaxone 2,000 mg every 24 hrs IV Method of Administration: IV Date and Time of Next Dose Due: 06/09/2022 between 12 noon and 2 pm Infusion Company: [employer] Infusion Infectious Disease Physician: Dr Sean Green Teachable Caregiver Teachable Caregiver First Name: Arpita Teachable Caregiver Last Name: Uriel Teachable Caregiver Relationship to Patient: spouse Teachable Caregiver Teachable Caregiver Notes: N/A Teachable Caregiver available for SOC visit?: Yes Teachable Caregiver agreeable to provide skilled HITECH care per physician's orders?: Yes HIGHTECH: HI TECH - WOUND CARE Orders: - Wound care as follows: Dress wound with adaptic, 4x4s, kerlix, and CIARRA 2 times daily. Teach pt and CG. Instruct on signs/symptoms infection. Wound following physician: Dr Bharathi Ayala Last time wound care completed?: 06/08/2022 Supplies sent home?: Yes How many days are covered with supplies?: 3 Days Teachable Caregiver Teachable Caregiver First Name: Arpita Teachable Caregiver Last Name: Uriel Teachable Caregiver Relationship to Patient: spouse Teachable Caregiver Teachable Caregiver Notes: N/A Teachable Caregiver available for SOC visit?: Yes Teachable Caregiver agreeable to provide skilled HITECH care per physician's orders?: Yes END PATIENT REGISTRATION INFORMATION Pt Home Health goal to remain at home COVID Status 1. Do you have any upper respiratory symptoms (cough, SOB, Fever)? Yes 2. Have you been exposed to anyone with COVID-19 Virus? No Answer only if pending or positive for COVID-19? 1. Agreeable to wear PPE at each visit? No 2. Is the hospital supplying them with PPE upon Discharge? No Start PACC Summary General Report/ Additional Comments Interval History: Gabriel Carter is a 57 y.o. male who presents to the emergency department for evaluation of right arm swelling and infection. Patient was transferred from outside ED for concerns for necrotizing fasciitis. Patient said initially he had an abrasion to his right hand a few days ago. Patient said the redness and swelling has increased and since traveled up his right arm. Denies any fever or chills. Denies any IV drug use. Denies any numbness or tingling in his right arm. In ED labs showed white blood cell count 24.3. Hemoglobin 12.3. Sed rate 61. (more content not included)... [facility] 06-08-2022 Note Formatting of this n ote is different from the original. Start PACC Note Home Health Referral Educated patient on Home Care and services available. Patient offered choice of available HHC and agreeable to SN / PTservices with [facility]. Care Types: [facility] Isolation Precautions: No active isolations Social Determinates of Health: Tobacco Use: Not on file Social History Substance and Sexual Activity Alcohol Use None Social History Substance and Sexual Activity Drug Use Not on file Does the patient have any financial resource strain? No Does the patient have any food insecurities? No Does the patient have any housing instabilities? No If any of the above is noted as yes - consider a [employer] SUPERINTENDENT evaluation once the patient returns home. START PATIENT REGISTRATION INFORMATION Order Information Order Signing Physician: Ry Foster MD Service Ordered RN ?: Yes Service Ordered PT ?: Yes Service Ordered OT ?: No Service Ordered ST ?: No Service Ordered [employer] SUPERINTENDENT?:No Service Ordered REMNANTS CUTTER?: No Following Physician: DR Bharathi Ayala Following Physician Overseeing Physician: (Required for Residents only) Agreeable to Follow? Yes Date/Time of Call 06/08/22 12:13 PM Office is closed Care Coordination SOC Call from [facility] Required?: No Same Day SOC?: No Primary Care Physician: Papi Ricketts DO Primary Care Physician Primary Care Physician Address: [address] [place] [address] / [place] [address] Visit Instructions: N/A Service Discharge Location Type: Home with Home Health Care Service Facility Name: N/A Service Floor Facility: N/A Service Room No: N/A Demographics Patient Last Name: Emma Patient First Name: Gabriel Language/Communication Barrier: n/a Service Address: [address] [facility] Service City: [facility] [place]: [place] Service ZIP: [address] Service (home) Other phone numbers: Arpita [phone] Emergency Contact: Extended Emergency Contact Information Primary Emergency Contact: arpita tolbert Mobile Relation: Relative Preferred language: Faroese Early Childhood Specialist needed? No Admission Information Admit Date: 06/02/2022 Patient status at discharge: Inpatient Admitting Diagnosis ANGELIA (acute kidney injury) (CMS/HCC) (HCC) [N17.9] Cellulitis of right upper extremity [L03.113] Caregiver Information Caregiver First Name: Arpita Caregiver Last Name: Uriel Caregiver Relationship to Patient spouse Caregiver Caregiver Notes: N/A [employer] HIGHTECH: HI TECH - IV Orders: Ceftriaxone 2,000 mg every 24 hrs IV Method of Administration: IV Date and Time of Next Dose Due: 06/09/2022 between 12 noon and 2 pm Infusion Company: [employer] Infusion Infectious Disease Physician: Dr Sean Green Teachable Caregiver Teachable Caregiver First Name: Arpita Reeves Last Name: Uriel Reeves Relationship to Patient: spouse Teachable Caregiver Teachable Caregiver Notes: N/A Teachable Caregiver available for SOC visit?: Yes Teachable Caregiver agreeable to provide skilled HITECH care per physician's orders?: Yes HIGHTECH: [employer] TECH - WOUND CARE Orders: - Wound care as follows: Dress wound with adaptic, 4x4s, kerlix, and CIARRA 2 times daily. Teach pt and CG. Instruct on signs/symptoms infection. Wound following physician: Dr Bharathi Ayala Last time wound care completed?: 06/08/2022 Supplies sent home?: Yes How many days are covered with supplies?: 3 Days Teachable Caregiver Teachable Caregiver First Name: Arpita Trevino Caregiver Last Name: Uriel Trevino Caregiver Relationship to Patient: spouse Teachable Caregiver Teachable Caregiver Notes: N/A Teachable Caregiver available for SOC visit?: Yes Teachable Caregiver agreeable to provide skilled HITECH care per physician's orders?: Yes END PATIENT REGISTRATION INFORMATION Pt Home Health goal to remain at home COVID Status 1. Do you have any upper respiratory symptoms (cough, SOB, Fever)? Yes 2. Have you been exposed to anyone with COVID-19 Virus? No Answer only if pending or positive for COVID-19? 1. Agreeable to wear PPE at each visit? No 2. Is the hospital supplying them with PPE upon Discharge? No Start PACC Summary General Report/ Additional Comments Interval History: Gabriel Carter is a 57 y.o. male who presents to the emergency department for evaluation of right arm swelling and infection. Patient was transferred from outside ED for concerns for necrotizing fasciitis. Patient said initially he had an abrasion to his right hand a few days ago. Patient said the redness and swelling has increased and since traveled up his right arm. Denies any fever or chills. Denies any IV drug use. Denies any numbness or tingling in his right arm. In ED labs showed white blood cell count 24.3. Hemoglobin 12.3. Sed rate 61. CRP 236.3. Creatinine 3.74. Uric acid 6.1. INR 1.1. Right forearm xray as interpreted by me and confirmed by radiologist showed no acute findings. patient was admitted and placed on broad antibiotics. Seen by Ortho and underwent Incision and debridement (06/03) Discharge Date: 06/08/2022 Referral Source-PACC: (Hospital/Unit): [facility] [id number] A End PACC Note 06-08-2022 Note Formatting of this n ote is different from the original. Start PACC Note Home Health Referral Educated patient on Home Care and services available. Patient offered choice of available HHC and agreeable to SN / PTservices with at Home - Home Care. Care Types: [facility] Isolation Precautions: No active isolations Social Determinates of Health: Tobacco Use: Not on file Social History Substance and Sexual Activity Alcohol Use None Social History Substance and Sexual Activity Drug Use Not on file Does the patient have any financial resource strain? No Does the patient have any food insecurities? No Does the patient have any housing instabilities? No If any of the above is noted as yes - consider a [employer] SUPERINTENDENT evaluation once the patient returns home. START PATIENT REGISTRATION INFORMATION Order Information Order Signing Physician: Ry Foster MD Service Ordered RN ?: Yes Service Ordered PT ?: Yes Service Ordered OT ?: No Service Ordered ST ?: No Service Ordered [employer] SUPERINTENDENT?:No Service Ordered REMNANTS CUTTER?: No Following Physician: DR Bharathi Ayala Following Physician Overseeing Physician: (Required for Residents only) Agreeable to Follow? Yes Date/Time of Call 06/08/22 12:13 PM Office is closed Care Coordination SOC Call from [facility] Required?: No Same Day SOC?: No Primary Care Physician: Papi Ricketts DO Primary Care Physician Primary Care Physician Address: [address] [place] [address] / [facility] [address] Visit Instructions: N/A Service Discharge Location Type: Home with Home Health Care Service Facility Name: N/A Service Floor Facility: N/A Service Room No: N/A Demographics Patient Last Name: Emma Patient First Name: Gabriel Language/Communication Barrier: n/a Service Address: [address] [facility] Service City: [facility] [place] Service [place]IP: [address] Service (home) Other phone numbers: Arpita [phone] Emergency Contact: Extended Emergency Contact Information Primary Emergency Contact: arpita tolbert Mobile Relation: Relative Preferred language: Faroese Early Childhood Specialist needed? No Admission Information Admit Date: 06/02/2022 Patient status at discharge: Inpatient Admitting Diagnosis ANGELIA (acute kidney injury) (CMS/HCC) (HCC) [N17.9] Cellulitis of right upper extremity [L03.113] Caregiver Information Caregiver First Name: Arpita Caregiver Last Name: Uriel Caregiver Relationship to Patient spouse Caregiver Caregiver Notes: N/A [employer] List HIGHTECH: HI TECH - IV Orders: Ceftriaxone 2,000 mg every 24 hrs IV Method of Administration: IV Date and Time of Next Dose Due: 06/09/2022 between 12 noon and 2 pm Infusion Company: [facility] Infectious Disease Physician: Dr Sean Green Teachable Caregiver Teachable Caregiver First Name: Arpita Teachable Caregiver Last Name: Uriel Teachable Caregiver Relationship to Patient: spouse Teachable Caregiver Teachable Caregiver Notes: N/A Teachable Caregiver available for SOC visit?: Yes Teachable Caregiver agreeable to provide skilled HITECH care per physician's orders?: Yes HIGHTECH: HI TECH - WOUND CARE Orders: - Wound care as follows: Dress wound with adaptic, 4x4s, kerlix, and CIARRA 2 times daily. Teach pt and CG. Instruct on signs/symptoms infection. Wound following physician: Dr Bharathi Ayala Last time wound care completed?: 06/08/2022 Supplies sent home?: Yes How many days are covered with supplies?: 3 Days Teachable Caregiver Teachable Caregiver First Name: Arpita Teachable Caregiver Last Name: Uriel Teachable Caregiver Relationship to Patient: spouse Teachable Caregiver Teachable Caregiver Notes: N/A Teachable Caregiver available for SOC visit?: Yes Teachable Caregiver agreeable to provide skilled HITECH care per physician's orders?: Yes END PATIENT REGISTRATION INFORMATION Pt Home Health goal to remain at home COVID Status 1. Do you have any upper respiratory symptoms (cough, SOB, Fever)? Yes 2. Have you been exposed to anyone with COVID-19 Virus? No Answer only if pending or positive for COVID-19? 1. Agreeable to wear PPE at each visit? No 2. Is the hospital supplying them with PPE upon Discharge? No Start PACC Summary General Report/ Additional Comments Interval History: Gabriel Carter is a 57 y.o. male who presents to the emergency department for evaluation of right arm swelling and infection. Patient was transferred from outside ED for concerns for necrotizing fasciitis. Patient said initially he had an abrasion to his right hand a few days ago. Patient said the redness and swelling has increased and since traveled up his right arm. Denies any fever or chills. Denies any IV drug use. Denies any numbness or tingling in his right arm. In ED labs showed white blood cell count 24.3. Hemoglobin 12.3. Sed rate 61. CRP 236.3. Creatinine 3.74. Uric acid 6.1. INR 1.1. Right forearm xray as interpreted by me and confirmed by radiologist showed no acute findings. patient was admitted and placed on broad antibiotics. Seen by Ortho and underwent Incision and debridement (06/03) Discharge Date: 06/08/2022 Referral Source-PACC: (Hospital/Unit): [facility] / H-6109/H-6109 A End PACC Note T 06-08-2022 Note Hospitalist Progress Note 06/08/[id number]: Please secure chat me for patient care issues. [phone]: Please secure chat [facility] Hospitalist for any issues. Subjective: Admit Date: 06/02/2022 PCP: Papi Ricketts DO Room#: H-6109/H-6109 A Interval History: Gabriel Carter is a 57 y.o. male who presents to the emergency department for evaluation of right arm swelling and infection. Patient was transferred from outside ED for concerns for necrotizing fasciitis. Patient said initially he had an abrasion to his right hand a few days ago. Patient said the redness and swelling has increased and since traveled up his right arm. Denies any fever or chills. Denies any IV drug use. Denies any numbness or tingling in his right arm. In ED labs showed white blood cell count 24.3. Hemoglobin 12.3. Sed rate 61. CRP 236.3. Creatinine 3.74. Uric acid 6.1. INR 1.1. Right forearm xray as interpreted by me and confirmed by radiologist showed no acute findings. patient was admitted and placed on broad antibiotics. Seen by Ortho and underwent Incision and debridement (06/03) 06/08 - patient feels fine, does not want to go to outpatient infusion center, wants [facility] for IV abx Adult diet Regular 24HR INTAKE/OUTPUT: Intake/Output Summary (Last 24 hours) at 06/08/2022 0957 Last data filed at 06/08/2022 0527 Gross per 24 hour Intake -- Output 900 ml Net -900 ml Past Medical History: History reviewed. No pertinent past medical history. LABS: CBC: Recent Labs 06/06/2211306/07/2221506/08/22113 WBC 12.3* 10.9* 10.2 RBC 3.91* 3.96* 4.10* HGB 12.0* 12.4* 12.9* HCT 35.8* 36.4* 37.5* MCV 91.6 92.0 91.5 RDW 13.6 13.3 13.2 PLT 372 438 508* BMP: Recent Labs 06/06/2211306/07/2221506/08/22113 NA 135 135 132* K 4.5 4.2 4.7 CL 107 105 102 CO2 23 27 30 BUN 27* 17 14 CREATININE 1.17 0.96 0.89 GLUCOSE 186* 86 93 CALCIUM 8.0* 8.2* 8.2* ANIONGAP 4 3 0* LIVER PROFILE:No results for input(s): AST, ALT, BILITOT, ALKPHOS, PROT in the last 72 hours. No lab exists for component: LABALBU PT/INR: No results for input(s): PROTIME, INR in the last 72 hours. CARDIAC ENZYMES: No results for input(s): TROPONINI in the last 72 hours. Procalcitonin: No results found for: PROCAL COVID-19 PCR: No results for input(s): COVID19 in the last 72 hours. Objective: Vitals: BP (!) 158/87 (BP Location: Left arm, Patient Position: Lying) Pulse 70 Temp 36.5 ?C (97.7 ?F) (Temporal) Resp 16 Ht 1.778 m (5' 10 ) Wt 88.5 kg (195 lb) SpO2 97% BMI 27.98 kg/m? Pulse Ox: SpO2 Av % Min: 97 % Max: 97 % Constitutional: General: He is not in acute distress. Appearance: Normal appearance. HENT: Mouth/Throat: Mouth: Mucous membranes are moist. Eyes: Extraocular Movements: Extraocular movements intact. Pupils: Pupils are equal, round, and reactive to light. Cardiovascular: Rate and Rhythm: Normal rate and regular rhythm. Pulses: Normal pulses. Heart sounds: Normal heart sounds. Pulmonary: Effort: Pulmonary effort is normal. Breath sounds: Normal breath sounds. Skin: Comments: Right forearm is wrapped up and covered with wound vac off. Drain out. Neurological: Mental Status: He is alert. acetaminophen, 650 mg, Oral, Q4H cefTRIAXone, 2,000 mg, IntraVENous, q24h heparin flush, 250 Units, IntraCATHeter, q12h Lidocaine, 1 patch, Topical, Daily lisinopril, 20 mg, Oral, Daily pantoprazole, 40 mg, Oral, qAM AC sodium chloride 0.9%, 10 mL, IntraCATHeter, q12h Assessment Cellulitis of right upper extremity evaluated for necrotizing infection No superficial necrosis or blistering Ortho following- > post I&D 06/03 -and repeat surgery 06/05 with closure Antibiotic deescalated based on culture to Rocephin with plan for 14 days treatment intraop-> growing strep pyogenes PICC in place HHC to be set up tomorrow. Possible DC tomorrow thereafter 2. ANGELIA:resolved Prerenal due to infection and NSAIDs 3. Leukocytosis: Due to 1, 4. HTN lisinopril Medical Decision Making -am labs, replace lytes prn -increase activity -DVT prophylaxis: [] Lovenox [] Heparin [] SCDs [x] Encourage ambulation [] Already on Anticoagulation Extended Emergency Contact Information Primary Emergency Contact: arpita tolbert Mobile Relation: Relative Preferred language: Faroese Early Childhood Specialist needed? No Ry Foster MD Division of Hospitalist Medicine [facility] PAGER: [employer] [facility] [employer] [facility] 06-08-2022 History of Present illness Narrative Images from the original note were not included. Hospitalist Progress Note 06/08/[id number]: Please secure chat [place] for patient care issues. [phone]: Please secure chat [facility] Hospitalist for any issues. Subjective: Admit Date: 06/02/2022 PCP: Papi Ricketts DO Room#: H-6109/H-6109 A Interval History: Gabriel Carter is a 57 y.o. male who presents to the emergency department for evaluation of right arm swelling and infection. Patient was transferred from outside ED for concerns for necrotizing fasciitis. Patient said initially he had an abrasion to his right hand a few days ago. Patient said the redness and swelling has increased and since traveled up his right arm. Denies any fever or chills. Denies any IV drug use. Denies any numbness or tingling in his right arm. In ED labs showed white blood cell count 24.3. Hemoglobin 12.3. Sed rate 61. CRP 236.3. Creatinine 3.74. Uric acid 6.1. INR 1.1. Right forearm xray as interpreted by me and confirmed by radiologist showed no acute findings. patient was admitted and placed on broad antibiotics. Seen by Ortho and underwent Incision and debridement (06/03) 06/08 - patient feels fine, does not want to go to outpatient infusion center, wants [facility] for IV abx Adult diet Regular 24HR INTAKE/OUTPUT: Intake/Output Summary (Last 24 hours) at 06/08/2022 0991 Last data filed at 06/08/2022 0527 Gross per 24 hour Intake -- Output 900 ml Net -900 ml Past Medical History: History reviewed. No pertinent past medical history. LABS: CBC: Recent Labs 06/06/2211306/07/2221506/08/22113 WBC 12.3* 10.9* 10.2 RBC 3.91* 3.96* 4.10* HGB 12.0* 12.4* 12.9* HCT 35.8* 36.4* 37.5* MCV 91.6 92.0 91.5 RDW 13.6 13.3 13.2 PLT 372 438 508* BMP: Recent Labs 06/06/2211306/07/2221506/08/22113 NA 135 135 132* K 4.5 4.2 4.7 CL 107 105 102 CO2 23 27 30 BUN 27* 17 14 CREATININE 1.17 0.96 0.89 GLUCOSE 186* 86 93 CALCIUM 8.0* 8.2* 8.2* ANIONGAP 4 3 0* LIVER PROFILE:No results for input(s): AST, ALT, BILITOT, ALKPHOS, PROT in the last 72 hours. No lab exists for component: LABALBU PT/INR: No results for input(s): PROTIME, INR in the last 72 hours. CARDIAC ENZYMES: No results for input(s): TROPONINI in the last 72 hours. Procalcitonin: No results found for: PROCAL COVID-19 PCR: No results for input(s): COVID19 in the last 72 hours. Objective: Vitals: BP (!) 158/87 (BP Location: Left arm, Patient Position: Lying) Pulse 70 Temp 36.5 C (97.7 F) (Temporal) Resp 16 Ht 1.778 m (5' 10 ) Wt 88.5 kg (195 lb) SpO2 97% BMI 27.98 kg/m Pulse Ox: SpO2 Av % Min: 97 % Max: 97 % Constitutional: General: He is not in acute distress. Appearance: Normal appearance. HENT: Mouth/Throat: Mouth: Mucous membranes are moist. Eyes: Extraocular Movements: Extraocular movements intact. Pupils: Pupils are equal, round, and reactive to light. Cardiovascular: Rate and Rhythm: Normal rate and regular rhythm. Pulses: Normal pulses. Heart sounds: Normal heart sounds. Pulmonary: Effort: Pulmonary effort is normal. Breath sounds: Normal breath sounds. Skin: Comments: Right forearm is wrapped up and covered with wound vac off. Drain out. Neurological: Mental Status: He is alert. acetaminophen, 650 mg, Oral, Q4H cefTRIAXone, 2,000 mg, IntraVENous, q24h heparin flush, 250 Units, IntraCATHeter, q12h Lidocaine, 1 patch, Topical, Daily lisinopril, 20 mg, Oral, Daily pantoprazole, 40 mg, Oral, qAM AC sodium chloride 0.9%, 10 mL, IntraCATHeter, q12h Assessment Cellulitis of right upper extremity evaluated for necrotizing infection No superficial necrosis or blistering Ortho following- > post I&D 06/03 -and repeat surgery 06/05 with closure Antibiotic deescalated based on culture to Rocephin with plan for 14 days treatment intraop-> growing strep pyogenes PICC in place HHC to be set up tomorrow. Possible DC tomorrow thereafter 2. ANGELIA:resolved Prerenal due to infection and NSAIDs 3. Leukocytosis: Due to 1, 4. HTN lisinopril Medical Decision Making -am labs, replace lytes prn -increase activity -DVT prophylaxis: [] Lovenox [] Heparin [] SCDs [x] Encourage ambulation [] Already on Anticoagulation Extended Emergency Contact Information Primary Emergency Contact: arpita tolbert Mobile Relation: Relative Preferred language: Faroese Early Childhood Specialist needed? No Ry Foster MD Division of Hospitalist Medicine [facility] PAGER: Epic chat Images from the original note were not included. [place] [address] [address] [place] [id number] Dept: [phone] Loc: [phone] Orthopedic Progress Note Name: Gabriel Carter Date:06/08/2022 Attending:Ry Foster MD Subjective WBC slightly decreased. Reports continued pain on dorsal ulnar side of forearm but overall pain is controlled with medication. Denies fevers/chills o/n. AFVSS. WBC continuing to downtrend. Objective Vitals: Vitals: 06/06/22 1950 06/07/22 0527 06/07/22 0853 06/07/222019 BP: 130/64 (!) 151/80 134/74 (!) 158/87 BP Location: Left arm Left arm Patient Position: Lying Lying Pulse: 73 75 70 70 Resp: 18 16 16 16 Temp: 36.3 C (97.4 F) 36.8 C (98.3 F) 37.2 C (98.9 F) 36.5 C (97.7 F) TempSrc: Temporal Temporal Temporal Temporal SpO2: 100% 96% 96% 97% Weight: Height: Physical Exam: General: NAD RUE Incisions c/d/I. Some fibrinous exudate noted from dorsal wrist. Small amt of clear drainage noted from either side of incisions. No expressible purulence Erythema continues to improved. None near elbow/prox forearm. Dressing: Clean mildly saturated with serous drainage SILT: Radial/Ulnar/Median distributions Motor: +AIN/PIN/Hand Intrinsic BCR all digits TTP about incisions and on ulnar side of forearm. LABS: Recent Labs 06/06/2211306/07/2221506/08/22113 WBC 12.3* 10.9* 10.2 HGB 12.0* 12.4* 12.9* HCT 35.8* 36.4* 37.5* PLT 372 438 508* Recent Labs 06/06/2211306/07/2221506/08/22113 NA 135 135 132* K 4.5 4.2 4.7 CL 107 105 102 CO2 23 27 30 BUN 27* 17 14 CREATININE 1.17 0.96 0.89 CALCIUM 8.0* 8.2* 8.2* No results for input(s): INR in the last 72 hours. Recent Labs 06/06/2211306/07/2221506/08/22113 CRP 65.0* 43.3* 63.0* No results for input(s): HCG in the last 72 hours. Assessment Gabriel is a 57 y.o.male s/p I&D of RUE on 06/03 and rpt I&D of RUE on 06/05 Plan -Updated Dr. Ayala. No further surgical intervention planned. -Weight bearing: NWB RUE -Ok for ROM as tolerated to RUE, encourage finger, hand, wrist, elbow ROM -BID dressing changes per nursing -Please redress with adaptic, 4x4s, kerlix, and CIARRA wraps -Abx per ID -OR cx +strep pyogenes -DVT prophylaxis/medical management/pain control per 1 team -Ortho to follow and see q2 days while in patient. Will next see patient 06/10. Images from the original note were not included. Hospitalist Progress Note 06/07/[id number]: Please secure chat me for patient care issues. [phone]: Please secure chat [facility] Hospitalist for any issues. Subjective: Admit Date: 06/02/2022 PCP: Papi Ricketts DO Room#: H-6109/H-6109 A Interval History: Gabriel Carter is a 57 y.o. male who presents to the emergency department for evaluation of right arm swelling and infection. Patient was transferred from outside ED for concerns for necrotizing fasciitis. Patient said initially he had an abrasion to his right hand a few days ago. Patient said the redness and swelling has increased and since traveled up his right arm. Denies any fever or chills. Denies any IV drug use. Denies any numbness or tingling in his right arm. In ED labs showed white blood cell count 24.3. Hemoglobin 12.3. Sed rate 61. CRP 236.3. Creatinine 3.74. Uric acid 6.1. INR 1.1. Right forearm xray as interpreted by me and confirmed by radiologist showed no acute findings. patient was admitted and placed on broad antibiotics. Seen by Ortho and underwent Incision and debridement (06/03) 06/07 - doing well, pain controlled, drain removed from hand/arm. Denies fevers Adult diet Regular 24HR INTAKE/OUTPUT: Intake/Output Summary (Last 24 hours) at 06/07/2022 1103 Last data filed at 06/07/2022 0535 Gross per 24 hour Intake -- Output 805 ml Net -805 ml Past Medical History: History reviewed. No pertinent past medical history. LABS: CBC: Recent Labs 06/05/22 0158 06/06/22 0114 06/07/22 0216 WBC 22.1* 12.3* 10.9* RBC 3.57* 3.91* 3.96* HGB 11.1* 12.0* 12.4* HCT 32.7* 35.8* 36.4* MCV 91.6 91.6 92.0 RDW 13.6 13.6 13.3 PLT 323 372 438 BMP: Recent Labs 06/05/22 0158 06/06/22 0114 06/07/22 0216 NA 136 135 135 K 4.7 4.5 4.2 CL 110* 107 105 CO2 19* 23 27 BUN 31* 27* 17 CREATININE 1.37* 1.17 0.96 GLUCOSE 118* 186* 86 CALCIUM 8.2* 8.0* 8.2* ANIONGAP 6 4 3 LIVER PROFILE:No results for input(s): AST, ALT, BILITOT, ALKPHOS, PROT in the last 72 hours. No lab exists for component: LABALBU PT/INR: No results for input(s): PROTIME, INR in the last 72 hours. CARDIAC ENZYMES: No results for input(s): TROPONINI in the last 72 hours. Procalcitonin: No results found for: PROCAL COVID-19 PCR: No results for input(s): COVID19 in the last 72 hours. Objective: Vitals: BP 134/74 Pulse 70 Temp 37.2 C (98.9 F) (Temporal) Resp 16 Ht 5' 10 (1.778 m) Wt 195 lb (88.5 kg) SpO2 96% BMI 27.98 kg/m Pulse Ox: SpO2 Av % Min: 96 % Max: 100 % Constitutional: General: He is not in acute distress. Appearance: Normal appearance. HENT: Mouth/Throat: Mouth: Mucous membranes are moist. Eyes: Extraocular Movements: Extraocular movements intact. Pupils: Pupils are equal, round, and reactive to light. Cardiovascular: Rate and Rhythm: Normal rate and regular rhythm. Pulses: Normal pulses. Heart sounds: Normal heart sounds. Pulmonary: Effort: Pulmonary effort is normal. Breath sounds: Normal breath sounds. Skin: Comments: Right forearm is wrapped up and covered with wound vac off. Drain out. Neurological: Mental Status: He is alert. Medications: acetaminophen, 650 mg, Oral, Q4H cefTRIAXone, 2,000 mg, IntraVENous, q24h heparin flush, 250 Units, IntraCATHeter, q12h Lidocaine, 1 patch, Topical, Daily lisinopril, 20 mg, Oral, Daily sodium chloride 0.9%, 10 mL, IntraCATHeter, q12h Assessment Cellulitis of right upper extremity evaluated for necrotizing infection No superficial necrosis or blistering Ortho following- > post I&D 06/03 -and repeat surgery 06/05 with closure Antibiotic deescalated based on culture to Rocephin with plan for 14 days treatment intraop-> growing strep pyogenes 2. ANGELIA:resolved Prerenal due to infection and NSAIDs 3. Leukocytosis: Due to 1, 4. HTN Increase lisinopril as BP not at goal. Medical Decision Making -DVT prophylaxis: [] Lovenox [] Heparin [x] SCDs [x] Encourage ambulation [] Already on Anticoagulation Anticipated Discharge - Date - 06/09 - Location - Home with Home Health Care - Pending the following - [facility] setup Extended Emergency Contact Information Primary Emergency Contact: arpita tolbert Mobile Relation: Relative Preferred language: Faroese Early Childhood Specialist needed? No Ry Foster MD Division of Hospitalist Medicine [facility] PAGER: Epic chat Physical Therapy Facility/Department: Physical Therapy Initial Evaluation NAME: Gabriel Carter : 1965 Date of Service: 06/07/2022 Discharge Recommendations: Home independently PT Equipment Recommendations Equipment Needed: No Assessment Requires PT Follow-Up: No Assessment: Pt is a 57 year old male who comes into the clinic with a diagnosis of necrotizing facsitis with I&D's on 06/03 and 06/05. He completed all transfers, ambulation, and stair training independently at this date and acknowleged his non-weight bearing precautions of his right upper extremity. His current biggest complaint is pain in the right upper extremity. He lives at home with and daughter who will be home 01/09. He has 4 steps to enter house with bed and bath on first floor. Expected discharge to home independently when cleared from physician. No current acute physical therapy needs at this time. Decision Making: Low Complexity No Skilled PT: Independent with functional mobility No Skilled PT: Independent with functional mobility Patient Diagnosis(es): The primary encounter diagnosis was Cellulitis of right upper extremity. Diagnoses of ANGELIA (acute kidney injury) (CMS/HCC) ([facility]) and Necrotizing fasciitis ([facility]) were also pertinent to this visit. has no past medical history on file. has a past surgical history that includes Incision and drainage of wound (Right, 06/03/2022) and Incision and drainage of wound (Right, 06/05/2022). Restrictions Restrictions/Precautions Restrictions/Precautions: Weight Bearing Required Braces or Orthoses?: No Upper Extremity Weight Bearing Restrictions Right Upper Extremity Weight Bearing: Non Weight Bearing Vision/Hearing Vision: Within Functional Limits Hearing: Functional/adequate for paticipation in therapy Cognition/Orientation Overall Cognitive Status: WNL Overall Orientation Status: Within Normal Limits Subjective General Chart Reviewed: Yes Patient Assessed for Rehabilitation Services: Yes Family / Caregiver Present: No Diagnosis: Cellultitis of Right Upper Extremity Follows Commands: Within Functional Limits Subjective Subjective: Patient in bed upon entering room, recieving meds from nurse. Patient agreeable to PT. 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 Type of Occupation: [employer] Objective AROM RLE (degrees) RLE AROM: WFL AROM LLE (degrees) LLE AROM : WFL Strength RLE Comment: 5/5 Strength LLE Comment: 5/5 Bed mobility Bridging: Independent Rolling to Left: Independent Supine to Sit: Independent Sit to Supine: Independent Scooting: Independent Transfers Sit to Stand: Independent Stand to sit: Independent Lateral Transfers: Independent Ambulation Ambulation: Yes Ambulation 1 Surface 1: Level tile Device 1: No device Assistance 1: Independent Distance (ft) 1: 400 Stairs Rails 1: Left Device 1: No device Assistance 1: Independent Number of Steps 1: 10 Balance Posture: Good Sitting - Static: Good, + Sitting - Dynamic: Good, + Standing - Static: Good, + Standing - Dynamic: Good, + Plan Times per Week: D/C PT Safety Safety Devices Safety Devices in Place: Yes Type of Devices: Left in bed, Call light within reach Outcomes Score AM-PAC Score AM-PAC Inpatient Mobility Raw Score: 24 Mobility Inpatient [facility] G-Code Modifier: CH Goals Encounter Problems Encounter Problems (Active) Pain - Adult Education Education Given To: Patient Education Provided: Goals, PT Role, Plan of Care, Transfer Training, Equipment, General Safety, Precautions Education Method: Demonstration, Verbal Barriers to Learning: None Education Outcome: Verbalized understanding, Demonstrated understanding Therapy Time Individual Co-treatment Time In 0854 Time Out 0904 Minutes 10 Urbano Wilson PT PT wore appropriate PPE needs throughout PT session. Images from the original note were not included. [place] [address] [address] [place] [id number] Dept: [phone] Loc: [phone] Orthopedic Progress Note Name: Gabriel Carter Date:06/07/2022 Attending:Ry Foster MD Subjective Doing well this morning. CRP 43. WBC continues to trend down (12.3 to 10.9). AFVSS. Still having plenty of ulnar sided forearm pain but unchanged since after surgery. Objective Vitals: Vitals: 06/06/22 0752 06/06/22 1838 06/06/22 1950 06/07/22 0527 BP: (!) 140/83 (!) 183/78 130/64 (!) 151/80 BP Location: Left arm Left arm Patient Position: Lying Lying Pulse: 63 61 73 75 Resp: 16 20 18 16 Temp: 36.6 C (97.8 F) 36.8 C (98.2 F) 36.3 C (97.4 F) 36.8 C (98.3 F) TempSrc: Temporal Temporal Temporal Temporal SpO2: 97% 100% 100% 96% Weight: Height: Physical Exam: General: NAD RUE Incisions c/d/I. Some fibrinous exudate noted from dorsal wrist area. Clear drainage noted from either side of incisions. No expressible purulence Erythema improved Drain removed after releasing suction. No purulence, serous drainage present in tubing. Dressing: Clean mildly saturated with serous drainage SILT: Radial/Ulnar/Median distributions Motor: +AIN/PIN/Hand Intrinsic BCR all digits TTP all about incisions, angela on ulnar side of forearm. LABS: Recent Labs 06/05/2215706/06/2211306/07/22215 WBC 22.1* 12.3* 10.9* HGB 11.1* 12.0* 12.4* HCT 32.7* 35.8* 36.4* PLT 323 372 438 Recent Labs 06/05/2215706/06/2211306/07/22215 NA 136 135 135 K 4.7 4.5 4.2 CL 110* 107 105 CO2 19* 23 27 BUN 31* 27* 17 CREATININE 1.37* 1.17 0.96 CALCIUM 8.2* 8.0* 8.2* No results for input(s): INR in the last 72 hours. Recent Labs 06/05/2215706/06/2211306/07/22215 CRP 138.3* 65.0* 43.3* No results for input(s): HCG in the last 72 hours. Assessment Gabriel is a 57 y.o.male s/p I&D of RUE on 06/03 and rpt I&D of RUE on 06/05 Plan -Updated Dr. Ayala. No further surgical intervention planned. -Weight bearing: NWB RUE -Ok for ROM as tolerated to RUE, encourage finger, hand, wrist, elbow ROM -BID dressing changes per nursing -Please redress with adaptic, 4x4s, kerlix, and CIARRA wraps -Drain removed -No return to OR planned -OK for diet from ortho standpoint -Abx per ID -OR cx +GPCs, strep pyogenes -DVT prophylaxis/medical management/pain control per 1 team Physical Therapy Received orders for PT eval and treat. Pt currently refusing, stating he just got back from using the restroom and did not want to participate with PT at this time. Will re attempt as able. Araceli Lehman PT DPT [facility] Progress Note Following for ANGELIA Patient reports RUE pain, some dyspnea. Vitals: BP (!) 140/83 (BP Location: Left arm, Patient Position: Lying) Pulse 63 Temp 36.6 C (97.8 F) (Temporal) Resp 16 Ht 1.778 m (5' 10 ) Wt 88.5 kg (195 lb) SpO2 97% BMI 27.98 kg/m BLOOD PRESSURE RANGE: Systolic (24hrs), Av , Min:116 , Max:157 ; Diastolic (24hrs), Av, Min:68, Max:105 24HR INTAKE/OUTPUT: Intake/Output Summary (Last 24 hours) at 06/06/2022 1347 Last data filed at 06/06/2022 1246 Gross per 24 hour Intake 1200 ml Output 695 ml Net 505 ml Physical exam: Constitutional: NAD, calm Skin: dry Respiratory: no rales appreciated on anterior chest auscultation Abdomen: nontender Ext: no lower extremity edema Data: Labs: Recent Labs 06/04/22 0503 06/05/22 0158 06/06/22 0114 WBC 20.3* 22.1* 12.3* HGB 12.3* 11.1* 12.0* HCT 37.3* 32.7* 35.8* MCV 92.4 91.6 91.6 PLT 319 323 372 Recent Labs 06/04/22 0503 06/05/22 0158 06/06/22 0114 NA 138 136 135 K 5.0 4.7 4.5 CL 109* 110* 107 CO2 18* 19* 23 GLUCOSE 148* 118* 186* CALCIUM 8.5 8.2* 8.0* BUN 32* 31* 27* CREATININE 1.38* 1.37* 1.17 Assessment: Gabriel Carter is a 57 y.o. male who present to outside ER for evaluation of RUE swelling, admitted with concern for necrotizing fasciitis. Nephrology following for ANGELIA. ANGELIA- previously with Scr at 1.05mg/dl in 03/06/2022, recent Scr up at 3.74mg/dl -Scr improved at 1.17mg/dl -suspect etiology prerenal combined with NSAID use Electrolytes -hyponatremia -resolved Acid/base- appears compensated Plan: -monitor renal function, electrolytes -okay off IVF Parker Patel APRN - [facility] Associated attestation - Sudeep Vera MD - 06/06/2022 3:47 PM EDT Patient seen and examined. Agree with note as outlined by CARPET MEASURER below -feels ok -appetite is good -off ivf -abx ongoing -renal function stable at 1.17mg/dL -nephrology will monitor peripherally Thank you, please call [phone] with any concerns. Sudeep Vera MD Images from the original note were not included. Hospitalist Progress Note 06/06/[id number]: Please secure chat me for patient care issues. [phone]: Please secure chat [facility] Hospitalist for any issues. Subjective: Admit Date: 06/02/2022 PCP: Papi Ricketts DO Room#: H-6109/H-6109 A Interval History: Gabriel Carter is a 57 y.o. male who presents to the emergency department for evaluation of right arm swelling and infection. Patient was transferred from outside ED for concerns for necrotizing fasciitis. Patient said initially he had an abrasion to his right hand a few days ago. Patient said the redness and swelling has increased and since traveled up his right arm. Denies any fever or chills. Denies any IV drug use. Denies any numbness or tingling in his right arm. In ED labs showed white blood cell count 24.3. Hemoglobin 12.3. Sed rate 61. CRP 236.3. Creatinine 3.74. Uric acid 6.1. INR 1.1. Right forearm xray as interpreted by me and confirmed by radiologist showed no acute findings. patient was admitted and placed on broad antibiotics. Seen by Ortho and underwent Incision and debridement (06/03) 06/06 - post repeat surgery with closure of skin yesterday, drain still in place, patient comfortable without complaint Adult diet Regular 24HR INTAKE/OUTPUT: Intake/Output Summary (Last 24 hours) at 06/06/2022 1145 Last data filed at 06/06/2022 0500 Gross per 24 hour Intake 1200 ml Output 690 ml Net 510 ml Past Medical History: History reviewed. No pertinent past medical history. LABS: CBC: Recent Labs 06/04/22 0503 06/05/22 0158 06/06/22 0114 WBC 20.3* 22.1* 12.3* RBC 4.04* 3.57* 3.91* HGB 12.3* 11.1* 12.0* HCT 37.3* 32.7* 35.8* MCV 92.4 91.6 91.6 RDW 13.3 13.6 13.6 PLT 319 323 372 BMP: Recent Labs 06/04/22 0503 06/05/22 0158 06/06/22 011 NA 138 136 135 K 5.0 4.7 4.5 CL 109* 110* 107 CO2 18* 19* 23 BUN 32* 31* 27* CREATININE 1.38* 1.37* 1.17 GLUCOSE 148* 118* 186* CALCIUM 8.5 8.2* 8.0* ANIONGAP 10 6 4 LIVER PROFILE:No results for input(s): AST, ALT, BILITOT, ALKPHOS, PROT in the last 72 hours. No lab exists for component: LABALBU PT/INR: No results for input(s): PROTIME, INR in the last 72 hours. CARDIAC ENZYMES: No results for input(s): TROPONINI in the last 72 hours. Procalcitonin: Lab Results Component Value Date PROCAL 2.20 (H) 06/04/2022 COVID-19 PCR: No results for input(s): COVID19 in the last 72 hours. Objective: Vitals: BP (!) 140/83 (BP Location: Left arm, Patient Position: Lying) Pulse 63 Temp 36.6 C (97.8 F) (Temporal) Resp 16 Ht 5' 10 (1.778 m) Wt 195 lb (88.5 kg) SpO2 97% BMI 27.98 kg/m Pulse Ox: SpO2 Av.8 % Min: 97 % Max: 100 % Constitutional: General: He is not in acute distress. Appearance: Normal appearance. HENT: Mouth/Throat: Mouth: Mucous membranes are moist. Eyes: Extraocular Movements: Extraocular movements intact. Pupils: Pupils are equal, round, and reactive to light. Cardiovascular: Rate and Rhythm: Normal rate and regular rhythm. Pulses: Normal pulses. Heart sounds: Normal heart sounds. Pulmonary: Effort: Pulmonary effort is normal. Breath sounds: Normal breath sounds. Skin: Comments: Right forearm is wrapped up and covered with wound vac in place Neurological: Mental Status: He is alert. Medications: acetaminophen, 650 mg, Oral, Q4H cefTRIAXone, 2,000 mg, IntraVENous, q24h Lidocaine, 1 patch, Topical, Daily Assessment Cellulitis of right upper extremity evaluating for necrotizing infection No superficial necrosis or blistering Ortho following- > post I&D 06/03 -and repeat surgery 06/05 with closure Continue Broad spectrum ABX Follow cultures- intraop-> growing strep ID consulted as well -> deescalate to Rocephin for 14 days 2. ANGELIA:resolved Prerenal due to infection and NSAIDs 3. Leukocytosis: Due to 1, follow cultures 4. HTN Resume lisinopril now that renal fx normalized Medical Decision Making -DVT prophylaxis: [] Lovenox [] Heparin [] SCDs [x] Encourage ambulation [] Already on Anticoagulation Extended Emergency Contact Information Primary Emergency Contact: arpita tolbert Mobile Relation: Relative Preferred language: Faroese Early Childhood Specialist needed? No Ry Foster MD Division of Hospitalist Medicine Acute care solutions PAGER: Playfire chat PAGING: The Acute Pain Service providers are available exclusively via [employer] SECURE CHAT. APS does not utilize pagers. Due to the current environment of [place] [address], PPE was worn for the duration of all face to face encounters including but not limited to an N95 in accordance with CDC and hospital guidelines. 06/06/2022 Subjective: We have been asked to see this 57 y.o. male for post operative pain management s/p RUE I&D for necrotizing fasciitis Reviewed Chest X ray 06/02/22 RICKY, no pages. On arrival, pt lying in bed sleeping. Pt awakens easily to voice. Pt states pain is currently well controlled. He c/o tenderness of RUE, states he is trying to limit narcotics for pain control. He is tolerating diet, denies nausea/vomiting. States he is ambulating without difficulty. PMH reviewed below Sedation score: 1: Awake and alert Pain Severity: moderate Pain Location: RUE Pain Quality: tender Aggravating Factors: Moving Alleviating Factors: Rest/Pain medications Pain Management: n/a The patient's medical history and physical assessment, medications, allergies, patient's current medical condition, imaging, and labs were reviewed as part of this consultation. [x] Patient's Medications have been reviewed. [x] Patient's OARRS report (PDMP) have been reviewed. Social History Tobacco Use Smoking Status Not on file Smokeless Tobacco Not on file Social History Substance and Sexual Activity Alcohol Use None Social History Substance and Sexual Activity Drug Use Not on file Objective Findings: Height: 177.8 cm (5' 10 ) Weight: 88.5 kg (195 lb) BMI (Calculated): 27.98 Vital signs: Blood pressure (!) 140/83, pulse 63, temperature 36.6 C (97.8 F), temperature source Temporal, resp. rate 16, height 1.778 m (5' 10 ), weight 88.5 kg (195 lb), SpO2 97 %. Allergies: Patient has no known allergies. History reviewed. No pertinent past medical history. Past Surgical History: Procedure Laterality Date INCISION AND DRAINAGE OF WOUND Right 06/03/2022 INCISION AND DRAINAGE OF WOUND Right 06/05/2022 incision and drainage forearm and wrist bursa No family history on file. Patient Active Problem List Diagnosis Cellulitis of right upper extremity Necrotizing fasciitis (HCC) HTN (hypertension) Review of Systems Constitutional: Negative for chills and fever. HENT: Negative for trouble swallowing. Eyes: Negative for visual disturbance. Respiratory: Negative for shortness of breath. Cardiovascular: Negative for chest pain. Gastrointestinal: Negative for abdominal pain, nausea and vomiting. Musculoskeletal: Positive for arthralgias. Skin: Positive for wound (surgical). Neurological: Negative for dizziness and headaches. Psychiatric/Behavioral: Negative for confusion. The patient is not nervous/anxious. Physical Exam Vitals and nursing note reviewed. Constitutional: General: He is not in acute distress. HENT: Head: Normocephalic and atraumatic. Eyes: General: Vision grossly intact. Cardiovascular: Rate and Rhythm: Normal rate. Pulmonary: Effort: Pulmonary effort is normal. Abdominal: Palpations: Abdomen is soft. Musculoskeletal: General: Normal range of motion. Cervical back: Normal range of motion. Skin: General: Skin is warm and dry. Comments: Dressing RUE C/D/I Neurological: Mental Status: He is alert and oriented to person, place, and time. Psychiatric: Mood and Affect: Mood normal. Behavior: Behavior normal. Lab Results Component Value Date CREATININE 1.17 06/06/2022 AST 34 06/03/2022 ALT 21 06/03/2022 Pain Management Adjuvants: 0700 --> 0700 06/05/2022 Scheduled APAP 3,250 mg PRN Hydromorphone 1 mg Oxycodone 50 mg Assessment / Pain Management Plan: Acute Postsurgical RUE pain Multimodal pain regimen: BLOCK: n/a Continue Acetaminophen 650 mg po q4h scheduled ATC. Liver enzymes WNL, last checked: 06/03/22 Continue Lidocaine patch x 1. Cut and place as needed. Continue Oxycodone 5 - 10 mg po q4h prn moderate to severe breakthrough pain. Continue Hydromorphone 0.25 mg - 0.5 mg IVP q4h prn moderate to severe breakthrough pain. Please utilize oral medications first. Recommend short course prescription for Percocet 5-325 1 tablet Q 6 hours PRN. Continue Methocarbamol 1000 mg PO TID PRN. Order Naloxone 0.4 mg IVP prn opioid reversal. PRN if respiratory rate is less than 6/min and patient is difficult to arouse then notify physician STAT. Mix 9 mL of sodium chloride 0.9% with 0.4 mg (1 mL) of naloxone (NARCAN) in 10 mL syringe. (Note: dilution is 0.04 mg/mL) Give 0.08 mg (2 mL of special dilution), slow IV push, repeat up to 0.4 mg (10 mL) or until patient is responsive to physical stimulation and respiratory rate is equal to or greater than 6 breaths/min. Continue to observe, if no response within 3 minutes of administration of 0.4 mg (10 mL) total, repeat dose (0.4 mg as administered previously). Necrotizing fascitis Pt is s/p RUE I&D for necrotizing fasciitis See #1 Constipation At risk for opioid induced constipation Patient currently receiving opioids for pain management necessitating a bowel regimen. Recommend initiating scheduled Sennakot-S 8.6/50mg, 1 tablet PO BID. Would also recommend Milk of Magnesia 400mg/5ml, administer 30mL by mouth daily PRN. Opioid Use Acute: Expected to be short term post op pain, see #1 OARRS reviewed for past two years. Flexeril filled 02/18/22 Reviewed and educated patient on responsible use of opioids: after surgery, it can be normal to experience pain. If it is mild and you can move about without great difficulty or discomfort, you may not need to take pain medication. It is very important to take your pain medication only as needed. Avoiding excessive or unnecessary medication, will enable you to progress your activity each day to improve your muscle tone and movement, deep breathing, digestion, circulation and your body's ability to heal itself. Patient pain is well controlled at this time on current pain regimen. We will sign off at this time. Please re-consult our service if patient's pain becomes uncontrolled. Thank you for inviting us to participate in the care of this patient. Plan discussed with patient who appears to understand and agrees. PAGING: The Acute Pain Service providers are available exclusively via [employer]. APS does not utilize pagers. Vancomycin therapy has been discontinued by Dr. Sean Green on 06/06/22. Thank you for the consult. Pharmacy signing off for vancomycin dosing. Abbi Solitario RPh, PharmD Date: 06/06/22 Time: 10:42 AM Images from the original note were not included. Pharmacy Managed Vancomycin Dosing Service Progress Note Consult Date: 06/06/22 Room:[facility]/1380 A Patient Name: Gabriel Carter Lab Results Component Value Date CREATININE 1.17 06/06/2022 CREATININE 1.37 (H) 06/05/2022 CREATININE 1.38 (H) 06/04/2022 BUN 27 (H) 06/06/2022 BUN 31 (H) 06/05/2022 BUN 32 (H) 06/04/2022 WBC 12.3 (H) 06/06/2022 WBC 22.1 (H) 06/05/2022 WBC 20.3 (H) 06/04/2022 Assessment/Plan: Updated InsightRx: [x] doses administered [x] Scr Current regimen vancomycin 1500 mg every 24 hours, predicted AUC = 416 mg/L*hr (goal 400-600 mg/L*hr) Scr continues to improve. Will order another random vancomycin level for 06/07 in the am. Probability of AUC24 > 400: 56 % Probability of nephrotoxicity (Lodise RADHA 2008): 7 % Please page/call with questions. Date: 06/06/22 Time: 10:39 AM Abbi Solitario RPh PharmD (available on [employer]) Images from the original note were not included. [facility] - Infectious Diseases Attending Progress Note Subjective: Following for RUE necrotizing fascitis. During my assessment, patient reports mild RUE pain post-procedure. He denies f/c, n/v/d, SOB, cough, or abdominal pain. No further complaints at this time. Plan is for RTOR today for repeat debridement and possible closure. Vital signs- BP 140/83 Lab data- Labs reviewed; WBC 12.3, Hgb 12.0 Antimicrobial therapy- IV vancomycin, piperacillin/tazobactam, clindamycin Micro reports- RUE tissue CXs (+) for S pyogenes Discharge planning- TBD Code- FULL Objective: Vitals: Patient Vitals for the past 24 hrs: BP Temp Temp src Pulse Resp SpO2 06/06/22 0752 (!) 140/83 36.6 C (97.8 F) Temporal 63 16 97 % 06/05/222033 116/68 36.5 C (97.7 F) Temporal 65 16 97 % 06/05/22 1730 (!) 157/99 36.2 C (97.2 F) -- 60 15 99 % 06/05/22 1715 (!) 155/105 -- -- 65 15 99 % 06/05/22 1710 -- -- -- 58 -- -- 06/05/22 1700 (!) 146/98 -- -- 61 15 99 % 06/05/22 1645 (!) 141/88 -- -- 60 -- 100 % 06/05/22 1642 (!) 146/96 36.1 C (97 F) Temporal -- 16 100 % 06/05/22 1344 (!) 145/96 36.1 C (97 F) Temporal 56 16 99 % Physical Exam Constitutional: Appearance: He is not ill-appearing or diaphoretic. HENT: Head: Normocephalic and atraumatic. Nose: Nose normal. Mouth/Throat: Mouth: Mucous membranes are dry. Eyes: General: No scleral icterus. Extraocular Movements: Extraocular movements intact. Pupils: Pupils are equal, round, and reactive to light. Cardiovascular: Rate and Rhythm: Normal rate and regular rhythm. Pulses: Normal pulses. Heart sounds: Normal heart sounds. No murmur heard. No friction rub. No gallop. Pulmonary: Effort: Pulmonary effort is normal. No respiratory distress. Breath sounds: Normal breath sounds. No wheezing, rhonchi or rales. Abdominal: General: Abdomen is flat. Bowel sounds are normal. There is no distension. Palpations: Abdomen is soft. There is no mass. Tenderness: There is no abdominal tenderness. Hernia: No hernia is present. Musculoskeletal: General: Deformity and signs of injury present. Normal range of motion. Cervical back: Normal range of motion and neck supple. Right lower leg: No edema. Left lower leg: No edema. Comments: RUE wrapped Skin: General: Skin is warm and dry. Capillary Refill: Capillary refill takes less than 2 seconds. Neurological: General: No focal deficit present. Mental Status: He is alert. Psychiatric: Mood and Affect: Mood normal. Judgment: Judgment normal. Labs: Lab Results Component Value Date/Time NA 135 06/06/2022113 K 4.5 06/06/2022113 CL 107 06/06/2022113 CO2 23 06/06/2022113 BUN 27 (H) 06/06/2022113 CREATININE 1.17 06/06/2022113 GLUCOSE 186 (H) 06/06/2022113 CALCIUM 8.0 (L) 06/06/2022 011 PROT 5.6 (L) 06/03/2022215 BILITOT 0.8 06/03/2022215 ALKPHOS 113 06/03/2022215 AST 34 06/03/2022215 ALT 21 06/03/2022215 PROCAL 2.20 (H) 06/04/2022 0503 Lab Results Component Value Date/Time WBC 12.3 (H) 06/06/2022113 HGB 12.0 (L) 06/06/2022 011 HCT 35.8 (L) 06/06/2022113 PLT 372 06/06/2022113 LYMPHOPCT 3.2 (L) 06/03/2022215 MONOPCT 4.6 06/03/2022215 BASOPCT 0.3 06/03/2022215 NEUTROABS 20.0 (H) 06/03/2022215 Micro: 06/02 Blood CXs x2 NGTD 06/03 RUE tissue CXs (+) for S pyogenes Lines/Drains/Airways: 06/02 LUE PIV x2 Radiography/Echo/Other: 06/02 XR forearm 2 views right No acute findings 06/03 XR chest 1 view No acute cardiopulmonary process. Antimicrobials, Start/End Dates: 06/02- vancomycin 06/02- piperacillin/tazobactam 06/02- clindamycin Impression: Mr. Carter is a 57 y/o M w/ PMH of HTN. Presented to [facility] ED 06/02 for RUE swelling. He was transferred from outside ED d/t concern of RUE NF. Reported a RUE abrasion a few days prior to presentation. ED w/u was notable for WBC 24.3, Hgb 12.3, ESR/CRP 61/236.3, SCr 3.74. RUE XR showed no acute findings. Orthopedics consulted; s/p debridement. Cxs (+) for S pyogenes. The ID service is following for RUE skin and soft tissue infection. Plan: 1. Right upper extremity necrotizing fascitis d/t S pyogenes - Presented to [facility] ED 06/02 for RUE swelling - Transferred from outside ED d/t concern of RUE NF - Reported a RUE abrasion a few days prior to presentation - ED w/u was notable for WBC 24.3, Hgb 12.3, ESR/CRP 61/236.3, SCr 3.74 - s/p debridement by ortho; RUE tissue CXs (+) for S pyogenes - Currently on IV vancomycin, piperacillin/tazobactam, clindamycin - Will de-escalate to ceftriaxone - Will treat for at least 14 days - OPAT form written; PICC line ordered - Will f/u with patient in the ID clinic at end of therapy 2. Acute kidney injury 3. Hypertension Recommendations: 1. Will de-escalate to ceftriaxone 2. Will treat for at least 14 days 3. OPAT form written; PICC line ordered 4. Will f/u with patient in the ID clinic at end of therapy 5. No opposition to discharge from ID standpoint The ID service will sign off; feel free to call back with any further questions or concerns. Total time 35 minutes on this day of encounter includes counseling, coordinating plan of care, record and documentation review before and after visit including documentation and time not explicitly included on EMR time stamp for accounting for open encounter. Sean Green DO Infectious Diseases Office Tel. [phone] Images from the original note were not included. [place] [address] [facility] [address] [place] [id number] Dept: [phone] Loc: [phone] Orthopedic Progress Note Name: Gabriel Carter Date:06/06/2022 Attending:Ry Foster MD Subjective Doing well this AM. Feeling much better. We discussed importance of moving the arm and I encouraged ROM of the fingers, wrist, elbow. Objective Vitals: Vitals: 06/05/22 1710 06/05/22 1715 06/05/220 06/05/222033 BP: (!) 155/105 (!) 157/99 116/68 BP Location: Patient Position: Pulse: 58 65 60 65 Resp: 15 15 16 Temp: 36.2 C (97.2 F) 36.5 C (97.7 F) TempSrc: Temporal SpO2: 99% 99% 97% Weight: Height: Physical Exam: General: NAD RUE Incision about the dorsal IF, LF, hand, forearm C/D/I No expressible drainage Drain in place with serous output Dressing: Clean/Dry/Intact SILT: Radial/Ulnar/Median distributions Motor: +AIN/PIN/Hand Intrinsic BCR all digits LABS: Recent Labs 06/04/22 0503 06/05/22 0158 06/06/22 0114 WBC 20.3* 22.1* 12.3* HGB 12.3* 11.1* 12.0* HCT 37.3* 32.7* 35.8* PLT 319 323 372 Recent Labs 06/04/22 0503 06/05/22 0158 06/06/22 0114 NA 138 136 135 K 5.0 4.7 4.5 CL 109* 110* 107 CO2 18* 19* 23 BUN 32* 31* 27* CREATININE 1.38* 1.37* 1.17 CALCIUM 8.5 8.2* 8.0* No results for input(s): INR in the last 72 hours. Recent Labs 06/04/22 0503 06/05/22 0158 06/06/22 0114 SEDRATE 101* -- -- CRP -- 138.3* 65.0* No results for input(s): HCG in the last 72 hours. Assessment Gabriel is a 57 y.o.male s/p I&D of RUE on 06/03 and rpt I&D of RUE on 06/05 Plan -Weight bearing: NWB RUE -Ok for ROM as tolerated to RUE, encourage finger, hand, wrist, elbow ROM -BID dressing changes per nursing -Please redress with adaptic, 4x4s, kerlix, and CIARRA wraps -Drain in place (stitched in) -Please empty and record output q shift -Will d/w Dr. Ayala on 06/07 re drain outputs and determine if drain can be pulled -No return to OR planned -OK for diet from ortho standpoint -Abx per ID -OR cx +GPCs, strep pyogenes -DVT prophylaxis/medical management/pain control per 1 team Hina Cook MD Orthopaedic Surgery, PGY-4 [phone] Nutrition Assessment Type and Reason for Visit: Initial, RD Nutrition Re-Screen/LOS, Wound Nutrition Recommendations/Plan: Recommend re-initiating Regular PO diet as medically feasible, would also trial Dayday (wound healing ONS) BID as appropriate. RD to monitor PO intake, weight, labs, fluid & follow up weekly. Malnutrition Assessment: Malnutrition Status: Insufficient data (as pt was OOR at time of RD visit, limited data seen in chart) Nutrition Assessment: Pt with no noted PMH presented for eval of right arm swelling and infection. Per chart, pt was transferred from outside ED with concerns for necrotizing fasciitis. Per chart, pt stated that initially he had an abrasion to his R hand a few days prior and then noticed increased redness and swelling which then traveled up his right arm, no fever/chills and no hx of IV drug use; work-up in ED noted WBC 24.3, CRP 236.3, SCr 3.74, R forearm xray without acute findings; pt had previously been started on abx (at [place] [facility]) which had improved his pain; Ortho was consulted and evaluated pt's RUE, noting exam is not concerning for necrotizing fasciitis however labs/work-up is (no skin maifestations or necrotizing infection, no bullae and no focal areas of necrosis), decision was made to completed I&D of forearm with wound vac placement; Nephrology also consulted for ANGELIA (susptect to be prerenal combined with NSAID use); pt NPO this morning as well for repeat I&D and possible closure; ID consulted for recs on antimicrobial therapy, pt on IV vancomycin, piperacillin/taxobactam, clindamycin. Pt OOR for procedure at time of RD visit. Estimated Daily Nutrient Needs: Energy Requirements Based On: Kcal/kg Weight Used for Energy Requirements: [place] Weight for Energy Calculation (kg): 75.5 kg Total Energy Requirements (kcals/day): 5587-8958 kcal/day (25-30 kcal/kg) Weight Used for Protein Requirements: [place] Weight in Kg Used for Protein Requirements: 75.5 kg Estimated Total Protein (g/day): 90-98 gm protein/day (1.2-1.3 gm protein/kg), monitor renal function Estimated Daily Total Fluid (ml/day): per MD Nutrition Related Findings: +BS, last BM 06/01; mild RUE edema; medications reviewed; labs: BG (118), SCr (1.37, improving) Wound Type: Surgical Incision, Wound Vac (to R forearm, further surgeries planned; Es[place] 20) Current Nutrition Therapies: NPO diet NPO except: Sips of Water with Meds Current Oral Intake Average Meal Intake: NPO Average Supplements Intake: NPO Anthropometric Measures: Height: 177.8 cm (5' 10 ) Admission Body Weight: 88.5 kg (195 lb) (stated) Usual Body Weight: (No weight hx in EMR to review) [place] Body Weight (lbs) (Calculated): 166 lbs [place] Body Weight (Kg) (Calculated): 75 kg Weight Adjustment For: No Adjustment BMI Categories: Overweight (BMI 25.0-29.9) Nutrition Diagnosis: Increased nutrient needs related to increase demand for energy/nutrients as evidenced by wounds Nutrition Interventions: Nutrition Education/Counseling: Education not indicated Coordination of Nutrition Care: Continue to monitor while inpatient Plan of Care discussed with: N/A, pt OOR Goals: Goals: Initiate PO diet, within 2 days, PO intake 75% or greater Nutrition Monitoring and Evaluation: Behavioral-Environmental Outcomes: (N/A) Food/Nutrient Intake Outcomes: Food and Nutrient Intake, Supplement Intake (as appropriate) Physical Signs/Symptoms Outcomes: Biochemical Data, Meal Time Behavior, Fluid Status or Edema, Skin, Weight Discharge Planning: Too soon to determine China Maciel RD Contact: Secure chat or *[phone] [facility] Progress Note Following for ANGELIA Patient reports RUE pain, some dyspnea, generalized chest soreness. Vitals: BP 132/76 (BP Location: Left arm) Pulse 60 Temp 36.8 C (98.2 F) (Temporal) Resp 18 Ht 1.778 m (5' 10 ) Wt 88.5 kg (195 lb) SpO2 98% BMI 27.98 kg/m BLOOD PRESSURE RANGE: Systolic (24hrs), Av , Min:110 , Max:138 ; Diastolic (24hrs), Av, Min:56, Max:80 24HR INTAKE/OUTPUT: Intake/Output Summary (Last 24 hours) at 06/05/2022 1153 Last data filed at 06/05/2022 0625 Gross per 24 hour Intake -- Output 475 ml Net -475 ml Physical exam: Constitutional: NAD, alert Cardiovascular: S1, S2 Respiratory: no rales appreciated during anterior chest auscultation Abdomen: nontender Ext: no lower extremity edema Data: Labs: Recent Labs 06/03/2221506/04/22 0503 06/05/22 0158 WBC 22.0* 20.3* 22.1* HGB 11.9* 12.3* 11.1* HCT 35.9* 37.3* 32.7* MCV 93.8 92.4 91.6 PLT 280 319 323 Recent Labs 06/03/2221506/04/22 0503 06/05/22 0158 NA 132* 138 136 K 3.5 5.0 4.7 CL 107 109* 110* CO2 21* 18* 19* GLUCOSE 105* 148* 118* CALCIUM 7.2* 8.5 8.2* MG 1.8 -- -- BUN 48* 32* 31* CREATININE 3.09* 1.38* 1.37* Assessment: Gabriel Carter is a 57 y.o. male who present to outside ER for evaluation of RUE swelling, admitted with concern for necrotizing fasciitis. Nephrology following for ANGELIA. ANGELIA- previously with Scr at 1.05mg/dl in 03/06/2022, recent Scr up at 3.74mg/dl -Scr improved at 1.37mg/dl -suspect etiology prerenal combined with NSAID use -has had improvement with volume expansion Electrolytes -hyponatremia -resolved Acid/base- mild acidemia with bicarb at 19 Plan: -monitor renal function, electrolytes -start LR as patient NPO, x12 hours Parker Patel APRN - [employer]SING [employer] Images from the original note were not included. Hospitalist Progress Note 06/05/[id number]: Please secure chat me for patient care issues. [phone]: Please secure chat [facility] Hospitalist for any issues. Subjective: Admit Date: 06/02/2022 PCP: Papi Ricketts DO Room#: [id number]/[id number] Interval History: Gabriel Carter is a 57 y.o. male who presents to the emergency department for evaluation of right arm swelling and infection. Patient was transferred from outside ED for concerns for necrotizing fasciitis. Patient said initially he had an abrasion to his right hand a few days ago. Patient said the redness and swelling has increased and since traveled up his right arm. Denies any fever or chills. Denies any IV drug use. Denies any numbness or tingling in his right arm. In ED labs showed white blood cell count 24.3. Hemoglobin 12.3. Sed rate 61. CRP 236.3. Creatinine 3.74. Uric acid 6.1. INR 1.1. Right forearm xray as interpreted by me and confirmed by radiologist showed no acute findings. patient was admitted and placed on broad antibiotics. Seen by Ortho and underwent Incision and debridement (06/03) 06/05- plan to return to OR today for further surgery and possible closure of arm. Patient no complaint besides everybody waking me up NPO diet NPO except: Sips of Water with Meds 24HR INTAKE/OUTPUT: Intake/Output Summary (Last 24 hours) at 06/05/2022 1140 Last data filed at 06/05/2022 0625 Gross per 24 hour Intake -- Output 475 ml Net -475 ml Past Medical History: No past medical history on file. LABS: CBC: Recent Labs 06/03/22 0216 06/04/22 0503 06/05/22 0158 WBC 22.0* 20.3* 22.1* RBC 3.83* 4.04* 3.57* HGB 11.9* 12.3* 11.1* HCT 35.9* 37.3* 32.7* MCV 93.8 92.4 91.6 RDW 13.4 13.3 13.6 PLT 280 319 323 BMP: Recent Labs 06/03/22 0216 06/04/22 0503 06/05/22 0158 NA 132* 138 136 K 3.5 5.0 4.7 CL 107 109* 110* CO2 21* 18* 19* BUN 48* 32* 31* CREATININE 3.09* 1.38* 1.37* GLUCOSE 105* 148* 118* CALCIUM 7.2* 8.5 8.2* ANIONGAP 4 10 6 LIVER PROFILE: Recent Labs 06/02/22205306/03/22 0216 AST 30 34 ALT 21 21 BILITOT 0.8 0.8 ALKPHOS 81 113 PROT 5.8* 5.6* PT/INR: Recent Labs 06/02/220 PROTIME 11.6 INR 1.1 CARDIAC ENZYMES: No results for input(s): TROPONINI in the last 72 hours. Procalcitonin: Lab Results Component Value Date PROCAL 2.20 (H) 06/04/2022 COVID-19 PCR: No results for input(s): COVID19 in the last 72 hours. Objective: Vitals: BP 132/76 (BP Location: Left arm) Pulse 60 Temp 36.8 C (98.2 F) (Temporal) Resp 18 Ht 5' 10 (1.778 m) Wt 195 lb (88.5 kg) SpO2 98% BMI 27.98 kg/m Pulse Ox: SpO2 Av % Min: 97 % Max: 99 % Physical Exam Constitutional: General: He is not in acute distress. Appearance: Normal appearance. HENT: Mouth/Throat: Mouth: Mucous membranes are moist. Eyes: Extraocular Movements: Extraocular movements intact. Pupils: Pupils are equal, round, and reactive to light. Cardiovascular: Rate and Rhythm: Normal rate and regular rhythm. Pulses: Normal pulses. Heart sounds: Normal heart sounds. Pulmonary: Effort: Pulmonary effort is normal. Breath sounds: Normal breath sounds. Skin: Comments: Right forearm is wrapped up and covered with wound vac in place Neurological: Mental Status: He is alert. Medications: acetaminophen, 650 mg, Oral, Q4H clindamycin, 900 mg, IntraVENous, q8h Lidocaine, 1 patch, Topical, Daily piperacillin-tazobactam, 3,375 mg, IntraVENous, q8h vancomycin, 1,500 mg, IntraVENous, q24h Assessment Cellulitis of right upper extremity evaluating for necrotizing infection No superficial necrosis or blistering Ortho following- > post I&D 06/03 - plan to return to OR today Continue Broad spectrum ABX Follow cultures- intraop ID consulted as well Followup after surgery 2. ANGELIA: Prerenal due to infection and NSAIDs Nephrology following Improving 3. Leukocytosis: Due to 1, follow cultures 4. HTN hold lisinopril due to ANGELIA may be able to resume soon. Medical Decision Making -DVT prophylaxis: [] Lovenox [] Heparin [] SCDs [x] Encourage ambulation [] Already on Anticoagulation Extended Emergency Contact Information Primary Emergency Contact: arpita tolbert Mobile Relation: Relative Preferred language: Faroese Early Childhood Specialist needed? No Ry Foster MD Division of Hospitalist Medicine Acute care solutions PAGER: Epic chat Images from the original note were not included. [facility] - Infectious Diseases Attending Progress Note Subjective: Following for RUE necrotizing fascitis. During my assessment, patient reports mild RUE pain post-procedure. He denies f/c, n/v/d, SOB, cough, or abdominal pain. No further complaints at this time. Plan is for RTOR today for repeat debridement and possible closure. Vital signs- WNL Lab data- Labs reviewed; WBC 22.1, Hgb 11.1 Antimicrobial therapy- IV vancomycin, piperacillin/tazobactam, clindamycin Micro reports- RUE tissue CXs (+) for GPC in clusters Discharge planning- TBD Code- FULL Objective: Vitals: Patient Vitals for the past 24 hrs: BP Temp Temp src Pulse Resp SpO2 06/05/22 0938 132/76 36.8 C (98.2 F) Temporal 60 18 98 % 06/05/22 0457 138/80 36.4 C (97.6 F) Temporal 58 19 98 % 06/05/22 0104 124/76 36.6 C (97.9 F) Temporal 58 16 99 % 06/04/22 2104 118/74 36.2 C (97.2 F) Temporal 53 16 98 % 06/04/22 1654 123/75 37.1 C (98.7 F) Temporal 62 20 97 % 06/04/22 1238 110/56 (!) 35.9 C (96.6 F) Temporal 51 20 98 % Physical Exam Constitutional: Appearance: He is not ill-appearing or diaphoretic. HENT: Head: Normocephalic and atraumatic. Nose: Nose normal. Mouth/Throat: Mouth: Mucous membranes are dry. Eyes: General: No scleral icterus. Extraocular Movements: Extraocular movements intact. Pupils: Pupils are equal, round, and reactive to light. Cardiovascular: Rate and Rhythm: Normal rate and regular rhythm. Pulses: Normal pulses. Heart sounds: Normal heart sounds. No murmur heard. No friction rub. No gallop. Pulmonary: Effort: Pulmonary effort is normal. No respiratory distress. Breath sounds: Normal breath sounds. No wheezing, rhonchi or rales. Abdominal: General: Abdomen is flat. Bowel sounds are normal. There is no distension. Palpations: Abdomen is soft. There is no mass. Tenderness: There is no abdominal tenderness. Hernia: No hernia is present. Musculoskeletal: General: Deformity and signs of injury present. Normal range of motion. Cervical back: Normal range of motion and neck supple. Right lower leg: No edema. Left lower leg: No edema. Comments: RUE wrapped Skin: General: Skin is warm and dry. Capillary Refill: Capillary refill takes less than 2 seconds. Neurological: General: No focal deficit present. Mental Status: He is alert. Psychiatric: Mood and Affect: Mood normal. Judgment: Judgment normal. Labs: Lab Results Component Value Date/Time NA 136 06/05/2022157 K 4.7 06/05/2022157 CL 110 (H) 06/05/2022157 CO2 19 (L) 06/05/2022157 BUN 31 (H) 06/05/2022157 CREATININE 1.37 (H) 06/05/2022157 GLUCOSE 118 (H) 06/05/2022157 CALCIUM 8.2 (L) 06/05/2022157 PROT 5.6 (L) 06/03/20226 BILITOT 0.8 06/03/2022215 ALKPHOS 113 06/03/2022215 AST 34 06/03/2022215 ALT 21 06/03/2022215 PROCAL 2.20 (H) 06/04/2022 0503 Lab Results Component Value Date/Time WBC 22.1 (H) 06/05/2022157 HGB 11.1 (L) 06/05/2022157 HCT 32.7 (L) 06/05/20228 PLT 323 06/05/2022 0158 LYMPHOPCT 3.2 (L) 06/03/2022215 MONOPCT 4.6 06/03/2022215 BASOPCT 0.3 06/03/2022 021 NEUTROABS 20.0 (H) 06/03/2022 0216 Micro: 06/02 Blood CXs x2 NGTD 06/03 RUE tissue CXs (+) for GPC in clusters Lines/Drains/Airways: 06/02 LUE PIV x2 Radiography/Echo/Other: 06/02 XR forearm 2 views right No acute findings 06/03 XR chest 1 view No acute cardiopulmonary process. Antimicrobials, Start/End Dates: 06/02- vancomycin 06/02- piperacillin/tazobactam 06/02- clindamycin Impression: Mr. Carter is a 57 y/o M w/ PMH of HTN. Presented to [facility] ED 06/02 for RUE swelling. He was transferred from outside ED d/t concern of RUE NF. Reported a RUE abrasion a few days prior to presentation. ED w/u was notable for WBC 24.3, Hgb 12.3, ESR/CRP 61/236.3, SCr 3.74. RUE XR showed no acute findings. Orthopedics consulted; s/p debridement. The ID service is following for RUE skin and soft tissue infection. Plan: 1. Right upper extremity necrotizing fascitis - Presented to [facility] ED 06/02 for RUE swelling - Transferred from outside ED d/t concern of RUE NF - Reported a RUE abrasion a few days prior to presentation - ED w/u was notable for WBC 24.3, Hgb 12.3, ESR/CRP 61/236.3, SCr 3.74 - s/p debridement by ortho; RUE tissue CXs (+) for GPC in clusters - Maintain IV vancomycin, piperacillin/tazobactam, clindamycin - Await intra-op CXs to adjust accordingly - RTOR today for repeat debridement and possible closure 2. Acute kidney injury 3. Hypertension Recommendations: 1. Maintain IV vancomycin, piperacillin/tazobactam, clindamycin 2. Await intra-op CXs to adjust accordingly 3. RTOR today for repeat debridement and possible closure The ID service will continue to follow. Total time 35 minutes on this day of encounter includes counseling, coordinating plan of care, record and documentation review before and after visit including documentation and time not explicitly included on EMR time stamp for accounting for open encounter. Sean Green DO Infectious Diseases Office Tel. [phone] Images from the original note were not included. [facility] TELEMETRY [address] [place] [id number] Dept: [phone] Loc: [phone] Orthopedic Progress Note Name: Gabriel Carter Date:06/05/2022 Attending:Ry Foster MD Subjective No events o/n. Pain somewhat improved. Understands plan for surgery today. Objective Vitals: Vitals: 06/04/22 1654 06/04/22 2104 06/05/22 0104 06/05/22 0457 BP: 123/75 118/74 124/76 138/80 BP Location: Left arm Left arm Patient Position: Lying Lying Pulse: 62 53 58 58 Resp: 20 16 16 19 Temp: 37.1 C (98.7 F) 36.2 C (97.2 F) 36.6 C (97.9 F) 36.4 C (97.6 F) TempSrc: Temporal Temporal Temporal Temporal SpO2: 97% 98% 99% 98% Weight: Height: Physical Exam: General: NAD RUE No progressive erythema proximal to the incision and wound vac. TTP proximal to incision improved. TTP about incision. No erythema or TTP volarly. Able to wiggle hands. Decreased sensation in dorsal radial sensory distribution , otherwise SILT to hand. BCR to all finger. LABS: Recent Labs 06/03/22 0216 06/04/22 0503 06/05/22 0158 WBC 22.0* 20.3* 22.1* HGB 11.9* 12.3* 11.1* HCT 35.9* 37.3* 32.7* PLT 280 319 323 Recent Labs 06/03/22 0216 06/04/22 0503 06/05/22 0158 NA 132* 138 136 K 3.5 5.0 4.7 CL 107 109* 110* CO2 21* 18* 19* BUN 48* 32* 31* CREATININE 3.09* 1.38* 1.37* CALCIUM 7.2* 8.5 8.2* Recent Labs 06/02/22 2130 INR 1.1 Recent Labs 06/02/22 2054 06/03/22 0216 06/04/22 0503 06/05/22 0158 SEDRATE 61* -- 101* -- CRP 236.3* 222.7* -- 138.3* No results for input(s): HCG in the last 72 hours. Assessment Edphyllis is a 57 y.o.male s/p RUE I&D for necrotizing fasciitis 06/03 Plan -Weight bearing: NWB RUE -Keep splint C/D/I -Keep WV in place to RUE -Plan for RTOR on 06/05 for rpt I&D and possible closure -NPO @MN 06/05 -OK for diet today -Trend labs -CBC, BMP, CRP -ID consult for abx recs -Continue broad spectrum -Continue clindamycin due to concerns for necrotizing fascitis -OR cultures pending -Medical management/pain control per 1 team -Ortho team to follow Ray Romero MD Orthopaedic Surgery PGY-3 *[id number] Brief orthopedic progress note: Ortho to bedside for afternoon skin check and to review consent for repeat I&D with possible closure of the right upper extremity on 06/05. On exam erythema does not extend proximally past the splint. A small window was made on the lateral portion of the elbow. There is no significant erythema. There is mild tenderness to palpation the patient states this is improved since yesterday. Wound VAC is in place in suction is intact. Posterior slab splint is in place on right upper extremity. Patient is able to wiggle all 5 digits on the right upper extremity. BCR to all 5 digits. Sensation intact all 5 digits. Risk and benefits of the repeat I&D tomorrow were discussed with the patient. Patient has decided to proceed with surgery at this time. We will make him n.p.o. at midnight. Plan: -Weight bearing: NWB RUE -Keep splint C/D/I -Keep WV in place to RUE -Plan for RTOR on 06/05 for rpt I&D and possible closure -NPO @MN 06/05 -Added -Consented -OK for diet today -Trend labs -CBC, BMP, CRP -ID consult for abx recs -Continue broad spectrum -Continue clindamycin due to concerns for necrotizing fascitis -OR cultures, pending. Moderate PMNs. Few gram-positive cocci. -Medical management/pain control per 1 team -Ortho team to follow. Please page ortho resident masonry instructor with any further concerns. Tasia Jarrett MD PGY-1 Orthopaedic Surgery 06/04/2022 3:53 PM Nutrition rescreen completed. Patient referred to the Dietitian. Wound. Images from the original note were not included. Hospitalist Progress Note 06/04/2022 [phone]: Please secure chat wy for patient care issues. [phone]: Please secure chat [facility] Hospitalist for any issues. Subjective: Admit Date: 06/02/2022 PCP: Papi Ricketts DO Room#: H-6109/[id number] A Interval History: Gabriel Carter is a 57 y.o. male who presents to the emergency department for evaluation of right arm swelling and infection. Patient was transferred from outside ED for concerns for necrotizing fasciitis. Patient said initially he had an abrasion to his right hand a few days ago. Patient said the redness and swelling has increased and since traveled up his right arm. Denies any fever or chills. Denies any IV drug use. Denies any numbness or tingling in his right arm. In ED labs showed white blood cell count 24.3. Hemoglobin 12.3. Sed rate 61. CRP 236.3. Creatinine 3.74. Uric acid 6.1. INR 1.1. Right forearm xray as interpreted by me and confirmed by radiologist showed no acute findings. patient was admitted and placed on broad antibiotics. Seen by Ortho and underwent Incision and debridement yesterday (06/03). 06/04- patient seen in am following surgery, I&D still open with wound vac in place. Pain controlled, no fevers overnight. NPO diet NPO except: Sips of Water with Meds Adult diet Regular @[id number]@ 24HR INTAKE/OUTPUT: Intake/Output Summary (Last 24 hours) at 06/04/2022 1309 Last data filed at 06/03/2022 1752 Gross per 24 hour Intake 400 ml Output 235 ml Net 165 ml Past Medical History: No past medical history on file. LABS: CBC: Recent Labs 06/02/22233306/03/2221506/04/22 0503 WBC 24.7* 22.0* 20.3* RBC 3.99* 3.83* 4.04* HGB 12.2* 11.9* 12.3* HCT 36.5* 35.9* 37.3* MCV 91.6 93.8 92.4 RDW 14.0 13.4 13.3 PLT 293 280 319 BMP: Recent Labs 06/02/22 23306/03/226 06/04/22 0503 NA 132* 132* 138 K 3.7 3.5 5.0 CL 105 107 109* CO2 21* 21* 18* BUN 53* 48* 32* CREATININE 3.40* 3.09* 1.38* GLUCOSE 115* 105* 148* CALCIUM 7.5* 7.2* 8.5 ANIONGAP 6 4 10 LIVER PROFILE: Recent Labs 06/02/22205306/03/22215 AST 30 34 ALT 21 21 BILITOT 0.8 0.8 ALKPHOS 81 113 PROT 5.8* 5.6* PT/INR: Recent Labs 06/02/22 2130 PROTIME 11.6 INR 1.1 CARDIAC ENZYMES: No results for input(s): TROPONINI in the last 72 hours. Procalcitonin: Lab Results Component Value Date PROCAL 2.20 (H) 06/04/2022 COVID-19 PCR: No results for input(s): COVID19 in the last 72 hours. Objective: Vitals: BP 110/56 Pulse 51 Temp (!) 35.9 C (96.6 F) (Temporal) Resp 20 Ht 5' 10 (1.778 m) Wt 195 lb (88.5 kg) SpO2 98% BMI 27.98 kg/m Pulse Ox: SpO2 Av.3 % Min: 95 % Max: 100 % Physical Exam Constitutional: General: He is not in acute distress. Appearance: Normal appearance. HENT: Mouth/Throat: Mouth: Mucous membranes are moist. Eyes: Extraocular Movements: Extraocular movements intact. Pupils: Pupils are equal, round, and reactive to light. Cardiovascular: Rate and Rhythm: Normal rate and regular rhythm. Pulses: Normal pulses. Heart sounds: Normal heart sounds. Pulmonary: Effort: Pulmonary effort is normal. Breath sounds: Normal breath sounds. Skin: Comments: Right forearm is wrapped up and covered with wound vac in place Neurological: Mental Status: He is alert. Medications: acetaminophen, 650 mg, Oral, Q4H clindamycin, 900 mg, IntraVENous, q8h Lidocaine, 1 patch, Topical, Daily piperacillin-tazobactam, 3,375 mg, IntraVENous, q8h vancomycin, 1,500 mg, IntraVENous, q24h Assessment Cellulitis of right upper extremity evaluating for necrotizing infection No superficial necrosis or blistering Ortho following- > post I&D yesterday Will eventually go back to OR for possible recurrent debridement and closure. Continue Broad spectrum ABX Follow cultures- intraop ID consulted as well Followup after surgery ANGELIA: Prerenal due to infection and NSAIDs Nephrology following Improving Leukocytosis: Due to 1, follow cultures HTN hold lisinopril Medical Decision Making -DVT prophylaxis: [] Lovenox [] Heparin [x] SCDs [] Encourage ambulation [] Already on Anticoagulation Extended Emergency Contact Information Primary Emergency Contact: arpita tolbert Mobile Relation: Relative Preferred language: Faroese Early Childhood Specialist needed? No Ry Foster MD Division of Hospitalist Medicine Acute care solutions PAGER: Epic chat [facility] Progress Note Following for ANGELIA Patient reports RUE pain, some dyspnea. Vitals: BP 130/79 Pulse 60 Temp (!) 35.9 C (96.7 F) (Temporal) Resp 20 Ht 1.778 m (5' 10 ) Wt 88.5 kg (195 lb) SpO2 97% BMI 27.98 kg/m BLOOD PRESSURE RANGE: Systolic (24hrs), Av , Min:86 , Max:130 ; Diastolic (24hrs), Av, Min:59, Max:79 24HR INTAKE/OUTPUT: Intake/Output Summary (Last 24 hours) at 06/04/2022 1225 Last data filed at 06/03/2022 1752 Gross per 24 hour Intake 400 ml Output 235 ml Net 165 ml Physical exam: Constitutional: NAD, alert Cardiovascular: S1, S2 Respiratory: bilateral vesicular breath sounds Abdomen: nontender Ext: no lower extremity edema Data: Labs: Recent Labs 06/02/22233306/03/226 06/04/22 0503 WBC 24.7* 22.0* 20.3* HGB 12.2* 11.9* 12.3* HCT 36.5* 35.9* 37.3* MCV 91.6 93.8 92.4 PLT 293 280 319 Recent Labs 06/02/22233306/03/226 06/04/22 0503 NA 132* 132* 138 K 3.7 3.5 5.0 CL 105 107 109* CO2 21* 21* 18* GLUCOSE 115* 105* 148* CALCIUM 7.5* 7.2* 8.5 MG -- 1.8 -- BUN 53* 48* 32* CREATININE 3.40* 3.09* 1.38* Assessment: Gabriel Carter is a 57 y.o. male who present to outside ER for evaluation of RUE swelling, admitted with concern for necrotizing fasciitis. Nephrology following for ANGELIA. ANGELIA- previously with Scr at 1.05mg/dl in 03/06/2022, recent Scr up at 3.74mg/dl -Scr improved at 1.38mg/dl -suspect etiology prerenal combined with NSAID use -has had improvement with volume expansion Electrolytes -hyponatremia -resolved Acid/base- mild acidemia with bicarb at 18 Plan: -monitor renal function, electrolytes -stop IVF LORENA Freedman CNP Pt seen and examined independently by me. I reviewed with SADIE Pearson the medical history and the findings on physical examination. I discussed the patient s diagnosis and concur with the treatment plan as documented in his note. Please call [phone] or message me through [employer] with any questions or concerns. Images from the original note were not included. [facility] - Infectious Diseases Attending Progress Note Subjective: Following for RUE skin and soft tissue infection. During my assessment, patient reports mild RUE pain post-procedure. He denies f/c, n/v/d, SOB, cough, or abdominal pain. No further complaints at this time. Vital signs- T96.7F, RR20 Lab data- Labs reviewed; WBC 20.3, Hgb 12.3 Antimicrobial therapy- IV vancomycin, piperacillin/tazobactam, clindamycin Micro reports- RUE tissue CXs (+) for GPC in clusters Discharge planning- TBD Code- FULL Objective: Vitals: Patient Vitals for the past 24 hrs: BP Temp Temp src Pulse Resp SpO2 06/04/22 0834 130/79 (!) 35.9 C (96.7 F) Temporal 60 20 97 % 06/04/22 0440 101/62 36.1 C (97 F) Temporal 60 16 -- 06/04/22 0030 111/70 36.3 C (97.4 F) Temporal 59 16 97 % 06/03/222028 100/59 (!) 35.9 C (96.7 F) Temporal 66 16 99 % 06/03/221999 90/62 -- -- 66 14 -- 06/03/22 1930 86/60 -- -- 70 12 100 % 06/03/22 191 92/68 -- -- 75 11 100 % 06/03/22 1900 95/63 -- -- 80 15 100 % 06/03/22 185 -- -- -- 87 15 100 % 06/03/22 184 93/62 -- -- 75 14 100 % 06/03/22 1830 95/69 -- -- 80 14 100 % 06/03/22 1815 95/72 -- -- 90 14 95 % 06/03/22 1800 95/66 -- -- 86 11 95 % 06/03/22 1752 97/63 36.7 C (98 F) Temporal 87 12 100 % 06/03/22 1405 -- -- -- 80 -- 95 % Physical Exam Constitutional: Appearance: He is not ill-appearing or diaphoretic. HENT: Head: Normocephalic and atraumatic. Nose: Nose normal. Mouth/Throat: Mouth: Mucous membranes are dry. Eyes: General: No scleral icterus. Extraocular Movements: Extraocular movements intact. Pupils: Pupils are equal, round, and reactive to light. Cardiovascular: Rate and Rhythm: Normal rate and regular rhythm. Pulses: Normal pulses. Heart sounds: Normal heart sounds. No murmur heard. No friction rub. No gallop. Pulmonary: Effort: Pulmonary effort is normal. No respiratory distress. Breath sounds: Normal breath sounds. No wheezing, rhonchi or rales. Abdominal: General: Abdomen is flat. Bowel sounds are normal. There is no distension. Palpations: Abdomen is soft. There is no mass. Tenderness: There is no abdominal tenderness. Hernia: No hernia is present. Musculoskeletal: General: Deformity and signs of injury present. Normal range of motion. Cervical back: Normal range of motion and neck supple. Right lower leg: No edema. Left lower leg: No edema. Comments: RUE wrapped Skin: General: Skin is warm and dry. Capillary Refill: Capillary refill takes less than 2 seconds. Neurological: General: No focal deficit present. Mental Status: He is alert. Psychiatric: Mood and Affect: Mood normal. Judgment: Judgment normal. Labs: Lab Results Component Value Date/Time NA 138 06/04/2022 050 K 5.0 06/04/2022 050 CL 109 (H) 06/04/2022 050 CO2 18 (L) 06/04/2022502 BUN 32 (H) 06/04/2022502 CREATININE 1.38 (H) 06/04/2022502 GLUCOSE 148 (H) 06/04/2022502 CALCIUM 8.5 06/04/2022502 PROT 5.6 (L) 06/03/2022215 BILITOT 0.8 06/03/2022215 ALKPHOS 113 06/03/2022215 AST 34 06/03/2022215 ALT 21 06/03/2022215 PROCAL 2.20 (H) 06/04/2022 050 Lab Results Component Value Date/Time WBC 20.3 (H) 06/04/2022 050 HGB 12.3 (L) 06/04/2022 050 HCT 37.3 (L) 06/04/2022 050 PLT 319 06/04/2022 050 LYMPHOPCT 3.2 (L) 06/03/2022215 MONOPCT 4.6 06/03/2022215 BASOPCT 0.3 06/03/2022 021 NEUTROABS 20.0 (H) 06/03/2022 021 Micro: 06/02 Blood CXs x2 NGTD 06/03 RUE tissue CXs (+) for GPC in clusters Lines/Drains/Airways: 06/02 LUE PIV x2 Radiography/Echo/Other: 06/02 XR forearm 2 views right No acute findings 06/03 XR chest 1 view No acute cardiopulmonary process. Antimicrobials, Start/End Dates: 06/02- vancomycin 06/02- piperacillin/tazobactam 06/02- clindamycin Impression: Mr. Carter is a 57 y/o M w/ PMH of HTN. Presented to [facility] ED 06/02 for RUE swelling. He was transferred from outside ED d/t concern of RUE NF. Reported a RUE abrasion a few days prior to presentation. ED w/u was notable for WBC 24.3, Hgb 12.3, ESR/CRP 61/236.3, SCr 3.74. RUE XR showed no acute findings. Orthopedics consulted; s/p debridement. The ID service is following for RUE skin and soft tissue infection. Plan: 1. Right upper extremity skin and soft tissue infection - Presented to [facility] ED 06/02 for RUE swelling - Transferred from outside ED d/t concern of RUE NF - Reported a RUE abrasion a few days prior to presentation - ED w/u was notable for WBC 24.3, Hgb 12.3, ESR/CRP 61/236.3, SCr 3.74 - s/p debridement by ortho; RUE tissue CXs (+) for GPC in clusters - Maintain IV vancomycin, piperacillin/tazobactam, clindamycin - Await intra-op CXs to adjust accordingly 2. Acute kidney injury 3. Hypertension Recommendations: 1. Maintain IV vancomycin, piperacillin/tazobactam, clindamycin 2. Await intra-op CXs to adjust accordingly The ID service will continue to follow. Total time 35 minutes on this day of encounter includes counseling, coordinating plan of care, record and documentation review before and after visit including documentation and time not explicitly included on EMR time stamp for accounting for open encounter. Sean Green DO Infectious Diseases Office Tel. [phone] Physical Therapy PT orders received. Pt is declining all OOB mobility until his next surgery tomorrow. States the R UE is still too painful and weak, unable to tolerate holding up the arm. Pt is scheduled to return to the OR tomorrow 06/05. Will return 06/06. Patient's serum creatinine has decreased from 3.09 to 1.38 mg/dL in the last 24 hours. Will adjust Vancomycin dose from 750 mg every 24 hours to 1500 mg every 24 hours. New random Vancomycin level will be drawn tomorrow 06/05/22. Will assess level and adjust dose as appropriate. Ashwin Lewis, EdmundoD. Images from the original note were not included. [place] [address] [facility] [address] [place] [id number] Dept: [phone] Loc: [phone] Orthopedic Progress Note Name: Gabriel Carter Date:06/04/2022 Attending:Ry Foster MD Subjective No events o/n. No increasing pain. Reports that he has some numbness overlying dorsal hand. Denies any fevers or chills. Denies any other complaints. Objective Vitals: Vitals: 06/03/22199906/03/22202806/04/22 0030 06/04/22 0440 BP: 90/62 100/59 111/70 101/62 BP Location: Left arm Left arm Left arm Left arm Patient Position: Lying Lying Lying Pulse: 66 66 59 60 Resp: 14 16 16 16 Temp: (!) 35.9 C (96.7 F) 36.3 C (97.4 F) 36.1 C (97 F) TempSrc: Temporal Temporal Temporal SpO2: 99% 97% Weight: Height: Physical Exam: General: NAD RUE No progressive erythema proximal to the incision and wound vac. There is TTP just proximal to incision but patient reports that it is actually painful below proximal aspect of incision. TTP about incision. No erythema or TTP volarly. Able to wiggle hands. Decreased sensation in dorsal radial sensory distribution , otherwise SILT to hand. BCR to all finger. LABS: Recent Labs 06/02/22233306/03/226 06/04/22 0503 WBC 24.7* 22.0* 20.3* HGB 12.2* 11.9* 12.3* HCT 36.5* 35.9* 37.3* PLT 293 280 319 Recent Labs 06/02/22 2334 06/03/226 06/04/22 0503 NA 132* 132* 138 K 3.7 3.5 5.0 CL 105 107 109* CO2 21* 21* 18* BUN 53* 48* 32* CREATININE 3.40* 3.09* 1.38* CALCIUM 7.5* 7.2* 8.5 Recent Labs 06/02/22 2130 INR 1.1 Recent Labs 06/02/22205306/03/226 06/04/22 0503 SEDRATE 61* -- 101* CRP 236.3* 222.7* -- No results for input(s): HCG in the last 72 hours. Assessment Gabriel is a 57 y.o.male s/p RUE I&D for necrotizing fasciitis 06/03 Plan -Weight bearing: NWB RUE -Keep splint C/D/I -Keep WV in place to RUE -Plan for RTOR on 06/05 for rpt I&D and possible closure -NPO @[place] 06/05 -will confirm add -Consent pending -OK for diet today -Trend labs -CBC, BMP, CRP -ID consult for abx recs -Continue broad spectrum -Continue clindamycin due to concerns for necrotizing fascitis -OR cultures pending -Medical management/pain control per 1 team -Ortho team to follow Ray Romero MD Orthopaedic Surgery PGY-3 *[id number] Images from the original note were not included. Hospitalist Progress Note 06/03/[id number]: Please secure chat me for patient care issues. [phone]: Please secure chat [facility] Hospitalist for any issues. Subjective: Admit Date: 06/02/2022 PCP: Papi Ricketts DO Room#: OR/NONE Interval History: Gabriel Carter is a 57 y.o. male who presents to the emergency department for evaluation of right arm swelling and infection. Patient was transferred from outside ED for concerns for necrotizing fasciitis. Patient said initially he had an abrasion to his right hand a few days ago. Patient said the redness and swelling has increased and since traveled up his right arm. Denies any fever or chills. Denies any IV drug use. Denies any numbness or tingling in his right arm. In ED labs showed white blood cell count 24.3. Hemoglobin 12.3. Sed rate 61. CRP 236.3. Creatinine 3.74. Uric acid 6.1. INR 1.1. Right forearm xray as interpreted by me and confirmed by radiologist showed no acute findings. Did have an x-ray of his forearm on the right side which did not appreciate any underlying subcutaneous emphysema. Ortho consulted in ED, they are planning to continue to monitor the patient and potentially take him to surgery. NPO diet 24HR INTAKE/OUTPUT: Intake/Output Summary (Last 24 hours) at 06/03/2022 1407 Last data filed at 06/03/2022 1316 Gross per 24 hour Intake 581.67 ml Output 750 ml Net -168.33 ml Past Medical History: No past medical history on file. LABS: CBC: Recent Labs 06/02/22 2054 06/02/22 2334 06/03/22 0216 WBC 24.3* 24.7* 22.0* RBC 4.00* 3.99* 3.83* HGB 12.3* 12.2* 11.9* HCT 37.5* 36.5* 35.9* MCV 93.9 91.6 93.8 RDW 13.1 14.0 13.4 PLT 291 293 280 BMP: Recent Labs 06/02/22205306/02/22233306/03/22 0216 NA 132* 132* 132* K 3.8 3.7 3.5 CL 105 105 107 CO2 21* 21* 21* BUN 53* 53* 48* CREATININE 3.74* 3.40* 3.09* GLUCOSE 93 115* 105* CALCIUM 7.2* 7.5* 7.2* ANIONGAP 6 6 4 LIVER PROFILE: Recent Labs 06/02/22205306/03/22215 AST 30 34 ALT 21 21 BILITOT 0.8 0.8 ALKPHOS 81 113 PROT 5.8* 5.6* PT/INR: Recent Labs 06/02/222129 PROTIME 11.6 INR 1.1 CARDIAC ENZYMES: No results for input(s): TROPONINI in the last 72 hours. Procalcitonin: No results found for: PROCAL COVID-19 PCR: No results for input(s): COVID19 in the last 72 hours. Objective: Vitals: BP 95/66 (BP Location: Left arm, Patient Position: Lying) Pulse 88 Temp 36.6 C (97.9 F) (Temporal) Resp 12 Ht 5' 10 (1.778 m) Wt 195 lb (88.5 kg) SpO2 99% BMI 27.98 kg/m Pulse Ox: SpO2 Av.2 % Min: 90 % Max: 99 % Medications: sodium chloride, 75 mL/hr, Last Rate: 75 mL/hr (06/03/22 1145) [APR Hold] clindamycin, 900 mg, IntraVENous, q8h [APR Hold] piperacillin-tazobactam, 3,375 mg, IntraVENous, q8h [APR Hold] vancomycin, 750 mg, IntraVENous, q24h Physical Exam Constitutional: General: He is not in acute distress. Appearance: Normal appearance. HENT: Mouth/Throat: Mouth: Mucous membranes are moist. Eyes: Extraocular Movements: Extraocular movements intact. Pupils: Pupils are equal, round, and reactive to light. Cardiovascular: Rate and Rhythm: Normal rate and regular rhythm. Pulses: Normal pulses. Heart sounds: Normal heart sounds. Pulmonary: Effort: Pulmonary effort is normal. Breath sounds: Normal breath sounds. Skin: Comments: extensive cellulitic findings with demarcated margin lines. No overt necrosis on surface Neurological: Mental Status: He is alert. Assessment Cellulitis of right upper extremity evaluating for necrotizing infection No superficial necrosis or blistering Ortho following Planning I&D today Stable from IM standpoint to proceed Broad spectrum ABX Follow cultures ID consulted as well Followup after surgery ANGELIA: Prerenal due to infection and NSAIDs Nephrology following Improving Leukocytosis: Due to 1, follow cultures HTN hold lisinopril -DVT prophylaxis: [] Lovenox [] Heparin [x] SCDs [] Encourage ambulation [] Already on Anticoagulation Extended Emergency Contact Information Primary Emergency Contact: arpita tolbert Mobile Relation: Relative Preferred language: Faroese Early Childhood Specialist needed? No Ry Foster MD Division of Hospitalist Medicine Acute care [facility] PAGER: Epic chat I personally evaluated the patient on the floor. States his symptoms are largely unchanged since his morning exam. Continues to endorse pain along the dorsal hand, wrist, and forearm. Denies any systemic complaints but complains of being thirsty. Examination of the right upper extremity reveals diffuse global swelling along the dorsal soft tissues of the hand and wrist. Erythema extending to the lateral elbow without associated soft tissue swelling in the forearm. Exquisitely tender to palpation along the dorsal hand and wrist. Mildly tender palpation along the dorsal forearm musculature. No crepitation with deep palpation. Pain along the dorsal forearm musculature with passive wrist range of motion. No tenderness along the volar forearm or palm. Lymphangitic streak along the medial brachium unchanged and within previous demarcation. I had a long discussion with Gabriel. I explained to him that his labs continue to be concerning despite nearly 24 hours of IV antibiotics. His exam certainly has not worsened but also has not demonstrated significant improvement. For that reason I recommend formal debridement of his dorsal hand, wrist, and forearm with potential VAC placement. He understands that depending on what is seen at the time of surgery he may require serial debridements with the potential for even needing soft tissue coverage. He told me he is in agreement with this and would rather not continue to observe for improvement. All questions were answered and consent was signed. Plan for debridement right upper extremity this afternoon. Bharathi Ayala MD Images from the original note were not included. Orthopaedic Progress Note Ortho to bedside for repeat exam. Patient asleep on my arrival. Patient reports that the pain is significantly improved. He is refusing to wear the right splint due to it being too tight. Denies numbness and tingling has improved range of motion. Physical exam: Right upper extremity: Slight improvement of erythema from previous borders The dorsal swelling of the hand and forearm are overall unchanged. There is no palpable fluctuance. There is tenderness palpation of the dorsal hand and forearm. There is no palpable bullae there is no skin discoloration or focal necrosis. +SILT Ax/M/R/U distributions +Ax/AIN/PIN/U motor function +Radial pulse palpable See clinical photo below: ASSESSMENT: 57 y.o. male with severe right upper extremity erythema and swelling, concern for necrotizing fasciitis, with improving exam PLAN: -D/w Dr. Ayala -Patient presents with approximately 3-day history of worsening right upper extremity erythema and swelling. This began on the hand and has since progressed to the dorsal forearm. Patient does present with severe electrolyte abnormalities including hyponatremia, significantly elevated white blood cell count, CRP and ESR elevated as well as creatinine. All of these are significantly concerning for necrotizing fasciitis. Physical exam however is not convincingly consistent with necrotizing fasciitis. There are no skin manifestations of a necrotizing infection. There is no bullae there is no focal areas of necrosis. There is no discoloration. Time course of his infection is also not consistent with necrotizing fasciitis. Patient does report that his exam is significantly improved since administration of antibiotics at [place] [facility]. We will monitor patient for improvement with a short threshold to proceed to the OR should his exam worsen. -Exam stable thus far. Will recheck patient again at approximately 0800 -Status post splinting in the ED, patient currently refusing to wear splint -Continue IV antibiotics per ED/primary, recommend clindamycin given concern for possible necrotizing infection -Labs improving -Keep patient n.p.o., hold antibiotics in anticipation of possible operative intervention -Admit to medicine -Medical management, pain control, antibiotics per medicine -Consider infectious disease consult -Ortho to follow for serial exams. Should patient become unstable or exam significantly worsen please contact orthopedic surgery resident on-call immediately Reny Mar MD PGY2 Orthopaedic Surgery 06/03/2022 7:51 AM Images from the original note were not included. Orthopaedic Progress Note Ortho to bedside for repeat exam. Patient resting comfortably on my arrival. Patient reports that the pain in the right arm has improved. He did remove the right splint as he felt that it was too tight. Patient denies numbness and tingling. He reports that he has improved range of motion in the right wrist and decreased pain with movement of the right upper extremity. Physical exam:: Right upper extremity: No extension of erythema beyond the previously demarcated borders. The dorsal swelling of the hand and forearm are overall unchanged. There is no palpable fluctuance. There is tenderness palpation of the dorsal hand and forearm. There is no palpable bullae there is no skin discoloration or focal necrosis. +SILT Ax/M/R/U distributions +Ax/AIN/PIN/U motor function +Radial pulse palpable See clinical photo below: ASSESSMENT: 57 y.o. male with severe right upper extremity erythema and swelling, concern for necrotizing fasciitis, with stable exam PLAN: -D/w Dr. Ayala -Patient presents with approximately 3-day history of worsening right upper extremity erythema and swelling. This began on the hand and has since progressed to the dorsal forearm. Patient does present with severe electrolyte abnormalities including hyponatremia, significantly elevated white blood cell count, CRP and ESR elevated as well as creatinine. All of these are significantly concerning for necrotizing fasciitis. Physical exam however is not convincingly consistent with necrotizing fasciitis. There are no skin manifestations of a necrotizing infection. There is no bullae there is no focal areas of necrosis. There is no discoloration. Time course of his infection is also not consistent with necrotizing fasciitis. Patient does report that his exam is significantly improved since administration of antibiotics at [place] ED. We will monitor patient for improvement with a short threshold to proceed to the OR should his exam worsen. -Exam stable thus far. Will recheck patient again at approximately 0400 -Status post splinting in the ED -Continue IV antibiotics per ED/primary, recommend clindamycin given concern for possible necrotizing infection -We will repeat exam at midnight -We will repeat labs at midnight -Keep patient n.p.o., hold antibiotics in anticipation of possible operative intervention -Admit to medicine -Medical management, pain control, antibiotics per medicine -Consider infectious disease consult -Ortho to follow for serial exams. Should patient become unstable or exam significantly worsen please contact orthopedic surgery resident on-call immediately Reny Mar MD PGY2 Orthopaedic Surgery 06/03/2022 2:42 AM documented in this encounter 06-08-2022 Plan of care note Problem: Pain - Adult Goal: Verbalizes/displays adequate comfort level or baseline comfort level Outcome: Progressing Problem: Safety - Adult Goal: Free from fall injury Outcome: Progressing Problem: Discharge Planning Goal: Discharge to home or other facility with appropriate resources Outcome: Progressing Problem: Problem Interventions Goal: Assess Nutritional Intake Outcome: Progressing 06-08-2022 Nurse Note Completed patients dressing change. Patient tolerated well. 06-07-2022 Note Hospitalist Progress Note 06/07/2022 [phone]: Please secure chat wy for patient care issues. [phone]: Please secure chat [facility] Hospitalist for any issues. Subjective: Admit Date: 06/02/2022 PCP: Papi Ricketts DO Room#: [id number]/[id number] A Interval History: Gabriel Carter is a 57 y.o. male who presents to the emergency department for evaluation of right arm swelling and infection. Patient was transferred from outside ED for concerns for necrotizing fasciitis. Patient said initially he had an abrasion to his right hand a few days ago. Patient said the redness and swelling has increased and since traveled up his right arm. Denies any fever or chills. Denies any IV drug use. Denies any numbness or tingling in his right arm. In ED labs showed white blood cell count 24.3. Hemoglobin 12.3. Sed rate 61. CRP 236.3. Creatinine 3.74. Uric acid 6.1. INR 1.1. Right forearm xray as interpreted by me and confirmed by radiologist showed no acute findings. patient was admitted and placed on broad antibiotics. Seen by Ortho and underwent Incision and debridement (06/03) 06/07 - doing well, pain controlled, drain removed from hand/arm. Denies fevers Adult diet Regular 24HR INTAKE/OUTPUT: Intake/Output Summary (Last 24 hours) at 06/07/2022 1103 Last data filed at 06/07/2022 0535 Gross per 24 hour Intake -- Output 805 ml Net -805 ml Past Medical History: History reviewed. No pertinent past medical history. LABS: CBC: Recent Labs 06/05/22 0158 06/06/22 0114 06/07/22215 WBC 22.1* 12.3* 10.9* RBC 3.57* 3.91* 3.96* HGB 11.1* 12.0* 12.4* HCT 32.7* 35.8* 36.4* MCV 91.6 91.6 92.0 RDW 13.6 13.6 13.3 PLT 323 372 438 BMP: Recent Labs 06/05/22 0158 06/06/22 0114 06/07/22215 NA 136 135 135 K 4.7 4.5 4.2 CL 110* 107 105 CO2 19* 23 27 BUN 31* 27* 17 CREATININE 1.37* 1.17 0.96 GLUCOSE 118* 186* 86 CALCIUM 8.2* 8.0* 8.2* ANIONGAP 6 4 3 LIVER PROFILE:No results for input(s): AST, ALT, BILITOT, ALKPHOS, PROT in the last 72 hours. No lab exists for component: LABALBU PT/INR: No results for input(s): PROTIME, INR in the last 72 hours. CARDIAC ENZYMES: No results for input(s): TROPONINI in the last 72 hours. Procalcitonin: No results found for: PROCAL COVID-19 PCR: No results for input(s): COVID19 in the last 72 hours. Objective: Vitals: BP 134/74 Pulse 70 Temp 37.2 ?C (98.9 ?F) (Temporal) Resp 16 Ht 5' 10 (1.778 m) Wt 195 lb (88.5 kg) SpO2 96% BMI 27.98 kg/m? Pulse Ox: SpO2 Av % Min: 96 % Max: 100 % Constitutional: General: He is not in acute distress. Appearance: Normal appearance. HENT: Mouth/Throat: Mouth: Mucous membranes are moist. Eyes: Extraocular Movements: Extraocular movements intact. Pupils: Pupils are equal, round, and reactive to light. Cardiovascular: Rate and Rhythm: Normal rate and regular rhythm. Pulses: Normal pulses. Heart sounds: Normal heart sounds. Pulmonary: Effort: Pulmonary effort is normal. Breath sounds: Normal breath sounds. Skin: Comments: Right forearm is wrapped up and covered with wound vac off. Drain out. Neurological: Mental Status: He is alert. Medications: acetaminophen, 650 mg, Oral, Q4H cefTRIAXone, 2,000 mg, IntraVENous, q24h heparin flush, 250 Units, IntraCATHeter, q12h Lidocaine, 1 patch, Topical, Daily lisinopril, 20 mg, Oral, Daily sodium chloride 0.9%, 10 mL, IntraCATHeter, q12h Assessment Cellulitis of right upper extremity evaluated for necrotizing infection No superficial necrosis or blistering Ortho following- > post I&D 06/03 -and repeat surgery 06/05 with closure Antibiotic deescalated based on culture to Rocephin with plan for 14 days treatment intraop-> growing strep pyogenes 2. ANGELIA:resolved Prerenal due to infection and NSAIDs 3. Leukocytosis: Due to 1, 4. HTN Increase lisinopril as BP not at goal. Medical Decision Making -DVT prophylaxis: [] Lovenox [] Heparin [x] SCDs [x] Encourage ambulation [] Already on Anticoagulation Anticipated Discharge - Date - 06/09 - Location - Home with Home Health Care - Pending the following - [facility] setup Extended Emergency Contact Information Primary Emergency Contact: arpita tolbert Mobile Relation: Relative Preferred language: Faroese Early Childhood Specialist needed? No Ry Foster MD Division of Hospitalist Medicine Acute care solutions PAGER: [employer] [facility] 06-07-2022 Note Formatting of this n ote is different from the original. Images from the original note were not included. CARE COORDINATION DAILY NOTE/UPDATE Medical Plan: s/p I&D of RUE on 06/03 and rpt I&D of RUE on 06/05. PICC line placed 06/06. ID recommending ceftriaxone 2g every 24 hours with completion date of 06/20/22. Discharge Plan: home with RENITA and PINEDA available Thursday06/09/22, if patient receives IV antibiotic Thursday he can discharge home and be seen Thursday. Discharge Barriers: pending medical clearance and home care SOC 06/09/22 This TCC was tasked to follow this patient through the weekend assisting with discharge planning. Chart was reviewed. Expected discharge and Discharge Milestones reviewed and updated. TCC will continue to follow. Attempted to confirm patients discharge plan at the bedside, unsure if patient wishes to continue with the home care option or Outpatient options include [facility] or [facility]. Discharge Milestones and Delays Expected Date/Time: 06/09/[address] discharge order Enter post-discharge transportation status Complete med reconciliation Request transport Case mgmt discharge readiness PT discharge readiness Expected Discharge History Expected Date/Time Set By Reviewed At 06/09/2022 Adina Allan RN 06/07/2022 8:05 AM TCC estimate- pending medical clearance and home care SOC 06/09/22 Unknown GASPER Colon 06/06/2022 9:34 AM SW est Unknown GASPER Colon 06/05/2022 9:05 AM Unknown GASPER Colon 06/04/2022 9:16 AM 06/05/2022 [place], GASPER 06/03/2022 9:49 AM 06/05/2022 DANYEL ConroyW 06/03/2022 9:42 AM NPO- poss OR-if agrees 06/05/2022 GASPER Conroy 06/03/2022 9:42 AM NPO- poss OR 06/05/2022 Jesse Cabral PA-C 06/03/2022 2:09 AM 06/05/2022 Jesse Cabral PA-C 06/02/2022 11:51 PM Length of Stay (Days): 5 GMLOS: 3.0 06-07-2022 Note Formatting of this n ote is different from the original. Images from the original note were not included. CARE COORDINATION DAILY NOTE/UPDATE Medical Plan: s/p I&D of RUE on 06/03 and rpt I&D of RUE on 06/05. PICC line placed 06/06. ID recommending ceftriaxone 2g every 24 hours with completion date of 06/20/22. Discharge Plan: home with RENITA and PINEDA available Thursday06/09/22, if patient receives IV antibiotic Thursday he can discharge home and be seen Thursday. Discharge Barriers: pending medical clearance and home care SOC 06/09/22 This TCC was tasked to follow this patient through the weekend assisting with discharge planning. Chart was reviewed. Expected discharge and Discharge Milestones reviewed and updated. TCC will continue to follow. Attempted to confirm patients discharge plan at the bedside, unsure if patient wishes to continue with the home care option or Outpatient options include [facility] or [facility]. Discharge Milestones and Delays Expected Date/Time: 06/09/[address] discharge order Enter post-discharge transportation status Complete med reconciliation Request transport Case mgmt discharge readiness PT discharge readiness Expected Discharge History Expected Date/Time Set By Reviewed At 06/09/2022 Adina Allan RN 06/07/2022 8:05 AM TCC estimate- pending medical clearance and home care SOC 06/09/22 Unknown GASPER Colon 06/06/2022 9:34 AM SW est Unknown GASPER Colon 06/05/2022 9:05 AM Unknown GASPER Colon 06/04/2022 9:16 AM 06/05/2022 Soco Jean, MEDICAL FACILITIES SECTION DIRECTOR 06/03/2022 9:49 AM 06/05/2022 Soco Jean, MEDICAL FACILITIES SECTION DIRECTOR 06/03/2022 9:42 AM NPO- poss OR-if agrees 06/05/2022 Soco Jean, MEDICAL FACILITIES SECTION DIRECTOR 06/03/2022 9:42 AM NPO- poss OR 06/05/2022 Jesse Cabral PA-C 06/03/2022 2:09 AM 06/05/2022 Jesse Cabral PA-C 06/02/2022 11:51 PM Length of Stay (Days): 5 GMLOS: 3.0 06-06-2022 Note PICC Procedure Note 06/06/22 at 5:26 PM Gabriel Carter : 1965(57 y.o.) History/labs/allergies reviewed. Indication: RUE necrotizing fascitis, ltabx Consent was obtained after explaining the procedure, indication, risks to patient and/or next of kin. Time out: Completed immediately prior to the start of the procedure which included verification of the correct patient, correct site and agreement on the procedure to be done. Sterile prep: Complete handwashing care was performed by all involved personnel prior to initiation of the procedure. Full maximum sterile field/barrier technique was followed (with cap and mask, gloves and sterile gown, as well as broad field sterile drapes). Local disinfection was performed with broad field application of dyed chloraprep solution, which was allowed to dry fully prior to the initiation of the procedure. Local anesthetic: Aqueous lidocaine 1% used Ultrasound guidance used. Site prior to insertion: ecchymoses Lot # [id number] Catheter type: 5 Citizen [place] Double Lumen Location: Left basilic vein Trimmed at 49 cm ; inserted at 49 Procedure: The site was prepped with chlorprep solution. Using modified seldinger technique, the above vessel was located venous access obtained with 20g 1.88cm catheter. Wire advanced, microintroducer inserted over wire, wire removed, picc positioned through introducer. The site was reprepped with chlorprep solution followed by placement of an antiseptic device and secured in place via securement device and covered with occlusive dressing. Hemostasis was assured at the termination of procedure. PICC info and BSI info sheet left at bedside. Complications: No apparent complications Follow up Chest X-Ray: Ordered. Placed by Corbin Valdivia APRN [facility] 06-06-2022 Note Central Line Inserti on Checklist - PICC per Central Access Team 06/06/22 at 5:26 PM Procedure: [x] Central Venous Catheter Insertion - PICC (see PICC Procedure note same date) Time Out: [x] Completed immediately prior to the start of the procedure which included verification of the correct patient, correct site and agreement on the procedure to be done [] Unable to be completed due to emergent procedure Central Line Bundle: [x] Proceduralist(s) performed hand hygiene prior to starting procedure The following were worn by the proceduralist(s) throughout the procedure: [x] Hat [x] Mask [x] Sterile gown [x] Sterile gloves [x] Skin was prepped per policy --> [x] Upper Arm Site: Chlorhexidine was used to prep the skin using a vigorous, side to side motion for a minimum of 30 seconds and was allowed to air dry for at least 30 seconds. [x] Patient was draped per policy (Full body drape for central venous catheter; fenestrated drape for arterial line insertion) [x] Everyone in the room wore a mask during the procedure Patient and/or Family Education: [x] Type of Catheter [x] Catheter Care [x] Hand Hygiene [x] Signs and Symptoms of Infection Sterile Technique Used Throughout Procedure: [x] Yes [] Sterility temporarily compromised. Procedure stopped immediately and safety concern discussed. Sterility maintained in subsequent attempt.* *If sterility is not achieved after safety discussion, follow escalation policy. Proceduralist: Corbin Valdivia APRN [facility] 06-06-2022 Procedure note Images from the original note were not included. PICC Procedure Note 06/06/22 at 5:26 PM Jhonphyllis Carter : 1965(57 y.o.) History/labs/allergies reviewed. Indication: RUE necrotizing fascitis, ltabx Consent was obtained after explaining the procedure, indication, risks to patient and/or next of kin. Time out: Completed immediately prior to the start of the procedure which included verification of the correct patient, correct site and agreement on the procedure to be done. Sterile prep: Complete handwashing care was performed by all involved personnel prior to initiation of the procedure. Full maximum sterile field/barrier technique was followed (with cap and mask, gloves and sterile gown, as well as broad field sterile drapes). Local disinfection was performed with broad field application of dyed chloraprep solution, which was allowed to dry fully prior to the initiation of the procedure. Local anesthetic: Aqueous lidocaine 1% used Ultrasound guidance used. Site prior to insertion: [employer] Lot # [id number] Catheter type: 5 Citizen [place] Double Lumen Location: Left basilic vein Trimmed at 49 cm ; inserted at 49 Procedure: The site was prepped with chlorprep solution. Using modified seldinger technique, the above vessel was located venous access obtained with 20g 1.88cm catheter. Wire advanced, microintroducer inserted over wire, wire removed, picc positioned through introducer. The site was reprepped with chlorprep solution followed by placement of an antiseptic device and secured in place via securement device and covered with occlusive dressing. Hemostasis was assured at the termination of procedure. PICC info and BSI info sheet left at bedside. Complications: No apparent complications Follow up Chest X-Ray: Ordered. Placed by Corbin Valdivia APRN Phone: 06-06-2022 Procedure note Central Line Insertion Checklist - PICC per Central Access Team 06/06/22 at 5:26 PM Procedure: [x] Central Venous Catheter Insertion - PICC (see PICC Procedure note same date) Time Out: [x] Completed immediately prior to the start of the procedure which included verification of the correct patient, correct site and agreement on the procedure to be done [] Unable to be completed due to emergent procedure Central Line Bundle: [x] Proceduralist(s) performed hand hygiene prior to starting procedure The following were worn by the proceduralist(s) throughout the procedure: [x] Hat [x] Mask [x] Sterile gown [x] Sterile gloves [x] Skin was prepped per policy --> [x] Upper Arm Site: Chlorhexidine was used to prep the skin using a vigorous, side to side motion for a minimum of 30 seconds and was allowed to air dry for at least 30 seconds. [x] Patient was draped per policy (Full body drape for central venous catheter; fenestrated drape for arterial line insertion) [x] Everyone in the room wore a mask during the procedure Patient and/or Family Education: [x] Type of Catheter [x] Catheter Care [x] Hand Hygiene [x] Signs and Symptoms of Infection Sterile Technique Used Throughout Procedure: [x] Yes [] Sterility temporarily compromised. Procedure stopped immediately and safety concern discussed. Sterility maintained in subsequent attempt.* *If sterility is not achieved after safety discussion, follow escalation policy. Proceduralist: Corbin Valdivia APRN [facility] 06-06-2022 Procedure note Images from the original note were not included. [facility] Procedure Note 06/06/22 at 5:26 PM Gabriel Carter : 1965(57 y.o.) History/labs/allergies reviewed. Indication: RUE necrotizing fascitis, ltabx Consent was obtained after explaining the procedure, indication, risks to patient and/or next of kin. Time out: Completed immediately prior to the start of the procedure which included verification of the correct patient, correct site and agreement on the procedure to be done. Sterile prep: Complete handwashing care was performed by all involved personnel prior to initiation of the procedure. Full maximum sterile field/barrier technique was followed (with cap and mask, gloves and sterile gown, as well as broad field sterile drapes). Local disinfection was performed with broad field application of dyed chloraprep solution, which was allowed to dry fully prior to the initiation of the procedure. Local anesthetic: Aqueous lidocaine 1% used Ultrasound guidance used. Site prior to insertion: marcio Lot # [id number] Catheter type: 5 Citizen [place] Double Lumen Location: Left basilic vein Trimmed at 49 cm ; inserted at 49 Procedure: The site was prepped with chlorprep solution. Using modified seldinger technique, the above vessel was located venous access obtained with 20g 1.88cm catheter. Wire advanced, microintroducer inserted over wire, wire removed, picc positioned through introducer. The site was reprepped with chlorprep solution followed by placement of an antiseptic device and secured in place via securement device and covered with occlusive dressing. Hemostasis was assured at the termination of procedure. PICC info and BSI info sheet left at bedside. Complications: No apparent complications Follow up Chest X-Ray: Ordered. Placed by Corbin Valdivia APRN Central Line Insertion Checklist - PICC per Central Access Team 06/06/22 at 5:26 PM Procedure: [x] Central Venous Catheter Insertion - PICC (see PICC Procedure note same date) Time Out: [x] Completed immediately prior to the start of the procedure which included verification of the correct patient, correct site and agreement on the procedure to be done [] Unable to be completed due to emergent procedure Central Line Bundle: [x] Proceduralist(s) performed hand hygiene prior to starting procedure The following were worn by the proceduralist(s) throughout the procedure: [x] Hat [x] Mask [x] Sterile gown [x] Sterile gloves [x] Skin was prepped per policy --> [x] Upper Arm Site: Chlorhexidine was used to prep the skin using a vigorous, side to side motion for a minimum of 30 seconds and was allowed to air dry for at least 30 seconds. [x] Patient was draped per policy (Full body drape for central venous catheter; fenestrated drape for arterial line insertion) [x] Everyone in the room wore a mask during the procedure Patient and/or Family Education: [x] Type of Catheter [x] Catheter Care [x] Hand Hygiene [x] Signs and Symptoms of Infection Sterile Technique Used Throughout Procedure: [x] Yes [] Sterility temporarily compromised. Procedure stopped immediately and safety concern discussed. Sterility maintained in subsequent attempt.* *If sterility is not achieved after safety discussion, follow escalation policy. Proceduralist: Corbin Valdivia APRN documented in this encounter 06-06-2022 Note Case Management Prog ress Note TCC rec'd secure chat msg from Dr. Green that pt to receive PICC line with minimum of 2 weeks IV Antibiotics at [place]. Surgical drain remains, ortho notes plan to check in am. HC-L following and notified TCC that no home care agencies available Sat or Sun for home infusions and wound care needs if discharged prior to Thursday's antibiotic. TCC phoned [facility] at [phone] and left VMM with request to call back to discuss DC needs of pt. Contact info provided. Discharge Plan: Home Care available Thursday, if patient receives IV Antibiotic Thursday, can discharge home and be seen for timely administration on Thursday. Backup Options include [facility] or [facility]. Driving time to [facility] noted to be ~15 mins away from pts hometown of [place] whereas [facility] location is ~35 Pt refusing to work w/therapy and refused to speak with HC-L so he can sleep. TCC not able to meet w/him to discuss options above. Requested wknd TCC to follow and provided assistance if needed. [facility] 06-06-2022 Telephone encounter Note Images from the original note were not included. Patient still admitted will need discharge information. Patient will need notified of follow up appt on 06/17/22 @130pm 06-06-2022 Note Formatting of this n ote might be different from the original. Case Management Progress Note TCC rec'd secure chat msg from Dr. Green that pt to receive PICC line with minimum of 2 weeks IV Antibiotics at [place]. Surgical drain remains, ortho notes plan to check in am. HC-L following and notified TCC that no home care agencies available Sat or Sun for home infusions and wound care needs if discharged prior to Thursday's antibiotic. TCC phoned [facility] at [phone] and left VMM with request to call back to discuss DC needs of pt. Contact info provided. Discharge Plan: Home Care available Thursday, if patient receives IV Antibiotic Thursday, can discharge home and be seen for timely administration on Thursday. Backup Options include [facility] or [facility]. Driving time to [facility] noted to be ~15 mins away from pts hometown of [place] whereas [facility] location is ~35 Pt refusing to work w/therapy and refused to speak with HC-L so he can sleep. TCC not able to meet w/him to discuss options above. Requested wknd TCC to follow and provided assistance if needed. 06-06-2022 Note Formatting of this n ote might be different from the original. Case Management Progress Note TCC rec'd secure chat msg from Dr. Green that pt to receive PICC line with minimum of 2 weeks IV Antibiotics at [place]. Surgical drain remains, ortho notes plan to check in am. HC-L following and notified TCC that no home care agencies available Sat or Sun for home infusions and wound care needs if discharged prior to Thursday's antibiotic. TCC phoned [facility] at [phone] and left VMM with request to call back to discuss DC needs of pt. Contact info provided. Discharge Plan: Home Care available Thursday, if patient receives IV Antibiotic Thursday, can discharge home and be seen for timely administration on Thursday. Backup Options include [facility] or [facility]. Driving time to [facility] noted to be ~15 mins away from pts hometown of [place] whereas [facility] location is ~35 Pt refusing to work w/therapy and refused to speak with HC-L so he can sleep. TCC not able to meet w/him to discuss options above. Requested wknd TCC to follow and provided assistance if needed. 06-06-2022 Note Formatting of this n ote might be different from the original. Attempt to talk to pt, pt request I come back tomorrow, he is sleeping and doesn't want bothered now. Followed up with TCC regarding discharge plan. Informed TCC, at [facility] is unable to see pt for SOC until Thursday06/09/2022 due to staffing issues on weekend. Will send referral to other agencies that accept insurance/go to pt's area to see if any agency may be able to accept referral and able to see on weekend. Referrals sent to 12 agencies, received no from 8 and no response from 4. [facility] can see pt on Thursday if pt is agreeable for agency and benefits. Will have w/e [facility] follow up with pt. TCC was made aware earlier this afternoon. IV order received this evening and sent to [facility]. 06-06-2022 Note Formatting of this n ote might be different from the original. Attempt to talk to pt, pt request I come back tomorrow, he is sleeping and doesn't want bothered now. Followed up with TCC regarding discharge plan. Informed ROHAN, at [facility] is unable to see pt for SOC until Thursday06/09/2022 due to staffing issues on weekend. Will send referral to other agencies that accept insurance/go to pt's area to see if any agency may be able to accept referral and able to see on weekend. Referrals sent to 12 agencies, received no from 8 and no response from 4. [facility] can see pt on Thursday if pt is agreeable for agency and benefits. Will have w/e [facility] follow up with pt. TCC was made aware earlier this afternoon. IV order received this evening and sent to [facility]. 06-06-2022 Note Hospitalist Progress Note 06/06/[id number]: Please secure chat me for patient care issues. [phone]: Please secure chat [facility] Hospitalist for any issues. Subjective: Admit Date: 06/02/2022 PCP: Papi Ricketts DO Room#: H-6109/H-6109 A Interval History: Gabriel Carter is a 57 y.o. male who presents to the emergency department for evaluation of right arm swelling and infection. Patient was transferred from outside ED for concerns for necrotizing fasciitis. Patient said initially he had an abrasion to his right hand a few days ago. Patient said the redness and swelling has increased and since traveled up his right arm. Denies any fever or chills. Denies any IV drug use. Denies any numbness or tingling in his right arm. In ED labs showed white blood cell count 24.3. Hemoglobin 12.3. Sed rate 61. CRP 236.3. Creatinine 3.74. Uric acid 6.1. INR 1.1. Right forearm xray as interpreted by me and confirmed by radiologist showed no acute findings. patient was admitted and placed on broad antibiotics. Seen by Ortho and underwent Incision and debridement (06/03) 06/06 - post repeat surgery with closure of skin yesterday, drain still in place, patient comfortable without complaint Adult diet Regular 24HR INTAKE/OUTPUT: Intake/Output Summary (Last 24 hours) at 06/06/2022 1145 Last data filed at 06/06/2022 0500 Gross per 24 hour Intake 1200 ml Output 690 ml Net 510 ml Past Medical History: History reviewed. No pertinent past medical history. LABS: CBC: Recent Labs 06/04/22 0503 06/05/22 0158 06/06/22 0114 WBC 20.3* 22.1* 12.3* RBC 4.04* 3.57* 3.91* HGB 12.3* 11.1* 12.0* HCT 37.3* 32.7* 35.8* MCV 92.4 91.6 91.6 RDW 13.3 13.6 13.6 PLT 319 323 372 BMP: Recent Labs 06/04/22 0503 06/05/22 0158 06/06/22 0114 NA 138 136 135 K 5.0 4.7 4.5 CL 109* 110* 107 CO2 18* 19* 23 BUN 32* 31* 27* CREATININE 1.38* 1.37* 1.17 GLUCOSE 148* 118* 186* CALCIUM 8.5 8.2* 8.0* ANIONGAP 10 6 4 LIVER PROFILE:No results for input(s): AST, ALT, BILITOT, ALKPHOS, PROT in the last 72 hours. No lab exists for component: LABALBU PT/INR: No results for input(s): PROTIME, INR in the last 72 hours. CARDIAC ENZYMES: No results for input(s): TROPONINI in the last 72 hours. Procalcitonin: Lab Results Component Value Date PROCAL 2.20 (H) 06/04/2022 COVID-19 PCR: No results for input(s): COVID19 in the last 72 hours. Objective: Vitals: BP (!) 140/83 (BP Location: Left arm, Patient Position: Lying) Pulse 63 Temp 36.6 ?C (97.8 ?F) (Temporal) Resp 16 Ht 5' 10 (1.778 m) Wt 195 lb (88.5 kg) SpO2 97% BMI 27.98 kg/m? Pulse Ox: SpO2 Av.8 % Min: 97 % Max: 100 % Constitutional: General: He is not in acute distress. Appearance: Normal appearance. HENT: Mouth/Throat: Mouth: Mucous membranes are moist. Eyes: Extraocular Movements: Extraocular movements intact. Pupils: Pupils are equal, round, and reactive to light. Cardiovascular: Rate and Rhythm: Normal rate and regular rhythm. Pulses: Normal pulses. Heart sounds: Normal heart sounds. Pulmonary: Effort: Pulmonary effort is normal. Breath sounds: Normal breath sounds. Skin: Comments: Right forearm is wrapped up and covered with wound vac in place Neurological: Mental Status: He is alert. Medications: acetaminophen, 650 mg, Oral, Q4H cefTRIAXone, 2,000 mg, IntraVENous, q24h Lidocaine, 1 patch, Topical, Daily Assessment Cellulitis of right upper extremity evaluating for necrotizing infection No superficial necrosis or blistering Ortho following- > post I&D 06/03 -and repeat surgery 06/05 with closure Continue Broad spectrum ABX Follow cultures- intraop-> growing strep ID consulted as well -> deescalate to Rocephin for 14 days 2. ANGELIA:resolved Prerenal due to infection and NSAIDs 3. Leukocytosis: Due to 1, follow cultures 4. HTN Resume lisinopril now that renal fx normalized Medical Decision Making -DVT prophylaxis: [] Lovenox [] Heparin [] SCDs [x] Encourage ambulation [] Already on Anticoagulation Extended Emergency Contact Information Primary Emergency Contact: arpita tolbert Mobile Relation: Relative Preferred language: Faroese Early Childhood Specialist needed? No Ry Foster MD Division of Hospitalist Medicine [facility] PAGER: [employer] [facility] 06-06-2022 Note Care Management Prog ress Note Medical Plan: S/p repeat I&D with closure on 06/05. Surgical drain managed by Ortho. ID following with surgical cultures from I&D on 06/03 pending. BID dressing changes. Receiving IV Rocephin and pain managed with po meds. Trending BMP, CBC and CRP Discharge plan: Home Pending final ID plan- will need LT antibiotics and PICC line HC-L following Will review OP Infusion option available at [facility]. TCC will continue to follow Discharge Milestones and Delays Expected Date/Time: Unknown Discharge Milestones Place discharge order Enter post-discharge transportation status Complete med reconciliation Request transport Case mgmt discharge readiness PT discharge readiness Expected Discharge History Expected Date/Time Set By Reviewed At Unknown GASPER Colon 06/06/2022 9:34 AM SW est Unknown GASPER Colon 06/05/2022 9:05 AM Unknown GASPER Colon 06/04/2022 9:16 AM 06/05/2022 Soco Jean, MEDICAL FACILITIES SECTION DIRECTOR 06/03/2022 9:49 AM 06/05/2022 Soco Jean, [facility] 06/03/2022 9:42 AM NPO- poss OR-if agrees 06/05/2022 Soco Jean, [facility] 06/03/2022 9:42 AM NPO- poss OR 06/05/2022 Jesse Cabral PA-C 06/03/2022 2:09 AM 06/05/2022 Jesse Cabral PA-C 06/02/2022 11:51 PM Length of Stay (Days): 4 GMLOS: 3.0 [facility] 06-06-2022 Note Pharmacy Managed Van comycin Dosing Service Progress Note Consult Date: 06/06/22 Room:[address] Patient Name: Gabriel Carter Lab Results Component Value Date CREATININE 1.17 06/06/2022 CREATININE 1.37 (H) 06/05/2022 CREATININE 1.38 (H) 06/04/2022 BUN 27 (H) 06/06/2022 BUN 31 (H) 06/05/2022 BUN 32 (H) 06/04/2022 WBC 12.3 (H) 06/06/2022 WBC 22.1 (H) 06/05/2022 WBC 20.3 (H) 06/04/2022 Assessment/Plan: Updated [employer]: [x] doses administered [x] Scr Current regimen vancomycin 1500 mg every 24 hours, predicted AUC = 416 mg/L*hr (goal 400-600 mg/L*hr) Scr continues to improve. Will order another random vancomycin level for 06/07 in the am. Probability of AUC24 > 400: 56 % Probability of nephrotoxicity (Lodise RADHA 2008): 7 % Please page/call with questions. Date: 06/06/22 Time: 10:39 AM Abbi Solitario RPh PharmD (available on [employer]) [facility] 06-06-2022 Note Medical Group - Infectious Diseases Attending Progress Note Subjective: Following for RUE necrotizing fascitis. During my assessment, patient reports mild RUE pain post-procedure. He denies f/c, n/v/d, SOB, cough, or abdominal pain. No further complaints at this time. Plan is for RTOR today for repeat debridement and possible closure. Vital signs- BP 140/83 Lab data- Labs reviewed; WBC 12.3, Hgb 12.0 Antimicrobial therapy- IV vancomycin, piperacillin/tazobactam, clindamycin Micro reports- RUE tissue CXs (+) for S pyogenes Discharge planning- TBD Code- FULL Objective: Vitals: Patient Vitals for the past 24 hrs: BP Temp Temp src Pulse Resp SpO2 06/06/22 0752 (!) 140/83 36.6 ?C (97.8 ?F) Temporal 63 16 97 % 06/05/22 2034 116/68 36.5 ?C (97.7 ?F) Temporal 65 16 97 % 06/05/22 1730 (!) 157/99 36.2 ?C (97.2 ?F) -- 60 15 99 % 06/05/22 1715 (!) 155/105 -- -- 65 15 99 % 06/05/22 1710 -- -- -- 58 -- -- 06/05/22 1700 (!) 146/98 -- -- 61 15 99 % 06/05/22 1645 (!) 141/88 -- -- 60 -- 100 % 06/05/22 1642 (!) 146/96 36.1 ?C (97 ?F) Temporal -- 16 100 % 06/05/22 1344 (!) 145/96 36.1 ?C (97 ?F) Temporal 56 16 99 % Physical Exam Constitutional: Appearance: He is not ill-appearing or diaphoretic. HENT: Head: Normocephalic and atraumatic. Nose: Nose normal. Mouth/Throat: Mouth: Mucous membranes are dry. Eyes: General: No scleral icterus. Extraocular Movements: Extraocular movements intact. Pupils: Pupils are equal, round, and reactive to light. Cardiovascular: Rate and Rhythm: Normal rate and regular rhythm. Pulses: Normal pulses. Heart sounds: Normal heart sounds. No murmur heard. No friction rub. No gallop. Pulmonary: Effort: Pulmonary effort is normal. No respiratory distress. Breath sounds: Normal breath sounds. No wheezing, rhonchi or rales. Abdominal: General: Abdomen is flat. Bowel sounds are normal. There is no distension. Palpations: Abdomen is soft. There is no mass. Tenderness: There is no abdominal tenderness. Hernia: No hernia is present. Musculoskeletal: General: Deformity and signs of injury present. Normal range of motion. Cervical back: Normal range of motion and neck supple. Right lower leg: No edema. Left lower leg: No edema. Comments: RUE wrapped Skin: General: Skin is warm and dry. Capillary Refill: Capillary refill takes less than 2 seconds. Neurological: General: No focal deficit present. Mental Status: He is alert. Psychiatric: Mood and Affect: Mood normal. Judgment: Judgment normal. Labs: Lab Results Component Value Date/Time NA 135 06/06/2022113 K 4.5 06/06/2022113 CL 107 06/06/2022113 CO2 23 06/06/2022113 BUN 27 (H) 06/06/2022113 CREATININE 1.17 06/06/2022113 GLUCOSE 186 (H) 06/06/2022113 CALCIUM 8.0 (L) 06/06/2022113 PROT 5.6 (L) 06/03/2022215 BILITOT 0.8 06/03/2022215 ALKPHOS 113 06/03/2022215 AST 34 06/03/2022215 ALT 21 06/03/2022215 PROCAL 2.20 (H) 06/04/2022 0503 Lab Results Component Value Date/Time WBC 12.3 (H) 06/06/2022113 HGB 12.0 (L) 06/06/2022113 HCT 35.8 (L) 06/06/2022113 PLT 372 06/06/2022113 LYMPHOPCT 3.2 (L) 06/03/2022215 MONOPCT 4.6 06/03/2022215 BASOPCT 0.3 06/03/2022215 NEUTROABS 20.0 (H) 06/03/20226 Micro: 06/02 Blood CXs x2 NGTD 06/03 RUE tissue CXs (+) for S pyogenes Lines/Drains/Airways: 06/02 LUE PIV x2 Radiography/Echo/Other: 06/02 XR forearm 2 views right No acute findings 06/03 XR chest 1 view No acute cardiopulmonary process. Antimicrobials, Start/End Dates: 06/02- vancomycin 06/02- piperacillin/tazobactam 06/02- clindamycin Impression: Mr. Carter is a 57 y/o M w/ PMH of HTN. Presented to [facility] ED 06/02 for RUE swelling. He was transferred from outside ED d/t concern of RUE NF. Reported a RUE abrasion a few days prior to presentation. ED w/u was notable for WBC 24.3, Hgb 12.3, ESR/CRP 61/236.3, SCr 3.74. RUE XR showed no acute findings. Orthopedics consulted; s/p debridement. Cxs (+) for S pyogenes. The ID service is following for RUE skin and soft tissue infection. Plan: 1. Right upper extremity necrotizing fascitis d/t S pyogenes - Presented to [facility] ED 06/02 for RUE swelling - Transferred from outside ED d/t concern of RUE NF - Reported a RUE abrasion a few days prior to presentation - ED w/u was notable for WBC 24.3, Hgb 12.3, ESR/CRP 61/236.3, SCr 3.74 - s/p debridement by ortho; RUE tissue CXs (+) for S pyogenes - Currently on IV vancomycin, piperacillin/tazobactam, clindamycin - Will de-escalate to ceftriaxone - Will treat for at least 14 days - OPAT form written; PICC line ordered - Will f/u with patient in the ID clinic at end of therapy 2. Acute kidney injury 3. Hypertension Recommendations: 1. Will de-escalate to ceftriaxone 2. Will treat for at least 14 days 3. OPAT form written; PICC line ordered 4. Will f/u with patient in the ID clinic at end of (more content not included)... [facility] 06-06-2022 Note Formatting of this n ote is different from the original. Images from the original note were not included. Care Management Progress Note Medical Plan: S/p repeat I&D with closure on 06/05. Surgical drain managed by Ortho. ID following with surgical cultures from I&D on 06/03 pending. BID dressing changes. Receiving IV Rocephin and pain managed with po meds. Trending BMP, CBC and CRP Discharge plan: Home Pending final ID plan- will need LT antibiotics and PICC line HC-L following Will review OP Infusion option available at [facility]. TCC will continue to follow Discharge Milestones and Delays Expected Date/Time: Unknown Discharge Milestones Place discharge order Enter post-discharge transportation status Complete med reconciliation Request transport Case mgmt discharge readiness PT discharge readiness Expected Discharge History Expected Date/Time Set By Reviewed At Unknown Kristen Perkins [facility] 06/06/2022 9:34 AM SW est Unknown Kristen Perkins [facility] 06/05/2022 9:05 AM Unknown Kristen Perkins, [facility] 06/04/2022 9:16 AM 06/05/2022 [place], [facility] 06/03/2022 9:49 AM 06/05/2022 [place], [facility] 06/03/2022 9:42 AM NPO- poss OR-if agrees 06/05/2022 [place], [facility] 06/03/2022 9:42 AM NPO- poss OR 06/05/2022 Jesse Cabral PA-C 06/03/2022 2:09 AM 06/05/2022 Jesse Cabral PA-C 06/02/2022 11:51 PM Length of Stay (Days): 4 GMLOS: 3.0 [facility] 06-06-2022 Note Formatting of this n ote is different from the original. Images from the original note were not included. Care Management Progress Note Medical Plan: S/p repeat I&D with closure on 06/05. Surgical drain managed by Ortho. ID following with surgical cultures from I&D on 06/03 pending. BID dressing changes. Receiving IV Rocephin and pain managed with po meds. Trending BMP, CBC and CRP Discharge plan: Home Pending final ID plan- will need LT antibiotics and PICC line HC-L following Will review OP Infusion option available at [facility]. TCC will continue to follow Discharge Milestones and Delays Expected Date/Time: Unknown Discharge Milestones Place discharge order Enter post-discharge transportation status Complete med reconciliation Request transport Case mgmt discharge readiness PT discharge readiness Expected Discharge History Expected Date/Time Set By Reviewed At Unknown Kristen RobMeghan Perkins, [facility] 06/06/2022 9:34 AM SW est Unknown Kristen Perkins, [facility] 06/05/2022 9:05 AM Unknown Kristen Perkins, [facility] 06/04/2022 9:16 AM 06/05/2022 [place], [facility] 06/03/2022 9:49 AM 06/05/2022 [place], [facility] 06/03/2022 9:42 AM NPO- poss OR-if agrees 06/05/2022 [place] [facility] 06/03/2022 9:42 AM NPO- poss OR 06/05/2022 Jesse Cabral PA-C 06/03/2022 2:09 AM 06/05/2022 Jesse Cabral PA-C 06/02/2022 11:51 PM Length of Stay (Days): 4 GMLOS: 3.0 [facility] 06-05-2022 Note Patient: Gabriel packer Procedure Summary Date: 06/05/22 Room / Location: [facility] Operating Room Anesthesia Start: 151 Anesthesia Stop: 1644 Procedure: INCISION AND DRAINAGE FOREARM AND OR WRIST BURSA, POSSIBLE CLOSURE, POSSIBLE WOUND VAC APPLICATION (Right: Wrist) Diagnosis: Necrotizing fasciitis (HCC) (Necrotizing fasciitis (HCC) [M72.6]) Surgeons: Bharathi Ayala MD Responsible Provider: Santiago Nava MD Anesthesia Type: general ASA Status: 3 Anesthesia Type: general Vitals Value Taken Time BP 141/88 06/05/22 1645 Temp 97.3 06/05/22 1647 Pulse 58 06/05/22 1647 Resp 16 06/05/22 1647 SpO2 100 % 06/05/22 1647 Vitals shown include unvalidated device data. Anesthesia Post Evaluation Patient location during evaluation: PACU Patient participation: complete - patient participated Level of consciousness: awake and alert Pain management: satisfactory to patient Airway patency: patent Dental Injury: no Cardiovascular status: acceptable, blood pressure returned to baseline and hemodynamically stable Respiratory status: acceptable and spontaneous ventilation Hydration status: euvolemic Nausea/Vomiting: controlled No notable events documented. Patient can be discharged once all PACU criteria has been met. [facility] 06-05-2022 Note Patient: Gabriel packer Procedure Summary Date: 06/05/22 Room / Location: [address] Operating Room Anesthesia Start: 1518 Anesthesia Stop: 1644 Procedure: INCISION AND DRAINAGE FOREARM AND OR WRIST BURSA, POSSIBLE CLOSURE, POSSIBLE WOUND VAC APPLICATION (Right: Wrist) Diagnosis: Necrotizing fasciitis (HCC) (Necrotizing fasciitis (HCC) [M72.6]) Surgeons: Bharathi Ayala MD Responsible Provider: Santiago Nava MD Anesthesia Type: general ASA Status: 3 Anesthesia Type: general Vitals Value Taken Time BP 141/88 06/05/22 1645 Temp 97.3 06/05/22 1647 Pulse 58 06/05/22 1647 Resp 16 06/05/22 1647 SpO2 100 % 06/05/22 1647 Vitals shown include unvalidated device data. Anesthesia Post Evaluation Patient location during evaluation: PACU Patient participation: complete - patient participated Level of consciousness: awake and alert Pain management: satisfactory to patient Multimodal analgesia pain management approach Airway patency: patent Two or more strategies used to mitigate risk of obstructive sleep apnea Cardiovascular status: acceptable and hemodynamically stable Respiratory status: acceptable Hydration status: acceptable No notable events documented. MIPS #430 PONV Patient received an inhalational anesthetic (4554F) Patient exhibits three or more risk factors for PONV (4556F) Patient received at leaset 2 prophylactic Rx PONV anti-emtic agents of different classes preop and/or intraop (G9775) MIPS # 424 Perioperative Temperature Management Anesthesia time was 60 minutes or longer (4255F) Anesthesai administered was General (inhalational or TIVA) or Neuraxial block (X0424) At least one body temperature greater than 95.8F/35.5C achieved within the 30 mins immediately prior to or the 15 minutes immediately following anesthesia end time (G9771) MIPS #477 Multimodal Pain Management Not emergent case Patient was administered multimodal pain management (two or more drugs and/or interventions excluding systemic opioids) in the periopeartive period occurring at some time between 6 hours prior to anesthesia start time until discharged from PACU (G2148) MIPS #404 Anesthesiology Smoking Abstinence The patient is not a current smoker (e.g. cigarette, cigar, pipe, e-cigarette/vaping/marijuana) If no stop here (XX404) I completed my handoff to the receiving clinician during which we: 1. Identified the patient 2. Identified the responsible provider 3. Reviewed the pertinent medical history 4. Discussed the surgical course 5. Reviewed intra-op anesthesia management and issues during anesthesia 6. Set expectations for post-procedure period 7. Allowed opportunity for questions and acknowledgement of understanding. [facility] 06-05-2022 Note Airway Date/Time: 06/05/2022 3:27 PM Airway not difficult General Information and Staff Patient location during procedure: Procedural Resident/OPTICAL MODEL MAKER AND TESTER: Fareed Painter APRN - OPTICAL MODEL MAKER AND TESTER Performed: OPTICAL MODEL MAKER AND TESTER Indications and Patient Condition Indications for airway management: anesthesia Sedation level: Asleep Preoxygenated: yes Patient position: sniffing Mask difficulty assessment: 0 - not attempted Final Airway Details Final airway type: supraglottic airway Successful airway: Igel Size 4 Number of attempts at approach: 1 [facility] 06-05-2022 Note Formatting of this n ote might be different from the original. Update to she will meet patient in room 6109 T 06-05-2022 Note Formatting of this n ote might be different from the original. Update to she will meet patient in room 6109 T 06-05-2022 Note Formatting of this n ote might be different from the original. Images from the original note were not included. [facility] [place] [phone] Dept: [phone] Loc: [phone] Operative Report Patient Name: Gabriel Carter Date of : 1965 Date of Surgery: 06/05/2022 Preoperative Diagnosis: Right upper extremity necrotizing fasciitis Postoperative Diagnosis: Same, with no extension of infection proximal to the elbow. Minimal necrosis skin flaps dorsal hand/wrist. Procedure: Repeat excisional debridement skin, subcutaneous tissue, and fascia of right hand/wrist/forearm measuring 300 sq cm with secondary wound closure Surgeon: Bharathi Ayala MD 1st Assist: Hina Cook MD 2nd Assist: None Implants: None Specimens Removed: None Anesthesia: General Local Anesthesia: None Tourniquet: Brachium Estimated Blood Loss: <5ml Pre Operative Antibiotics: Scheduled on the floor Post Operative Photos: Indications: Mr. Gabriel Carter is a 57 y.o. year-old male who presents today for second look debridement of right upper extremity necrotizing fasciitis and possible wound closure. I have discussed with him, preoperatively, the complications, limitations, expectations, alternatives, and risks of surgical intervention which he has demonstrated understanding. No guarantees were given or implied. After having all of his questions answered to his satisfaction, Mr. Gabriel Carter has provided written informed consent to proceed. Please see previous notes for full operative risk discussion. Procedure: Gabriel Carter was identified in the preoperative waiting area. His operative site was initialed and consent was reviewed. Final questions were answered. He was brought to the operating room and placed in the supine position. All bony prominences were well padded. The operative extremity was prepped and draped in the usual sterile fashion. A surgical timeout was then performed with the patient's identification, the procedure to be performed being reviewed, verification that the patient had received preoperative antibiotics if indicated, and verification of the correct surgical site. The patient's ASA was verified by the nurse screwdown operator and the anesthesia staff. Fire risk was assessed. Clay was used to exsanguinate the limb and the tourniquet was inflated to 250mm Hg. Previously placed wound VAC sponge was removed. The dorsum of the index finger wound was close inspected. There is no evidence of further necrosis. The dorsal hand, wrist, and forearm was close inspected. There was no evidence of infection at the most proximal extent of the wound. The skin flaps are largely viable with the exception of about 2 mm on both the radial and ulnar skin flaps directly overlying the wrist. All nonviable skin, subcutaneous tissue, and fascia was sharply excised from the entirety of the wound which measured 30 cm x 10 cm. I again copiously irrigated the wound with normal saline and felt it was safe to close the wound primarily. I placed a medium Hemovac drain along the dorsal forearm musculature brought out through the radial skin flap. Skin flaps were repairable over the dorsal hand and wrist with slight tension. The remainder of the wound was tension-free. The wounds were then dressed with Xeroform and fluffed gauze followed by Ciarra wrap from the fingertips to the mid brachium. The tourniquet was deflated and the fingers pinked up nicely with a capillary refill less than 2 seconds. Mr. Gabriel Carter was taken to the recovery room in stable condition. POST OPERATIVE PLAN Twice daily dry dressing changes Antibiotics per ID Encourage thumb and finger range of motion Pull drain Thursday morning Daily clinical images on rounds No plans for additional surgery F/U in office 2-3 days after DC Outpatient Follow-up XRays: None Bharathi Ayala MD [facility] 06-05-2022 Note Formatting of this n ote is different from the original. Date: 06/05/2022 Location: [facility] OR Name: Gabriel Carter, : 1965, Diagnosis Pre-op Diagnosis * Necrotizing fasciitis (HCC) [M72.6] Post-op Diagnosis * Necrotizing fasciitis (HCC) [M72.6] Procedures INCISION AND DRAINAGE FOREARM AND OR WRIST BURSA, POSSIBLE CLOSURE, POSSIBLE WOUND VAC APPLICATION 67091 - [place] INCISION & DRAINAGE FOREARM&/WRIST BURSA Surgeons * Bharathi Ayala - Primary Procedure Summary Anesthesia: General ASA: III Estimated Blood Loss: 10 mL Drains: Closed/Suction Drain Inferior;Proximal;Right Accordion 10 Fr. (Active) Staff: Counter Person: Aldo Palafox RN Relief Counter Person: Elva Winkler RN Scrub Person: Shavon Short RN Findings: please see full op note Complications: None; patient tolerated the procedure well. Specimens Collected: No specimens collected during this procedure. Wound Class: Class IV: Dirty Blood Products: None Prophylactic Antibiotics: Procedure appropriate prophylactic antibiotic(s) given within 1 hour of surgical incision (two hours if receiving Vancomycin or flouroquinolone) Plan: -Weight bearing: NWB RUE -Ok for ROM as tolerated to RUE, encourage finger, hand, wrist, elbow ROM -BID dressing changes per nursing -Please redress with adaptic, 4x4s, kerlix, and CIARRA wraps -Drain in place (stitched in) -Please empty and record output q shift -Will d/w Dr. Ayala on 06/07 re drain outputs and determine if drain can be pulled -No return to OR planned -OK for diet from ortho standpoint -Abx per ID -OR cx +GPCs, strep pyogenes -DVT prophylaxis/medical management/pain control per 1 team -F/u OP w/ Dr Ayala in 1 weeks, discharge instructions in AVS Associated attestation - Bharathi Ayala MD - 06/06/2022 3:05 PM EDT Agree Bharathi Ayala MD 06-05-2022 Note Formatting of this n ote might be different from the original. Images from the original note were not included. [place] [address] [place] [phone] Dept: [phone] Loc: [phone] Operative Report Patient Name: Gabriel Carter Date of : 1965 Date of Surgery: 06/05/2022 Preoperative Diagnosis: Right upper extremity necrotizing fasciitis Postoperative Diagnosis: Same, with no extension of infection proximal to the elbow. Minimal necrosis skin flaps dorsal hand/wrist. Procedure: Repeat excisional debridement skin, subcutaneous tissue, and fascia of right hand/wrist/forearm measuring 300 sq cm with secondary wound closure Surgeon: Bharathi Ayala MD 1st Assist: Hina Cook MD 2nd Assist: None Implants: None Specimens Removed: None Anesthesia: General Local Anesthesia: None Tourniquet: Brachium Estimated Blood Loss: <5ml Pre Operative Antibiotics: Scheduled on the floor Post Operative Photos: Indications: Mr. Gabriel Carter is a 57 y.o. year-old male who presents today for second look debridement of right upper extremity necrotizing fasciitis and possible wound closure. I have discussed with him, preoperatively, the complications, limitations, expectations, alternatives, and risks of surgical intervention which he has demonstrated understanding. No guarantees were given or implied. After having all of his questions answered to his satisfaction, Mr. Gabriel Carter has provided written informed consent to proceed. Please see previous notes for full operative risk discussion. Procedure: Gabriel Carter was identified in the preoperative waiting area. His operative site was initialed and consent was reviewed. Final questions were answered. He was brought to the operating room and placed in the supine position. All bony prominences were well padded. The operative extremity was prepped and draped in the usual sterile fashion. A surgical timeout was then performed with the patient's identification, the procedure to be performed being reviewed, verification that the patient had received preoperative antibiotics if indicated, and verification of the correct surgical site. The patient's ASA was verified by the nurse screwdown operator and the anesthesia staff. Fire risk was assessed. Clay was used to exsanguinate the limb and the tourniquet was inflated to 250mm Hg. Previously placed wound VAC sponge was removed. The dorsum of the index finger wound was close inspected. There is no evidence of further necrosis. The dorsal hand, wrist, and forearm was close inspected. There was no evidence of infection at the most proximal extent of the wound. The skin flaps are largely viable with the exception of about 2 mm on both the radial and ulnar skin flaps directly overlying the wrist. All nonviable skin, subcutaneous tissue, and fascia was sharply excised from the entirety of the wound which measured 30 cm x 10 cm. I again copiously irrigated the wound with normal saline and felt it was safe to close the wound primarily. I placed a medium Hemovac drain along the dorsal forearm musculature brought out through the radial skin flap. Skin flaps were repairable over the dorsal hand and wrist with slight tension. The remainder of the wound was tension-free. The wounds were then dressed with Xeroform and fluffed gauze followed by Ciarra wrap from the fingertips to the mid brachium. The tourniquet was deflated and the fingers pinked up nicely with a capillary refill less than 2 seconds. Mr. Gabriel Carter was taken to the recovery room in stable condition. POST OPERATIVE PLAN Twice daily dry dressing changes Antibiotics per ID Encourage thumb and finger range of motion Pull drain Thursday morning Daily clinical images on rounds No plans for additional surgery F/U in office 2-3 days after DC Outpatient Follow-up XRays: None Bharathi Ayala MD [facility] 06-05-2022 Note Formatting of this n ote is different from the original. Date: 06/05/2022 Location: [facility] OR Name: Gabriel Carter, : 1965, Diagnosis Pre-op Diagnosis * Necrotizing fasciitis (HCC) [M72.6] Post-op Diagnosis * Necrotizing fasciitis (HCC) [M72.6] Procedures INCISION AND DRAINAGE FOREARM AND OR WRIST BURSA, POSSIBLE CLOSURE, POSSIBLE WOUND VAC APPLICATION 44161 - [place] INCISION & DRAINAGE FOREARM&/WRIST BURSA Surgeons * Bharathi Ayala - Primary Procedure Summary Anesthesia: General ASA: III Estimated Blood Loss: 10 mL Drains: Closed/Suction Drain Inferior;Proximal;Right Accordion 10 Fr. (Active) Staff: Counter Person: Aldo Palafox RN Relief Counter Person: Elva Winkler RN Scrub Person: Shavon Short RN Findings: please see full op note Complications: None; patient tolerated the procedure well. Specimens Collected: No specimens collected during this procedure. Wound Class: Class IV: Dirty Blood Products: None Prophylactic Antibiotics: Procedure appropriate prophylactic antibiotic(s) given within 1 hour of surgical incision (two hours if receiving Vancomycin or flouroquinolone) Plan: -Weight bearing: NWB RUE -Ok for ROM as tolerated to RUE, encourage finger, hand, wrist, elbow ROM -BID dressing changes per nursing -Please redress with adaptic, 4x4s, kerlix, and CIARRA wraps -Drain in place (stitched in) -Please empty and record output q shift -Will d/w Dr. Ayala on 06/07 re drain outputs and determine if drain can be pulled -No return to OR planned -OK for diet from ortho standpoint -Abx per ID -OR cx +GPCs, strep pyogenes -DVT prophylaxis/medical management/pain control per 1 team -F/u OP w/ Dr Ayala in 1 weeks, discharge instructions in AVS Associated attestation - Bharathi Ayala MD - 06/06/2022 3:05 PM EDT Agree Bharathi Ayala MD 06-05-2022 Note [facility] Nephrology Progress Note Following for ANGELIA Patient reports RUE pain, some dyspnea, generalized chest soreness. Vitals: BP 132/76 (BP Location: Left arm) Pulse 60 Temp 36.8 ?C (98.2 ?F) (Temporal) Resp 18 Ht 1.778 m (5' 10 ) Wt 88.5 kg (195 lb) SpO2 98% BMI 27.98 kg/m? BLOOD PRESSURE RANGE: Systolic (24hrs), Av , Min:110 , Max:138 ; Diastolic (24hrs), Av, Min:56, Max:80 24HR INTAKE/OUTPUT: Intake/Output Summary (Last 24 hours) at 06/05/2022 1153 Last data filed at 06/05/2022 0625 Gross per 24 hour Intake -- Output 475 ml Net -475 ml Physical exam: Constitutional: NAD, alert Cardiovascular: S1, S2 Respiratory: no rales appreciated during anterior chest auscultation Abdomen: nontender Ext: no lower extremity edema Data: Labs: Recent Labs 06/03/226 06/04/22 0503 06/05/22 0158 WBC 22.0* 20.3* 22.1* HGB 11.9* 12.3* 11.1* HCT 35.9* 37.3* 32.7* MCV 93.8 92.4 91.6 PLT 280 319 323 Recent Labs 06/03/22 0216 06/04/22 0503 06/05/22 0158 NA 132* 138 136 K 3.5 5.0 4.7 CL 107 109* 110* CO2 21* 18* 19* GLUCOSE 105* 148* 118* CALCIUM 7.2* 8.5 8.2* MG 1.8 -- -- BUN 48* 32* 31* CREATININE 3.09* 1.38* 1.37* Assessment: Gabriel Carter is a 57 y.o. male who present to outside ER for evaluation of RUE swelling, admitted with concern for necrotizing fasciitis. Nephrology following for ANGELIA. ANGELIA- previously with Scr at 1.05mg/dl in 03/06/2022, recent Scr up at 3.74mg/dl -Scr improved at 1.37mg/dl -suspect etiology prerenal combined with NSAID use -has had improvement with volume expansion Electrolytes -hyponatremia -resolved Acid/base- mild acidemia with bicarb at 19 Plan: -monitor renal function, electrolytes -start LR as patient NPO, x12 hours Parker Patel APRN - [facility] 06-05-2022 Note Hospitalist Progress Note 06/05/2022 [phone]: Please secure chat me for patient care issues. [phone]: Please secure chat [facility] Hospitalist for any issues. Subjective: Admit Date: 06/02/2022 PCP: Papi Ricketts DO Room#: H-[id number]/[id number] A Interval History: Gabriel Carter is a 57 y.o. male who presents to the emergency department for evaluation of right arm swelling and infection. Patient was transferred from outside ED for concerns for necrotizing fasciitis. Patient said initially he had an abrasion to his right hand a few days ago. Patient said the redness and swelling has increased and since traveled up his right arm. Denies any fever or chills. Denies any IV drug use. Denies any numbness or tingling in his right arm. In ED labs showed white blood cell count 24.3. Hemoglobin 12.3. Sed rate 61. CRP 236.3. Creatinine 3.74. Uric acid 6.1. INR 1.1. Right forearm xray as interpreted by me and confirmed by radiologist showed no acute findings. patient was admitted and placed on broad antibiotics. Seen by Ortho and underwent Incision and debridement (06/03) 06/05- plan to return to OR today for further surgery and possible closure of arm. Patient no complaint besides everybody waking me up NPO diet NPO except: Sips of Water with Meds 24HR INTAKE/OUTPUT: Intake/Output Summary (Last 24 hours) at 06/05/2022 1140 Last data filed at 06/05/2022 0625 Gross per 24 hour Intake -- Output 475 ml Net -475 ml Past Medical History: No past medical history on file. LABS: CBC: Recent Labs 06/03/2221506/04/22 0503 06/05/22 0158 WBC 22.0* 20.3* 22.1* RBC 3.83* 4.04* 3.57* HGB 11.9* 12.3* 11.1* HCT 35.9* 37.3* 32.7* MCV 93.8 92.4 91.6 RDW 13.4 13.3 13.6 PLT 280 319 323 BMP: Recent Labs 06/03/2221506/04/22 0503 06/05/22 0158 NA 132* 138 136 K 3.5 5.0 4.7 CL 107 109* 110* CO2 21* 18* 19* BUN 48* 32* 31* CREATININE 3.09* 1.38* 1.37* GLUCOSE 105* 148* 118* CALCIUM 7.2* 8.5 8.2* ANIONGAP 4 10 6 LIVER PROFILE: Recent Labs 06/02/22205306/03/22215 AST 30 34 ALT 21 21 BILITOT 0.8 0.8 ALKPHOS 81 113 PROT 5.8* 5.6* PT/INR: Recent Labs 06/02/22 2130 PROTIME 11.6 INR 1.1 CARDIAC ENZYMES: No results for input(s): TROPONINI in the last 72 hours. Procalcitonin: Lab Results Component Value Date PROCAL 2.20 (H) 06/04/2022 COVID-19 PCR: No results for input(s): COVID19 in the last 72 hours. Objective: Vitals: BP 132/76 (BP Location: Left arm) Pulse 60 Temp 36.8 ?C (98.2 ?F) (Temporal) Resp 18 Ht 5' 10 (1.778 m) Wt 195 lb (88.5 kg) SpO2 98% BMI 27.98 kg/m? Pulse Ox: SpO2 Av % Min: 97 % Max: 99 % Physical Exam Constitutional: General: He is not in acute distress. Appearance: Normal appearance. HENT: Mouth/Throat: Mouth: Mucous membranes are moist. Eyes: Extraocular Movements: Extraocular movements intact. Pupils: Pupils are equal, round, and reactive to light. Cardiovascular: Rate and Rhythm: Normal rate and regular rhythm. Pulses: Normal pulses. Heart sounds: Normal heart sounds. Pulmonary: Effort: Pulmonary effort is normal. Breath sounds: Normal breath sounds. Skin: Comments: Right forearm is wrapped up and covered with wound vac in place Neurological: Mental Status: He is alert. Medications: acetaminophen, 650 mg, Oral, Q4H clindamycin, 900 mg, IntraVENous, q8h Lidocaine, 1 patch, Topical, Daily piperacillin-tazobactam, 3,375 mg, IntraVENous, q8h vancomycin, 1,500 mg, IntraVENous, q24h Assessment Cellulitis of right upper extremity evaluating for necrotizing infection No superficial necrosis or blistering Ortho following- > post I&D 06/03 - plan to return to OR today Continue Broad spectrum ABX Follow cultures- intraop ID consulted as well Followup after surgery 2. ANGELIA: Prerenal due to infection and NSAIDs Nephrology following Improving 3. Leukocytosis: Due to 1, follow cultures 4. HTN hold lisinopril due to ANGELIA may be able to resume soon. Medical Decision Making -DVT prophylaxis: [] Lovenox [] Heparin [] SCDs [x] Encourage ambulation [] Already on Anticoagulation Extended Emergency Contact Information Primary Emergency Contact: arpita tolbert Mobile Relation: Relative Preferred language: Faroese Early Childhood Specialist needed? No Ry Foster MD Division of Hospitalist Medicine Acute care solutions PAGER: [facility] 06-05-2022 Note Patient: Gabriel packer Procedure Information Date/Time: 06/05/22 1410 Procedure: INCISION AND DRAINAGE FOREARM AND OR WRIST BURSA (Right: Wrist) - requesting 12:00pm start Location: [facility] OR [address] [place] [address] Operating Room Surgeons: Bharathi Ayala MD Relevant Problems Cardio (+) HTN (hypertension) Past Medical History: No past medical history on file. Past Surgical History: Past Surgical History: 06/03/2022: INCISION AND DRAINAGE OF WOUND; Right Social History: TOBACCO: has no history on file for tobacco use. ETOH: has no history on file for alcohol use. Social History Substance and Sexual Activity Drug Use Not on file Family History: No family history on file. Screening: unknown Clinical information reviewed: Allergies Meds Surg Hx Fam Hx Physical Exam Airway Mallampati: III TM distance: >3 FB Neck ROM: full Mouth Open: normal Cardiovascular Dental (+) Poor, Missing Pulmonary Abdominal Anesthesia Plan ASA 3 general The patient is a current smoker. Patient was previously instructed to abstain from smoking on day of procedure. Patient did not smoke on day of procedure. Anesthetic plan and risks discussed with spouse and patient. patient is NPO YESSY Screening Labs: Lab Results Component Value Date WBC 22.1 (H) 06/05/2022 HGB 11.1 (L) 06/05/2022 HCT 32.7 (L) 06/05/2022 MCV 91.6 06/05/2022 PLT 323 06/05/2022 Lab Results Component Value Date NA 136 06/05/2022 K 4.7 06/05/2022 CL 110 (H) 06/05/2022 CO2 19 (L) 06/05/2022 BUN 31 (H) 06/05/2022 CREATININE 1.37 (H) 06/05/2022 GLUCOSE 118 (H) 06/05/2022 CALCIUM 8.2 (L) 06/05/2022 PROT 5.6 (L) 06/03/2022 ALKPHOS 113 06/03/2022 AST 34 06/03/2022 ALT 21 06/03/2022 EGFR 60.2 06/05/2022 Pain Score: 4 No echocardiogram results found for the past 14 days 06/02/22 ECG 12-LEAD 06/04/2022 1:35 PM (Final) Impression Sinus rhythm Electronically Signed On 06-04-2022 13:35:05 EDT by Maryuri Lopez Signed by: Maryuri Lopez MD on 06/04/2022 1:35 PM [facility] 06-05-2022 Note Medical Group - Infectious Diseases Attending Progress Note Subjective: Following for RUE necrotizing fascitis. During my assessment, patient reports mild RUE pain post-procedure. He denies f/c, n/v/d, SOB, cough, or abdominal pain. No further complaints at this time. Plan is for RTOR today for repeat debridement and possible closure. Vital signs- WNL Lab data- Labs reviewed; WBC 22.1, Hgb 11.1 Antimicrobial therapy- IV vancomycin, piperacillin/tazobactam, clindamycin Micro reports- RUE tissue CXs (+) for GPC in clusters Discharge planning- TBD Code- FULL Objective: Vitals: Patient Vitals for the past 24 hrs: BP Temp Temp src Pulse Resp SpO2 06/05/22 0938 132/76 36.8 ?C (98.2 ?F) Temporal 60 18 98 % 06/05/22 0457 138/80 36.4 ?C (97.6 ?F) Temporal 58 19 98 % 06/05/22 0104 124/76 36.6 ?C (97.9 ?F) Temporal 58 16 99 % 06/04/22 2104 118/74 36.2 ?C (97.2 ?F) Temporal 53 16 98 % 06/04/22 1654 123/75 37.1 ?C (98.7 ?F) Temporal 62 20 97 % 06/04/22 1238 110/56 (!) 35.9 ?C (96.6 ?F) Temporal 51 20 98 % Physical Exam Constitutional: Appearance: He is not ill-appearing or diaphoretic. HENT: Head: Normocephalic and atraumatic. Nose: Nose normal. Mouth/Throat: Mouth: Mucous membranes are dry. Eyes: General: No scleral icterus. Extraocular Movements: Extraocular movements intact. Pupils: Pupils are equal, round, and reactive to light. Cardiovascular: Rate and Rhythm: Normal rate and regular rhythm. Pulses: Normal pulses. Heart sounds: Normal heart sounds. No murmur heard. No friction rub. No gallop. Pulmonary: Effort: Pulmonary effort is normal. No respiratory distress. Breath sounds: Normal breath sounds. No wheezing, rhonchi or rales. Abdominal: General: Abdomen is flat. Bowel sounds are normal. There is no distension. Palpations: Abdomen is soft. There is no mass. Tenderness: There is no abdominal tenderness. Hernia: No hernia is present. Musculoskeletal: General: Deformity and signs of injury present. Normal range of motion. Cervical back: Normal range of motion and neck supple. Right lower leg: No edema. Left lower leg: No edema. Comments: RUE wrapped Skin: General: Skin is warm and dry. Capillary Refill: Capillary refill takes less than 2 seconds. Neurological: General: No focal deficit present. Mental Status: He is alert. Psychiatric: Mood and Affect: Mood normal. Judgment: Judgment normal. Labs: Lab Results Component Value Date/Time NA 136 06/05/2022157 K 4.7 06/05/2022157 CL 110 (H) 06/05/2022157 CO2 19 (L) 06/05/2022157 BUN 31 (H) 06/05/2022157 CREATININE 1.37 (H) 06/05/2022157 GLUCOSE 118 (H) 06/05/2022157 CALCIUM 8.2 (L) 06/05/2022157 PROT 5.6 (L) 06/03/2022215 BILITOT 0.8 06/03/2022215 ALKPHOS 113 06/03/2022215 AST 34 06/03/2022215 ALT 21 06/03/2022215 PROCAL 2.20 (H) 06/04/2022 0503 Lab Results Component Value Date/Time WBC 22.1 (H) 06/05/2022157 HGB 11.1 (L) 06/05/2022157 HCT 32.7 (L) 06/05/2022157 PLT 323 06/05/2022157 LYMPHOPCT 3.2 (L) 06/03/2022215 MONOPCT 4.6 06/03/2022215 BASOPCT 0.3 06/03/2022215 NEUTROABS 20.0 (H) 06/03/2022215 Micro: 06/02 Blood CXs x2 NGTD 06/03 RUE tissue CXs (+) for GPC in clusters Lines/Drains/Airways: 06/02 LUE PIV x2 Radiography/Echo/Other: 06/02 XR forearm 2 views right No acute findings 06/03 XR chest 1 view No acute cardiopulmonary process. Antimicrobials, Start/End Dates: 06/02- vancomycin 06/02- piperacillin/tazobactam 06/02- clindamycin Impression: Mr. Carter is a 57 y/o M w/ PMH of HTN. Presented to [facility] ED 06/02 for RUE swelling. He was transferred from outside ED d/t concern of RUE NF. Reported a RUE abrasion a few days prior to presentation. ED w/u was notable for WBC 24.3, Hgb 12.3, ESR/CRP 61/236.3, SCr 3.74. RUE XR showed no acute findings. Orthopedics consulted; s/p debridement. The ID service is following for RUE skin and soft tissue infection. Plan: 1. Right upper extremity necrotizing fascitis - Presented to [facility] ED 06/02 for RUE swelling - Transferred from outside ED d/t concern of RUE NF - Reported a RUE abrasion a few days prior to presentation - ED w/u was notable for WBC 24.3, Hgb 12.3, ESR/CRP 61/236.3, SCr 3.74 - s/p debridement by ortho; RUE tissue CXs (+) for GPC in clusters - Maintain IV vancomycin, piperacillin/tazobactam, clindamycin - Await intra-op CXs to adjust accordingly - RTOR today for repeat debridement and possible closure 2. Acute kidney injury 3. Hypertension Recommendations: 1. Maintain IV vancomycin, piperacillin/tazobactam, clindamycin 2. Await intra-op CXs to adjust accordingly 3. RTOR today for repeat debridement and possible closure The ID service will continue to follow. Total time 35 minutes on this day of encounter includes counseling, coordinating plan of care, record and documentation review before and after visit incl (more content not included)... [facility] 06-04-2022 Note Brief orthopedic pro nahomy note: Ortho to bedside for afternoon skin check and to review consent for repeat I&D with possible closure of the right upper extremity on 06/05. On exam erythema does not extend proximally past the splint. A small window was made on the lateral portion of the elbow. There is no significant erythema. There is mild tenderness to palpation the patient states this is improved since yesterday. Wound VAC is in place in suction is intact. Posterior slab splint is in place on right upper extremity. Patient is able to wiggle all 5 digits on the right upper extremity. BCR to all 5 digits. Sensation intact all 5 digits. Risk and benefits of the repeat I&D tomorrow were discussed with the patient. Patient has decided to proceed with surgery at this time. We will make him n.p.o. at midnight. Plan: -Weight bearing: NWB RUE -Keep splint C/D/I -Keep WV in place to RUE -Plan for RTOR on 06/05 for rpt I&D and possible closure -NPO @[place] 06/05 -Added -Consented -OK for diet today -Trend labs -CBC, BMP, CRP -ID consult for abx recs -Continue broad spectrum -Continue clindamycin due to concerns for necrotizing fascitis -OR cultures, pending. Moderate PMNs. Few gram-positive cocci. -Medical management/pain control per 1? team -Ortho team to follow. Please page ortho resident masonry instructor with any further concerns. Tasia Jarrett MD PGY-1 Orthopaedic Surgery 06/04/2022 3:53 PM [facility] 06-04-2022 Note Care Management Prog ress Note 57 yo here s/p I&D of R forearm with wound vac placement for necrotizing fasciitis on 06/03. NPO after midnight for RTOR tomorrow for repeat I&D and possible closure with ortho. ID- following, receiving IV Clinda, Zosyn and Vanc. Nephrology following for ANGELIA. Discharge Plan: Anticipate home with home health for wound care and possible LT IV ABX HC-L following with OOP benefits for HH noted. TCC will cont to follow and discuss options with pt after tomorrow's surgery to discuss next steps in DCP. Discharge Milestones and Delays Expected Date/Time: Unknown Discharge Milestones Place discharge order Enter post-discharge transportation status Complete med reconciliation Request transport Case mgmt discharge readiness OT discharge readiness Expected Discharge History Expected Date/Time Set By Reviewed At Unknown GASPER Colon 06/04/2022 9:16 AM SW est 06/05/2022 [place], MEDICAL FACILITIES SECTION DIRECTOR 06/03/2022 9:49 AM 06/05/2022 GASPER Conroy 06/03/2022 9:42 AM NPO- poss OR-if agrees 06/05/2022 GASPER Conroy 06/03/2022 9:42 AM NPO- poss OR 06/05/2022 Jesse Cabral PA-C 06/03/2022 2:09 AM 06/05/2022 Jesse Cabral PA-C 06/02/2022 11:51 PM Length of Stay (Days): 2 GMLOS: No GMLOS Documented [facility] 06-04-2022 Note Hospitalist Progress Note 06/04/[id number]: Please secure chat me for patient care issues. [phone]: Please secure chat [facility] Hospitalist for any issues. Subjective: Admit Date: 06/02/2022 PCP: Papi Ricketts DO Room#: H-6109/H-6109 A Interval History: Gabriel Carter is a 57 y.o. male who presents to the emergency department for evaluation of right arm swelling and infection. Patient was transferred from outside ED for concerns for necrotizing fasciitis. Patient said initially he had an abrasion to his right hand a few days ago. Patient said the redness and swelling has increased and since traveled up his right arm. Denies any fever or chills. Denies any IV drug use. Denies any numbness or tingling in his right arm. In ED labs showed white blood cell count 24.3. Hemoglobin 12.3. Sed rate 61. CRP 236.3. Creatinine 3.74. Uric acid 6.1. INR 1.1. Right forearm xray as interpreted by me and confirmed by radiologist showed no acute findings. patient was admitted and placed on broad antibiotics. Seen by Ortho and underwent Incision and debridement yesterday (06/03). 06/04- patient seen in am following surgery, I&D still open with wound vac in place. Pain controlled, no fevers overnight. NPO diet NPO except: Sips of Water with Meds Adult diet Regular @[id number]@ 24HR INTAKE/OUTPUT: Intake/Output Summary (Last 24 hours) at 06/04/2022 1309 Last data filed at 06/03/2022 1752 Gross per 24 hour Intake 400 ml Output 235 ml Net 165 ml Past Medical History: No past medical history on file. LABS: CBC: Recent Labs 06/02/22 2334 06/03/22 0216 06/04/22 0503 WBC 24.7* 22.0* 20.3* RBC 3.99* 3.83* 4.04* HGB 12.2* 11.9* 12.3* HCT 36.5* 35.9* 37.3* MCV 91.6 93.8 92.4 RDW 14.0 13.4 13.3 PLT 293 280 319 BMP: Recent Labs 06/02/22 2334 06/03/22 0216 06/04/22 0503 NA 132* 132* 138 K 3.7 3.5 5.0 CL 105 107 109* CO2 21* 21* 18* BUN 53* 48* 32* CREATININE 3.40* 3.09* 1.38* GLUCOSE 115* 105* 148* CALCIUM 7.5* 7.2* 8.5 ANIONGAP 6 4 10 LIVER PROFILE: Recent Labs 06/02/224 06/03/22215 AST 30 34 ALT 21 21 BILITOT 0.8 0.8 ALKPHOS 81 113 PROT 5.8* 5.6* PT/INR: Recent Labs 06/02/22 2130 PROTIME 11.6 INR 1.1 CARDIAC ENZYMES: No results for input(s): TROPONINI in the last 72 hours. Procalcitonin: Lab Results Component Value Date PROCAL 2.20 (H) 06/04/2022 COVID-19 PCR: No results for input(s): COVID19 in the last 72 hours. Objective: Vitals: BP 110/56 Pulse 51 Temp (!) 35.9 ?C (96.6 ?F) (Temporal) Resp 20 Ht 5' 10 (1.778 m) Wt 195 lb (88.5 kg) SpO2 98% BMI 27.98 kg/m? Pulse Ox: SpO2 Av.3 % Min: 95 % Max: 100 % Physical Exam Constitutional: General: He is not in acute distress. Appearance: Normal appearance. HENT: Mouth/Throat: Mouth: Mucous membranes are moist. Eyes: Extraocular Movements: Extraocular movements intact. Pupils: Pupils are equal, round, and reactive to light. Cardiovascular: Rate and Rhythm: Normal rate and regular rhythm. Pulses: Normal pulses. Heart sounds: Normal heart sounds. Pulmonary: Effort: Pulmonary effort is normal. Breath sounds: Normal breath sounds. Skin: Comments: Right forearm is wrapped up and covered with wound vac in place Neurological: Mental Status: He is alert. Medications: acetaminophen, 650 mg, Oral, Q4H clindamycin, 900 mg, IntraVENous, q8h Lidocaine, 1 patch, Topical, Daily piperacillin-tazobactam, 3,375 mg, IntraVENous, q8h vancomycin, 1,500 mg, IntraVENous, q24h Assessment Cellulitis of right upper extremity evaluating for necrotizing infection No superficial necrosis or blistering Ortho following- > post I&D yesterday Will eventually go back to OR for possible recurrent debridement and closure. Continue Broad spectrum ABX Follow cultures- intraop ID consulted as well Followup after surgery ANGELIA: Prerenal due to infection and NSAIDs Nephrology following Improving Leukocytosis: Due to 1, follow cultures HTN hold lisinopril Medical Decision Making -DVT prophylaxis: [] Lovenox [] Heparin [x] SCDs [] Encourage ambulation [] Already on Anticoagulation Extended Emergency Contact Information Primary Emergency Contact: arpita tolbert Mobile Relation: Relative Preferred language: Faroese Early Childhood Specialist needed? No yR Foster MD Division of Hospitalist Medicine Acute care solutions PAGER: [employer] [facility] 06-04-2022 Note [facility] Nephrology Progress Note Following for ANGELIA Patient reports RUE pain, some dyspnea. Vitals: BP 130/79 Pulse 60 Temp (!) 35.9 ?C (96.7 ?F) (Temporal) Resp 20 Ht 1.778 m (5' 10 ) Wt 88.5 kg (195 lb) SpO2 97% BMI 27.98 kg/m? BLOOD PRESSURE RANGE: Systolic (24hrs), Av , Min:86 , Max:130 ; Diastolic (24hrs), Av, Min:59, Max:79 24HR INTAKE/OUTPUT: Intake/Output Summary (Last 24 hours) at 06/04/2022 1225 Last data filed at 06/03/2022 1752 Gross per 24 hour Intake 400 ml Output 235 ml Net 165 ml Physical exam: Constitutional: NAD, alert Cardiovascular: S1, S2 Respiratory: bilateral vesicular breath sounds Abdomen: nontender Ext: no lower extremity edema Data: Labs: Recent Labs 06/02/22 2334 06/03/22 0216 06/04/22 0503 WBC 24.7* 22.0* 20.3* HGB 12.2* 11.9* 12.3* HCT 36.5* 35.9* 37.3* MCV 91.6 93.8 92.4 PLT 293 280 319 Recent Labs 06/02/22 2334 06/03/22 0216 06/04/22 0503 NA 132* 132* 138 K 3.7 3.5 5.0 CL 105 107 109* CO2 21* 21* 18* GLUCOSE 115* 105* 148* CALCIUM 7.5* 7.2* 8.5 MG -- 1.8 -- BUN 53* 48* 32* CREATININE 3.40* 3.09* 1.38* Assessment: Gabriel Carter is a 57 y.o. male who present to outside ER for evaluation of RUE swelling, admitted with concern for necrotizing fasciitis. Nephrology following for ANGELIA. ANGELIA- previously with Scr at 1.05mg/dl in 03/06/2022, recent Scr up at 3.74mg/dl -Scr improved at 1.38mg/dl -suspect etiology prerenal combined with NSAID use -has had improvement with volume expansion Electrolytes -hyponatremia -resolved Acid/base- mild acidemia with bicarb at 18 Plan: -monitor renal function, electrolytes -stop IVF LORENA Freedman CNP Pt seen and examined independently by me. I reviewed with SADIE Pearson the medical history and the findings on physical examination. I discussed the patient?s diagnosis and concur with the treatment plan as documented in his note. Please call [phone] or message me through [employer] with any questions or concerns. [facility] 06-04-2022 Note Medical Group - Infectious Diseases Attending Progress Note Subjective: Following for RUE skin and soft tissue infection. During my assessment, patient reports mild RUE pain post-procedure. He denies f/c, n/v/d, SOB, cough, or abdominal pain. No further complaints at this time. Vital signs- T96.7F, RR20 Lab data- Labs reviewed; WBC 20.3, Hgb 12.3 Antimicrobial therapy- IV vancomycin, piperacillin/tazobactam, clindamycin Micro reports- RUE tissue CXs (+) for GPC in clusters Discharge planning- TBD Code- FULL Objective: Vitals: Patient Vitals for the past 24 hrs: BP Temp Temp src Pulse Resp SpO2 06/04/22 0834 130/79 (!) 35.9 ?C (96.7 ?F) Temporal 60 20 97 % 06/04/22 0440 101/62 36.1 ?C (97 ?F) Temporal 60 16 -- 06/04/22 0030 111/70 36.3 ?C (97.4 ?F) Temporal 59 16 97 % 06/03/222028 100/59 (!) 35.9 ?C (96.7 ?F) Temporal 66 16 99 % 06/03/221999/ -- -- 66 14 -- 06/03/22 1930 86/60 -- -- 70 12 100 % 06/03/22 1915 92/68 -- -- 75 11 100 % 06/03/22 1900 95/63 -- -- 80 15 100 % 06/03/22 1852 -- -- -- 87 15 100 % 06/03/22 1845 93/62 -- -- 75 14 100 % 06/03/22 1830 95/69 -- -- 80 14 100 % 06/03/22 1815 95/72 -- -- 90 14 95 % 06/03/22 1800 95/66 -- -- 86 11 95 % 06/03/22 1752 97/63 36.7 ?C (98 ?F) Temporal 87 12 100 % 06/03/22 1405 -- -- -- 80 -- 95 % Physical Exam Constitutional: Appearance: He is not ill-appearing or diaphoretic. HENT: Head: Normocephalic and atraumatic. Nose: Nose normal. Mouth/Throat: Mouth: Mucous membranes are dry. Eyes: General: No scleral icterus. Extraocular Movements: Extraocular movements intact. Pupils: Pupils are equal, round, and reactive to light. Cardiovascular: Rate and Rhythm: Normal rate and regular rhythm. Pulses: Normal pulses. Heart sounds: Normal heart sounds. No murmur heard. No friction rub. No gallop. Pulmonary: Effort: Pulmonary effort is normal. No respiratory distress. Breath sounds: Normal breath sounds. No wheezing, rhonchi or rales. Abdominal: General: Abdomen is flat. Bowel sounds are normal. There is no distension. Palpations: Abdomen is soft. There is no mass. Tenderness: There is no abdominal tenderness. Hernia: No hernia is present. Musculoskeletal: General: Deformity and signs of injury present. Normal range of motion. Cervical back: Normal range of motion and neck supple. Right lower leg: No edema. Left lower leg: No edema. Comments: RUE wrapped Skin: General: Skin is warm and dry. Capillary Refill: Capillary refill takes less than 2 seconds. Neurological: General: No focal deficit present. Mental Status: He is alert. Psychiatric: Mood and Affect: Mood normal. Judgment: Judgment normal. Labs: Lab Results Component Value Date/Time NA 138 06/04/2022502 K 5.0 06/04/2022502 CL 109 (H) 06/04/2022502 CO2 18 (L) 06/04/2022502 BUN 32 (H) 06/04/2022502 CREATININE 1.38 (H) 06/04/2022502 GLUCOSE 148 (H) 06/04/2022502 CALCIUM 8.5 06/04/2022502 PROT 5.6 (L) 06/03/2022215 BILITOT 0.8 06/03/2022215 ALKPHOS 113 06/03/2022215 AST 34 06/03/2022215 ALT 21 06/03/2022215 PROCAL 2.20 (H) 06/04/2022502 Lab Results Component Value Date/Time WBC 20.3 (H) 06/04/2022502 HGB 12.3 (L) 06/04/2022 050 HCT 37.3 (L) 06/04/2022 050 PLT 319 06/04/2022502 LYMPHOPCT 3.2 (L) 06/03/2022215 MONOPCT 4.6 06/03/2022215 BASOPCT 0.3 06/03/2022215 NEUTROABS 20.0 (H) 06/03/2022215 Micro: 06/02 Blood CXs x2 NGTD 06/03 RUE tissue CXs (+) for GPC in clusters Lines/Drains/Airways: 06/02 LUE PIV x2 Radiography/Echo/Other: 06/02 XR forearm 2 views right No acute findings 06/03 XR chest 1 view No acute cardiopulmonary process. Antimicrobials, Start/End Dates: 06/02- vancomycin 06/02- piperacillin/tazobactam 06/02- clindamycin Impression: Mr. Carter is a 57 y/o M w/ PMH of HTN. Presented to [facility] ED 06/02 for RUE swelling. He was transferred from outside ED d/t concern of RUE NF. Reported a RUE abrasion a few days prior to presentation. ED w/u was notable for WBC 24.3, Hgb 12.3, ESR/CRP 61/236.3, SCr 3.74. RUE XR showed no acute findings. Orthopedics consulted; s/p debridement. The ID service is following for RUE skin and soft tissue infection. Plan: 1. Right upper extremity skin and soft tissue infection - Presented to [facility] ED 06/02 for RUE swelling - Transferred from outside ED d/t concern of RUE NF - Reported a RUE abrasion a few days prior to presentation - ED w/u was notable for WBC 24.3, Hgb 12.3, ESR/CRP 61/236.3, SCr 3.74 - s/p debridement by ortho; RUE tissue CXs (+) for GPC in clusters - Maintain IV vancomycin, piperacillin/tazobactam, clindamycin - Await intra-op CXs to adjust accordingly 2. Acute kidney injury 3. Hypertension Recommendations: 1. Maintain IV vancomycin, piperacillin/tazobactam, clindamycin 2. Await intra-op CXs to adjust accordingly The ID service will continue to follo (more content not included)... [facility] 06-04-2022 Note Formatting of this n ote is different from the original. Images from the original note were not included. Care Management Progress Note 57 yo here s/p I&D of R forearm with wound vac placement for necrotizing fasciitis on 06/03. NPO after midnight for RTOR tomorrow for repeat I&D and possible closure with ortho. ID- following, receiving IV Clinda, Zosyn and Vanc. Nephrology following for ANGELIA. Discharge Plan: Anticipate home with home health for wound care and possible LT IV ABX HC-L following with OOP benefits for HH noted. TCC will cont to follow and discuss options with pt after tomorrow's surgery to discuss next steps in DCP. Discharge Milestones and Delays Expected Date/Time: Unknown Discharge Milestones Place discharge order Enter post-discharge transportation status Complete med reconciliation Request transport Case mgmt discharge readiness OT discharge readiness Expected Discharge History Expected Date/Time Set By Reviewed At Unknown [facility] 06/04/2022 9:16 AM SW est 06/05/2022 [place], [facility] 06/03/2022 9:49 AM 06/05/2022 [place], [facility] 06/03/2022 9:42 AM NPO- poss OR-if agrees 06/05/2022 [place], [facility] 06/03/2022 9:42 AM NPO- poss OR 06/05/2022 Jesse Cabral PA-C 06/03/2022 2:09 AM 06/05/2022 Jesse Cabral PA-C 06/02/2022 11:51 PM Length of Stay (Days): 2 GMLOS: No GMLOS Documented [facility] 06-04-2022 Note Formatting of this n ote is different from the original. Images from the original note were not included. Care Management Progress Note 57 yo here s/p I&D of R forearm with wound vac placement for necrotizing fasciitis on 06/03. NPO after midnight for RTOR tomorrow for repeat I&D and possible closure with ortho. ID- following, receiving IV Clinda, Zosyn and Vanc. Nephrology following for ANGELIA. Discharge Plan: Anticipate home with home health for wound care and possible LT IV ABX HC-L following with OOP benefits for HH noted. TCC will cont to follow and discuss options with pt after tomorrow's surgery to discuss next steps in DCP. Discharge Milestones and Delays Expected Date/Time: Unknown Discharge Milestones Place discharge order Enter post-discharge transportation status Complete med reconciliation Request transport Case mgmt discharge readiness OT discharge readiness Expected Discharge History Expected Date/Time Set By Reviewed At Unknown GASPER Colon 06/04/2022 9:16 AM SW est 06/05/2022 [place] GASPER 06/03/2022 9:49 AM 06/05/2022 [place], [employer] [facility] 06/03/2022 9:42 AM NPO- poss OR-if agrees 06/05/2022 [place], [facility] [employer] [facility] 06/03/2022 9:42 AM NPO- poss OR 06/05/2022 Jesse Cabral PA-C 06/03/2022 2:09 AM 06/05/2022 Jesse Cabral PA-C 06/02/2022 11:51 PM Length of Stay (Days): 2 GMLOS: No GMLOS Documented 06-04-2022 Note Formatting of this n ote might be different from the original. Day Worker following case for Discharge Needs. Check benefits for possible home IV needs. Per [facility]: Referral Received [place] eff02/09/2022 DED $5000 ($ 4968.71 remaining) OOP $5000 ($ 4968.71 remaining) Coinsurance 0%. He wont have any upfront cost. 06-04-2022 Note Formatting of this n ote might be different from the original. Day Worker following case for Discharge Needs. Check benefits for possible home IV needs. Per [facility]: Referral Received [place] eff02/09/2022 DED $5000 ($ 4968.71 remaining) OOP $5000 ($ 4968.71 remaining) Coinsurance 0%. He wont have any upfront cost. 06-03-2022 Consult note Associated Order (s): IP CONSULT TO INFECTIOUS DISEASES Images from the original note were not included. Medical Group - Infectious Diseases Attending Consult Note Reason for Consult: Right upper extremity skin and soft tissue infection History of Present Illness: Mr. Caretr is a 57 y/o M w/ PMH of HTN. He presented to [facility] ED 06/02 for RUE swelling. He was transferred from outside ED d/t concern of RUE NF. Reported a RUE abrasion a few days prior to presentation. ED w/u was notable for WBC 24.3, Hgb 12.3, ESR/CRP 61/236.3, SCr 3.74. RUE XR showed no acute findings. Orthopedics has been consulted; s/p OR debridement. The ID service is consulted for RUE soft tissue infection. Vitals are notable for T99.4F, BP 95/66. Labs show WBC 22.0, Hgb 11.9. Currently on IV vancomycin, piperacillin/tazobactam, clindamycin. During my assessment, patient reports mild RUE pain post-procedure. He denies f/c, n/v/d, SOB, cough, or abdominal pain. No further complaints at this time. Medical history: HTN Surgical history: None Family history: No significant family medical hx Social history: Denies tobacco, ETOH, or illicit drug use Allergies: NKDA Code status: FULL Past Medical History: No past medical history on file. Past Surgical History: Past Surgical History: Procedure Laterality Date INCISION AND DRAINAGE OF WOUND Right 06/03/2022 Current Medications: Current Facility-Administered Medications Medication Dose Route Frequency Provider Last Rate Last Admin acetaminophen (Tylenol) tablet 650 mg 650 mg Oral Q4H LORENA Vasques CNP 650 mg at 06/03/222044 clindamycin in NS (Cleocin) IVPB 900 mg 900 mg IntraVENous q8h Hina Cook MD Stopped at 06/03/22 0911 droperidol (Inapsine) injection 1.25 mg 1.25 mg IntraVENous q6h PRN Hnia Cook MD HYDROmorphone (Dilaudid) injection 0.25 mg 0.25 mg IntraVENous q4h PRN LORENA Vasques CNP Or HYDROmorphone (Dilaudid) injection 0.5 mg 0.5 mg IntraVENous q4h PRN LORENA Vasques CNP Lidocaine 4 % patch 1 patch 1 patch Topical Daily LORENA Vasques CNP methocarbamol (Robaxin) tablet 1,000 mg 1,000 mg Oral q8h PRN LORENA Vasques CNP naloxone (Narcan) 0.4 mg in 0.9% sodium chloride 10 mL syringe IntraVENous PRN LORENA Vasques CNP ondansetron ODT (Zofran-ODT) disintegrating tablet 4 mg 4 mg Oral q8h PRN Hina Cook MD Or ondansetron (Zofran) injection 4 mg 4 mg IntraVENous q6h PRN Hina Cook MD oxyCODONE (Roxicodone) immediate release tablet 5 mg 5 mg Oral q4h PRN LORENA Vasques CNP Or oxyCODONE (Roxicodone) immediate release tablet 10 mg 10 mg Oral q4h PRN LORENA Vasques CNP piperacillin-tazobactam (Zosyn) IVPB 3,375 mg 3,375 mg IntraVENous q8h Hina Cook MD Stopped at 06/03/22 1316 polyethylene glycol (PEG) 3350 (Miralax) packet 17 g 17 g Oral Daily PRN Hina Cook MD sodium chloride 0.9 % infusion 75 mL/hr IntraVENous Continuous Hina Cook MD 75 mL/hr at 06/03/22 1145 75 mL/hr at 06/03/22 1145 [START ON 06/04/2022] vancomycin (Vancocin) 750 mg in sodium chloride 0.9 % 250 mL IVPB 750 mg IntraVENous q24h Hina Cook MD Allergies: No Known Allergies Social History: Social History Socioeconomic History Marital status: Spouse name: Not on file Number of children: Not on file Years of education: Not on file Highest education level: Not on file Occupational History Not on file Tobacco Use Smoking status: Not on file Smokeless tobacco: Not on file Substance and Sexual Activity Alcohol use: Not on file Drug use: Not on file Sexual activity: Not on file Other Topics Concern Not on file Social History Narrative Not on file Social Determinants of Health Financial Resource Strain: Not on file Food Insecurity: Not on file Transportation Needs: Not on file Physical Activity: Not on file Stress: Not on file Social Connections: Not on file Intimate Partner Violence: Not on file Housing Stability: Not on file Family History: No family history on file. Review of Systems: Review of Systems Constitutional: Negative for appetite change, chills, diaphoresis, fatigue and fever. Respiratory: Negative for cough, shortness of breath and wheezing. Cardiovascular: Negative for chest pain, palpitations and leg swelling. Gastrointestinal: Negative for abdominal distention, abdominal pain, constipation, diarrhea, nausea and vomiting. Skin: Positive for wound. Negative for color change. Vitals: Patient Vitals for the past 24 hrs: BP Temp Temp src Pulse Resp SpO2 06/03/222028 100/59 (!) 35.9 C (96.7 F) Temporal 66 16 99 % 06/03/221999 90/62 -- -- 66 14 -- 06/03/22 1930 86/60 -- -- 70 12 100 % 06/03/22 1915 92/68 -- -- 75 11 100 % 06/03/22 1900 95/63 -- -- 80 15 100 % 06/03/22 1852 -- -- -- 87 15 100 % 06/03/22 1845 93/62 -- -- 75 14 100 % 06/03/22 1830 95/69 -- -- 80 14 100 % 06/03/22 1815 95/72 -- -- 90 14 95 % 06/03/22 1800 95/66 -- -- 86 11 95 % 06/03/22 1752 97/63 36.7 C (98 F) Temporal 87 12 100 % 06/03/22 1405 -- -- -- 80 -- 95 % 06/03/22 1144 95/66 36.6 C (97.9 F) Temporal 88 12 99 % 06/03/22 0727 98/64 37.6 C (99.6 F) Temporal 93 16 96 % 06/03/22 0224 114/63 37.4 C (99.4 F) Temporal 96 18 97 % 06/02/22 2352 111/70 -- -- 89 16 99 % Physical Exam: Physical Exam Constitutional: Appearance: He is not ill-appearing or diaphoretic. HENT: Head: Normocephalic and atraumatic. Nose: Nose normal. Mouth/Throat: Mouth: Mucous membranes are dry. Eyes: General: No scleral icterus. Extraocular Movements: Extraocular movements intact. Pupils: Pupils are equal, round, and reactive to light. Cardiovascular: Rate and Rhythm: Normal rate and regular rhythm. Pulses: Normal pulses. Heart sounds: Normal heart sounds. No murmur heard. No friction rub. No gallop. Pulmonary: Effort: Pulmonary effort is normal. No respiratory distress. Breath sounds: Normal breath sounds. No wheezing, rhonchi or rales. Abdominal: General: Abdomen is flat. Bowel sounds are normal. There is no distension. Palpations: Abdomen is soft. There is no mass. Tenderness: There is no abdominal tenderness. Hernia: No hernia is present. Musculoskeletal: General: Tenderness, deformity and signs of injury present. Normal range of motion. Cervical back: Normal range of motion and neck supple. Right lower leg: No edema. Left lower leg: No edema. Comments: RUE wrapped; wound VAC in place Skin: General: Skin is warm and dry. Capillary Refill: Capillary refill takes less than 2 seconds. Neurological: General: No focal deficit present. Mental Status: He is alert. Psychiatric: Mood and Affect: Mood normal. Judgment: Judgment normal. Labs: Lab Results Component Value Date/Time NA 132 (L) 06/03/2022215 K 3.5 06/03/2022215 CL 107 06/03/2022215 CO2 21 (L) 06/03/2022215 BUN 48 (H) 06/03/2022215 CREATININE 3.09 (H) 06/03/2022215 GLUCOSE 105 (H) 06/03/2022215 CALCIUM 7.2 (L) 06/03/2022215 PROT 5.6 (L) 06/03/2022215 BILITOT 0.8 06/03/2022215 ALKPHOS 113 06/03/2022215 AST 34 06/03/2022215 ALT 21 06/03/2022215 Lab Results Component Value Date/Time WBC 22.0 (H) 06/03/2022215 HGB 11.9 (L) 06/03/2022215 HCT 35.9 (L) 06/03/2022215 PLT 280 06/03/2022215 LYMPHOPCT 3.2 (L) 06/03/2022215 MONOPCT 4.6 06/03/2022 0216 BASOPCT 0.3 06/03/2022 0216 NEUTROABS 20.0 (H) 06/03/2022 0216 Micro: 06/02 Blood CXs x2 NGTD Lines/Drains/Airways: 06/02 LUE PIV x2 Radiography/Echo/Other: 06/02 XR forearm 2 views right No acute findings 06/03 XR chest 1 view No acute cardiopulmonary process. Antimicrobials, Start/End Dates: 06/02- vancomycin 06/02- piperacillin/tazobactam 06/02- clindamycin Impression: Mr. Carter is a 57 y/o M w/ PMH of HTN. Presented to [facility] ED 06/02 for RUE swelling. He was transferred from outside ED d/t concern of RUE NF. Reported a RUE abrasion a few days prior to presentation. ED w/u was notable for WBC 24.3, Hgb 12.3, ESR/CRP 61/236.3, SCr 3.74. RUE XR showed no acute findings. Orthopedics consulted; plan is for OR today. The ID service is consulted for RUE cellulitis. Plan: 1. Right upper extremity skin and soft tissue infection - Presented to [facility] ED 06/02 for RUE swelling - Transferred from outside ED d/t concern of RUE NF - Reported a RUE abrasion a few days prior to presentation - ED w/u was notable for WBC 24.3, Hgb 12.3, ESR/CRP 61/236.3, SCr 3.74 - Orthopedics has been consulted; s/p debridement - Maintain IV vancomycin, piperacillin/tazobactam, clindamycin - Await intra-op CXs to adjust accordingly 2. Acute kidney injury 3. Hypertension Recommendations: 1. Maintain IV vancomycin, piperacillin/tazobactam, clindamycin 2. Await intra-op CXs to adjust accordingly Thank you for the consult. The ID service will continue to follow. Total time 75 minutes on this day of encounter includes counseling, coordinating plan of care, record and documentation review before and after visit including documentation and time not explicitly included on EMR time stamp for accounting for open encounter. Sean Green DO Infectious Diseases Office Tel. [phone] 06-03-2022 Consult note Associated Order (s): IP CONSULT TO INFECTIOUS DISEASES Images from the original note were not included. Medical Group - Infectious Diseases Attending Consult Note Reason for Consult: Right upper extremity skin and soft tissue infection History of Present Illness: Mr. Carter is a 57 y/o M w/ PMH of HTN. He presented to [facility] ED 06/02 for RUE swelling. He was transferred from outside ED d/t concern of RUE NF. Reported a RUE abrasion a few days prior to presentation. ED w/u was notable for WBC 24.3, Hgb 12.3, ESR/CRP 61/236.3, SCr 3.74. RUE XR showed no acute findings. Orthopedics has been consulted; s/p OR debridement. The ID service is consulted for RUE soft tissue infection. Vitals are notable for T99.4F, BP 95/66. Labs show WBC 22.0, Hgb 11.9. Currently on IV vancomycin, piperacillin/tazobactam, clindamycin. During my assessment, patient reports mild RUE pain post-procedure. He denies f/c, n/v/d, SOB, cough, or abdominal pain. No further complaints at this time. Medical history: HTN Surgical history: None Family history: No significant family medical hx Social history: Denies tobacco, ETOH, or illicit drug use Allergies: NKDA Code status: FULL Past Medical History: No past medical history on file. Past Surgical History: Past Surgical History: Procedure Laterality Date INCISION AND DRAINAGE OF WOUND Right 06/03/2022 Current Medications: Current Facility-Administered Medications Medication Dose Route Frequency Provider Last Rate Last Admin acetaminophen (Tylenol) tablet 650 mg 650 mg Oral Q4H LORENA Vasques [facility] 650 mg at 06/03/22 2045 clindamycin in NS (Cleocin) IVPB 900 mg 900 mg IntraVENous q8h Hina Cook MD Stopped at 06/03/22 0911 droperidol (Inapsine) injection 1.25 mg 1.25 mg IntraVENous q6h PRN Hina Cook MD HYDROmorphone (Dilaudid) injection 0.25 mg 0.25 mg IntraVENous q4h PRN LORENA Vasques CNP Or HYDROmorphone (Dilaudid) injection 0.5 mg 0.5 mg IntraVENous q4h PRN LORENA Vasques CNP Lidocaine 4 % patch 1 patch 1 patch Topical Daily LORENA Vasques CNP methocarbamol (Robaxin) tablet 1,000 mg 1,000 mg Oral q8h PRN LORENA Vasques CNP naloxone (Narcan) 0.4 mg in 0.9% sodium chloride 10 mL syringe IntraVENous PRN LORENA Vasques CNP ondansetron ODT (Zofran-ODT) disintegrating tablet 4 mg 4 mg Oral q8h PRN Hina Cook MD Or ondansetron (Zofran) injection 4 mg 4 mg IntraVENous q6h PRN Hina Cook MD oxyCODONE (Roxicodone) immediate release tablet 5 mg 5 mg Oral q4h PRN LORENA Vasques CNP Or oxyCODONE (Roxicodone) immediate release tablet 10 mg 10 mg Oral q4h PRN LORENA Vasques CNP piperacillin-tazobactam (Zosyn) IVPB 3,375 mg 3,375 mg IntraVENous q8h Hina Cook MD Stopped at 06/03/22 1316 polyethylene glycol (PEG) 3350 (Miralax) packet 17 g 17 g Oral Daily PRN Hina Cook MD sodium chloride 0.9 % infusion 75 mL/hr IntraVENous Continuous Hina Cook MD 75 mL/hr at 06/03/22 1145 75 mL/hr at 06/03/22 1145 [START ON 06/04/2022] vancomycin (Vancocin) 750 mg in sodium chloride 0.9 % 250 mL IVPB 750 mg IntraVENous q24h Hina Cook MD Allergies: No Known Allergies Social History: Social History Socioeconomic History Marital status: Spouse name: Not on file Number of children: Not on file Years of education: Not on file Highest education level: Not on file Occupational History Not on file Tobacco Use Smoking status: Not on file Smokeless tobacco: Not on file Substance and Sexual Activity Alcohol use: Not on file Drug use: Not on file Sexual activity: Not on file Other Topics Concern Not on file Social History Narrative Not on file Social Determinants of Health Financial Resource Strain: Not on file Food Insecurity: Not on file Transportation Needs: Not on file Physical Activity: Not on file Stress: Not on file Social Connections: Not on file Intimate Partner Violence: Not on file Housing Stability: Not on file Family History: No family history on file. Review of Systems: Review of Systems Constitutional: Negative for appetite change, chills, diaphoresis, fatigue and fever. Respiratory: Negative for cough, shortness of breath and wheezing. Cardiovascular: Negative for chest pain, palpitations and leg swelling. Gastrointestinal: Negative for abdominal distention, abdominal pain, constipation, diarrhea, nausea and vomiting. Skin: Positive for wound. Negative for color change. Vitals: Patient Vitals for the past 24 hrs: BP Temp Temp src Pulse Resp SpO2 06/03/222028 100/59 (!) 35.9 C (96.7 F) Temporal 66 16 99 % 06/03/221999 90/62 -- -- 66 14 -- 06/03/22 1930 86/60 -- -- 70 12 100 % 06/03/22 1915 92/68 -- -- 75 11 100 % 06/03/22 1900 95/63 -- -- 80 15 100 % 06/03/22 1852 -- -- -- 87 15 100 % 06/03/22 1845 93/62 -- -- 75 14 100 % 06/03/22 1830 95/69 -- -- 80 14 100 % 06/03/22 1815 95/72 -- -- 90 14 95 % 06/03/22 1800 95/66 -- -- 86 11 95 % 06/03/22 1752 97/63 36.7 C (98 F) Temporal 87 12 100 % 06/03/22 1405 -- -- -- 80 -- 95 % 06/03/22 1144 95/66 36.6 C (97.9 F) Temporal 88 12 99 % 06/03/22 0727 98/64 37.6 C (99.6 F) Temporal 93 16 96 % 06/03/22 0224 114/63 37.4 C (99.4 F) Temporal 96 18 97 % 06/02/22 2352 111/70 -- -- 89 16 99 % Physical Exam: Physical Exam Constitutional: Appearance: He is not ill-appearing or diaphoretic. HENT: Head: Normocephalic and atraumatic. Nose: Nose normal. Mouth/Throat: Mouth: Mucous membranes are dry. Eyes: General: No scleral icterus. Extraocular Movements: Extraocular movements intact. Pupils: Pupils are equal, round, and reactive to light. Cardiovascular: Rate and Rhythm: Normal rate and regular rhythm. Pulses: Normal pulses. Heart sounds: Normal heart sounds. No murmur heard. No friction rub. No gallop. Pulmonary: Effort: Pulmonary effort is normal. No respiratory distress. Breath sounds: Normal breath sounds. No wheezing, rhonchi or rales. Abdominal: General: Abdomen is flat. Bowel sounds are normal. There is no distension. Palpations: Abdomen is soft. There is no mass. Tenderness: There is no abdominal tenderness. Hernia: No hernia is present. Musculoskeletal: General: Tenderness, deformity and signs of injury present. Normal range of motion. Cervical back: Normal range of motion and neck supple. Right lower leg: No edema. Left lower leg: No edema. Comments: RUE wrapped; wound VAC in place Skin: General: Skin is warm and dry. Capillary Refill: Capillary refill takes less than 2 seconds. Neurological: General: No focal deficit present. Mental Status: He is alert. Psychiatric: Mood and Affect: Mood normal. Judgment: Judgment normal. Labs: Lab Results Component Value Date/Time NA 132 (L) 06/03/2022215 K 3.5 06/03/2022215 CL 107 06/03/2022215 CO2 21 (L) 06/03/2022215 BUN 48 (H) 06/03/2022215 CREATININE 3.09 (H) 06/03/2022215 GLUCOSE 105 (H) 06/03/2022215 CALCIUM 7.2 (L) 06/03/2022215 PROT 5.6 (L) 06/03/2022215 BILITOT 0.8 06/03/2022215 ALKPHOS 113 06/03/2022215 AST 34 06/03/2022215 ALT 21 06/03/2022215 Lab Results Component Value Date/Time WBC 22.0 (H) 06/03/2022215 HGB 11.9 (L) 06/03/2022215 HCT 35.9 (L) 06/03/2022215 PLT 280 06/03/2022215 LYMPHOPCT 3.2 (L) 06/03/2022215 MONOPCT 4.6 06/03/2022215 BASOPCT 0.3 06/03/2022215 NEUTROABS 20.0 (H) 06/03/2022215 Micro: 06/02 Blood CXs x2 NGTD Lines/Drains/Airways: 06/02 LUE PIV x2 Radiography/Echo/Other: 06/02 XR forearm 2 views right No acute findings 06/03 XR chest 1 view No acute cardiopulmonary process. Antimicrobials, Start/End Dates: 06/02- vancomycin 06/02- piperacillin/tazobactam 06/02- clindamycin Impression: Mr. Carter is a 57 y/o M w/ PMH of HTN. Presented to [facility] ED 06/02 for RUE swelling. He was transferred from outside ED d/t concern of RUE NF. Reported a RUE abrasion a few days prior to presentation. ED w/u was notable for WBC 24.3, Hgb 12.3, ESR/CRP 61/236.3, SCr 3.74. RUE XR showed no acute findings. Orthopedics consulted; plan is for OR today. The ID service is consulted for RUE cellulitis. Plan: 1. Right upper extremity skin and soft tissue infection - Presented to [facility] ED 06/02 for RUE swelling - Transferred from outside ED d/t concern of RUE NF - Reported a RUE abrasion a few days prior to presentation - ED w/u was notable for WBC 24.3, Hgb 12.3, ESR/CRP 61/236.3, SCr 3.74 - Orthopedics has been consulted; s/p debridement - Maintain IV vancomycin, piperacillin/tazobactam, clindamycin - Await intra-op CXs to adjust accordingly 2. Acute kidney injury 3. Hypertension Recommendations: 1. Maintain IV vancomycin, piperacillin/tazobactam, clindamycin 2. Await intra-op CXs to adjust accordingly Thank you for the consult. The ID service will continue to follow. Total time 75 minutes on this day of encounter includes counseling, coordinating plan of care, record and documentation review before and after visit including documentation and time not explicitly included on EMR time stamp for accounting for open encounter. Sean Green DO Infectious Diseases Office Tel. [phone] Associated Order(s): IP CONSULT TO NEPHROLOGY [facility] [id number] [place], [place] [id number] Consult Note Patient's Name: Gabriel Carter 11:33 AM 06/03/2022 Reason for Consult: ANGELIA History of Present Ilness: Gabriel Carter is a 57 y.o. male who present to outside ER for evaluation of RUE swelling, admitted with concern for necrotizing fasciitis. Scr up at 3.74mg/dl on presentation, improved to 3.09mg/dl on recent value. Was diaphoretic prior to presentation. Took Aleve recently. Patient reports feeling irritated, R hand pain, little SOB. Denies N/V/D, LUTS. No past medical history on file. No past surgical history on file. No family history on file. Allergies: Patient has no known allergies. Medications: No current facility-administered medications on file prior to encounter. No current outpatient medications on file prior to encounter. Review of Systems: ROS as in HPI Physical exam: BP 98/64 (BP Location: Left arm, Patient Position: Lying) Pulse 93 Temp 37.6 C (99.6 F) (Temporal) Resp 16 Ht 1.778 m (5' 10 ) Wt 88.5 kg (195 lb) SpO2 96% BMI 27.98 kg/m General: NAD, calm Chest: bilateral air entry Abdomen: Nontender SKIN: dry Extremities: no lower extremity pitting edema Labs: Recent Labs 06/02/22205306/02/22233306/03/22 0216 WBC 24.3* 24.7* 22.0* HGB 12.3* 12.2* 11.9* HCT 37.5* 36.5* 35.9* MCV 93.9 91.6 93.8 PLT 291 293 280 Recent Labs 06/02/22205306/02/22233306/03/22 0216 NA 132* 132* 132* K 3.8 3.7 3.5 CL 105 105 107 CO2 21* 21* 21* GLUCOSE 93 115* 105* MG -- -- 1.8 BUN 53* 53* 48* CREATININE 3.74* 3.40* 3.09* Ionized Calcium: No components found for: IONCA Magnesium: Lab Results Component Value Date MG 1.8 06/03/2022 Phosphorus: No results found for: PHOS Input / Output: 24 HR: Intake/Output Summary (Last 24 hours) at 06/03/2022 1133 Last data filed at 06/03/2022 0916 Gross per 24 hour Intake 581.67 ml Output 550 ml Net 31.67 ml IV Intake: P.O. (mL): (NPO) Schrader: Imaging: CXR: IMPRESSION: No acute cardiopulmonary process. Assessment: Gabriel Carter is a 57 y.o. male who present to outside ER for evaluation of RUE swelling, admitted with concern for necrotizing fasciitis. Nephrology following for ANGELIA. ANGELIA- previously with Scr at 1.05mg/dl in 03/06/2022, recent Scr up at 3.74mg/dl -Scr improved at 3.09mg/dl -suspect etiology prerenal combined with NSAID use -has had improvement with volume expansion Electrolytes -hyponatremia -mild with S Na at 132 Acid/base- appears compensated Plan: -monitor renal function, electrolytes -continue IVF, but adjust NS to 75ml/hr LORENA Freedman CNP Pt seen and examined independently by me. I reviewed with SADIE Pearson the medical history and the findings on physical examination. I discussed the patient s diagnosis and concur with the treatment plan as documented in his note. Please call [phone] or message me through Playfire with any questions or concerns. Pharmacy Managed Vancomycin Dosing Service Consult Note Consult Date: 06/03/22 Consulted By: Dr. Dick Room: Patient Name: Gabriel Carter Allergies: Patient has no known allergies. Age: 57 y.o. Sex: male Ht: @FLOWAMB(11)@ TBW: @FLOWAMB(14)@ BMI: Body mass index is 27.98 kg/m . DW: 88.5 kg Calculated CrCl: 27 ml/min Lab Results Component Value Date CREATININE 3.40 (H) 06/02/2022 CREATININE 3.74 (H) 06/02/2022 BUN 53 (H) 06/02/2022 BUN 53 (H) 06/02/2022 WBC 24.7 (H) 06/02/2022 WBC 24.3 (H) 06/02/2022 Trough: No results found for: VANCOTROUGH Random: No results found for: VANCORANDOM Infectious Diagnosis: SSTI (goal trough = 10-15 mcg/mL, goal AUC = 400-600) Antimicrobials: Patient recently received an antibiotic (last 12 hours) Date/Time Action Medication Dose Rate 06/03/22 0015 New Bag piperacillin-tazobactam (Zosyn) IVPB 4,500 mg 4,500 mg 200 mL/hr Assessment/Plan: Start Vancomycin 750 mg Q 24 hours based on patient age, weight, renal function, and infectious diagnosis (projected AUC = 487 ). Will draw random level at 0600 06/04/22, and adjust dosing as appropriate. Thank you for this consult. Please page/call with questions. Date: 06/03/22 Time: 12:38 AM Name: Wes Cross RPh, PharmD Ext. [phone] Images from the original note were not included. Discussed with orthopedic resident last night. Formal exam today. See progress note for plan. Bharathi Ayala MD Ortho H&P/Consult Patient: Gabriel Carter Date of : 1965 Acct: [id number] PCP: Papi Ricketts DO Date of Admission: 06/02/2022 Date of Service: Pt seen/examined on 06/02/2022 Chief Complaint: right arm swelling History Of Present Illness: This is a 57 y.o. right hand dominant male who presents with swelling of the right arm which has been present since 05/31. He reports that this began as a focal area of swelling overlying the dorsal hand and has since spread proximally. He presented earlier today to [facility] for evaluation secondary to severe pain in the right upper extremity. He states that they gave him antibiotics earlier today and his pain has since significantly improved. Due to concern for necrotizing fasciitis he was transferred to [facility] for further evaluation and management. Patient states that he has history of left knee pain which had a very similar course. This began as mild pain progressed to be severe he was treated with steroids and the pain improved. He believes that the symptoms he is having with his right arm are very similar to what he had in his left knee. He denies fevers and chills. He denies any focal drainage. He does report that there is a area overlying the dorsal second metacarpal which he has squeezed repeatedly but has been unable to express purulent fluid. Smokes 1 ppd, occasional etoh, denies intravenous drug use. Patient ambulation status: no difficulty. Antiplatelets/Anticoagulation includes: none. WBC: 28.3 ESR: 63 CRP: 331 Temp: 36.7 Past Medical History: No past medical history on file. Past Surgical History: No past surgical history on file. Home Medications: Prior to Admission medications Not on File Current Hospital Medications: No current facility-administered medications for this encounter. No current outpatient medications on file. Allergies: Patient has no known allergies. Social History: Social History Socioeconomic History Marital status: Spouse name: Not on file Number of children: Not on file Years of education: Not on file Highest education level: Not on file Occupational History Not on file Tobacco Use Smoking status: Not on file Smokeless tobacco: Not on file Substance and Sexual Activity Alcohol use: Not on file Drug use: Not on file Sexual activity: Not on file Other Topics Concern Not on file Social History Narrative Not on file Social Determinants of Health Financial Resource Strain: Not on file Food Insecurity: Not on file Transportation Needs: Not on file Physical Activity: Not on file Stress: Not on file Social Connections: Not on file Intimate Partner Violence: Not on file Housing Stability: Not on file Family History: No family history on file. Further Family History is noncontributory to this injury. REVIEW OF SYSTEMS: Review of Systems - General ROS: negative for - chills, fatigue, fever, malaise or night sweats Psychological ROS: negative Ophthalmic ROS: negative ENT ROS: negative for - headaches or sore throat Hematological and Lymphatic ROS: negative for - bleeding problems or blood clots Respiratory ROS: no cough, shortness of breath, or wheezing Cardiovascular ROS: no chest pain or dyspnea on exertion Gastrointestinal ROS: negative Musculoskeletal ROS: See HPI Neurological ROS: negative for - bowel and bladder control changes, gait disturbance or numbness/tingling All other systems reviewed and are negative PHYSICAL EXAM: BP 102/63 (BP Location: Right arm, Patient Position: Lying) Pulse 79 Temp 36.7 C (98 F) (Oral) Resp 18 Ht 1.778 m (5' 10 ) Wt 88.5 kg (195 lb) SpO2 90% BMI 27.98 kg/m GENERAL APPEARANCE: Awake and oriented x3. No acute distress, except appropriate to injury. MOOD AND AFFECT: Calm appropriate to situation GAIT AND STATION: Patient is in bed and able to ambulate COORDINATION and BALANCE: Patient is grossly coordinated Lymphadenopathy: none on examination of the affected extremity(s) Right Upper Extremity: -No obvious pain or deformity to inspection with normal joint range of motion, stability, and muscle strength except noted below -No TTP over clavicle, shoulder, humerus, elbow -TTP: Tenderness dorsally over hand, dorsal forearm there is no tenderness to palpation volarly -Radial pulse palpable -SILT in radial/median/ulnar nerve distributions -Motor + AIN/PIN/ulnar nerve functions, diminished secondary to pain -No Lymphedema -Skin intact except where noted below -Painless pROM at shoulder/elbow 2-point discrimination (mm) RIGHT Hand Thumb Index Long Ring Small r u r u r u r u r u 5 5 5 5 5 5 5 5 5 5 Median Ulnar There is erythema and swelling of the dorsal hand extending proximally to the dorsal forearm. There is tenderness to palpation dorsally over the hand and forearm. There is no tenderness to palpation of the volar forearm. There is no palpable bullae or fluctuance. There is no discoloration or focal areas of necrosis of the dorsal forearm or hand. There is extreme pain range of motion about the wrist. See clinical photos below: Left Upper Extremity: -No obvious pain or deformity to inspection with normal joint range of motion, stability, and muscle strength except noted below -No TTP over clavicle, shoulder, humerus, elbow, forearm, wrist, hand, or fingers -TTP: nontender throughout extremity -Radial pulse palpable -SILT in radial/median/ ulnar nerve distributions -Motor + AIN/PIN/ulnar nerve functions -No Lymphedema -Skin intact except where noted below -Painless pROM at shoulder/elbow/wrist Labs: CBC: No results found for: WBC, RBC BMP:No results found for: GLUCOSE, SODIUM, POTASSIUM, CHLORIDE, CO2, BUN, CREATININE, CALCIUM PT/INR: No results found for: PT, INR, APTT Type and Screen: No results found for: RH, LABANTI CRP: No results found for: CRP ESR: No results found for: SEDRATE HgBA1c: No components found for: LABA1C The above labs were reviewed by me. Radiology: The below imaging was independently reviewed and interpreted XR: Right forearm: There is no acute fracture or dislocation. Right hand there is no acute fracture or dislocation. Radiology report reviewed. Procedure: Splinting right upper extremity Verbal consent was obtained. A well-padded posterior slab splint was placed to the right upper extremity. Great care was taken to pad any bony prominences. This splint was then hung using stockinette from the IV pole. Patient tolerated procedure well. ASSESSMENT: 57 y.o. male with severe right upper extremity erythema and swelling, concern for necrotizing fasciitis PLAN: -D/w Dr. Ayala -Patient presents with approximately 3-day history of worsening right upper extremity erythema and swelling. This began on the hand and has since progressed to the dorsal forearm. Patient does present with severe electrolyte abnormalities including hyponatremia, significantly elevated white blood cell count, CRP and ESR elevated as well as creatinine. All of these are significantly concerning for necrotizing fasciitis. Physical exam however is not convincingly consistent with necrotizing fasciitis. There are no skin manifestations of a necrotizing infection. There is no bullae there is no focal areas of necrosis. There is no discoloration. Time course of his infection is also not consistent with necrotizing fasciitis. Patient does report that his exam is significantly improved since administration of antibiotics at [facility]. We will monitor patient for improvement with a short threshold to proceed to the OR should his exam worsen. -Status post splinting in the ED -Continue IV antibiotics per ED/primary -We will repeat exam at midnight -We will repeat labs at midnight -Keep patient n.p.o., hold antibiotics in anticipation of possible operative intervention -Admit to medicine -Medical management, pain control, antibiotics per medicine -Consider infectious disease consult -Ortho to follow for serial exams. Should patient become unstable or exam significantly worsen please contact orthopedic surgery resident on-call immediately Reny Mar MD PGY-2 Orthopaedic Surgery documented in this encounter 06-03-2022 Note Formatting of this n ote might be different from the original. Patient's Alison, updated and will meet patient in his room 06-03-2022 Note Formatting of this n ote might be different from the original. Patient's Alison, updated and will meet patient in his room 06-03-2022 Note Formatting of this n ote might be different from the original. Patient family/visitor updated by RN at this time. 06-03-2022 Note Formatting of this n ote might be different from the original. Patient family/visitor updated by RN at this time. T 06-03-2022 Note Airway Date/Time: 06/03/2022 4:14 PM Urgency: scheduled Airway not difficult General Information and Staff Patient location during procedure: Procedural Anesthesiologist: Christoph Maldonado MD Resident/OPTICAL MODEL MAKER AND TESTER: Yumiko Coe APRN - OPTICAL MODEL MAKER AND TESTER Performed: OPTICAL MODEL MAKER AND TESTER Indications and Patient Condition Indications for airway management: anesthesia and airway protection Sedation level: Asleep Preoxygenated: yes Patient position: sniffing MILS maintained throughout Mask difficulty assessment: 1 - vent by mask Final Airway Details Final airway type: supraglottic airway Successful airway: Igel Size 4 Number of attempts at approach: 1 [facility] 06-03-2022 Note Patient: Gabriel packer Procedure Information Date/Time: 06/03/22 1415 Procedure: INCISION AND DRAINAGE FOREARM AND OR WRIST BURSA (Right: Wrist) Location: [facility] OR [address] [place] [address] Operating Room Surgeons: Bharathi Ayala MD Relevant Problems No relevant active problems Past Medical History: No past medical history on file. Past Surgical History: No past surgical history on file. Social History: TOBACCO: has no history on file for tobacco use. ETOH: has no history on file for alcohol use. Social History Substance and Sexual Activity Drug Use Not on file Family History: No family history on file. Screening: unknown Clinical information reviewed: Allergies Meds Surg Hx Fam Hx Physical Exam Airway Mallampati: III TM distance: >3 FB Neck ROM: full Mouth Open: limitedendotracheal tube not in place Cardiovascular Dental (+) Poor Pulmonary Abdominal Anesthesia Plan ASA 2 general The patient is a current smoker. Patient was previously instructed to abstain from smoking on day of procedure. Patient did not smoke on day of procedure. Anesthetic plan and risks discussed with patient. patient is NPO YESSY Screening Labs: Lab Results Component Value Date WBC 22.0 (H) 06/03/2022 HGB 11.9 (L) 06/03/2022 HCT 35.9 (L) 06/03/2022 MCV 93.8 06/03/2022 PLT 280 06/03/2022 Lab Results Component Value Date NA 132 (L) 06/03/2022 K 3.5 06/03/2022 CL 107 06/03/2022 CO2 21 (L) 06/03/2022 BUN 48 (H) 06/03/2022 CREATININE 3.09 (H) 06/03/2022 GLUCOSE 105 (H) 06/03/2022 CALCIUM 7.2 (L) 06/03/2022 PROT 5.6 (L) 06/03/2022 ALKPHOS 113 06/03/2022 AST 34 06/03/2022 ALT 21 06/03/2022 EGFR 22.7 (L) 06/03/2022 Pain Score: 7 No echocardiogram results found for the past 14 days 06/02/22 ECG 12-LEAD (Preliminary) This result has not been signed. Information might be incomplete. Impression Sinus rhythm [facility] 06-03-2022 Note Hospitalist Progress Note 06/03/2022 [phone]: Please secure chat wy for patient care issues. [phone]: Please secure chat [facility] Hospitalist for any issues. Subjective: Admit Date: 06/02/2022 PCP: Papi Ricketts DO Room#: OR/NONE Interval History: Gabriel Carter is a 57 y.o. male who presents to the emergency department for evaluation of right arm swelling and infection. Patient was transferred from outside ED for concerns for necrotizing fasciitis. Patient said initially he had an abrasion to his right hand a few days ago. Patient said the redness and swelling has increased and since traveled up his right arm. Denies any fever or chills. Denies any IV drug use. Denies any numbness or tingling in his right arm. In ED labs showed white blood cell count 24.3. Hemoglobin 12.3. Sed rate 61. CRP 236.3. Creatinine 3.74. Uric acid 6.1. INR 1.1. Right forearm xray as interpreted by me and confirmed by radiologist showed no acute findings. Did have an x-ray of his forearm on the right side which did not appreciate any underlying subcutaneous emphysema. Ortho consulted in ED, they are planning to continue to monitor the patient and potentially take him to surgery. NPO diet 24HR INTAKE/OUTPUT: Intake/Output Summary (Last 24 hours) at 06/03/2022 1407 Last data filed at 06/03/2022 1316 Gross per 24 hour Intake 581.67 ml Output 750 ml Net -168.33 ml Past Medical History: No past medical history on file. LABS: CBC: Recent Labs 06/02/22205306/02/22233306/03/22215 WBC 24.3* 24.7* 22.0* RBC 4.00* 3.99* 3.83* HGB 12.3* 12.2* 11.9* HCT 37.5* 36.5* 35.9* MCV 93.9 91.6 93.8 RDW 13.1 14.0 13.4 PLT 291 293 280 BMP: Recent Labs 06/02/22205306/02/22233306/03/22215 NA 132* 132* 132* K 3.8 3.7 3.5 CL 105 105 107 CO2 21* 21* 21* BUN 53* 53* 48* CREATININE 3.74* 3.40* 3.09* GLUCOSE 93 115* 105* CALCIUM 7.2* 7.5* 7.2* ANIONGAP 6 6 4 LIVER PROFILE: Recent Labs 06/02/22205306/03/22 0216 AST 30 34 ALT 21 21 BILITOT 0.8 0.8 ALKPHOS 81 113 PROT 5.8* 5.6* PT/INR: Recent Labs 06/02/22 2130 PROTIME 11.6 INR 1.1 CARDIAC ENZYMES: No results for input(s): TROPONINI in the last 72 hours. Procalcitonin: No results found for: PROCAL COVID-19 PCR: No results for input(s): COVID19 in the last 72 hours. Objective: Vitals: BP 95/66 (BP Location: Left arm, Patient Position: Lying) Pulse 88 Temp 36.6 ?C (97.9 ?F) (Temporal) Resp 12 Ht 5' 10 (1.778 m) Wt 195 lb (88.5 kg) SpO2 99% BMI 27.98 kg/m? Pulse Ox: SpO2 Av.2 % Min: 90 % Max: 99 % Medications: sodium chloride, 75 mL/hr, Last Rate: 75 mL/hr (06/03/22 1145) [MAR Hold] clindamycin, 900 mg, IntraVENous, q8h [APR Hold] piperacillin-tazobactam, 3,375 mg, IntraVENous, q8h [MAR Hold] vancomycin, 750 mg, IntraVENous, q24h Physical Exam Constitutional: General: He is not in acute distress. Appearance: Normal appearance. HENT: Mouth/Throat: Mouth: Mucous membranes are moist. Eyes: Extraocular Movements: Extraocular movements intact. Pupils: Pupils are equal, round, and reactive to light. Cardiovascular: Rate and Rhythm: Normal rate and regular rhythm. Pulses: Normal pulses. Heart sounds: Normal heart sounds. Pulmonary: Effort: Pulmonary effort is normal. Breath sounds: Normal breath sounds. Skin: Comments: extensive cellulitic findings with demarcated margin lines. No overt necrosis on surface Neurological: Mental Status: He is alert. Assessment Cellulitis of right upper extremity evaluating for necrotizing infection No superficial necrosis or blistering Ortho following Planning I&D today Stable from IM standpoint to proceed Broad spectrum ABX Follow cultures ID consulted as well Followup after surgery ANGELIA: Prerenal due to infection and NSAIDs Nephrology following Improving Leukocytosis: Due to 1, follow cultures HTN hold lisinopril -DVT prophylaxis: [] Lovenox [] Heparin [x] SCDs [] Encourage ambulation [] Already on Anticoagulation Extended Emergency Contact Information Primary Emergency Contact: arpita tolbert Mobile Relation: Relative Preferred language: Faroese Early Childhood Specialist needed? No Ry Foster MD Division of Hospitalist Medicine Acute care solutions PAGER: Epic karolina [facility] 06-03-2022 Note Formatting of this n ote might be different from the original. [facility] [place] [id number] Dept: [phone] Loc: [phone] Operative Report Patient Name: Gabriel Carter Date of : 1965 Date of Surgery: 06/03/2022 Preoperative Diagnosis: Right upper extremity cellulitis Postoperative Diagnosis: Same, with clinical findings suggestive of necrotizing fasciitis coursing along the dorsal hand, wrist, and forearm. Procedure: Excisional debridement skin, subcutaneous tissue, and fascia of right hand/wrist/forearm measuring 300 sq cm Extensor synovectomy right wrist Application wound VAC measuring 2 cm by 30 cm Surgeon: Bharathi Ayala MD 1st Assist: Hina Cook MD 2nd Assist: None Implants: None Specimens Removed: Swab (X1), Tissue (X2) Anesthesia: General Local Anesthesia: None Tourniquet: Brachium Estimated Blood Loss: <5ml Pre Operative Antibiotics: Scheduled on the floor Indications: Mr. Gabriel Carter is a 57 y.o. year-old male transferred up from outside hospital with several day history of worsening right hand cellulitis and pain. He was seen at [facility] with markedly elevated infectious labs and transferred to [facility]. On arrival at [facility] the patient stated that he felt better after having started IV antibiotics. His symptoms had not progressed with serial checks and a trial of conservative care with IV antibiotics was offered. His exam overnight remained unchanged and the following day decision was made to take him for operative debridement. I have discussed with him, preoperatively, the complications, limitations, expectations, alternatives, and risks of surgical intervention which he has demonstrated understanding. No guarantees were given or implied. After having all of his questions answered to his satisfaction, Mr. Gabriel Carter has provided written informed consent to proceed. Please see previous notes for full operative risk discussion. Procedure: Gabriel Carter was identified in the preoperative waiting area. His operative site was initialed and consent was reviewed. Final questions were answered. He was brought to the operating room and placed in the supine position. All bony prominences were well padded. The operative extremity was prepped and draped in the usual sterile fashion. A surgical timeout was then performed with the patient's identification, the procedure to be performed being reviewed, verification that the patient had received preoperative antibiotics if indicated, and verification of the correct surgical site. The patient's ASA was verified by the nurse screwdown operator and the anesthesia staff. Fire risk was assessed. Clay was used to exsanguinate the limb and the tourniquet was inflated to 250mm Hg. A longitudinal incision was made centered over the third MCP joint extending across the dorsal wrist and forearm to the lateral elbow. Gross purulence was noted in the subcutaneous tissue along the dorsum of the hand and wrist which was swabbed for culture. There was significant subcu cutaneous fat necrosis of the skin flaps over the dorsum of the hand and wrist. In the dorsal forearm there was dishwater fluid and boggy. Fascial soft tissues with a slight [place] green hue. The subcutaneous tissue was well adherent to the underlying fascia radially but easily finger dissected from the fascia ulnarly to the level of the ulnar shaft. There was significant edema in the subcutaneous tissues without significant fat necrosis in the forearm. The edema and boggy soft tissues extended to the level of the lateral epicondyle. I extended my incision more proximal to the elbow and at this level the subcutaneous tissues and fascia appeared normal. With the hand, wrist, and forearm exposed I turned my attention to excisional debridement of any nonviable skin subcutaneous tissue and fascia. The majority of the soft tissue involvement was in the dorsal hand and wrist. There was extensive synovitis of the extensor tendons of the fourth compartment distal to the retinaculum. Synovitis was sharply excised from each individual tendon. The radial sensory nerve and dorsal ulnar cutaneous nerves were identified and protected within the skin flaps. The radial and ulnar flaps extended to the first metacarpal and fifth metacarpal respectively. A separate longitudinal incision was made over the dorsum of the index finger MCP joint overlying a small superficial ulcer. Ulcer was excised in full-thickness skin flaps elevated. Again, there is necrotic subcutaneous tissues noted but extensor tendons intact. Any nonviable soft tissues were sharply excised from the next finger. Following debridement of the entire dorsal hand, wrist, and forearm the entire wound measured 30 cm in length by 10 cm in width. Several liters of gravity fed normal saline were passed through the subcu tissues while gently curetting any remaining necrotic tissue. Incisions over the dorsum of the index and middle fingers were closed with nylon sutures. The remainder of the wound from the dorsal hand to the lateral elbow was packed with a black wound VAC sponge followed by a wound VAC bandage which was hooked to suction achieving excellent seal. The tourniquet was then deflated. The hand pinked up nicely in all 5 digits demonstrated brisk capillary refill less than 2 seconds. Patient was then placed in a well-padded posterior slab splint. Mr. Gabriel Carter was taken to the recovery room in stable condition. POST OPERATIVE PLAN Continue broad-spectrum antibiotics for necrotizing fasciitis Plan for second look debridement and possible closure in 48 hours Outpatient Follow-up XRays: None Bharathi Ayala MD [facility] 06-03-2022 Note Formatting of this n ote might be different from the original. [place] [address] [id number] Dept: [phone] Loc: [phone] Operative Report Patient Name: Gabriel Carter Date of : 1965 Date of Surgery: 06/03/2022 Preoperative Diagnosis: Right upper extremity cellulitis Postoperative Diagnosis: Same, with clinical findings suggestive of necrotizing fasciitis coursing along the dorsal hand, wrist, and forearm. Procedure: Excisional debridement skin, subcutaneous tissue, and fascia of right hand/wrist/forearm measuring 300 sq cm Extensor synovectomy right wrist Application wound VAC measuring 2 cm by 30 cm Surgeon: Bharathi Ayala MD 1st Assist: Hina Cook MD 2nd Assist: None Implants: None Specimens Removed: Swab (X1), Tissue (X2) Anesthesia: General Local Anesthesia: None Tourniquet: Brachium Estimated Blood Loss: <5ml Pre Operative Antibiotics: Scheduled on the floor Indications: Mr. Gabriel Carter is a 57 y.o. year-old male transferred up from outside hospital with several day history of worsening right hand cellulitis and pain. He was seen at [facility] with markedly elevated infectious labs and transferred to [facility]. On arrival at [facility] the patient stated that he felt better after having started IV antibiotics. His symptoms had not progressed with serial checks and a trial of conservative care with IV antibiotics was offered. His exam overnight remained unchanged and the following day decision was made to take him for operative debridement. I have discussed with him, preoperatively, the complications, limitations, expectations, alternatives, and risks of surgical intervention which he has demonstrated understanding. No guarantees were given or implied. After having all of his questions answered to his satisfaction, Mr. Gabriel Carter has provided written informed consent to proceed. Please see previous notes for full operative risk discussion. Procedure: Gabriel Carter was identified in the preoperative waiting area. His operative site was initialed and consent was reviewed. Final questions were answered. He was brought to the operating room and placed in the supine position. All bony prominences were well padded. The operative extremity was prepped and draped in the usual sterile fashion. A surgical timeout was then performed with the patient's identification, the procedure to be performed being reviewed, verification that the patient had received preoperative antibiotics if indicated, and verification of the correct surgical site. The patient's ASA was verified by the nurse screwdown operator and the anesthesia staff. Fire risk was assessed. Clay was used to exsanguinate the limb and the tourniquet was inflated to 250mm Hg. A longitudinal incision was made centered over the third MCP joint extending across the dorsal wrist and forearm to the lateral elbow. Gross purulence was noted in the subcutaneous tissue along the dorsum of the hand and wrist which was swabbed for culture. There was significant subcu cutaneous fat necrosis of the skin flaps over the dorsum of the hand and wrist. In the dorsal forearm there was dishwater fluid and boggy. Fascial soft tissues with a slight [place] green hue. The subcutaneous tissue was well adherent to the underlying fascia radially but easily finger dissected from the fascia ulnarly to the level of the ulnar shaft. There was significant edema in the subcutaneous tissues without significant fat necrosis in the forearm. The edema and boggy soft tissues extended to the level of the lateral epicondyle. I extended my incision more proximal to the elbow and at this level the subcutaneous tissues and fascia appeared normal. With the hand, wrist, and forearm exposed I turned my attention to excisional debridement of any nonviable skin subcutaneous tissue and fascia. The majority of the soft tissue involvement was in the dorsal hand and wrist. There was extensive synovitis of the extensor tendons of the fourth compartment distal to the retinaculum. Synovitis was sharply excised from each individual tendon. The radial sensory nerve and dorsal ulnar cutaneous nerves were identified and protected within the skin flaps. The radial and ulnar flaps extended to the first metacarpal and fifth metacarpal respectively. A separate longitudinal incision was made over the dorsum of the index finger MCP joint overlying a small superficial ulcer. Ulcer was excised in full-thickness skin flaps elevated. Again, there is necrotic subcutaneous tissues noted but extensor tendons intact. Any nonviable soft tissues were sharply excised from the next finger. Following debridement of the entire dorsal hand, wrist, and forearm the entire wound measured 30 cm in length by 10 cm in width. Several liters of gravity fed normal saline were passed through the subcu tissues while gently curetting any remaining necrotic tissue. Incisions over the dorsum of the index and middle fingers were closed with nylon sutures. The remainder of the wound from the dorsal hand to the lateral elbow was packed with a black wound VAC sponge followed by a wound VAC bandage which was hooked to suction achieving excellent seal. The tourniquet was then deflated. The hand pinked up nicely in all 5 digits demonstrated brisk capillary refill less than 2 seconds. Patient was then placed in a well-padded posterior slab splint. Mr. Gabriel Carter was taken to the recovery room in stable condition. POST OPERATIVE PLAN Continue broad-spectrum antibiotics for necrotizing fasciitis Plan for second look debridement and possible closure in 48 hours Outpatient Follow-up XRays: None Bharathi Ayala MD [facility] 06-03-2022 Note Formatting of this n ote might be different from the original. Care Managment Initial Assessment Date: 06/03/2022 Patient Name: Gabriel Carter : 1965 Patient Information Source of Information: Cognition/Language: WFL - Within Functional Limits Permission given to speak with patient operations support representative/caregiver as indicated: Confirmation of Payer with patient/family: Yes Payer Name: Jolene Arndt : No Confirmation of Primary Care Physician: Confirmed PCP Name: Dr Ricketts Seen in last 2 years?: Yes Primary Caregiver: Self If assistance needed, confirmed caregiver ready, willing and able to care for patient at discharge: Confirmed with: Living Arrangements Current Residence: House Number of Floors 2 Number of Entry Steps: 4 Bed/Bath Levels: Both second floor Facility: Facility Name: Plan to Return: Lives with: Spouse/significant other, Children Support Systems: Spouse/significant other, Children, Parent, Family members, Friends/neighbors Activities of Daily Living Ambulation: Independent Bathing/Dressing: Independent Elimination/Continence/Toileting: Independent Feeding: Independent Who Assists with Activities of Daily Living: Instrumental Activities of Daily Living Prescription Coverage: Yes Pharmacy Used: [facility] in [place] Medication Management: Independent Transportation/Shopping: Independent Transportation Mode: Car Needs Assistance with Transportation at Discharge: No Meal Preparation: Assistance Provider Meal Prep Assistance Provider Name: family Laundry/Cleaning: Assistance Provider Laundry/Cleaning Assistance Provider Name: family Finances/Bill Paying: Assistance Provider Finances/Bill Payer Assistance Provider Name: family Communication: Independent Types of Care Services/Equipment Utilized Care Services: (n/a) Dialysis Type: NA Durable Medical Equipment: (n/a) Patient's Goal/Discharge Plan Patient expects to be discharged to: home Discharge Planning Actions: Continue to follow Patient's Choice Rights and [employer] and Collaborative Relationships Disclosed as Indicated for Post-Acute Care: Interdisciplinary Team Engagement: Social Work Referral for: Additional Information: Went into room introduced self and role to pt. He appears A 0 x 3. He was a transfer from [facility] for R arm swelling and possible need for surgery. ID, Nephrology, and ortho consulted. Started on IV antibiotics and IV fluids. Ortho wants to take to surgery and debride site. May need a wound vac. Wants to go home when stable, will follow for needs. Neetu Miranda RN [facility] 06-03-2022 Note Formatting of this n ote might be different from the original. Care Managment Initial Assessment Date: 06/03/2022 Patient Name: Gabriel Carter : 1965 Patient Information Source of Information: Cognition/Language: WFL - Within Functional Limits Permission given to speak with patient operations support representative/caregiver as indicated: Confirmation of Payer with patient/family: Yes Payer Name: Jolene TappIn : No Confirmation of Primary Care Physician: Confirmed PCP Name: Dr Ricketts Seen in last 2 years?: Yes Primary Caregiver: Self If assistance needed, confirmed caregiver ready, willing and able to care for patient at discharge: Confirmed with: Living Arrangements Current Residence: House Number of Floors 2 Number of Entry Steps: 4 Bed/Bath Levels: Both second floor Facility: Facility Name: Plan to Return: Lives with: Spouse/significant other, Children Support Systems: Spouse/significant other, Children, Parent, Family members, Friends/neighbors Activities of Daily Living Ambulation: Independent Bathing/Dressing: Independent Elimination/Continence/Toileting: Independent Feeding: Independent Who Assists with Activities of Daily Living: Instrumental Activities of Daily Living Prescription Coverage: Yes Pharmacy Used: [facility] in [place] Medication Management: Independent Transportation/Shopping: Independent Transportation Mode: Car Needs Assistance with Transportation at Discharge: No Meal Preparation: Assistance Provider Meal Prep Assistance Provider Name: family Laundry/Cleaning: Assistance Provider Laundry/Cleaning Assistance Provider Name: family Finances/Bill Paying: Assistance Provider Finances/Bill Payer Assistance Provider Name: family Communication: Independent Types of Care Services/Equipment Utilized Care Services: (n/a) Dialysis Type: NA Durable Medical Equipment: (n/a) Patient's Goal/Discharge Plan Patient expects to be discharged to: home Discharge Planning Actions: Continue to follow Patient's Choice Rights and [employer] and Collaborative Relationships Disclosed as Indicated for Post-Acute Care: Interdisciplinary Team Engagement: Social Work Referral for: Additional Information: Went into room introduced self and role to pt. He appears A 0 x 3. He was a transfer from [facility] for R arm swelling and possible need for surgery. ID, Nephrology, and ortho consulted. Started on IV antibiotics and IV fluids. Ortho wants to take to surgery and debride site. May need a wound vac. Wants to go home when stable, will follow for needs. Neetu Miranda RN [facility] 06-03-2022 Consult note Associated Order (s): IP CONSULT TO NEPHROLOGY [facility] [address] [place] [address] Consult Note Patient's Name: Gabriel Carter 11:33 AM 06/03/2022 Reason for Consult: ANGELIA History of Present Ilness: Gabriel Carter is a 57 y.o. male who present to outside ER for evaluation of RUE swelling, admitted with concern for necrotizing fasciitis. Scr up at 3.74mg/dl on presentation, improved to 3.09mg/dl on recent value. Was diaphoretic prior to presentation. Took Aleve recently. Patient reports feeling irritated, R hand pain, little SOB. Denies N/V/D, LUTS. No past medical history on file. No past surgical history on file. No family history on file. Allergies: Patient has no known allergies. Medications: No current facility-administered medications on file prior to encounter. No current outpatient medications on file prior to encounter. Review of Systems: ROS as in HPI Physical exam: BP 98/64 (BP Location: Left arm, Patient Position: Lying) Pulse 93 Temp 37.6 C (99.6 F) (Temporal) Resp 16 Ht 1.778 m (5' 10 ) Wt 88.5 kg (195 lb) SpO2 96% BMI 27.98 kg/m General: NAD, calm Chest: bilateral air entry Abdomen: Nontender SKIN: dry Extremities: no lower extremity pitting edema Labs: Recent Labs 06/02/22205306/02/22 2334 06/03/22 0216 WBC 24.3* 24.7* 22.0* HGB 12.3* 12.2* 11.9* HCT 37.5* 36.5* 35.9* MCV 93.9 91.6 93.8 PLT 291 293 280 Recent Labs 06/02/222053 06/02/22 2334 06/03/22 0216 NA 132* 132* 132* K 3.8 3.7 3.5 CL 105 105 107 CO2 21* 21* 21* GLUCOSE 93 115* 105* MG -- -- 1.8 BUN 53* 53* 48* CREATININE 3.74* 3.40* 3.09* Ionized Calcium: No components found for: IONCA Magnesium: Lab Results Component Value Date MG 1.8 06/03/2022 Phosphorus: No results found for: PHOS Input / Output: 24 HR: Intake/Output Summary (Last 24 hours) at 06/03/2022 1133 Last data filed at 06/03/2022 0916 Gross per 24 hour Intake 581.67 ml Output 550 ml Net 31.67 ml IV Intake: P.O. (mL): (NPO) Schrader: Imaging: CXR: IMPRESSION: No acute cardiopulmonary process. Assessment: Gabriel Carter is a 57 y.o. male who present to outside ER for evaluation of RUE swelling, admitted with concern for necrotizing fasciitis. Nephrology following for ANGELIA. ANGELIA- previously with Scr at 1.05mg/dl in 03/06/2022, recent Scr up at 3.74mg/dl -Scr improved at 3.09mg/dl -suspect etiology prerenal combined with NSAID use -has had improvement with volume expansion Electrolytes -hyponatremia -mild with S Na at 132 Acid/base- appears compensated Plan: -monitor renal function, electrolytes -continue IVF, but adjust NS to 75ml/hr LORENA Freedman CNP Pt seen and examined independently by me. I reviewed with SADIE Pearson the medical history and the findings on physical examination. I discussed the patient s diagnosis and concur with the treatment plan as documented in his note. Please call [phone] or message me through [employer] with any questions or concerns. 06-03-2022 Hospital Discharge instructions Hina Cook MD - 06/03/2022 7:53 AM EDT Images from the original note were not included. General Orthopedic Discharge Instructions The following instructions have been prepared to help you when you leave the hospital. These guidelines are for the post-surgery period. Activity: Ease into normal activity as tolerated. Weightbearing status: as tolerated right upper extremity Medications: see medication instructions. Please be sure to read and understand the information provided by your pharmacy. Ask your Pharmacist if any questions. Wound Care and Hygiene: -Wash hands before touching or changing dressings -Do Not touch incision -Twice daily dressing changes as instructed in the hospital Call Your Doctor for: -Excessive bleeding/swelling of incision -Fever with temperature above 101 F Anesthesia Precautions: -Do Not operate any vehicle (automobile, bicycle, motorcycle) or power tools for 24 hours -Do Not drink alcoholic beverages for 24 hours -As precaution to prevent post-operative nausea and vomiting, start your diet with liquids, then progress to light foods. If tolerated, resume normal diet. Additional Instructions: Contact your surgeon's office (Dr. Ayala) to set up an appointment in 1 weeks, or if you have any problems or questions. Ry Foster MD - 06/08/2022 12:05 PM EDT As tolerated Ry Foster MD - 06/08/2022 12:05 PM EDT regular Nasreen Flores LPN - 06/08/2022 11:56 AM EDT Discharging to Facility/ Agency Name: at Home Address: [address] [place] [address] Ry Foster MD - 06/08/2022 12:05 PM EDT Continuity of Care Form Patient Name: Gabriel Carter : 1965 Admit date: 06/02/2022 Discharge date: Code Status Order: Full Code Advance Directives: N Admitting Physician: Rob Dick MD PCP: Papi Ricketts DO Discharging Nurse: Discharging Hospital Unit/Room#: H-6109/H-6109 A Discharging Unit Phone Number: Emergency Contact: Extended Emergency Contact Information Primary Emergency Contact: arpita tolbert Mobile Relation: Relative Preferred language: Faroese Early Childhood Specialist needed? No Past Surgical History: Past Surgical History: Procedure Laterality Date INCISION AND DRAINAGE OF WOUND Right 06/03/2022 INCISION AND DRAINAGE OF WOUND Right 06/05/2022 incision and drainage forearm and wrist bursa Immunization History: There is no immunization history on file for this patient. Active Problems: Medical Problems Problem List * (Principal) Cellulitis of right upper extremity HTN (hypertension) Necrotizing fasciitis (HCC) Overview Signed 06/03/2022 6:34 PM by Hina Cook MD Added automatically from request for surgery [id number] Isolation/Infection: No active isolations No active infections Nurse Assessment: Last Vital Signs: BP (!) 158/87 (BP Location: Left arm, Patient Position: Lying) Pulse 70 Temp 36.5 C (97.7 F) (Temporal) Resp 16 Ht 5' 10 (1.778 m) Wt 195 lb (88.5 kg) SpO2 97% BMI 27.98 kg/m Last documented pain score (0-10 scale): Last Weight: Wt Readings from Last 1 Encounters: 06/02/22 195 lb (88.5 kg) Mental Status: {KATE Patient Mental Status:37293} IV Access: {KATE IV Access:36164} Nursing Mobility/ADLs: Walking {RAYNE ADL::: Independent } Transfer {RAYNE ADL::: Independent } Bathing {RAYNE ADL::: Independent } Dressing {RAYNE ADL::: Independent } Toileting {RAYNE ADL::: Independent } Feeding {RAYNE ADL::: Independent } Talent Advisor {RAYNE ADL::: Independent } Med Delivery {yes/no:71702} Wound Care Documentation and Therapy: Wound/Incision 06/03/22 Incision Forearm Anterior;Proximal;Right (Active) Site Assessment Unable to assess 06/06/22 0810 Lisbeth-Wound Assessment Unable to assess 06/03/221999 Closure Unable to assess 06/03/221999 Odor None 06/05/221939 Drainage Amount None 06/05/221939 Treatments Ice applied 06/03/22 1752 Primary Dressing Gauze;Dry dressing 06/07/22 0850 Secondary Dressing 4x4 gauze 06/03/221999 Dressing Status Clean, dry & intact 06/07/22 0850 Margins Unable to assess 06/03/221999 Number of days: 4 Elimination: Continence: Bowel: {yes/no:91369} Bladder: {yes/no:27994} Urinary Catheter: {KATE Urinary Catheter:03670} Colostomy/Ileostomy/Ileal Conduit: {YES / NO:14843} Date of Last BM: Intake/Output Summary (Last 24 hours) at 06/08/2022 1205 Last data filed at 06/08/2022 0527 Gross per 24 hour Intake -- Output 900 ml Net -900 ml I/O last 3 completed shifts: In: - (0 mL/kg) Out: 1700 (19.2 mL/kg) [Urine:1700 (0.5 mL/kg/hr)] Weight: 88.5 kg Safety Concerns: {KATE Safety Concerns:90041} Impairments/Disabilities: {KATE Impairments/Disabilities:84610} Nutrition Therapy: Current Nutrition Therapy: {KATE Diet List:43217} Routes of Feeding: {routes of feedin} Liquids: {liquid consistency:11135} Daily Fluid Restriction: {daily fluid restriction:85608} Last Modified Barium Swallow with Video (Video Swallowing Test): {done not done:06074} Treatments at the Time of Hospital Discharge: Respiratory Treatments: Oxygen Therapy: {Therapy; copd oxygen:86812} Ventilator: {KATE Ventilator:62103} Rehab Therapies: {GEN THERAPY DISCIPLINE SCAL:9992798} Weight Bearing Status/Restrictions: {POD WEIGHT BEARIN} Other Medical Equipment (for information only, NOT a DME order): {Assistive Devices DME:20283} Other Treatments: Patient's personal belongings (please select all that are sent with patient): {KATE Patient Belongings:08276} RN SIGNATURE: {E-signature:04630} CASE MANAGEMENT/SOCIAL WORK SECTION Inpatient Status Date: Readmission Risk Assessment Score: @READMISSIONRISKDETAILS@ Discharging to Facility/ Agency Name: Address: Phone: Fax: Dialysis Facility (if applicable) Name: Address: Dialysis Schedule: Phone: Fax: Tracing Lathe Set Up Operator/Veneer Jointer Returner signature: {E-signature:92727} PHYSICIAN SECTION Prognosis: {Rehab Prognosis:39275} Condition at Discharge: {Patient Condition:39798} Rehab Potential (if transferring to Rehab): {Rehab Prognosis:41342} Recommended Labs or Other Treatments After Discharge: Physician Certification: I certify the above information and transfer of Gabriel Carter is necessary for the continuing treatment of the diagnosis listed and that he requires {KATE Level of Care:29904} for {greater less than:97444} 30 days. Update Admission H&P: {KATE Changes in H&P:83897} PHYSICIAN SIGNATURE: {E-signature:41081} documented in this encounter 06-03-2022 Note Orthopaedic Progress Note Ortho to bedside for repeat exam. Patient asleep on my arrival. Patient reports that the pain is significantly improved. He is refusing to wear the right splint due to it being too tight. Denies numbness and tingling has improved range of motion. Physical exam: Right upper extremity: Slight improvement of erythema from previous borders The dorsal swelling of the hand and forearm are overall unchanged. There is no palpable fluctuance. There is tenderness palpation of the dorsal hand and forearm. There is no palpable bullae there is no skin discoloration or focal necrosis. +SILT Ax/M/R/U distributions +Ax/AIN/PIN/U motor function +Radial pulse palpable See clinical photo below: ASSESSMENT: 57 y.o. male with severe right upper extremity erythema and swelling, concern for necrotizing fasciitis, with improving exam PLAN: -D/w Dr. Ayala -Patient presents with approximately 3-day history of worsening right upper extremity erythema and swelling. This began on the hand and has since progressed to the dorsal forearm. Patient does present with severe electrolyte abnormalities including hyponatremia, significantly elevated white blood cell count, CRP and ESR elevated as well as creatinine. All of these are significantly concerning for necrotizing fasciitis. Physical exam however is not convincingly consistent with necrotizing fasciitis. There are no skin manifestations of a necrotizing infection. There is no bullae there is no focal areas of necrosis. There is no discoloration. Time course of his infection is also not consistent with necrotizing fasciitis. Patient does report that his exam is significantly improved since administration of antibiotics at [place] [facility]. We will monitor patient for improvement with a short threshold to proceed to the OR should his exam worsen. -Exam stable thus far. Will recheck patient again at approximately 0800 -Status post splinting in the ED, patient currently refusing to wear splint -Continue IV antibiotics per ED/primary, recommend clindamycin given concern for possible necrotizing infection -Labs improving -Keep patient n.p.o., hold antibiotics in anticipation of possible operative intervention -Admit to medicine -Medical management, pain control, antibiotics per medicine -Consider infectious disease consult -Ortho to follow for serial exams. Should patient become unstable or exam significantly worsen please contact orthopedic surgery resident on-call immediately Reny Mar MD PGY2 Orthopaedic Surgery 06/03/2022 7:51 AM [facility] 06-03-2022 Nurse Note Paged ortho that pt is refusing to keep arm and hand in ciarra wrap and splint. Dr Mar aware and told to give the pt ice for his arm. He would be up to see the pt. T 06-03-2022 Note Orthopaedic Progress Note Ortho to bedside for repeat exam. Patient resting comfortably on my arrival. Patient reports that the pain in the right arm has improved. He did remove the right splint as he felt that it was too tight. Patient denies numbness and tingling. He reports that he has improved range of motion in the right wrist and decreased pain with movement of the right upper extremity. Physical exam:: Right upper extremity: No extension of erythema beyond the previously demarcated borders. The dorsal swelling of the hand and forearm are overall unchanged. There is no palpable fluctuance. There is tenderness palpation of the dorsal hand and forearm. There is no palpable bullae there is no skin discoloration or focal necrosis. +SILT Ax/M/R/U distributions +Ax/AIN/PIN/U motor function +Radial pulse palpable See clinical photo below: ASSESSMENT: 57 y.o. male with severe right upper extremity erythema and swelling, concern for necrotizing fasciitis, with stable exam PLAN: -D/w Dr. Ayala -Patient presents with approximately 3-day history of worsening right upper extremity erythema and swelling. This began on the hand and has since progressed to the dorsal forearm. Patient does present with severe electrolyte abnormalities including hyponatremia, significantly elevated white blood cell count, CRP and ESR elevated as well as creatinine. All of these are significantly concerning for necrotizing fasciitis. Physical exam however is not convincingly consistent with necrotizing fasciitis. There are no skin manifestations of a necrotizing infection. There is no bullae there is no focal areas of necrosis. There is no discoloration. Time course of his infection is also not consistent with necrotizing fasciitis. Patient does report that his exam is significantly improved since administration of antibiotics at [place] ED. We will monitor patient for improvement with a short threshold to proceed to the OR should his exam worsen. -Exam stable thus far. Will recheck patient again at approximately 0400 -Status post splinting in the ED -Continue IV antibiotics per ED/primary, recommend clindamycin given concern for possible necrotizing infection -We will repeat exam at midnight -We will repeat labs at midnight -Keep patient n.p.o., hold antibiotics in anticipation of possible operative intervention -Admit to medicine -Medical management, pain control, antibiotics per medicine -Consider infectious disease consult -Ortho to follow for serial exams. Should patient become unstable or exam significantly worsen please contact orthopedic surgery resident on-call immediately Reny Mar MD PGY2 Orthopaedic Surgery 06/03/2022 2:42 AM [facility] 06-03-2022 Note History Of Present I llserena Carter is a 57 y.o. male who presents to the emergency department for evaluation of right arm swelling and infection. Patient was transferred from outside ED for concerns for necrotizing fasciitis. Patient said initially he had an abrasion to his right hand a few days ago. Patient said the redness and swelling has increased and since traveled up his right arm. Denies any fever or chills. Denies any IV drug use. Denies any numbness or tingling in his right arm. In ED labs showed white blood cell count 24.3. Hemoglobin 12.3. Sed rate 61. CRP 236.3. Creatinine 3.74. Uric acid 6.1. INR 1.1. Right forearm xray as interpreted by me and confirmed by radiologist showed no acute findings. Did have an x-ray of his forearm on the right side which did not appreciate any underlying subcutaneous emphysema. Ortho consulted in ED, they are planning to continue to monitor the patient and potentially take him to surgery. Past Medical History He has no past medical history on file. Surgical History He has no past surgical history on file. Social History He has no history on file for tobacco use, alcohol use, and drug use. Allergies Patient has no known allergies. Medications (Not in a hospital admission) Review of Systems 12 point ROS negative except as stated in HPI Physical Exam GENERAL APPEARANCE: Awake and alert. Cooperative. HEENT: Normocephalic. Atraumatic. Sclera anicteric. Tolerates saliva. No trismus. NECK: Supple. Trachea midline. CARDIO: Normal rate. Radial pulses symmetrical and palpable LUNGS: Respirations unlabored. CTAB. ABDOMEN: Soft. Non-distended. Non-tender throughout. MUSCULOSKELETAL: Right upper Extremity Exam: Extensive erythema and edema from right hand up into right elbow. Tenderness to palpation of right arm from elbow down. Limited range of motion secondary to pain and swelling. Distal capillary refill takes less than 2 seconds. Radial pulses are 2+ bilaterally. Distal sensation and motor intact. SKIN: Warm and dry. NEUROLOGICAL: No gross facial drooping. No obvious neurologic deficits. Right Of Way Clearer strength symmetrical. Moves all 4 extremities spontaneously. Last Recorded Vitals Blood pressure 111/70, pulse 89, temperature 36.7 ?C (98 ?F), temperature source Oral, resp. rate 16, height 5' 10 (1.778 m), weight 195 lb (88.5 kg), SpO2 99 %. Relevant Results Radiographs: XR forearm 2 views right Final Result 1. No acute findings. Assessment/Plan Principal Problem: Cellulitis of right upper extremity # right arm cellulitis with concern for possible developing necrotizing fasciitis # ANGELIA # leukocytosis - NPO - IV fluids - on vancomycin, zosyn and clindamycin - follow up Blood cultures - Ortho consulted in ED, appreciate recs - Nephrology consult - ID consult # HTN - hold lisinopril # DVT ppx - SCDs [facility] 06-03-2022 Emergency department Note Patient updated on bed assignment Ro Maria RN 06/03/22 0119 06-03-2022 Emergency department Note Patient updated on bed assignment Ro Maria RN 06/03/22 0119 Ortho at the bedside attempting to re wrap the right arm and elevate it with stocking attached to IV pole Ro Maria RN 06/03/22 0114 Patient is sleeping and appears comfortable Ro Maria RN 06/03/22 0030 Patient given urinal, he has removed part of ciarra wrap on the proximal part of the upper arm and is refusing for it to be placed back on. Ro Maria RN 06/03/22 0009 Unable to obtain 2nd set of blood cultures, after 3 attempts patient is now refusing Ro Maria RN 06/02/22 2347 Unable to obtain 2nd set of Bld Cx after 3 unsuccessful attempts. Other labs obtained from already placed LAC IV site. RN aware. Pt anxious but cooperative. Told him that someone else will be back at a later time to attempt them again, he was agreeable. Traci Sow 06/02/22 5178 1st set of Blood Cultures obtained P&P from [facility] P&P. Traci 06/02/222236 Traci 06/02/222237 Provider at the bedside wrapping the patients right arm, music educator attempting blood cultures Ro Maria RN 06/02/222206 Xray at the bedside Ro Maria RN 06/02/222131 ED music educator called for blood cultures Ro Maria RN 06/02/222111 ED provider at the bedside, labs collected and sent Ro Maria RN 06/02/222054 During triage questionnaire, pt also informed similar issue happed to right leg about a month and a half ago, and last week it was his left ankle. ADELSO Edwards 06/02/222041 Emergency Department Encounter [facility] EMERGENCY DEPT Patient: Gabriel Carter : 1965 Date of Evaluation: 06/02/2022 ED [place] Provider: Jesse Cabral PA-C EDcare was supervised by Dr. Joseph who independently examined and evaluated the patient. Please see their attestation note for further details. Chief Complaint Chief Complaint Patient presents with Right arm swelling Pt arrived to ED by ems as a pt transfer from [facility]. Pt has right arm swelling. Pt transferred to [facility] for necrotizing fasciitis, and per ems, the doctor at [place] wanted pt seen for infection. SHIVANI Rodriguez was wearing a N95, Surgical mask for the entirety of this encounter. Gabriel Carter is a 57 y.o. male who presents to the emergency department for evaluation of right arm swelling and infection. Patient was transferred from outside ED for concerns for necrotizing fasciitis. Patient said initially he had an abrasion to his right hand a few days ago. Patient said the redness and swelling has increased and since traveled up his right arm. Denies any fever or chills. Denies any IV drug use. Denies any numbness or tingling in his right arm. Limitations to history: None Outside historians: EMS Past History No past medical history on file. No past surgical history on file. Social History Socioeconomic History Marital status: Medications/Allergies Previous Medications No medications on file No Known Allergies Physical Exam BP 111/70 Pulse 89 Temp 36.7 C (98 F) (Oral) Resp 16 Ht 1.778 m (5' 10 ) Wt 88.5 kg (195 lb) SpO2 99% BMI 27.98 kg/m Physical Exam GENERAL APPEARANCE: Awake and alert. Cooperative. HEENT: Normocephalic. Atraumatic. Sclera anicteric. Tolerates saliva. No trismus. NECK: Supple. Trachea midline. CARDIO: Normal rate. Radial pulses symmetrical and palpable LUNGS: Respirations unlabored. CTAB. ABDOMEN: Soft. Non-distended. Non-tender throughout. MUSCULOSKELETAL: Right upper Extremity Exam: Extensive erythema and edema from right hand up into right elbow. Tenderness to palpation of right arm from elbow down. Limited range of motion secondary to pain and swelling. Distal capillary refill takes less than 2 seconds. Radial pulses are 2+ bilaterally. Distal sensation and motor intact. SKIN: Warm and dry. NEUROLOGICAL: No gross facial drooping. No obvious neurologic deficits. Right Of Way Clearer strength symmetrical. Moves all 4 extremities spontaneously. SCREENINGS D Labs: Results for orders placed or performed during the hospital encounter of 06/02/22 Comprehensive metabolic panel Result Value Ref Range SODIUM 132 (L) 135 - 145 mmol/L POTASSIUM 3.8 3.5 - 5.1 mmol/L CHLORIDE 105 98 - 107 mmol/L CARBON DIOXIDE 21 (L) 22 - 30 mmol/L ANION GAP 6 3 - 13 mmol/L UREA NITROGEN 53 (H) 9 - 20 mg/dL CREATININE 3.74 (H) 0.66 - 1.25 mg/dL GLUCOSE 93 70 - 100 mg/dL CALCIUM 7.2 (L) 8.4 - 10.4 mg/dL AST (SGOT) 30 15 - 46 U/L ALT 21 0 - 49 U/L ALKALINE PHOSPHATASE 81 38 - 126 U/L ALBUMIN 2.8 (L) 3.5 - 5.0 g/dL BILIRUBIN, TOTAL 0.8 0.2 - 1.3 mg/dL TOTAL PROTEIN 5.8 (L) 6.3 - 8.2 g/dL eGFR 18.0 (L) >60.0 mL/min/1.73m*2 CBC auto differential Result Value Ref Range Auto WBC 24.3 (H) 3.6 - 10.7 10*3/uL RBC 4.00 (L) 4.40 - 5.90 10*6/uL Hemoglobin 12.3 (L) 13.0 - 18.0 g/dL Hematocrit 37.5 (L) 40.0 - 52.0 % MCV 93.9 80.0 - 98.0 fL MCH 30.7 26.0 - 34.0 pg MCHC 32.8 32.0 - 36.0 % RDW 13.1 11.5 - 14.5 % Platelets 291 140 - 440 10*3/uL MPV 8.2 7.4 - 12.4 fL C-reactive protein Result Value Ref Range C REACTIVE PROTEIN 236.3 (H) <10.0 mg/L Sedimentation rate, automated Result Value Ref Range Sed Rate 61 (H) 0 - 10 mm/hr Protime-INR Result Value Ref Range PROTHROMBIN TIME 11.6 9.0 - 12.0 s INR 1.1 0.9 - 1.1 Uric acid Result Value Ref Range URIC ACID 6.1 3.5 - 8.5 mg/dL CBC Result Value Ref Range Auto WBC 24.7 (H) 3.6 - 10.7 10*3/uL RBC 3.99 (L) 4.40 - 5.90 10*6/uL Hemoglobin 12.2 (L) 13.0 - 18.0 g/dL Hematocrit 36.5 (L) 40.0 - 52.0 % MCV 91.6 80.0 - 98.0 fL MCH 30.7 26.0 - 34.0 pg MCHC 33.5 32.0 - 36.0 % RDW 14.0 11.5 - 14.5 % Platelets 293 140 - 440 10*3/uL MPV 8.2 7.4 - 12.4 fL Basic metabolic panel Result Value Ref Range SODIUM 132 (L) 135 - 145 mmol/L POTASSIUM 3.7 3.5 - 5.1 mmol/L CHLORIDE 105 98 - 107 mmol/L CARBON DIOXIDE 21 (L) 22 - 30 mmol/L UREA NITROGEN 53 (H) 9 - 20 mg/dL CREATININE 3.40 (H) 0.66 - 1.25 mg/dL GLUCOSE 115 (H) 70 - 100 mg/dL CALCIUM 7.5 (L) 8.4 - 10.4 mg/dL ANION GAP 6 3 - 13 mmol/L eGFR 20.2 (L) >60.0 mL/min/1.73m*2 Manual Differential Result Value Ref Range Adjusted WBC 24.3 (H) 3.6 - 10.7 10*3/uL Neutrophils % 89 (H) 40 - 80 % Bands % 3 (H) <=0 % Lymphocytes % 2 (L) 20 - 40 % Monocytes % 5 2 - 10 % Eosinophils % 1 1 - 6 % Absolute Neutrophil Count 22.4 (H) 1.8 - 7.0 10*3/uL Segs Absolute 22.4 (H) 1.8 - 7.0 10*3/uL Bands Absolute 0.7 (H) <=0.0 10*3/uL Lymphocytes Absolute 0.5 (L) 1.0 - 4.3 10*3/uL Monocytes Absolute 1.2 (H) 0.0 - 0.8 10*3/uL Eosinophils Absolute 0.2 0.0 - 0.5 10*3/uL RBC Morphology Normal Vacuolated Neutrophils Present (A) (none) PLT Morphology Normal Total Counted 100 Neutrophils Manual 89 Lymphocytes Manual 2 Monocytes Manual 5 Eosinophils Manual 1 0 - 1 Bands Manual 3 Radiographs: XR forearm 2 views right Final Result 1. No acute findings. Report Dictated on Electronically Signed By: Benedict Hess Electronically Signed Date/Time: 06/02/2022 9:36 PM EDT : EKG: All EKG's areinterpreted by the Emergency Department Physician in the absence of a back roll lathe operator. see their note for interpretation of EKG. EMERGENCY DEPARTMENT COURSE and DIFFERENTIAL DIAGNOSIS/MDM: External Records Review: Reviewed report from [facility]. Patient's creatinine had increased from 1-5 approximately and white blood cell count was over 20,000 there. Social Determinants of Health: Low income. Gabriel Carter is a 57 y.o. male who presented to the emergency department for right arm cellulitis and concern for necrotizing fasciitis. Patient was transferred from outside ED. Differential diagnosis included cellulitis, septic arthritis, osteomyelitis, necrotizing fasciitis. Pt given 1 L IV fluids, 4 mg IV morphine and 1.25 mg IV droperidol. Our workup consisted of ordering/reviewing CBC, CMP, sed rate, CRP, type and screen, uric acid, PT/INR, blood cultures, x-ray right arm and showed white blood cell count 24.3. Hemoglobin 12.3. Sed rate 61. CRP 236.3. Creatinine 3.74. Uric acid 6.1. INR 1.1. Right forearm xray as interpreted by me and confirmed by radiologist showed no acute findings. Consulted orthopedics. Orthopedics evaluated the patient. Orthopedics recommended IV antibiotics and medical admission. They recommended to keep patient n.p.o. for possible OR intervention in the morning if necessary. They will reevaluate the patient in a few hours and continue to monitor patient. Please see their note for further details. Presentation is consistent with right arm cellulitis with concern for possible developing necrotizing fasciitis. Patient was started on 1500 mg IV vancomycin, 4500 mg IV Zosyn and 600 mg IV clindamycin. Blood cultures were sent. Patient was admitted for further management. Consulted hospitalist who accepted patient for admission. Final Diagnosis: 1. Cellulitis of right upper extremity 2. ANGELIA (acute kidney injury) ([facility] ([facility]) Medications vancomycin (Vancocin) 1,500 mg in dextrose 5 % 250 mL IVPB (has no administration in time range) droperidol (Inapsine) injection 1.25 mg (has no administration in time range) piperacillin-tazobactam (Zosyn) IVPB 4,500 mg (has no administration in time range) clindamycin in D5W (Cleocin) IVPB 600 mg (has no administration in time range) sodium chloride 0.9 % bolus 1,000 mL (1,000 mL IntraVENous New Bag 06/02/22 2310) morphine sulfate (PF) injection 4 mg (4 mg IntraVENous Given 06/02/22 2315) CRITICAL CARE TIME Total Critical Care time was 35 minutes, excluding separately reportable procedures. There was a high probability of clinically significant/life threatening deterioration in the patient's condition which required my urgent intervention. CONSULTS: None PROCEDURES: Unless otherwise noted below, none Procedures DISPOSITION/PLAN Admit 06/02/2022 11:51:04 PM PATIENT REFERRED TO: No follow-up provider specified. DISCHARGE MEDICATIONS: New Prescriptions No medications on file @[facility]([id number]:LAST:1)@ (Please note: Portions of this note were completed with a voice recognition program. Efforts were made to edit the dictations but occasionally words and phrases are mis-transcribed.) Form [id number] Jesse Cabral PA-C [facility] Jesse Cabral PA-C 06/03/22 0015 Emergency Department Encounter [facility] EMERGENCY DEPT Patient: Gabriel Carter : 1965 Date of Evaluation: 06/02/2022 ED Supervising Physician: Beau Joseph DO I independently examined and evaluated Gabriel Carter. This will serve as my Supervisory note and shared attestation. I did perform a substantive portion of the visit including all aspects of the Medical Decision Making. I wore appropriate PPE for the entirety of this encounter. In brief, Gabriel Carter is a 57 y.o. male that presents to the emergency department right arm swelling. The patient was transferred from [place]. There was a concern for necrotizing fasciitis. Patient states he is unsure as to how this happened, states that he recently had some infections of his knee was started on steroid. Patient did have swelling of the arm and came to the ED of [place] for evaluation patient was transferred here to the ED. Focused exam: Patient is awake alert, arm is bandaged at this time I did not take the bandage down patient is not tachycardic he is speaking in full clear sentences, heart and lung exam was otherwise negative. Brief ED course/MDM: Patient at this time did present from [place]. I did take the call from the outside facility in which they had stated that the patient's creatinine had precipitously increased from 1-5 had a 28,000 white count and they were very concerned for possible necrotizing fasciitis. Here in the emergency department did have a CMP which did show a creatinine of 3.74-patient is not on dialysis. Patient did have a CBC which shows a 24,000 white count PT/INR is normal CRP is elevated at 236. Did have an x-ray of his forearm on the right side which was independently interpreted, did not appreciate any underlying subcutaneous emphysema. Overread by radiology was consistent. At this time the PDX have come to see the patient. I did speak to orthopedics at this time they are planning to continue to monitor the patient and potentially take him to surgery. Dispositions pending MDM elements: The patient presented with chief complaint of right arm pain. The differential diagnosis associated with this patient's presentation includes necrotizing fasciitis, cellulitis, bony abnormality. Our workup consisted of ordering/reviewing: CBC, CMP, PT/INR ESR CRP forearm x-ray. Patient is in agreement with this plan. All diagnostic, treatment, and disposition decisions were made by myself in conjunction with the Resident. I also supervised bah portions of any procedures performed by the Resident. For all further details of the patient's emergency department visit, please see their documentation. (Comment: Please note this report has been produced using speech recognition software and may contain errors related to that system including errors in grammar, punctuation, and spelling, as well as words and phrases that may be inappropriate. If there are any questions or concerns please feel free to contact the dictating provider for clarification.) Beau Joseph DO [employer] Beau Joseph DO 06/02/222236 Bed: 37 Expected date: Expected time: Means of arrival: Comments: EMS - [place] transfer (when ready) Liliana Kirkland RN 06/02/222008 documented in this encounter 06-03-2022 Emergency department Note Ortho at the bedside attempting to re wrap the right arm and elevate it with stocking attached to IV pole Ro Maria RN 06/03/22 0114 06-03-2022 Consult note Formatting of th is note is different from the original. Pharmacy Managed Vancomycin Dosing Service Consult Note Consult Date: 06/03/22 Consulted By: Dr. Dick Room:3737 Patient Name: Gabriel Carter Allergies: Patient has no known allergies. Age: 57 y.o. Sex: male Ht: @FLOWAMB(11)@ TBW: @FLOWAMB(14)@ BMI: Body mass index is 27.98 kg/m . DW: 88.5 kg Calculated CrCl: 27 ml/min Lab Results Component Value Date CREATININE 3.40 (H) 06/02/2022 CREATININE 3.74 (H) 06/02/2022 BUN 53 (H) 06/02/2022 BUN 53 (H) 06/02/2022 WBC 24.7 (H) 06/02/2022 WBC 24.3 (H) 06/02/2022 Trough: No results found for: VANCOTROUGH Random: No results found for: VANCORANDOM Infectious Diagnosis: SSTI (goal trough = 10-15 mcg/mL, goal AUC = 400-600) Antimicrobials: Patient recently received an antibiotic (last 12 hours) Date/Time Action Medication Dose Rate 06/03/22 0015 New Bag piperacillin-tazobactam (Zosyn) IVPB 4,500 mg 4,500 mg 200 mL/hr Assessment/Plan: Start Vancomycin 750 mg Q 24 hours based on patient age, weight, renal function, and infectious diagnosis (projected AUC = 487 ). Will draw random level at 0600 06/04/22, and adjust dosing as appropriate. Thank you for this consult. Please page/call with questions. Date: 06/03/22 Time: 12:38 AM Name: Wes Cross RPh, PharmD Ext. [phone] T 06-03-2022 Emergency department Note Patient is sleeping and appears comfortable Ro Maria RN 06/03/22 0030 06-03-2022 History and physical note History Of Present Illness Gabriel Carter is a 57 y.o. male who presents to the emergency department for evaluation of right arm swelling and infection. Patient was transferred from outside ED for concerns for necrotizing fasciitis. Patient said initially he had an abrasion to his right hand a few days ago. Patient said the redness and swelling has increased and since traveled up his right arm. Denies any fever or chills. Denies any IV drug use. Denies any numbness or tingling in his right arm. In ED labs showed white blood cell count 24.3. Hemoglobin 12.3. Sed rate 61. CRP 236.3. Creatinine 3.74. Uric acid 6.1. INR 1.1. Right forearm xray as interpreted by me and confirmed by radiologist showed no acute findings. Did have an x-ray of his forearm on the right side which did not appreciate any underlying subcutaneous emphysema. Ortho consulted in ED, they are planning to continue to monitor the patient and potentially take him to surgery. Past Medical History He has no past medical history on file. Surgical History He has no past surgical history on file. Social History He has no history on file for tobacco use, alcohol use, and drug use. Allergies Patient has no known allergies. Medications (Not in a hospital admission) Review of Systems 12 point ROS negative except as stated in HPI Physical Exam GENERAL APPEARANCE: Awake and alert. Cooperative. HEENT: Normocephalic. Atraumatic. Sclera anicteric. Tolerates saliva. No trismus. NECK: Supple. Trachea midline. CARDIO: Normal rate. Radial pulses symmetrical and palpable LUNGS: Respirations unlabored. CTAB. ABDOMEN: Soft. Non-distended. Non-tender throughout. MUSCULOSKELETAL: Right upper Extremity Exam: Extensive erythema and edema from right hand up into right elbow. Tenderness to palpation of right arm from elbow down. Limited range of motion secondary to pain and swelling. Distal capillary refill takes less than 2 seconds. Radial pulses are 2+ bilaterally. Distal sensation and motor intact. SKIN: Warm and dry. NEUROLOGICAL: No gross facial drooping. No obvious neurologic deficits. Right Of Way Clearer strength symmetrical. Moves all 4 extremities spontaneously. Last Recorded Vitals Blood pressure 111/70, pulse 89, temperature 36.7 C (98 F), temperature source Oral, resp. rate 16, height 5' 10 (1.778 m), weight 195 lb (88.5 kg), SpO2 99 %. Relevant Results Radiographs: XR forearm 2 views right Final Result 1. No acute findings. Assessment/Plan Principal Problem: Cellulitis of right upper extremity # right arm cellulitis with concern for possible developing necrotizing fasciitis # ANGELIA # leukocytosis - NPO - IV fluids - on vancomycin, zosyn and clindamycin - follow up Blood cultures - Ortho consulted in ED, appreciate recs - Nephrology consult - ID consult # HTN - hold lisinopril # DVT ppx - SCDs [employer] Work Phone: 06-03-2022 History and physical note History Of Present Illness Gabriel Carter is a 57 y.o. male who presents to the emergency department for evaluation of right arm swelling and infection. Patient was transferred from outside ED for concerns for necrotizing fasciitis. Patient said initially he had an abrasion to his right hand a few days ago. Patient said the redness and swelling has increased and since traveled up his right arm. Denies any fever or chills. Denies any IV drug use. Denies any numbness or tingling in his right arm. In ED labs showed white blood cell count 24.3. Hemoglobin 12.3. Sed rate 61. CRP 236.3. Creatinine 3.74. Uric acid 6.1. INR 1.1. Right forearm xray as interpreted by me and confirmed by radiologist showed no acute findings. Did have an x-ray of his forearm on the right side which did not appreciate any underlying subcutaneous emphysema. Ortho consulted in ED, they are planning to continue to monitor the patient and potentially take him to surgery. Past Medical History He has no past medical history on file. Surgical History He has no past surgical history on file. Social History He has no history on file for tobacco use, alcohol use, and drug use. Allergies Patient has no known allergies. Medications (Not in a hospital admission) Review of Systems 12 point ROS negative except as stated in HPI Physical Exam GENERAL APPEARANCE: Awake and alert. Cooperative. HEENT: Normocephalic. Atraumatic. Sclera anicteric. Tolerates saliva. No trismus. NECK: Supple. Trachea midline. CARDIO: Normal rate. Radial pulses symmetrical and palpable LUNGS: Respirations unlabored. CTAB. ABDOMEN: Soft. Non-distended. Non-tender throughout. MUSCULOSKELETAL: Right upper Extremity Exam: Extensive erythema and edema from right hand up into right elbow. Tenderness to palpation of right arm from elbow down. Limited range of motion secondary to pain and swelling. Distal capillary refill takes less than 2 seconds. Radial pulses are 2+ bilaterally. Distal sensation and motor intact. SKIN: Warm and dry. NEUROLOGICAL: No gross facial drooping. No obvious neurologic deficits. Right Of Way Clearer strength symmetrical. Moves all 4 extremities spontaneously. Last Recorded Vitals Blood pressure 111/70, pulse 89, temperature 36.7 C (98 F), temperature source Oral, resp. rate 16, height 5' 10 (1.778 m), weight 195 lb (88.5 kg), SpO2 99 %. Relevant Results Radiographs: XR forearm 2 views right Final Result 1. No acute findings. Assessment/Plan Principal Problem: Cellulitis of right upper extremity # right arm cellulitis with concern for possible developing necrotizing fasciitis # ANGELIA # leukocytosis - NPO - IV fluids - on vancomycin, zosyn and clindamycin - follow up Blood cultures - Ortho consulted in ED, appreciate recs - Nephrology consult - ID consult # HTN - hold lisinopril # DVT ppx - SCDs documented in this encounter 06-03-2022 Emergency department Note Patient given urinal, he has removed part of ciarra wrap on the proximal part of the upper arm and is refusing for it to be placed back on. Ro Maria RN 06/03/22 0009 06-02-2022 Emergency department Note Unable to obtain 2nd set of blood cultures, after 3 attempts patient is now refusing Ro Maria RN 06/02/22 [id number] 06-02-2022 Emergency department Note Unable to obtain 2nd set of Bld Cx after 3 unsuccessful attempts. Other labs obtained from already placed LAC IV site. RN aware. Pt anxious but cooperative. Told him that someone else will be back at a later time to attempt them again, he was agreeable. Traci Sow 06/02/22 2641 06-02-2022 Note Discussed with ortho pedic resident last night. Formal exam today. See progress note for plan. Bharathi Ayala MD Ortho H&P/Consult Patient: Gabriel Carter Date of : 1965 Acct: [id number] PCP: Papi Ricketts DO Date of Admission: 06/02/2022 Date of Service: Pt seen/examined on 06/02/2022 Chief Complaint: right arm swelling History Of Present Illness: This is a 57 y.o. right hand dominant male who presents with swelling of the right arm which has been present since 05/31. He reports that this began as a focal area of swelling overlying the dorsal hand and has since spread proximally. He presented earlier today to [place] emergency department for evaluation secondary to severe pain in the right upper extremity. He states that they gave him antibiotics earlier today and his pain has since significantly improved. Due to concern for necrotizing fasciitis he was transferred to [facility] for further evaluation and management. Patient states that he has history of left knee pain which had a very similar course. This began as mild pain progressed to be severe he was treated with steroids and the pain improved. He believes that the symptoms he is having with his right arm are very similar to what he had in his left knee. He denies fevers and chills. He denies any focal drainage. He does report that there is a area overlying the dorsal second metacarpal which he has squeezed repeatedly but has been unable to express purulent fluid. Smokes 1 ppd, occasional etoh, denies intravenous drug use. Patient ambulation status: no difficulty. Antiplatelets/Anticoagulation includes: none. WBC: 28.3 ESR: 63 CRP: 331 Temp: 36.7 Past Medical History: No past medical history on file. Past Surgical History: No past surgical history on file. Home Medications: Prior to Admission medications Not on File Current Hospital Medications: No current facility-administered medications for this encounter. No current outpatient medications on file. Allergies: Patient has no known allergies. Social History: Social History Socioeconomic History Marital status: Spouse name: Not on file Number of children: Not on file Years of education: Not on file Highest education level: Not on file Occupational History Not on file Tobacco Use Smoking status: Not on file Smokeless tobacco: Not on file Substance and Sexual Activity Alcohol use: Not on file Drug use: Not on file Sexual activity: Not on file Other Topics Concern Not on file Social History Narrative Not on file Social Determinants of Health Financial Resource Strain: Not on file Food Insecurity: Not on file Transportation Needs: Not on file Physical Activity: Not on file Stress: Not on file Social Connections: Not on file Intimate Partner Violence: Not on file Housing Stability: Not on file Family History: No family history on file. Further Family History is noncontributory to this injury. REVIEW OF SYSTEMS: Review of Systems - General ROS: negative for - chills, fatigue, fever, malaise or night sweats Psychological ROS: negative Ophthalmic ROS: negative ENT ROS: negative for - headaches or sore throat Hematological and Lymphatic ROS: negative for - bleeding problems or blood clots Respiratory ROS: no cough, shortness of breath, or wheezing Cardiovascular ROS: no chest pain or dyspnea on exertion Gastrointestinal ROS: negative Musculoskeletal ROS: See HPI Neurological ROS: negative for - bowel and bladder control changes, gait disturbance or numbness/tingling All other systems reviewed and are negative PHYSICAL EXAM: BP 102/63 (BP Location: Right arm, Patient Position: Lying) Pulse 79 Temp 36.7 ?C (98 ?F) (Oral) Resp 18 Ht 1.778 m (5' 10 ) Wt 88.5 kg (195 lb) SpO2 90% BMI 27.98 kg/m? GENERAL APPEARANCE: Awake and oriented x3. No acute distress, except appropriate to injury. MOOD AND AFFECT: Calm appropriate to situation GAIT AND STATION: Patient is in bed and able to ambulate COORDINATION and BALANCE: Patient is grossly coordinated Lymphadenopathy: none on examination of the affected extremity(s) Right Upper Extremity: -No obvious pain or deformity to inspection with normal joint range of motion, stability, and muscle strength except noted below -No TTP over clavicle, shoulder, humerus, elbow -TTP: Tenderness dorsally over hand, dorsal forearm there is no tenderness to palpation volarly -Radial pulse palpable -SILT in radial/median/ulnar nerve distributions -Motor + AIN/PIN/ulnar nerve functions, diminished secondary to pain -No Lymphedema -Skin intact except where noted below -Painless pROM at shoulder/elbow 2-point discrimination (mm) RIGHT Hand Thumb Index Long Ring Small r u r u r u r u r u 5 5 5 5 5 5 5 5 5 5 Median Ulnar There is erythema and swelling of the dorsal hand extending proximally to the dorsal forea (more content not included)... [facility] 06-02-2022 Emergency department Note 1st set of Blood Cultures obtained P&P from [facility] P&P. Traci Sow 06/02/222236 Traci Sow 06/02/222237 06-02-2022 Emergency department Note Provider at the bedside wrapping the patients right arm, music educator attempting blood cultures Ro Maria RN 06/02/222206 06-02-2022 Emergency department Note Xray at the bedside Ro Maria RN 06/02/222131 06-02-2022 Emergency department Note ED music educator called for blood cultures Ro Maria RN 06/02/222111 06-02-2022 Consult note Formatting of th is note is different from the original. Images from the original note were not included. Discussed with orthopedic resident last night. Formal exam today. See progress note for plan. Bharathi Ayala MD Ortho H&P/Consult Patient: Gabriel Carter Date of : 1965 Acct: [id number] PCP: Papi Ricketts DO Date of Admission: 06/02/2022 Date of Service: Pt seen/examined on 06/02/2022 Chief Complaint: right arm swelling History Of Present Illness: This is a 57 y.o. right hand dominant male who presents with swelling of the right arm which has been present since 05/31. He reports that this began as a focal area of swelling overlying the dorsal hand and has since spread proximally. He presented earlier today to [place] emergency department for evaluation secondary to severe pain in the right upper extremity. He states that they gave him antibiotics earlier today and his pain has since significantly improved. Due to concern for necrotizing fasciitis he was transferred to [facility] for further evaluation and management. Patient states that he has history of left knee pain which had a very similar course. This began as mild pain progressed to be severe he was treated with steroids and the pain improved. He believes that the symptoms he is having with his right arm are very similar to what he had in his left knee. He denies fevers and chills. He denies any focal drainage. He does report that there is a area overlying the dorsal second metacarpal which he has squeezed repeatedly but has been unable to express purulent fluid. Smokes 1 ppd, occasional etoh, denies intravenous drug use. Patient ambulation status: no difficulty. Antiplatelets/Anticoagulation includes: none. WBC: 28.3 ESR: 63 CRP: 331 Temp: 36.7 Past Medical History: No past medical history on file. Past Surgical History: No past surgical history on file. Home Medications: Prior to Admission medications Not on File Current Hospital Medications: No current facility-administered medications for this encounter. No current outpatient medications on file. Allergies: Patient has no known allergies. Social History: Social History Socioeconomic History Marital status: Spouse name: Not on file Number of children: Not on file Years of education: Not on file Highest education level: Not on file Occupational History Not on file Tobacco Use Smoking status: Not on file Smokeless tobacco: Not on file Substance and Sexual Activity Alcohol use: Not on file Drug use: Not on file Sexual activity: Not on file Other Topics Concern Not on file Social History Narrative Not on file Social Determinants of Health Financial Resource Strain: Not on file Food Insecurity: Not on file Transportation Needs: Not on file Physical Activity: Not on file Stress: Not on file Social Connections: Not on file Intimate Partner Violence: Not on file Housing Stability: Not on file Family History: No family history on file. Further Family History is noncontributory to this injury. REVIEW OF SYSTEMS: Review of Systems - General ROS: negative for - chills, fatigue, fever, malaise or night sweats Psychological ROS: negative Ophthalmic ROS: negative ENT ROS: negative for - headaches or sore throat Hematological and Lymphatic ROS: negative for - bleeding problems or blood clots Respiratory ROS: no cough, shortness of breath, or wheezing Cardiovascular ROS: no chest pain or dyspnea on exertion Gastrointestinal ROS: negative Musculoskeletal ROS: See HPI Neurological ROS: negative for - bowel and bladder control changes, gait disturbance or numbness/tingling All other systems reviewed and are negative PHYSICAL EXAM: BP 102/63 (BP Location: Right arm, Patient Position: Lying) Pulse 79 Temp 36.7 C (98 F) (Oral) Resp 18 Ht 1.778 m (5' 10 ) Wt 88.5 kg (195 lb) SpO2 90% BMI 27.98 kg/m GENERAL APPEARANCE: Awake and oriented x3. No acute distress, except appropriate to injury. MOOD AND AFFECT: Calm appropriate to situation GAIT AND STATION: Patient is in bed and able to ambulate COORDINATION and BALANCE: Patient is grossly coordinated Lymphadenopathy: none on examination of the affected extremity(s) Right Upper Extremity: -No obvious pain or deformity to inspection with normal joint range of motion, stability, and muscle strength except noted below -No TTP over clavicle, shoulder, humerus, elbow -TTP: Tenderness dorsally over hand, dorsal forearm there is no tenderness to palpation volarly -Radial pulse palpable -SILT in radial/median/ulnar nerve distributions -Motor + AIN/PIN/ulnar nerve functions, diminished secondary to pain -No Lymphedema -Skin intact except where noted below -Painless pROM at shoulder/elbow 2-point discrimination (mm) RIGHT Hand Thumb Index Long Ring Small r u r u r u r u r u 5 5 5 5 5 5 5 5 5 5 Median Ulnar There is erythema and swelling of the dorsal hand extending proximally to the dorsal forearm. There is tenderness to palpation dorsally over the hand and forearm. There is no tenderness to palpation of the volar forearm. There is no palpable bullae or fluctuance. There is no discoloration or focal areas of necrosis of the dorsal forearm or hand. There is extreme pain range of motion about the wrist. See clinical photos below: Left Upper Extremity: -No obvious pain or deformity to inspection with normal joint range of motion, stability, and muscle strength except noted below -No TTP over clavicle, shoulder, humerus, elbow, forearm, wrist, hand, or fingers -TTP: nontender throughout extremity -Radial pulse palpable -SILT in radial/median/ ulnar nerve distributions -Motor + AIN/PIN/ulnar nerve functions -No Lymphedema -Skin intact except where noted below -Painless pROM at shoulder/elbow/wrist Labs: CBC: No results found for: WBC, RBC BMP:No results found for: GLUCOSE, SODIUM, POTASSIUM, CHLORIDE, CO2, BUN, CREATININE, CALCIUM PT/INR: No results found for: PT, INR, APTT Type and Screen: No results found for: RH, LABANTI CRP: No results found for: CRP ESR: No results found for: SEDRATE HgBA1c: No components found for: LABA1C The above labs were reviewed by me. Radiology: The below imaging was independently reviewed and interpreted XR: Right forearm: There is no acute fracture or dislocation. Right hand there is no acute fracture or dislocation. Radiology report reviewed. Procedure: Splinting right upper extremity Verbal consent was obtained. A well-padded posterior slab splint was placed to the right upper extremity. Great care was taken to pad any bony prominences. This splint was then hung using stockinette from the IV pole. Patient tolerated procedure well. ASSESSMENT: 57 y.o. male with severe right upper extremity erythema and swelling, concern for necrotizing fasciitis PLAN: -D/w Dr. Ayala -Patient presents with approximately 3-day history of worsening right upper extremity erythema and swelling. This began on the hand and has since progressed to the dorsal forearm. Patient does present with severe electrolyte abnormalities including hyponatremia, significantly elevated white blood cell count, CRP and ESR elevated as well as creatinine. All of these are significantly concerning for necrotizing fasciitis. Physical exam however is not convincingly consistent with necrotizing fasciitis. There are no skin manifestations of a necrotizing infection. There is no bullae there is no focal areas of necrosis. There is no discoloration. Time course of his infection is also not consistent with necrotizing fasciitis. Patient does report that his exam is significantly improved since administration of antibiotics at [place] ED. We will monitor patient for improvement with a short threshold to proceed to the OR should his exam worsen. -Status post splinting in the ED -Continue IV antibiotics per ED/primary -We will repeat exam at midnight -We will repeat labs at midnight -Keep patient n.p.o., hold antibiotics in anticipation of possible operative intervention -Admit to medicine -Medical management, pain control, antibiotics per medicine -Consider infectious disease consult -Ortho to follow for serial exams. Should patient become unstable or exam significantly worsen please contact orthopedic surgery resident on-call immediately Reny Mar MD PGY-2 Orthopaedic Surgery 06-02-2022 Emergency department Note ED provider at the bedside, labs collected and sent Ro Maria RN 06/02/222054 06-02-2022 Emergency department Note During triage questionnaire, pt also informed similar issue happed to right leg about a month and a half ago, and last week it was his left ankle. ADELSO Edwards 06/02/222041 06-02-2022 Emergency department Note Bed: 37 Expected date: Expected time: Means of arrival: Comments: EMS - [place] transfer (when ready) Liliana Kirkland RN 06/02/222008 06-02-2022 Physician Emergency department Note Emergency Department Encounter [facility] EMERGENCY DEPT Patient: Gabriel Carter : 1965 Date of Evaluation: 06/02/2022 ED AL[place]O Provider: Jesse Cabral PA-C EDcare was supervised by Dr. Joseph who independently examined and evaluated the patient. Please see their attestation note for further details. Chief Complaint Chief Complaint Patient presents with Right arm swelling Pt arrived to ED by ems as a pt transfer from [facility]. Pt has right arm swelling. Pt transferred to [facility] for necrotizing fasciitis, and per ems, the doctor at [place] wanted pt seen for infection. SHIVANI Rodriguez was wearing a N95, Surgical mask for the entirety of this encounter. Gabriel Carter is a 57 y.o. male who presents to the emergency department for evaluation of right arm swelling and infection. Patient was transferred from outside ED for concerns for necrotizing fasciitis. Patient said initially he had an abrasion to his right hand a few days ago. Patient said the redness and swelling has increased and since traveled up his right arm. Denies any fever or chills. Denies any IV drug use. Denies any numbness or tingling in his right arm. Limitations to history: None Outside historians: EMS Past History No past medical history on file. No past surgical history on file. Social History Socioeconomic History Marital status: Medications/Allergies Previous Medications No medications on file No Known Allergies Physical Exam BP 111/70 Pulse 89 Temp 36.7 C (98 F) (Oral) Resp 16 Ht 1.778 m (5' 10 ) Wt 88.5 kg (195 lb) SpO2 99% BMI 27.98 kg/m Physical Exam GENERAL APPEARANCE: Awake and alert. Cooperative. HEENT: Normocephalic. Atraumatic. Sclera anicteric. Tolerates saliva. No trismus. NECK: Supple. Trachea midline. CARDIO: Normal rate. Radial pulses symmetrical and palpable LUNGS: Respirations unlabored. CTAB. ABDOMEN: Soft. Non-distended. Non-tender throughout. MUSCULOSKELETAL: Right upper Extremity Exam: Extensive erythema and edema from right hand up into right elbow. Tenderness to palpation of right arm from elbow down. Limited range of motion secondary to pain and swelling. Distal capillary refill takes less than 2 seconds. Radial pulses are 2+ bilaterally. Distal sensation and motor intact. SKIN: Warm and dry. NEUROLOGICAL: No gross facial drooping. No obvious neurologic deficits. Right Of Way Clearer strength symmetrical. Moves all 4 extremities spontaneously. SCREENINGS D Labs: Results for orders placed or performed during the hospital encounter of 06/02/22 Comprehensive metabolic panel Result Value Ref Range SODIUM 132 (L) 135 - 145 mmol/L POTASSIUM 3.8 3.5 - 5.1 mmol/L CHLORIDE 105 98 - 107 mmol/L CARBON DIOXIDE 21 (L) 22 - 30 mmol/L ANION GAP 6 3 - 13 mmol/L UREA NITROGEN 53 (H) 9 - 20 mg/dL CREATININE 3.74 (H) 0.66 - 1.25 mg/dL GLUCOSE 93 70 - 100 mg/dL CALCIUM 7.2 (L) 8.4 - 10.4 mg/dL AST (SGOT) 30 15 - 46 U/L ALT 21 0 - 49 U/L ALKALINE PHOSPHATASE 81 38 - 126 U/L ALBUMIN 2.8 (L) 3.5 - 5.0 g/dL BILIRUBIN, TOTAL 0.8 0.2 - 1.3 mg/dL TOTAL PROTEIN 5.8 (L) 6.3 - 8.2 g/dL eGFR 18.0 (L) >60.0 mL/min/1.73m*2 CBC auto differential Result Value Ref Range Auto WBC 24.3 (H) 3.6 - 10.7 10*3/uL RBC 4.00 (L) 4.40 - 5.90 10*6/uL Hemoglobin 12.3 (L) 13.0 - 18.0 g/dL Hematocrit 37.5 (L) 40.0 - 52.0 % MCV 93.9 80.0 - 98.0 fL MCH 30.7 26.0 - 34.0 pg MCHC 32.8 32.0 - 36.0 % RDW 13.1 11.5 - 14.5 % Platelets 291 140 - 440 10*3/uL MPV 8.2 7.4 - 12.4 fL C-reactive protein Result Value Ref Range C REACTIVE PROTEIN 236.3 (H) <10.0 mg/L Sedimentation rate, automated Result Value Ref Range Sed Rate 61 (H) 0 - 10 mm/hr Protime-INR Result Value Ref Range PROTHROMBIN TIME 11.6 9.0 - 12.0 s INR 1.1 0.9 - 1.1 Uric acid Result Value Ref Range URIC ACID 6.1 3.5 - 8.5 mg/dL CBC Result Value Ref Range Auto WBC 24.7 (H) 3.6 - 10.7 10*3/uL RBC 3.99 (L) 4.40 - 5.90 10*6/uL Hemoglobin 12.2 (L) 13.0 - 18.0 g/dL Hematocrit 36.5 (L) 40.0 - 52.0 % MCV 91.6 80.0 - 98.0 fL MCH 30.7 26.0 - 34.0 pg MCHC 33.5 32.0 - 36.0 % RDW 14.0 11.5 - 14.5 % Platelets 293 140 - 440 10*3/uL MPV 8.2 7.4 - 12.4 fL Basic metabolic panel Result Value Ref Range SODIUM 132 (L) 135 - 145 mmol/L POTASSIUM 3.7 3.5 - 5.1 mmol/L CHLORIDE 105 98 - 107 mmol/L CARBON DIOXIDE 21 (L) 22 - 30 mmol/L UREA NITROGEN 53 (H) 9 - 20 mg/dL CREATININE 3.40 (H) 0.66 - 1.25 mg/dL GLUCOSE 115 (H) 70 - 100 mg/dL CALCIUM 7.5 (L) 8.4 - 10.4 mg/dL ANION GAP 6 3 - 13 mmol/L eGFR 20.2 (L) >60.0 mL/min/1.73m*2 Manual Differential Result Value Ref Range Adjusted WBC 24.3 (H) 3.6 - 10.7 10*3/uL Neutrophils % 89 (H) 40 - 80 % Bands % 3 (H) <=0 % Lymphocytes % 2 (L) 20 - 40 % Monocytes % 5 2 - 10 % Eosinophils % 1 1 - 6 % Absolute Neutrophil Count 22.4 (H) 1.8 - 7.0 10*3/uL Segs Absolute 22.4 (H) 1.8 - 7.0 10*3/uL Bands Absolute 0.7 (H) <=0.0 10*3/uL Lymphocytes Absolute 0.5 (L) 1.0 - 4.3 10*3/uL Monocytes Absolute 1.2 (H) 0.0 - 0.8 10*3/uL Eosinophils Absolute 0.2 0.0 - 0.5 10*3/uL RBC Morphology Normal Vacuolated Neutrophils Present (A) (none) PLT Morphology Normal Total Counted 100 Neutrophils Manual 89 Lymphocytes Manual 2 Monocytes Manual 5 Eosinophils Manual 1 0 - 1 Bands Manual 3 Radiographs: XR forearm 2 views right Final Result 1. No acute findings. Report Dictated on Electronically Signed By: Benedict Hess Electronically Signed Date/Time: 06/02/2022 9:36 PM EDT : EKG: All EKG's areinterpreted by the Emergency Department Physician in the absence of a back roll lathe operator. see their note for interpretation of EKG. EMERGENCY DEPARTMENT COURSE and DIFFERENTIAL DIAGNOSIS/MDM: External Records Review: Reviewed report from [facility]. Patient's creatinine had increased from 1-5 approximately and white blood cell count was over 20,000 there. Social Determinants of Health: Low income. Gabriel Carter is a 57 y.o. male who presented to the emergency department for right arm cellulitis and concern for necrotizing fasciitis. Patient was transferred from outside ED. Differential diagnosis included cellulitis, septic arthritis, osteomyelitis, necrotizing fasciitis. Pt given 1 L IV fluids, 4 mg IV morphine and 1.25 mg IV droperidol. Our workup consisted of ordering/reviewing CBC, CMP, sed rate, CRP, type and screen, uric acid, PT/INR, blood cultures, x-ray right arm and showed white blood cell count 24.3. Hemoglobin 12.3. Sed rate 61. CRP 236.3. Creatinine 3.74. Uric acid 6.1. INR 1.1. Right forearm xray as interpreted by me and confirmed by radiologist showed no acute findings. Consulted orthopedics. Orthopedics evaluated the patient. Orthopedics recommended IV antibiotics and medical admission. They recommended to keep patient n.p.o. for possible OR intervention in the morning if necessary. They will reevaluate the patient in a few hours and continue to monitor patient. Please see their note for further details. Presentation is consistent with right arm cellulitis with concern for possible developing necrotizing fasciitis. Patient was started on 1500 mg IV vancomycin, 4500 mg IV Zosyn and 600 mg IV clindamycin. Blood cultures were sent. Patient was admitted for further management. Consulted hospitalist who accepted patient for admission. Final Diagnosis: 1. Cellulitis of right upper extremity 2. ANGELIA (acute kidney injury) ([facility]HCC) ([facility]) Medications vancomycin (Vancocin) 1,500 mg in dextrose 5 % 250 mL IVPB (has no administration in time range) droperidol (Inapsine) injection 1.25 mg (has no administration in time range) piperacillin-tazobactam (Zosyn) IVPB 4,500 mg (has no administration in time range) clindamycin in D5W (Cleocin) IVPB 600 mg (has no administration in time range) sodium chloride 0.9 % bolus 1,000 mL (1,000 mL IntraVENous New Bag 06/02/22 2310) morphine sulfate (PF) injection 4 mg (4 mg IntraVENous Given 06/02/22 2315) CRITICAL CARE TIME Total Critical Care time was 35 minutes, excluding separately reportable procedures. There was a high probability of clinically significant/life threatening deterioration in the patient's condition which required my urgent intervention. CONSULTS: None PROCEDURES: Unless otherwise noted below, none Procedures DISPOSITION/PLAN Admit 06/02/2022 11:51:04 PM PATIENT REFERRED TO: No follow-up provider specified. DISCHARGE MEDICATIONS: New Prescriptions No medications on file @[facility]([id number]:LAST:1)@ (Please note: Portions of this note were completed with a voice recognition program. Efforts were made to edit the dictations but occasionally words and phrases are mis-transcribed.) Form [id number].[id number] Jesse Cabral PA-C Acute Care [facility] ' Jesse Cabral PA-C 06/03/22 0015 [facility] 06-02-2022 Physician Emergency department Note Emergency Department Encounter [facility] EMERGENCY DEPT Patient: Gabriel Carter : 1965 Date of Evaluation: 06/02/2022 ED Supervising Physician: Beau Joseph, DO I independently examined and evaluated Gabriel Carter. This will serve as my Supervisory note and shared attestation. I did perform a substantive portion of the visit including all aspects of the Medical Decision Making. I wore appropriate PPE for the entirety of this encounter. In brief, Gabriel Carter is a 57 y.o. male that presents to the emergency department right arm swelling. The patient was transferred from [place]. There was a concern for necrotizing fasciitis. Patient states he is unsure as to how this happened, states that he recently had some infections of his knee was started on steroid. Patient did have swelling of the arm and came to the ED of [place] for evaluation patient was transferred here to the ED. Focused exam: Patient is awake alert, arm is bandaged at this time I did not take the bandage down patient is not tachycardic he is speaking in full clear sentences, heart and lung exam was otherwise negative. Brief ED course/MDM: Patient at this time did present from [place]. I did take the call from the outside facility in which they had stated that the patient's creatinine had precipitously increased from 1-5 had a 28,000 white count and they were very concerned for possible necrotizing fasciitis. Here in the emergency department did have a CMP which did show a creatinine of 3.74-patient is not on dialysis. Patient did have a CBC which shows a 24,000 white count PT/INR is normal CRP is elevated at 236. Did have an x-ray of his forearm on the right side which was independently interpreted, did not appreciate any underlying subcutaneous emphysema. Overread by radiology was consistent. At this time the PDX have come to see the patient. I did speak to orthopedics at this time they are planning to continue to monitor the patient and potentially take him to surgery. Dispositions pending MDM elements: The patient presented with chief complaint of right arm pain. The differential diagnosis associated with this patient's presentation includes necrotizing fasciitis, cellulitis, bony abnormality. Our workup consisted of ordering/reviewing: CBC, CMP, PT/INR ESR CRP forearm x-ray. Patient is in agreement with this plan. All diagnostic, treatment, and disposition decisions were made by myself in conjunction with the Resident. I also supervised bah portions of any procedures performed by the Resident. For all further details of the patient's emergency department visit, please see their documentation. (Comment: Please note this report has been produced using speech recognition software and may contain errors related to that system including errors in grammar, punctuation, and spelling, as well as words and phrases that may be inappropriate. If there are any questions or concerns please feel free to contact the dictating provider for clarification.) Beau Joseph DO [employer] Beau Joseph DO 06/02/[id number] [facility] Phone: 06-02-2022 Note HNO ID: [id number] Author: Elmer Rodriguez APRN.[employer] Service: ? Author Type: Nurse Practitioner Type: Progress Notes Filed: 06/02/2022 12:12 PM Note Text: Chief Complaint Patient presents with: Acute Visit: RIGHT wrist/hand sore x 2 days HPI Edphyllis Carter is a 57 year old male who presents here today for Above Complaints. Here with Patient here for complaints of right hand/wrist complaint. States that swelling and pain is present. Started approximately 2 days. Thinks he got an abrasion after hitting it on a carport when working on his vehicle. Since then, patient has diffuse swelling of the hand, wrist, forearm. Warm to touch. In visible pain. Red streaking up the right arm into the brachial area. Patient appears uncomfortable. We are having a difficult time getting his blood pressure. Feels clammy. States that he has not drink any water for 2 days. I advised patient that we need to call EMS given his presentation. He will definitely need IV fluids for rehydration. I attempted to manually finding blood pressure multiple times with difficulty. I discussed with patient that we will call EMS to transport him to [facility]. He adamantly declined and left the office with stating that he would go to [facility] on his own. I was unable to have patient's sign an AMA form with his abrupt departure. Past medical history, appointments, medications, allergies reviewed. EXAM: Pulse 74 Temp (!) 35.8 ?C (96.5 ?F) (Left Tympanic) Resp 24 Wt 90.3 kg (199 lb) BMI 28.55 kg/m? General Appearance: Well appearing, alert, in no acute distress, well-hydrated, well nourished.. Skin: Puncture wound/abrasion over the right hand first metacarpal knuckle. Diffuse swelling, erythema, warmth of the right hand, wrist area extending to the forearm. Red streaking visualized into the biceps area. Patient will not let me palpate. ASSESSMENT/PLAN: 1. Cellulitis of skin - ICD9: 682.9, ICD10: L03.90 -As stated above, patient clearly has cellulitis. Worried about sepsis. Likely dehydrated also. Will need IV antibiotics, possible incision and drainage, IV fluids, pain control. I went to call EMS for transport but patient declined in left with stating that they would drive themselves to the hospital. Unable to accurately measure the patient's blood pressure with multiple attempts. Heads up given to [facility]. Elmer Rodriguez APRN.[employer] This note was partly generated using [employer] voice recognition dictation and may contain some misspelled or inaccurate words missed on review. [facility] 06-02-2022 History of Present illness Narrative Chief Complaint Patient presents with: Acute Visit: RIGHT wrist/hand sore x 2 days HPI Gabriel Carter is a 57 year old male who presents here today for Above Complaints. Here with Patient here for complaints of right hand/wrist complaint. States that swelling and pain is present. Started approximately 2 days. Thinks he got an abrasion after hitting it on a carport when working on his vehicle. Since then, patient has diffuse swelling of the hand, wrist, forearm. Warm to touch. In visible pain. Red streaking up the right arm into the brachial area. Patient appears uncomfortable. We are having a difficult time getting his blood pressure. Feels clammy. States that he has not drink any water for 2 days. I advised patient that we need to call EMS given his presentation. He will definitely need IV fluids for rehydration. I attempted to manually finding blood pressure multiple times with difficulty. I discussed with patient that we will call EMS to transport him to [facility]. He adamantly declined and left the office with stating that he would go to [facility] on his own. I was unable to have patient's sign an AMA form with his abrupt departure. Past medical history, appointments, medications, allergies reviewed. EXAM: Pulse 74 Temp (!) 35.8 C (96.5 F) (Left Tympanic) Resp 24 Wt 90.3 kg (199 lb) BMI 28.55 kg/m General Appearance: Well appearing, alert, in no acute distress, well-hydrated, well nourished.. Skin: Puncture wound/abrasion over the right hand first metacarpal knuckle. Diffuse swelling, erythema, warmth of the right hand, wrist area extending to the forearm. Red streaking visualized into the biceps area. Patient will not let me palpate. ASSESSMENT/PLAN: 1. Cellulitis of skin - ICD9: 682.9, ICD10: L03.90 -As stated above, patient clearly has cellulitis. Worried about sepsis. Likely dehydrated also. Will need IV antibiotics, possible incision and drainage, IV fluids, pain control. I went to call EMS for transport but patient declined in left with stating that they would drive themselves to the hospital. Unable to accurately measure the patient's blood pressure with multiple attempts. Heads up given to [facility]. Elmer Rodriguez APRN.CNP This note was partly generated using [employer] voice recognition dictation and may contain some misspelled or inaccurate words missed on review. documented in this encounter [facility] 05-26-2022 Note HNO ID: [id number] Author: RT Horacio(R) Service: Radiology Author Type: Technologist Type: Progress Notes Filed: 05/26/2022 12:23 PM Note Text: Radiology Service Progress Note PATIENT NAME: Gabriel Carter DATE OF SERVICE: May 26, 2022 TIME: 12:10 PM PATIENT IDENTITY VERIFICATION COMPLETED USING TWO (2) IDENTIFIERS: Name and Date of confirmed by patient verbally. FALL SCREENING: Has the patient had 2 falls in the last year or 1 fall with injury or currently using an Ambulatory Assistive Device (Walker, Cane, Wheelchair, Crutches, etc.)? No PATIENT GENDER DATA: Male PATIENT RELEVANT IMPLANT DATA REVIEWED: Yes RADIOLOGY DEPARTMENT: General X-ray: Exam(s) Completed: Lower Extremity X-Ray(s): Ankle, Left and Foot, Left PERIPHERAL IV DATA: Not applicable SIGNED BY: Bailey Kapoor RT(R) May 26, 2022 12:10 PM [facility] 05-26-2022 Note HNO ID: [id number] Author: Elmer Rodriguez APRN.[employer] Service: ? Author Type: Nurse Practitioner Type: Progress Notes Filed: 05/26/2022 11:55 AM Note Text: Chief Complaint Patient presents with: Ankle Injury: LEFT ankle x 2 days HPI Gabriel Carter is a 57 year old male who presents here today for Above Complaints. Patient here for complaints of left ankle pain. Occurred approximately 2 days ago. Was doing yard work in his bare feet. Woke up Thursday morning and has had difficulty with ambulating, putting pressure on the left lower extremity since then. Does not remember a time on Thursday where he injured the area. He mentions he was mowing a field that was uneven. Has been icing. Has a wrap at home. Movement, pressure and walking makes it worse. Asking for a work note to be off work this week. Past medical history, appointments, medications, allergies reviewed. EXAM: BP 133/80 Pulse 96 Temp 36.7 ?C (98 ?F) (Left Tympanic) Resp 16 Wt 90.3 kg (199 lb) SpO2 97% BMI 28.55 kg/m? General Appearance: Well appearing, alert, in no acute distress, well-hydrated, well nourished.. Extremities: Left ankle/foot: Able to move toes without difficulty. Extension and flexion of the ankle joint is painful. No lateral malleolus pain or swelling. No pain in his 2-5th metatarsals. Does have moderate tenderness, swelling of the medial malleolus extending into the medial portion of the foot. ASSESSMENT/PLAN: 1. Acute left ankle pain - ICD9: 719.47, ICD10: M25.572 -Acute fracture versus contusion. Patient requesting to be off work this week. I gave him a work note. He will check back with me on Thursday if needing to extend. Patient also requesting crutches. We did give him some crutches to use for the next few days to allow him to rest. Encouraged patient to continue with icing 20 minutes on, 20 minutes off. Gently reintroducing pressure, weight to the extremity if not fractured. Start Medrol Dosepak for inflammation. Continue with compression application at home. If fractured we will get to orthopedics. - XR ANKLE GENERAL 3V AP/LAT/OBL LEFT - XR FOOT GENERAL 3V AP/LAT/OBL LEFT - METHYLPREDNISOLONE 4 MG TABLETS IN A DOSE PACK Elmer Rodriguez APRN.JAY This note was partly generated using [employer] voice recognition dictation and may contain some misspelled or inaccurate words missed on review. [facility] 04-24-2022 Note HNO ID: [id number] Author: Reyes Waite MD Service: ? Author Type: Physician Type: Progress Notes Filed: 04/24/2022 10:13 AM Note Text: Chief Complaint Patient presents with: Knee Pain: right HPI Gabriel Carter is a 57 year old male who presents here today for an acute visit. Pt c/o of right knee pain x 1 week constant. Rated pain 10/10, tenderness to touch and pain to move the knee. He has chronic issues from driving, this occ flares up on him Has been worse this time. Pain over patellar tendon and tibial tubercle. Past medical history, appointments, medications, allergies reviewed. Previous Medical History PAST MEDICAL HISTORY Diagnosis Date Essential hypertension Previous Surgical History PAST SURGICAL HISTORY Procedure Laterality Date COLONOSCOPY 09/2017 PAST SURGICAL HISTORY OF N/A 02/22/2018 Heart Cath at [facility] Family History FAMILY HISTORY Problem Relation Age of Onset other (Harrison palsy) Mother Coronary Artery Disease Father Colon Cancer Maternal Grandfather Patient Allergies ALLERGIES Allergen Reactions Naproxen GI Upset Pt notes he is not allergic to this. Is okay with taking this. Current Medications Current Outpatient Medications on File Prior to Visit Medication Sig aspirin, enteric coated (ASPIRIN, ENTERIC COATED) 81 mg EC tablet Take 2 tablets by mouth once daily. cyclobenzaprine (FLEXERIL) 10 mg tablet Take 1 tablet by mouth three times daily as needed for muscle spasm. lisinopril (ZESTRIL, PRINIVIL) 20 mg tablet Take 1 tablet by mouth once daily. gabapentin (NEURONTIN) 100 mg capsule Take 1-2 capsules by mouth three times daily as needed for up to 30 days. fluticasone (FLONASE) 50 mcg/actuation nasal spray Use 2 Sprays in each nostril once daily. Rinse mouth after use. No current facility-administered medications on file prior to visit. Social History Social History Tobacco Use Smoking status: Every Day Packs/day: 1.00 Types: Cigarettes Smokeless tobacco: Never Tobacco comments: Quit smoking, occasional hit off 's cigarettes Vaping Use Vaping Use: Never used Substance Use Topics Alcohol use: Yes Comment: rarely Drug use: No EXAM: BP 142/98 Pulse 88 Resp 16 Wt 90.4 kg (199 lb 6.4 oz) BMI 28.61 kg/m? General Appearance: Well appearing, alert, in no acute distress, well-hydrated, well nourished.. Right knee: no effusion; tenderness over patellar tendon and tendon insertion. Mild swelling over insertion.. Health Maintenance List HEPATITIS B(1 of 3 - 3-dose series) Never done COVID-19 VACCINE(1) Never done DTAP,TDAP,TD(1 - Tdap) Never done SHINGRIX VACCINE(1 of 2) Never done DEPRESSION ASSESSMENT Never done INFLUENZA(1) due on 08/08/2022 HEPATITIS C SCREENING due on 02/18/2023 COLORECTAL CANCER SCREENING due on 09/25/2022 ANNUAL PCP TEAM CHRONIC DISEASE VISIT due on 02/18/2023 BP CONTROLLED (<130/80) due on 02/18/2023 LIPID SCREEN due on 03/13/2023 DIABETES SCREEN due on 03/06/2025 PROSTATE CANCER SCREENING DISCUSSION due on 02/18/2027 HIV SCREENING Discontinued Data reviewed none ASSESSMENT/PLAN: 1. Patellar tendinitis of right knee - ICD9: 726.64, ICD10: M76.51 - PREDNISONE 10 MG TABLET 9 Days of prednisone He is off over the weekend so will rest Follow up prn I agree with the Chief Complaint, ROS, and Past Histories independently gathered by the clinical donor support technician and the remaining scribed note accurately describes my personal service to the patient. Medical Decision Making: Problems: Low: Acute, uncomplicated illness or injury Risk: Moderate: Drug management Medical Decision Making Level: 3 - Low Reyes Waite MD The documentation for this note was completed by Michelle Hamilton Ma acting as scribe for Reyes Waite MD. April 24, 2022 9:51 AM. Michelle Hamilton Ma [facility] 04-24-2022 History of Present illness Narrative Chief Complaint Patient presents with: Knee Pain: right HPI Gabriel Carter is a 57 year old male who presents here today for an acute visit. Pt c/o of right knee pain x 1 week constant. Rated pain 10/10, tenderness to touch and pain to move the knee. He has chronic issues from driving, this occ flares up on him Has been worse this time. Pain over patellar tendon and tibial tubercle. Past medical history, appointments, medications, allergies reviewed. Previous Medical History PAST MEDICAL HISTORY Diagnosis Date Essential hypertension Previous Surgical History PAST SURGICAL HISTORY Procedure Laterality Date COLONOSCOPY 09/2017 PAST SURGICAL HISTORY OF N/A 02/22/2018 Heart Cath at [facility] Family History FAMILY HISTORY Problem Relation Age of Onset other (Harrison palsy) Mother Coronary Artery Disease Father Colon Cancer Maternal Grandfather Patient Allergies ALLERGIES Allergen Reactions Naproxen GI Upset Pt notes he is not allergic to this. Is okay with taking this. Current Medications Current Outpatient Medications on File Prior to Visit Medication Sig aspirin, enteric coated (ASPIRIN, ENTERIC COATED) 81 mg EC tablet Take 2 tablets by mouth once daily. cyclobenzaprine (FLEXERIL) 10 mg tablet Take 1 tablet by mouth three times daily as needed for muscle spasm. lisinopril (ZESTRIL, PRINIVIL) 20 mg tablet Take 1 tablet by mouth once daily. gabapentin (NEURONTIN) 100 mg capsule Take 1-2 capsules by mouth three times daily as needed for up to 30 days. fluticasone (FLONASE) 50 mcg/actuation nasal spray Use 2 Sprays in each nostril once daily. Rinse mouth after use. No current facility-administered medications on file prior to visit. Social History Social History Tobacco Use Smoking status: Every Day Packs/day: 1.00 Types: Cigarettes Smokeless tobacco: Never Tobacco comments: Quit smoking, occasional hit off 's cigarettes Vaping Use Vaping Use: Never used Substance Use Topics Alcohol use: Yes Comment: rarely Drug use: No EXAM: BP 142/98 Pulse 88 Resp 16 Wt 90.4 kg (199 lb 6.4 oz) BMI 28.61 kg/m General Appearance: Well appearing, alert, in no acute distress, well-hydrated, well nourished.. Right knee: no effusion; tenderness over patellar tendon and tendon insertion. Mild swelling over insertion.. Health Maintenance List HEPATITIS B(1 of 3 - 3-dose series) Never done COVID-19 VACCINE(1) Never done DTAP,TDAP,TD(1 - Tdap) Never done SHINGRIX VACCINE(1 of 2) Never done DEPRESSION ASSESSMENT Never done INFLUENZA(1) due on 08/08/2022 HEPATITIS C SCREENING due on 02/18/2023 COLORECTAL CANCER SCREENING due on 09/25/2022 ANNUAL PCP TEAM CHRONIC DISEASE VISIT due on 02/18/2023 BP CONTROLLED (<130/80) due on 02/18/2023 LIPID SCREEN due on 03/13/2023 DIABETES SCREEN due on 03/06/2025 PROSTATE CANCER SCREENING DISCUSSION due on 02/18/2027 HIV SCREENING Discontinued Data reviewed none ASSESSMENT/PLAN: 1. Patellar tendinitis of right knee - ICD9: 726.64, ICD10: M76.51 - PREDNISONE 10 MG TABLET 9 Days of prednisone He is off over the weekend so will rest Follow up prn I agree with the Chief Complaint, ROS, and Past Histories independently gathered by the clinical donor support technician and the remaining scribed note accurately describes my personal service to the patient. Medical Decision Making: Problems: Low: Acute, uncomplicated illness or injury Risk: Moderate: Drug management Medical Decision Making Level: 3 - Low Reyes Waite MD The documentation for this note was completed by Michelle Hamilton Ma acting as scribe for Reyes Waite MD. April 24, 2022 9:51 AM. Michelle Hamilton Ma documented in this encounter [facility] 02-20-2022 Miscellaneous Notes Pt called and is notified of providers message and instructions. Pt voices understanding. Clary Tolliver, RN It is not considered an error. I apologize for using that term. It would be considered a lab variance in the way it was collected possibly. Or it could be accurate and we would need to investigate further. Elmer Rodriguez APRN.[employer]URSING [employer] Phoned patient and given provider's message below. Advised patient BMP results could be d/t error and would like to recheck. Patient states if it's an error, who is going to pay for it, because he's not going to pay for it twice if it was an error. Please advise patient. Please let the patient know that his PSA is normal. His BMP is abnormal. Glucose is low at 60, potassium is high at 5.3. I suspect possibly a lab error with the sample likely having some hemolysis and sitting for too long. Nevertheless, probably should repeat in 1-2 weeks to ensure labs are actually normal. Elmer Rodriguez APRN.CNP documented in this encounter [facility] 02-18-2022 Note HNO ID: [id number] Author: Elmer Rodriguez APRN.CNP Service: ? Author Type: Nurse Practitioner Type: Progress Notes Filed: 02/18/2022 1:50 PM Note Text: Chief Complaint Patient presents with: F/U 6 Month HPI Gabriel Carter is a 56 year old male who presents here today for Chronic Medical Conditions. follow up for HTN, Chronic lower back pain. Doing well overall. Does have a complaints of lower back pain. Occurred after loading some pellets, heavy lifting. Requesting something to help. Past medical history, appointments, medications, allergies reviewed. EXAM: BP 112/80 Pulse 93 Resp 16 Wt 91.2 kg (201 lb) SpO2 98% BMI 28.84 kg/m? General Appearance: Well appearing, alert, in no acute distress, well-hydrated, well nourished.. Head: Normocephalic, no masses, lesions, tenderness or abnormalities. Eyes: Anicteric sclera. Pupils are equally round and reactive to light. Extraocular movements are intact. . Lungs: Lungs clear to auscultation. No wheezing, rhonchi, rales.. Back: straight and symmetric, tenderness along lumbar paraspinal area bilaterally. Heart: RRR without murmur, gallop, or rubs. No ectopy. Abdomen: Normal abdominal exam, Abdomen soft, non-tender. Bowel sounds normal. No masses, organomegaly. Extremities: No deformities, edema ASSESSMENT/PLAN: 1. Hypertension, essential - ICD9: 401.9, ICD10: I10 (primary diagnosis) - good control - Continue current medication(s) - Check BMP - Recommended regular aerobic exercise. - Recommend home blood pressure monitoring, to bring results in on next visit - Goal of BP <130/80 - BASIC METABOLIC PNL - LISINOPRIL 20 MG TABLET 2. Chronic low back pain without sciatica, unspecified back pain laterality - ICD9: 724.2, 338.29, ICD10: M54.50, G89.29 - Acute on chronic, start medications, back to Dr. Price if needing more - CYCLOBENZAPRINE 10 MG TABLET - PREDNISONE 10 MG TABLET 3. Screening for prostate cancer - ICD9: V76.44, ICD10: Z12.5 - PSA/PROSTSPECAG SCRN Elmer Rodriguez APRN.CNP RTO in 12 months, sooner if needed. This note was partly generated using [employer] voice recognition dictation and may contain some misspelled or inaccurate words missed on review. [facility] 02-18-2022 Instructions Elmer Rodriguez APRN.CNP - 02/18/2022 1:48 PM EST Back medications sent, let us know if you need to go back to Dr. Price Get labs today Continue with current medications Follow up yearly and as needed. Elmer Rodriguez APRN.CNP documented in this encounter [facility] 02-18-2022 History of Present illness Narrative Chief Complaint Patient presents with: F/U 6 Month HPI Gabriel Carter is a 56 year old male who presents here today for Chronic Medical Conditions. follow up for HTN, Chronic lower back pain. Doing well overall. Does have a complaints of lower back pain. Occurred after loading some pellets, heavy lifting. Requesting something to help. Past medical history, appointments, medications, allergies reviewed. EXAM: BP 112/80 Pulse 93 Resp 16 Wt 91.2 kg (201 lb) SpO2 98% BMI 28.84 kg/m General Appearance: Well appearing, alert, in no acute distress, well-hydrated, well nourished.. Head: Normocephalic, no masses, lesions, tenderness or abnormalities. Eyes: Anicteric sclera. Pupils are equally round and reactive to light. Extraocular movements are intact. . Lungs: Lungs clear to auscultation. No wheezing, rhonchi, rales.. Back: straight and symmetric, tenderness along lumbar paraspinal area bilaterally. Heart: RRR without murmur, gallop, or rubs. No ectopy. Abdomen: Normal abdominal exam, Abdomen soft, non-tender. Bowel sounds normal. No masses, organomegaly. Extremities: No deformities, edema ASSESSMENT/PLAN: 1. Hypertension, essential - ICD9: 401.9, ICD10: I10 (primary diagnosis) - good control - Continue current medication(s) - Check BMP - Recommended regular aerobic exercise. - Recommend home blood pressure monitoring, to bring results in on next visit - Goal of BP <130/80 - BASIC METABOLIC PNL - LISINOPRIL 20 MG TABLET 2. Chronic low back pain without sciatica, unspecified back pain laterality - ICD9: 724.2, 338.29, ICD10: M54.50, G89.29 - Acute on chronic, start medications, back to Dr. Price if needing more - CYCLOBENZAPRINE 10 MG TABLET - PREDNISONE 10 MG TABLET 3. Screening for prostate cancer - ICD9: V76.44, ICD10: Z12.5 - PSA/PROSTSPECAG SCRN Elmer Rodriguez APRN.CNP RTO in 12 months, sooner if needed. This note was partly generated using [employer] voice recognition dictation and may contain some misspelled or inaccurate words missed on review. documented in this encounter [facility] 05-03-2021 Instructions An Garrison APRN.CNP - 05/03/2021 9:45 AM EDT 1. Start the prednisone taper. 2. Start the zanaflex as needed. 3. Start the gabapentin -- 1-2 tablets three times daily as needed. 4. Schedule w/ spine. 5. Consider PT. documented in this encounter [facility] 05-03-2021 History of Present illness Narrative This is a 56 year old male who presents today with: Patient presents with: Pain, Back: Lower back pain on right side shoots to right leg; x2 weeks HISTORY OF PRESENT ILLNESS: Gabriel Carter is a 56 year old male. Patient presents with: Pain, Back: Lower back pain on right side shoots to right leg; x2 weeks Pt presents today with complaint of ongoing back pain w/ radiation to the right leg. Hx of back problems. Refers this is something different. Trouble with sitting/standing. Walking is painful. Can't sleep. Refers that this started when he was shoveling. Didn't feel it at the time, but started w/ pain the next day. Refers that he tried flexeril and medrol dose pack. -- which didn't help. Tried heat. Pain radiates down the right leg. No n/t anywhere. No loss of bowel/bladder. He previous had an MRI 07/22/2019. IMPRESSION: Mild multilevel spondylosis of the lumbar spine with mild right foraminal stenosis at L2-L3, and L3-L4, and mild right subarticular zone stenosis at L2-3 as described. No high-grade canal stenosis. Anatomic Thoracic/Lumbar Variant: None. L4-5 is considered the level of the iliac crest and assume there are 5 lumbar-type vertebrae. Reports that he completed PT at that time. Per patient, they wanted to do surgery, however, he didn't have insurance at the time. He also followed w/ pain management. PAST MEDICAL HISTORY: PAST MEDICAL HISTORY Diagnosis Date Essential hypertension PAST SURGICAL HISTORY Procedure Laterality Date COLONOSCOPY 09/2017 PAST SURGICAL HISTORY OF N/A 02/22/2018 Heart Cath at [facility] ALLERGIES Naproxen MEDICATIONS Current Outpatient Medications Medication Sig cyclobenzaprine (FLEXERIL) 10 mg tablet Take 1 tablet by mouth three times daily as needed for muscle spasm or pain. fluticasone (FLONASE) 50 mcg/actuation nasal spray Use 2 Sprays in each nostril once daily. Rinse mouth after use. lisinopril (ZESTRIL, PRINIVIL) 20 mg tablet Take 1 tablet by mouth once daily. aspirin, enteric coated (ASPIRIN, ENTERIC COATED) 81 mg EC tablet Take 1 tablet by mouth once daily. No current facility-administered medications for this visit. FAMILY HISTORY Problem Relation Age of Onset other (Harrison palsy) Mother Coronary Artery Disease Father Colon Cancer Maternal Grandfather Social History Tobacco Use Smoking status: Former Smoker Packs/day: 1.00 Smokeless tobacco: Never Used Tobacco comment: Quit smoking, occasional hit off 's cigarettes Vaping Use Vaping Use: Never used Substance Use Topics Alcohol use: Yes Comment: rarely Drug use: No EXAM: Pulse (!) 123 Resp 20 Wt 88.2 kg (194 lb 6.4 oz) SpO2 94% BMI 27.11 kg/m PHYSICAL EXAM: General Appearance: Well appearing, alert, in no acute distress, well-hydrated, well nourished.. Skin: Skin color, texture, turgor normal, no suspicious rashes or lesions. Head: Normocephalic, no masses, lesions, tenderness or abnormalities. Eyes: Anicteric sclera. Extraocular movements are intact. . Back:no pain to palpation of vertebrae, no muscle tenderness, reflexes are 2+ and symmetric, motor and sensory appear to be normal, no evidence of scoliosis. ROM limited. Lungs: Lungs clear to auscultation. No wheezing, rhonchi, rales.. Heart: RRR without murmur, gallop, or rubs. No ectopy. Extremities: No deformities, edema, skin discoloration, clubbing or cyanosis. Good capillary refill. . Neurologic: Gait normal. Reflexes normal and symmetric. = strength. No foot drop w/ ambulation. ASSESSMENT/PLAN: 1. Right-sided low back pain with right-sided sciatica, unspecified chronicity - ICD9: 724.3, ICD10: M54.41 Chronic low back pain Will go ahead and repeat prednisone taper. Change flexeril to zanaflex. Start gabapentin. Referral to spine. Encouraged PT. - [facility] - PREDNISONE 10 MG TABLET - GABAPENTIN 100 MG CAPSULE - TIZANIDINE 4 MG CAPSULE To ER with development of any red-flag symptoms. Discussed treatment plan and patient voices understanding. Patient's questions answered appropriately. Medications and potential side effects were discussed and patient voices understanding. Return to the office as scheduled or as needed for worsening/no improvement. An Garrison APRN.JAY This note was partially generated using BBspace voice recognition system. Note was reviewed for accuracy. There may be minor misspellings or grammar miscues with [employer] voice recognition. Medical Decision Making: Problems: Low: Acute, uncomplicated illness or injury Data: Unique source(s) for external note(s) reviewed: 1 Unique test result(s) reviewed: 1 Assessment requiring an independent historian(s) Risk: Moderate: Drug management Medical Decision Making Level: 4 - Moderate documented in this encounter [facility] Hypertension, essential- Primary Unspecified essential hypertension Chronic low back pain without sciatica, unspecified back pain laterality Screening for prostate cancer Special screening for malignant neoplasm of prostate [facility] Diagnosis Hypertension, essential- Primary Unspecified essential hypertension Hyperkalemia Hyperpotassemia [facility] Diagnosis Patellar tendinitis of right knee- Primary Patellar tendinitis [facility] Diagnosis Cellulitis of skin- Primary Cellulitis and abscess of unspecified site [facility] Diagnosis Cellulitis of right upper extremity- Primary Cellulitis of right upper extremity ANGELIA (acute kidney injury) (CMS/HCC) (HCC) Necrotizing fasciitis (HCC) Necrotizing fasciitis Necrotizing fasciitis (HCC) Necrotizing fasciitis HTN (hypertension) Unspecified essential hypertension documented in this encounter Evaluation note* Diagnosis Necrotizing fasciitis of forearm (CMS/HCC) (HCC) Cellulitis of right upper extremity documented in this encounter Evaluation note* Diagnosis Necrotizing fasciitis (HCC)- Primary Necrotizing fasciitis Cellulitis of right upper extremity documented in this encounter Evaluation note* Diagnosis Necrotizing fasciitis of forearm (CMS/HCC) (HCC) [facility]* Diagnosis Necrotizing fasciitis of forearm (CMS/HCC) (HCC) Cellulitis of right upper extremity documented in this encounter Evaluation note* Diagnosis Necrotizing fasciitis of forearm (CMS/HCC) (HCC) Cellulitis of right upper extremity Chronic pain of right upper extremity [facility]* Diagnosis Herpes zoster without complication- Primary Herpes zoster without mention of complication [facility] Consultation (Routine) - Pending Review Specialty Diagnoses / Procedures Referred By Contac t Referred To Contact Pain Medicine Diagnoses Necrotizing fasciitis of forearm (CMS/HCC) (HCC) Cellulitis of right upper extremity Chronic pain of right upper extremity Procedures [place] OFFICE/OUTPATIENT [facility] 60-74 MINUTES Bharathi Ayala MD [address] [facility] [address] [place] [address] [facility] [address] [place] [address] Referral ID Status Reason Start Date Expiration Date Visits Requested Visits Authorized [id number] Pending Review Specialty Services Required 09/25/2022 09/25/2023 1 1 T Reason for Referral Specialty Diagnoses / Procedures Referred By Contac t Referred To Contact [facility] [place] Diagnoses Right-sided low back pain with right-sided sciatica, unspecified chronicity Procedures [facility] OFF[facility]PATIENT [facility] 60-74 MINUTES An Garrison APRN.[facility] [address] [place] [address] Referral ID Status Reason Start Date Expiration Date Visits Requested Visits Authorized [id number] Authorized PCP Requested Referral 05/03/2021 05/03/2022 1 1 Specialty Diagnoses / Procedures Referred By Contac t Referred To Contact Occupational Therapy Diagnoses Necrotizing fasciitis of forearm (CMS/HCC) (HCC) Cellulitis of right upper extremity Procedures [place] OFFICE[facility]PATIENT [facility] 60-74 MINUTES Bharathi Ayala MD [address] [facility] [address] [place] [address] Referral ID Status Reason Start Date Expiration Date Visits Requested Visits Authorized [id number] Pending Review Eval and Treat 07/24/2022 07/25/2023 99 99 Summary Purpose Family History No Family History Records FoundNo Family History Records FoundNo Family History Records Found Advance Directives No Advanced Directives Records FoundLatest Code Status on File Code Status Date Activated Date Inactivated Comments Full Code 06/03/2022 2:13 AM 06/08/2022 8:27 PM Latest Code Status on File Code Status Date Activated Date Inactivated Comments Full Code 06/03/2022 2:13 AM 06/08/2022 8:27 PM Additional Source Comments Source Comments (unrecognize d section and content) In the event this informatio n is protected by the Federal Confidentiality of Alcohol and Drug Abuse Patient Records regulations: The Federal rules restrict any use of the information to criminally investigate or prosecute any alcohol or drug abuse patient.[facility] the event this information is protected by the Federal Confidentiality of Alcohol and Drug Abuse Patient Records regulations: The Federal rules restrict any use of the information to criminally investigate or prosecute any alcohol or drug abuse patient.[facility] the event this information is protected by the Federal Confidentiality of Alcohol and Drug Abuse Patient Records regulations: The Federal rules restrict any use of the information to criminally investigate or prosecute any alcohol or drug abuse patient.[facility] the event this information is protected by the Federal Confidentiality of Alcohol and Drug Abuse Patient Records regulations: The Federal rules restrict any use of the information to criminally investigate or prosecute any alcohol or drug abuse patient.[facility] the event this information is protected by the Federal Confidentiality of Alcohol and Drug Abuse Patient Records regulations: The Federal rules restrict any use of the information to criminally investigate or prosecute any alcohol or drug abuse patient.[facility] the event this information is protected by the Federal Confidentiality of Alcohol and Drug Abuse Patient Records regulations: The Federal rules restrict any use of the information to criminally investigate or prosecute any alcohol or drug abuse patient.[facility] the event this information is protected by the Federal Confidentiality of Alcohol and Drug Abuse Patient Records regulations: The Federal rules restrict any use of the information to criminally investigate or prosecute any alcohol or drug abuse patient.[facility] Reason for Visit (unrecogniz ed section and content) Reason Comments F/U 6 Month Reason Comments Results Reason Comments Knee Pain right Reason Comments Acute Visit RIGHT wrist/hand sor e x 2 days Reason Comments Right arm swelling Pt arrived to ED by [facility] as a pt transfer from [facility]. Pt has right arm swelling. Pt transferred to [facility] for necrotizing fasciitis, and per ems, the doctor at [place] wanted pt seen for infection. Specialty Diagnoses / Procedures Referred By Contac t Referred To Contact Diagnoses ANGELIA (acute kidney injury) (CMS/HCC) ([facility]) Cellulitis of right upper extremity Procedures . Rob Dick MD [address] [place] [address] [facility] 5w Telemetry [address] [place] [id number] Referral ID Status Reason Start Date Expiration Date Visits Re quested Visits Authorized [id number] 1 1 Reason Comments acid reflux Reason Comments Post-op DOS 06/05/2022 Repeat excisional debridement skin, subcutaneous tissue, and fascia of right hand/wrist/forearm measuring 300 sq cm with secondary wound closure. DOS 06/03/2022 Excisional debridement skin, subcutaneous tissue, and fascia of right hand/wrist/forearm measuring 300 sq cm, extensor synoectomy right wrist Reason Onset Date Comments IV Medication 06/06/2022 IV antibiotic [email or web address] Reason Comments Follow-up Reason Comments Post-op Wound check, DOS 05/11 Repeat excisional debridement skin, subcutaneous tissue, and fascia of right hand/wrist/forearm measuring 300 sq cm with secondary wound closure. DOS 06/03/2022 Excisional debridement skin, subcutaneous tissue, and fascia of right hand/wrist/forearm measuring 300 sq cm, extensor synovectomy right wrist. Reason Comments Post-op DOS 06/05/2022 Repeat excisional debridement skin, subcutaneous tissue, and fascia of right hand/wrist/forearm measuring 300 sq cm with secondary wound closure. DOS 06/03/2022 Excisional debridement skin, subcutaneous tissue, and fascia of right hand/wrist/forearm measuring 300 sq cm, extensor synovectomy right wrist. Reason Onset Date Comments Appointment Request 09/26/2022 Reason Comments ER F/U Shingles Reason Onset Date Comments Forms/questionnaires 12/23/2022 Care Teams (unrecognized sec tion and content) Podiatric Surgeon Relationship Specialty Start Date End Date Reyes Waite MD [address] [place] [address] PCP - General Family Medicine 12/31/16 Podiatric Surgeon Relationship Specialty Start Date End Date Reyes Waite MD [address] [place] [address] PCP - General Family Medicine 12/31/16 Podiatric Surgeon Relationship Specialty Start Date End Date Reyes Waite MD [address] [place] [address] PCP - General Family Medicine 12/31/16 Podiatric Surgeon Relationship Specialty Start Date End Date Reyes Waite MD [address] [facility], [place] [id number] PCP - General Family Medicine 12/31/16 Podiatric Surgeon Relationship Specialty Start Date End Date Papi Ricketts DO [address] [place] [address] PCP - General Emergency Medicine - Hospice and Palliative Medicine 06/02/22 Podiatric Surgeon Relationship Specialty Start Date End Date Papi Ricketts DO [address] [place] [address] PCP - General Emergency Medicine - Hospice and Palliative Medicine 06/02/22 Podiatric Surgeon Relationship Specialty Start Date End Date Papi Ricketts DO [address] [place] [address] PCP - General Emergency Medicine - Hospice and Palliative Medicine 06/02/22 Podiatric Surgeon Relationship Specialty Start Date End Date Papi Ricketts DO [address] [place] [address] PCP - General Emergency Medicine - Hospice and Palliative Medicine 06/02/22 Podiatric Surgeon Relationship Specialty Start Date End Date Papi Ricketts DO [address] [place], [place] [id number] PCP - General Emergency Medicine - Hospice and Palliative Medicine 06/02/22 Podiatric Surgeon Relationship Specialty Start Date End Date Papi Ricketts DO [address] [place], [place] [id number] PCP - General Emergency Medicine - Hospice and Palliative Medicine 06/02/22 Podiatric Surgeon Relationship Specialty Start Date End Date Papi Ricketts DO [address] [place] [address] PCP - General Emergency Medicine - Hospice and Palliative Medicine 06/02/22 Podiatric Surgeon Relationship Specialty Start Date End Date Papi Ricketts DO [address] [place] [address] PCP - General Emergency Medicine - Hospice and Palliative Medicine 06/02/22 Podiatric Surgeon Relationship Specialty Start Date End Date Papi Ricketts DO [address] [place] [address] PCP - General Emergency Medicine - Hospice and Palliative Medicine 06/02/22 Podiatric Surgeon Relationship Specialty Start Date End Date Reyes Waite MD [address] [facility], [place] [id number] PCP - General Family Medicine 12/31/16 Podiatric Surgeon Relationship Specialty Start Date End Date Papi Ricketts DO [address] [place] [address] PCP - General Emergency Medicine - Hospice and Palliative Medicine 06/02/22 (unrecognized sect ion and content) No Status Records FoundNo Status Records FoundNo Status Records Found INFORMATION SOURCE (unrecogn ized section and content) DATE CREATED AUTHOR AUTHOR'S ORGANIZ ATION 11/30/2022 [facility] DATE CREATED AUTHOR AUTHOR'S ORGANIZ ATION 01/16/2023 [facility] Scheduled Active and Recently Administ ered Medications (unrecognized section and content) PRN Medication Order 06/06/2022 06/07/2022 06/08/2022 aluminum & magnesium hydroxide-simethicone (Mylanta) 200-200-20 MG/5ML oral suspension 20 mL 20 mL, Oral, Every 6 hours PRN, indigestion, heartburn, Starting on Thu06/06/22 at 1841 1857 (Given - Provider: Naye Avina, BRAYDON) 1653 (Given - Provider: Ro Vega, BRAYDON) 1741 (Given - Provider: Ro Vega, BRAYDON) diphenhydrAMINE (BENADryl) tablet/capsule 25 mg 25 mg, Oral, Every 6 hours PRN, itching, sleep, Starting on 06/07/22 at 1705 0107 (Given - Provider: Azael Ascencio, BRAYDON) droperidol (Inapsine) injection 1.25 mg 1.25 mg, IntraVENous, Every 6 hours PRN, nausea, Starting on 06/02/22 at 2310 heparin flush injection 250 Units 250 Units, IntraCATHeter, PRN, line care, after blood draws and after infusion, Starting on Thu06/06/22 at 1959, Do NOT administer to lumens with continuous fluids currently infusing. Line Care. Use 10 mL or larger syringe. hydrALAZINE (Apresoline) injection 10 mg 10 mg, IntraVENous, Every 4 hours PRN, high blood pressure, Sbp>160, Starting on Thu06/06/22 at 1845 1857 (Given - Provider: Naye Avina, BRAYDON) HYDROmorphone (Dilaudid) injection 0.25 mg(Linked Group 1) 0.25 mg, IntraVENous, Every 4 hours PRN, moderate pain (4-6), Starting on Tu06/03/22 at 2020, If oral and IV narcotics ordered, use oral first and only use IV if oral is ineffective or cannot take oral. Do Not give oral and IV within 1 hour of each other unless specifically ordered. 2014 (See Alternative - Provider: Caitlyn Pulido RN) 527 (See Alternative - Provider: Caitlyn Pulido RN)09 (See Alternative - Provider: Ro Vega RN)1653 (See Alternative - Provider: Ro Vega RN) 144 (See Alternative - Provider: Ro Vega RN) HYDROmorphone (Dilaudid) injection 0.5 mg(Linked Group 1) 0.5 mg, IntraVENous, Every 4 hours PRN, severe pain (7-10), Starting on Thu06/03/22 at 2020, If oral and IV narcotics ordered, use oral first and only use IV if oral is ineffective or cannot take oral. Do Not give oral and IV within 1 hour of each other unless specifically ordered. 2014 (Given - Provider: Caitlyn Pulido RN) 527 (Given - Provider: Caitlyn Pulido RN)924 (Given - Provider: Ro Vega RN)1653 (Given - Provider: Ro Vega RN) 144 (Given - Provider: Ro Vega RN) lidocaine (Xylocaine) 2 % mouth solution 15 mL 15 mL, Mouth/Throat, 4 times daily PRN, mild pain (1-3), Starting on Thu06/08/22 at 1705 1741 (Given - Provider: Ro Vega RN) methocarbamol (Robaxin) tablet 1,000 mg 1,000 mg, Oral, Every 8 hours PRN, muscle spasms, Starting on Thu06/03/22 at 2020 0211 (Given - Provider: Galina Wilson, BRAYDON)1028 (Given - Provider: Ro Vega RN)165 (Given - Provider: Ro Vega RN) 0525 (Given - Provider: Azael Ascencio RN) naloxone (Narcan) 0.4 mg in 0.9% sodium chloride 10 mL syringe IntraVENous, PRN, opioid reversal, Starting on Thu06/03/22 at 2020, PRN if respiratory rate is less than 6/min and patient is difficult to arouse then notify physician STAT. Mix 9 mL of sodium chloride 0.9% with 0.4 mg (1 mL) of naloxone (NARCAN) in 10 mL syringe. (Note: dilution is 0.04 mg/mL) Give 0.08 mg (2 mL of special dilution), slow IV push, repeat up to 0.4 mg (10 mL) or until patient is responsive to physical stimulation and respiratory rate is equal to or greater than 6 breaths/min. Continue to observe, if no response within 3 minutes of administration of 0.4 mg (10 mL) total, repeat dose (0.4 mg as administered previously). ondansetron (Zofran) injection 4 mg(Linked Group 2) 4 mg, IntraVENous, Every 6 hours PRN, nausea, vomiting, Starting on Thu06/03/22 at 0213, 1st Line. Give IV if patient is unable to take orally. If inadequate response within 60 minutes, proceed to next-line agent or contact provider if no further options ordered. 174 (Given - Provider: Naye Avina RN) ondansetron ODT (Zofran-ODT) disintegrating tablet 4 mg(Linked Group 2) 4 mg, Oral, Every 8 hours PRN, nausea, vomiting, Starting on Thu06/03/22 at 0213, 1st Line. If inadequate response within 60 minutes, proceed to next-line agent or contact provider if no further options ordered. Patient should allow tablet to dissolve on tongue. Do not remove from blister pack until just before administering. 174 (See Alternative - Provider: Naye Avina RN) oxyCODONE (Roxicodone) immediate release tablet 10 mg(Linked Group 3) 10 mg, Oral, Every 4 hours PRN, severe pain (7-10), Starting on Thu06/03/22 at 2020 0034 (Given - Provider: Ita Grant, BRAYDON)0507 (Given - Provider: Ita Grant, BRAYDON)1121 (Given - Provider: Naye Avina RN)1857 (Given - Provider: Naye Avina RN) 021 (Given - Provider: Galina Wilson, BRAYDON)0624 (Given - Provider: Keiry Mg, RN)1029 (Given - Provider: Ro Vega, BRAYDON)1441 (Given - Provider: Elizabeth Huntley RN)2028 (Given - Provider: Azael Ascencio BRAYDON) 0525 (Given - Provider: Azael Ascencio RN)1159 (Given - Provider: Ro Vega, RN)1642 (Given - Provider: Ro Vega, RN) oxyCODONE (Roxicodone) immediate release tablet 5 mg(Linked Group 3) 5 mg, Oral, Every 4 hours PRN, moderate pain (4-6), Starting on Thu06/03/22 at 2020 0034 (See Alternative - Provider: Ita Grant RN)0507 (See Alternative - Provider: Ita Grant RN)1121 (See Alternative - Provider: Naye Avina, RN)1857 (See Alternative - Provider: Naye Avina, RN) 0211 (See Alternative - Provider: Galina Wilson, BRAYDON)0624 (See Alternative - Provider: Keiry Mg, BRAYDON)1029 (See Alternative - Provider: Ro Vega, RN)1441 (See Alternative - Provider: Elizabeth Huntley, BRAYDON)202 (See Alternative - Provider: Azael Ascencio RN) 0525 (See Alternative - Provider: Azael Ascencio RN)1159 (See Alternative - Provider: Ro Vega, BRAYDON)1642 (See Alternative - Provider: Ro Vega, RN) polyethylene glycol (PEG) 3350 (Miralax) packet 17 g 17 g, Oral, Daily PRN, constipation, Starting on Thu06/03/22 at 0213, 1st line for treatment of constipation - give scheduled if no bowel movement in past 24 hours. sodium chloride 0.9% (NS) flush 10 mL 10 mL, IntraCATHeter, PRN, line care, before blood draws, before and after infusion or medication administration, Starting on Thu06/06/22 at 1959, Use 10 mL or larger syringe. Linked Groups Order Group 1: HYDROmorphone (Dilaudid) injection 0.25 mgJump to med 0.25 mg, IntraVENous, Every 4 hours PRN, moderate pain (4-6), Starting on Thu06/03/22 at 2020
If oral and IV narcotics ordered, use oral first and only use IV if oral is ineffective or cannot take oral. Do Not give oral and IV within 1 hour of each other unless specifically ordered.
Or HYDROmorphone (Dilaudid) injection 0.5 mgJump to med 0.5 mg, IntraVENous, Every 4 hours PRN, severe pain (7-10), Starting on Thu06/03/22 at 2020
If oral and IV narcotics ordered, use oral first and only use IV if oral is ineffective or cannot take oral. Do Not give oral and IV within 1 hour of each other unless specifically ordered.
Group 2: ondansetron ODT (Zofran-ODT) disintegrating tablet 4 mgJump to med 4 mg, Oral, Every 8 hours PRN, nausea, vomiting, Starting on Thu06/03/22 at 212
1st Line. If inadequate response within 60 minutes, proceed to next-line agent or contact provider if no further options ordered. Patient should allow tablet to dissolve on tongue. Do not remove from blister pack until just before administering.
Or ondansetron (Zofran) injection 4 mgJump to med 4 mg, IntraVENous, Every 6 hours PRN, nausea, vomiting, Starting on Thu06/03/22 at 021
1st Line. Give IV if patient is unable to take orally. If inadequate response within 60 minutes, proceed to next-line agent or contact provider if no further options ordered.
Group 3: oxyCODONE (Roxicodone) immediate release tablet 5 mgJump to med 5 mg, Oral, Every 4 hours PRN, moderate pain (4-6), Starting on Thu06/03/22 at 2020 Or oxyCODONE (Roxicodone) immediate release tablet 10 mgJump to med 10 mg, Oral, Every 4 hours PRN, severe pain (7-10), Starting on Thu06/03/22 at 2020 FOR RECORDS PERTAINING TO PATIENTS WHO ARE OR HAVE BEEN ENROLLED IN A CHEMICAL DEPENDENCY/SUBSTANCEABUSE PROGRAM, SOME INFORMATION MAY BE OMITTED. This clinical summary was aggregated from multiple sources. Caution should be exercised in using it in the provision of clinical care. This summary normalizes information from multiple sources, and as a consequence, information in this document may materially change the coding, format and clinical context of patient data. In addition, data may be omitted in some cases. CLINICAL DECISIONS SHOULD BE BASED ON THE PRIMARY CLINICAL RECORDS. [facility] [email or web address] [facility]. provides no warranty or guarantee of the accuracy or completeness of information in this document.
[2023-02-16 22:43] LABS: ALB/GLOB Ratio 0.9 RATIO (0.9-2.4); AST(SGOT) 12 U/L (15-37); Alanine Aminotransfer ALT/SGPT 23 U/L (16-61); Albumin, Serum 3.4 g/dL (3.2-5.0); Alkaline Phosphatase 113 U/L (45-117); Anion Gap 6 (5-15); BUN 21 mg/dL (7-18); BUN/Creat Ratio 11.8 RATIO (10-20); Calcium,Total 9.9 mg/dL (8.5-10.1); Chloride 108 mmol/L (98-107); Creatinine, Serum 1.78 mg/dL (0.70-1.30); EST Glomerular Filtration Rate 42 mL/min (>60); Est Glom Filt Rate - Afr Amer 51 mL/min (>60); Estimated Creatinine Clearance 47.28 ml/min; Globulin 3.9 g/dL (2.2-4.2); Glucose 105 mg/dL (74-106); Lipase 16 U/L (13-75); Potassium 4.2 mmol/L (3.5-5.1); Protein, Total 7.3 g/dL (6.4-8.2); Sodium Level 137 mmol/L (136-145)
[2023-02-16 23:56] LABS: Bacteria 0 SEEN /hpf (None Seen); Mucous, Urine 0 SEEN /hpf (<or=2+); Red Blood Cells-Urine 0 SEEN /hpf (0-5); Squamous Epithelial Cells - UA 0 SEEN /hpf (0-5); White Blood Cells 0 SEEN /hpf (0-5)
[2023-02-16 23:59] LABS: Color, Urine Yellow (Yellow); Glucose, Dipstick Normal (Normal); Ketone-Dipstick 5 mg/dl (Negative); Leukocyte Esterase-Dipstick Negative /ul (Negative); Nitrite-Dipstick Negative (Negative); Occult Blood-Urine Negative /ul (Negative); Protein-Dipstick Negative (Negative); Urine Bilirubin Dipstick Negative (Negative); Urine Clarity Clear (Clear); Urine Urobilinogen Normal (Normal)
[2023-02-17] MEDS: Ketorolac 30 MG/ML Syringe 15 MG IV (00:04)
== END 2023-02-17 01:05 | disposition home or self-care (01) ==
PROVIDERS: Emergency Provider Emergency Medicine; PCP Family Medicine; Visit Provider Emergency Medicine
DX: N13.2 Hydronephrosis with renal and ureteral calculous obstruction (principal); I10 Essential (primary) hypertension; N28.1 Cyst of kidney, acquired; R11.0 Nausea; F17.210 Nicotine dependence, cigarettes, uncomplicated; Z79.899 Other long term (current) drug therapy; R00.0 Tachycardia, unspecified
CPT/HCPCS: 74177; 80053; 81001; 83690; 85025; 96361; 96374; 96375; 99282; J7030; Q9967; A4216; J2405

== ENCOUNTER → 2023-02-24 | Outpatient (CLI) | payer BC, SELFPAY ==
--- NOTE | 2023-02-24 16:55 | RAD_ITS ---
EXAM: XR ABDOMEN, 1 VIEW CLINICAL INDICATION: CALCULUS OF URETER TECHNIQUE: Frontal supine view of the abdomen/pelvis. COMPARISON: No relevant prior studies available. FINDINGS: LOWER THORAX: No acute pathology. GASTROINTESTINAL TRACT: Unremarkable. Non-obstructive. No bowel or stomach distention. ORGANS: There is a questionable stone in the left hemipelvis. No organomegaly. BONES/JOINTS: No acute pathology. SOFT TISSUES: No acute pathology. RAD/Abdomen Single View IMPRESSION: Questionable stone in the left hemipelvis which may be within the distal left ureter. Electronically Signed: Tavo Carter MD at 18:32 EST ,
--- OUTSIDE RECORDS SUMMARY | 2023-02-24 17:51 | XMS RPT_ITS | CCD ---
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 [employer] Name Role Phone Reyes Waite MD Primary [...] NISA, PAPI Primary Care Unavailable KODAKANDLA, NARSIMHA Admitting Unavailable RY FOSTER Attending Unavailable JERRY BELTRAN Consulting Unavailable FERNANDO WRIGHT Attending Unavailable RICARDACANDELARIA YANK Referring Unavailable NISA, PAPI Primary Care Unavailable BHARATHI AYALA Attending Unavailable NISA, PAPI Primary Care Unavailable SEAN GREEN Attending Unavailable NISA, PAPI Primary Care Unavailable BHARATHI AYALA Attending Unavailable NISA, PAPI Primary Care Unavailable SEAN GREEN Attending Unavailable NISA, PAPI Primary Care Unavailable BHARATHI AYALA Attending Unavailable NISA, PAPI Primary Care Unavailable BHARATHI AYALA Attending Unavailable NISA, APPI Primary Care Unavailable SEAN GREEN Attending Unavailable NISA, PAPI Primary Care Unavailable BHARATHI AYALA Attending Unavailable NISA, PAPI Primary Care Unavailable BHARATHI AYALA Attending Unavailable NISA PAPI Primary Care Unavailable Allergies Allergy Classification Reported Allergen(s) Allergy Type Date of Onset Reaction(s) Facility (8 sources) Naproxen; Translations: [NAPROXEN] Drug Allergy 04-18-[address] [facility] Medications Current Medications Medication Drug Class(es) Dates [...] 97.5 [degF] Chaparro Gresham MD Work Phone: [facility] 11-28-2022 10:22-0400 Diastolic blood pressure 76 mm[Hg] Chaparro Gresham MD Work Phone: [facility] 11-28-2022 10:22-0400 Heart rate 104 /min Chaparro Gresham MD Work Phone: [facility] 11-28-2022 10:22-0400 Respiratory rate 18 /min Chaparro Gresham MD Work Phone: [facility] 11-28-2022 10:22-0400 SaO2% (BldA) [Mass fraction] 96 % Chaparro Gresham MD Work Phone: [facility] 11-28-2022 10:22-0400 Systolic blood pressure 130 mm[Hg] Chaparro Gresham MD Work Phone: [facility] 09-25-2022 10:15-0400 Body height 177.8 cm Bharathi Ayala MD Work Phone: [facility] 09-25-2022 10:15-0400 Body mass index (BMI) [Ratio] 27.98 kg/m2 Bharathi Ayala MD Work Phone: [facility] 09-25-2022 10:15-0400 Body weight 88.45 kg Bharathi Ayala MD Work Phone: [facility] 09-25-2022 10:15-0400 Diastolic blood pressure 68 mm[Hg] Bharathi Ayala MD Work Phone: [facility] 09-25-2022 10:15-0400 Systolic blood pressure 120 mm[Hg] Bharathi Ayala MD Work Phone: [facility] 07-24-2022 09:55-0400 Body height 177.8 cm Bharathi Ayala MD Work Phone: [facility] 07-24-2022 09:55-0400 Body mass index (BMI) [Ratio] 27.26 kg/m2 Bharathi Ayala MD Work Phone: [facility] 07-24-2022 09:55-0400 Body weight 86.18 kg Bharathi Ayala MD Work Phone: [facility] 07-24-2022 09:55-0400 Diastolic blood pressure 72 mm[Hg] Bharathi Ayala MD Work Phone: [facility] 07-24-2022 09:55-0400 Systolic blood pressure 114 mm[Hg] Bharathi Ayala MD Work Phone: [facility] 06-19-2022 10:05-0400 Body height 177.8 cm Bharathi Ayala MD Work Phone: [facility] 06-19-2022 10:05-0400 Body mass index (BMI) [Ratio] 27.41 kg/m2 Bharathi Ayala MD Work Phone: [facility] 06-19-2022 10:05-0400 Body weight 86.64 kg Bharathi Ayala MD Work Phone: [facility] 06-19-2022 10:05-0400 Diastolic blood pressure 76 mm[Hg] Bharathi Ayala MD Work Phone: [facility] 06-19-2022 10:05-0400 Systolic blood pressure 118 mm[Hg] Bharathi Ayala MD Work Phone: [facility] 06-17-2022 13:50-0400 Body height 177.8 cm Sean Peter DO Work Phone: [employer] [place] 06-17-2022 13:50-0400 Body mass index (BMI) [Ratio] 27.41 kg/m2 Sean Peter DO Work Phone: [facility] 06-17-2022 13:50-0400 Body temperature 97.59 [degF] Sean Peter DO Work Phone: [facility] 06-17-2022 13:50-0400 Body weight 86.64 kg Sean Peter DO Work Phone: [facility] 06-17-2022 13:50-0400 Diastolic blood pressure 80 mm[Hg] Sean Peter DO Work Phone: [facility] 06-17-2022 13:50-0400 Heart rate 79 /min Sean Peter DO Work Phone: [facility] 06-17-2022 13:50-0400 SaO2% (BldA) [Mass fraction] 91 % Sean Peter DO Work Phone: [facility] 06-17-2022 13:50-0400 Systolic blood pressure 122 mm[Hg] Sean Peter DO Work Phone: [employer] [place] 06-11-2022 13:01-0400 Body height 177.8 cm Bharathi Ayala MD Work Phone: [facility] 06-11-2022 13:01-0400 Body mass index (BMI) [Ratio] 27.41 kg/m2 Bharathi Ayala MD Work Phone: [facility] 06-11-2022 13:01-0400 Body weight 86.64 kg Bharathi Ayala MD Work Phone: [facility] 06-07-2022 20:20-0400 Body temperature 97.7 [degF] Beau Voll DO Work Phone: [facility] 06-07-2022 20:20-0400 Diastolic blood pressure 87 mm[Hg] Beau Voll DO Work Phone: [facility] 06-07-2022 20:20-0400 Heart rate 70 /min Beau Voll DO Work Phone: [facility] 06-07-2022 20:20-0400 Respiratory rate 16 /min Beau Voll DO Work Phone: [facility] 06-07-2022 20:20-0400 SaO2% (BldA) [Mass fraction] 97 % Beau Voll DO Work Phone: [facility] 06-07-2022 20:20-0400 Systolic blood pressure 158 mm[Hg] Beau Voll DO Work Phone: [facility] 06-02-2022 20:36-0400 Body height 177.8 cm Beau Voll DO Work Phone: [facility] 06-02-2022 20:36-0400 Body mass index (BMI) [Ratio] 27.98 kg/m2 Beau Voll DO Work Phone: [facility] 06-02-2022 20:36-0400 Body weight 88.45 kg Beau Voll DO Work Phone: [facility] 06-02-2022 11:45-0400 Body temperature 96.49 [degF] Elmer Rodriguez APRN.NET SOFTWARE DEVELOPER Work Phone: [facility] 06-02-2022 11:45-0400 Body weight 90.27 kg Elmer Rodriguez APRN.NET SOFTWARE DEVELOPER Work Phone: [facility] 06-02-2022 11:45-0400 Heart rate 74 /min Elmer Zuri INTEGRATED MARKETING INTERN.NET SOFTWARE DEVELOPER Work Phone: [facility] 06-02-2022 11:45-0400 Respiratory rate 24 /min Elmer Zuri INTEGRATED MARKETING INTERN.NET SOFTWARE DEVELOPER Work Phone: [facility] 04-24-2022 09:52-0400 Body weight 90.45 kg Reyes Waite MD Work Phone: [facility] 04-24-2022 09:52-0400 Diastolic blood pressure 98 mm[Hg] Reyes Waite MD Work Phone: [facility] 04-24-2022 09:52-0400 Heart rate 88 /min Reyes Waite MD Work Phone: [facility] 04-24-2022 09:52-0400 Respiratory rate 16 /min Reyes Waite MD Work Phone: [facility] 04-24-2022 09:52-0400 Systolic blood pressure 142 mm[Hg] Reyes Waite MD Work Phone: [facility] 02-18-2022 13:35-0500 Body weight 91.17 kg Elmer Zuri INTEGRATED MARKETING INTERN.NET SOFTWARE DEVELOPER Work Phone: [facility] 02-18-2022 13:35-0500 Diastolic blood pressure 80 mm[Hg] Elmer Zuri INTEGRATED MARKETING INTERN.NET SOFTWARE DEVELOPER Work Phone: [facility] 02-18-2022 13:35-0500 Heart rate 93 /min Elmer Zuri INTEGRATED MARKETING INTERN.NET SOFTWARE DEVELOPER Work Phone: [facility] 02-18-2022 13:35-0500 Respiratory rate 16 /min Elmer Zuri INTEGRATED MARKETING INTERN.NET SOFTWARE DEVELOPER Work Phone: [facility] 02-18-2022 13:35-0500 SaO2% (BldA) [Mass fraction] 98 % Elmer Zuri INTEGRATED MARKETING INTERN.NET SOFTWARE DEVELOPER Work Phone: [facility] 02-18-2022 13:35-0500 Systolic blood pressure 112 mm[Hg] Elmer Zuri INTEGRATED MARKETING INTERN.NET SOFTWARE DEVELOPER Work Phone: [facility] 05-03-2021 09:26-0400 Body weight 88.18 kg An Garrison INTEGRATED MARKETING INTERN.NET SOFTWARE DEVELOPER Work Phone: [facility] 05-03-2021 09:26-0400 Diastolic blood pressure 82 mm[Hg] An Garrison INTEGRATED MARKETING INTERN.NET SOFTWARE DEVELOPER Work Phone: [facility] 05-03-2021 09:26-0400 Heart rate 123 /min An Reinosoagen INTEGRATED MARKETING INTERN.NET SOFTWARE DEVELOPER Work Phone: [facility] 05-03-2021 09:26-0400 Respiratory rate 20 /min An Reinosoagen INTEGRATED MARKETING INTERN.NET SOFTWARE DEVELOPER Work Phone: [facility] 05-03-2021 09:26-0400 SaO2% (BldA) [Mass fraction] 94 % An Garrison INTEGRATED MARKETING INTERN.NET SOFTWARE DEVELOPER Work Phone: [facility] 05-03-2021 09:26-0400 Systolic blood pressure 142 mm[Hg] An Garrison INTEGRATED MARKETING INTERN.NET SOFTWARE DEVELOPER Work Phone: [facility] Encounters Encounter Date Encounter Type Care Provider Facility Start: 01-13-2023 End: 01-13-2023 ambulatory [facility] Start: 12-23-2022 Telephone encounter Fernando woods MD Work Phone: [facility] Procedures Date Procedure Procedure Detail Performing Clinician Start: 07-14-2022 Basic metabolic 2000 panel - Serum or Plasma Sean Green DO Work Phone: Start: 07-14-2022 Complete blood count with white cell differential, automated Sean Jacksonian DO Work Phone: Start: 07-09-2022 Complete blood [...] exam ches t single view Kirston Call INTEGRATED MARKETING INTERN - NET SOFTWARE DEVELOPER Work Phone: Start: 06-06-2022 Basic metabolic pane [...] Radiologic exam ches t single view Johanna LERNERC Work Phone: Start: 06-03-2022 Ecg routine ecg w/le ast 12 lds trcg only w/o i&r Johanna OZUNA-C Work Phone: Start: 06-03-2022 C-reactive protein Katie [...] Adult depression scr eening assessment An Garrison INTEGRATED MARKETING INTERN.NET SOFTWARE DEVELOPER Work Phone: Start: 03-13-2018 Lipid 1996 panel - S bassam or Plasma Chaparro Gresham MD Work Phone: Start: 09-25-2017 Colonoscopy An huerta APRN.NET SOFTWARE DEVELOPER Work Phone: Plan of Treatment Date Care Activity Detail Author Start: 02-18-2027 PROSTATE CANCER SCRE ENING DISCUSSION PROSTATE CANCER SCREENING DISCUSSION [facility] Start: 2025 RSV Immunization age d 60 or older (1 - 1-dose 60+ series) RSV Immunization aged 60 or older (1 - 1-dose 60+ series) [facility] Start: 03-06-2025 DIABETES SCREEN DIABETES SCREEN [facility] Start: 03-06-2025 Diabetes Screening Diabetes Screenin g [facility] Start: 02-18-2025 DIABETES SCREEN DIABETES SCREEN [facility] Start: 11-29-2023 Annual PCP Team Flask Cleaner kemal Disease Visit Annual PCP Team Chronic Disease Visit [facility] Start: 06-03-2023 ANNUAL PCP TEAM FREIGHT CLAIM INVESTIGATOR KEMAL DISEASE VISIT ANNUAL PCP TEAM CHRONIC DISEASE VISIT [facility] Start: 04-25-2023 ANNUAL PCP TEAM FREIGHT CLAIM INVESTIGATOR KEMAL DISEASE VISIT ANNUAL PCP TEAM CHRONIC DISEASE VISIT [facility] Start: 03-13-2023 Lipid 1996 panel - S bassam or Plasma Lipid Screening [facility] Start: 03-13-2023 LIPID SCREEN LIPID SCREEN [facility] Start: 02-18-2023 ANNUAL PCP TEAM FREIGHT CLAIM INVESTIGATOR KEMAL DISEASE VISIT ANNUAL PCP TEAM CHRONIC DISEASE VISIT [facility] Start: 02-18-2023 BP CONTROLLED (<130/80) BP CONTROLLE D (<130/80) [facility] Start: 02-18-2023 HEPATITIS C SCREENING [facility] Immunizations Immunization Date Immunization Notes Care Provider Corrie koo 01-11-2018 influenza virus vaccine, unspecified formulation Chaparro Gresham MD Work Phone: [facility] Payers Date Payer Category Payer Unknown JOLENE COTTRELL PPO [id number] 2020-Present [phone] [id number] [place] [address] PPO [id number] 2020 Unknown [id number] 2020 Unknown [id number] Social History Date Type Detail Facility Start: 04-23-2021 End: 02-18-2022 Tobacco smoking status NHIS Ex-smoker [facility] Start: 04-23-2021 End: 09-25-2022 Cigarettes smoked current (pack per day) - Reported 1 [facility] Start: 04-23-2021 End: 06-17-2022 Tobacco use and exposure Smokeless tobacco non-user [facility] Start: 05-03-2021 End: 11-28-2022 Alcohol intake Current drinker of alcohol (finding) [facility] Start: 07-02-2017 History SDOH Alcohol Comment rarely [facility] Start: 04-02-2018 End: 02-18-2022 Tobacco Comment Quit smoking, occasional hit off 's cigarettes [facility] Start: 1965 Sex Assigned At Not on file [facility] Start: 04-23-2021 End: 07-22-2022 Exposure to SARS-CoV-2 (event) Not sure [facility] History of tobacco use Current smoker [facility] History of tobacco use Cigarette Smoker [facility] Start: 04-24-2022 End: 06-17-2022 Tobacco smoking status [facility] Smokes tobacco daily [facility] Start: 06-03-2022 Tobacco smoking status ALIS Tobacco smoking consumption unknown [facility] Start: 06-03-2022 History SDOH Alcohol Frequency 2 [facility] Start: 06-17-2022 End: 09-25-2022 Alcohol intake Ex-drinker (finding) [facility] Start: 06-02-2022 End: 09-25-2022 Alcohol Use Disorder Identification Test - Consumption [AUDIT-C] [facility] How often to you hav e a drink containing alcohol? Monthly or less [facility] Average Number of Drinks Not on file [facility] Work Phone: Clinical Notes 05-03-2021 to 12-23-2022 Telephone Encounter - Arpita Cano MA - 12/23/2022 6:01 PM ESTTelephone Encounter - Arpita Cano MA - 12/23/2022 6:01 PM ESTTelephone Encounter - Adina Morris - 12/23/2022 3:41 PM EST Note Date & Type Note Facility 12-23-2022 Telephone encounter Note Called informed ppw mailed [facility] 12-23-2022 Miscellaneous Notes Called informed ppw mailed Name of caller: Arpita Contact phone number: [phone] Relationship to Patient: spouse/SO Provider: Dr. Wright Practice: Interventional Pain Management Chief Complaint/Reason for Call: Arpita states that the pt was suppose to receive a remote inpatient coder packet via postal mail and it still [...] their call: No documented in this encounter [facility] 12-23-2022 Telephone encounter Note Name of caller: Arpita Contact phone number: [phone] Relationship to Patient: spouse/SO Provider: Dr. Wright Practice: [facility] Chief Complaint/Reason for Call: Arpita states that the pt was suppose to receive a remote inpatient coder packet via postal mail and it still [...] business hours to return their call: No [facility] 11-28-2022 Note HNO ID: [id number] Author: Chaparro Gresham MD Service: ? Author [...] rx for 7 days of Valtrex and Garland for home. Since discharge, patient has been taking the Valtrex as prescribed without side effects. Patient states that he took his last Garland this morning which has not been helping. Also tried aleve without improvement in his pain. Denies fever/chills, new rash or lesions. Past medical history, appointments, medications, allergies reviewed. Previous Medical History PAST MEDICAL HISTORY Diagnosis Date Essential hypertension Previous Surgical History PAST SURGICAL HISTORY Procedure Laterality Date COLONOSCOPY 09/2017 PAST SURGICAL HISTORY OF N/A 02/22/2018 Heart Cath at [facility] Family History FAMILY HISTORY Problem Relation Age of Onset other (Cypress palsy) Mother Coronary Artery Disease Father Colon [...] he has open sores. Chaparro Gresham MD [facility] 11-28-2022 History of Present illness Narrative Chief Complaint Patient presents with: ER F/U: Shingles HPI Edphyllis Carter is a 57 year old male who presents here today for ER Follow Up. Patient evaluated in the ED on 11/24 for complaint of left lower back that wrapped around his abdomen which started 5 days prior. Diagnosed with shingles of T10 dermatome. Given rx for 7 days of Valtrex and Garland for home. Since discharge, patient has been taking the Valtrex as prescribed without side effects. Patient states that he took his last Garland this morning which has not been helping. Also tried aleve without improvement in his pain. Denies fever/chills, new rash or lesions. Past medical history, appointments, medications, allergies reviewed. Previous Medical History PAST MEDICAL HISTORY Diagnosis Date Essential hypertension Previous Surgical History PAST SURGICAL HISTORY Procedure Laterality Date COLONOSCOPY 09/2017 PAST SURGICAL HISTORY OF N/A 02/22/2018 Heart Cath at [facility] Family History FAMILY HISTORY Problem Relation Age of Onset other (Cypress palsy) Mother Coronary Artery Disease Father Colon [...] Chaparro Gresham MD documented in this encounter [facility] 09-29-2022 Telephone encounter Note Scheduled appointment [facility] 09-29-2022 Miscellaneous Notes Scheduled appointment Name of caller: Gabriel Contact phone number: [phone] Relationship to Patient: patient Provider: Practice: Pain Management Chief Complaint/Reason for Call: Patient states he has a referral and is requesting a call back for a new patient appointment. Please advise Best time of day caller can be reached: Any Patient advised that office/PCP has 24-48 business hours to return their call: No documented in this encounter [facility] 09-26-2022 Telephone encounter Note Name of caller: Gabriel Contact phone number: [phone] Relationship to Patient: patient Provider: Practice: Pain Management Chief Complaint/Reason for Call: Patient states he has a referral and is requesting a call back for a new patient appointment. Please advise Best time of day caller can be reached: Any Patient advised that office/PCP has 24-48 business hours to return their call: No [facility] 09-25-2022 History of Present illness Narrative Images from the original note were not included. [facility] [address] [place] [address] Dept: [phone] Dept 09/25/2022 Chief Complaint Patient presents with [...] Ayala MD Hand and Upper Extremity Surgery [facility] Department of Orthopaedics and Sports Medicine 09/25/2022 at 10:18 AM (Please note that portions of this note may have been completed with a voice recognition program. Efforts were made to edit the dictations but occasionally words are mis-transcribed.) \ documented in this encounter [facility] 09-25-2022 Instructions Yoel Knowles ATC - 09/25/2022 10:15 AM EDT Referred to Department: [facility] Family Medicine & Pain Management Address: [id number] documented in this encounter [facility] 07-24-2022 History of Present illness Narrative Images from the original note were not included. [facility]OP[facility] SPORTS MEDICINE [address] [place] [address] Dept: [phone] Dept 07/24/2022 Chief Complaint Patient presents with [...] 1. Necrotizing fasciitis of forearm (CMS/HCC) (HCC) External referral to Occupational Therapy 2. Cellulitis of right upper extremity External referral to Occupational Therapy PLAN Edphyllis is infection free. He has wrist and finger stiffness secondary to swelling and disuse. I gave him prescription to work aggressive hand therapy in [place] to help regain motion. I was very [...] OT/PT Rx given: To follow protocol. Follow-up: Edward will followup with me in 8 weeks. He knows to call the office with any questions or concerns in the interim. Future Imaging: NONE Bharathi Ayala MD Hand and Upper Extremity Surgery [facility] Department of Orthopaedics and Sports Medicine 07/24/2022 at 10:08 AM (Please note that portions of this note may have been completed with a voice recognition program. Efforts were made to edit the dictations but occasionally words are mis-transcribed.) documented in this encounter [facility] 07-24-2022 Instructions Yoel Knowles ATC - 07/24/2022 10:00 AM EDT [facility] Occupational therapy Address: [address] [place] [address], [place] [id number] documented in this encounter [facility] 07-22-2022 Note [facility] Infectious Diseases Attending Outpatient Progress Note HISTORY OF PRESENT ILLNESS Mr. Carter is a 57 y/o M w/ PMH of HTN. He presents to the ID clinic 07/22/22 for a post-hospitalization f/u visit for 06/17/22. He was admitted to [facility] 06/02-06/09. He originally presented to [facility] ED 06/02 for RUE swelling. He was [...] Neutrophils Relative 07/21 (more content not included)... [facility] 07-17-2022 Note Patient: Gabriel balbuenapenter Procedure Summary Date: 06/03/22 Room / Location: [address] Operating Room Anesthesia Start: 1603 Anesthesia [...] ?C (98 ?F) 06/03/22 1752 Pulse 66 06/03/22 2000 Resp 14 06/03/221999 SpO2 100 % 06/03/22 [...] once all PACU criteria has been met. [facility] 07-17-2022 Note Patient: Gabriel balbuenapenter Procedure Summary Date: 06/03/22 Room / Location: [address] Operating Room Anesthesia Start: 1603 Anesthesia [...] factors for PONV (4556F) Patient received at aset 2 prophylactic Rx PONV anti-emtic agents of [...] opportunity for questions and acknowledgement of understanding. [facility] 07-01-2022 Note [facility] Infectious Diseases Attending Outpatient Progress Note HISTORY OF PRESENT ILLNESS Mr. Carter is a 57 y/o M w/ PMH of HTN. He presents to the ID clinic 07/01/22 for a post-hospitalization f/u visit for 06/17/22. He was admitted to [facility] 06/02-06/09. He originally presented to [facility] ED 06/02 for RUE swelling. He was [...] 06/30/2022 0.3 (H) (more content not included)... [facility] 06-19-2022 History of Present illness Narrative Images from the original note were not included. [facility] [address] [place] [address] Dept: [phone] Dept 06/19/2022 Chief Complaint Patient presents with [...] ASSESSMENT (M72.6) Necrotizing fasciitis of forearm (CMS/HCC) ([facility]) 1. Necrotizing fasciitis of forearm (CMS/HCC) ([facility]) PLAN Gabriel had the proximal one half [...] Ayala MD Hand and Upper Extremity Surgery [facility] Department of Orthopaedics and Sports Medicine 06/19/2022 at 10:42 AM (Please note that portions of this note may have been completed with a voice recognition program. Efforts were made to edit the dictations but occasionally words are mis-transcribed.) documented in this encounter [facility] 06-19-2022 Instructions Bharathi Ayala MD - 06/19/2022 10:00 AM EDT Take Oxycodone 5mg twice daily Take Naproxen 500mg twice daily Take Tylenol 1000mg three times daily documented in this encounter [facility] 06-17-2022 Note [facility] Infectious Diseases Attending Outpatient Progress Note HISTORY OF PRESENT ILLNESS Mr. Carter is a 57 y/o M w/ PMH of HTN. He presents to the ID clinic 06/17/22 for a post-hospitalization f/u visit for 06/17/22. He was admitted to [facility] 06/02-06/09. He originally presented to [facility] ED 06/02 for RUE swelling. He was [...] with the patie (more content not included)... [facility] 06-17-2022 Telephone encounter Note Patient was seen in office by Dr Green. Ceftriaxone was extended for 2 weeks. Spoke to [facility] at [facility] giving new stop date both voiced understanding of new orders. [facility] 06-17-2022 Miscellaneous Notes Patient was seen in office by Dr Green. Ceftriaxone was extended for 2 weeks. Spoke to Pelon at [facility] and Kike at [facility] giving new stop date both voiced understanding of new orders. Patient discharged with [facility] and [facility]. I spoke with Gabriel and he is aware of his follow up with Dr. Green. Images from the original note were not included. Patient still admitted will need discharge information. Patient will need notified of follow up appt on 06/17/22 @130pm documented in this encounter [facility] 06-17-2022 History of Present illness Narrative [facility] Infectious Diseases Attending Outpatient Progress Note HISTORY OF PRESENT ILLNESS Mr. Carter is a 57 y/o M w/ PMH of HTN. He presents to the ID clinic 06/17/22 for a post-hospitalization f/u visit for 06/17/22. He was admitted to [facility] 06/02-06/09. He originally presented to [facility] ED 06/02 for RUE swelling. He was [...] of the visit. documented in this encounter [facility] 06-11-2022 History of Present illness Narrative Images from the original note were not included. [facility] [address] [facility] [address] Dept: [phone] Dept 06/11/2022 Chief Complaint Patient presents with [...] ASSESSMENT (M72.6) Necrotizing fasciitis of forearm (CMS/HCC) ([facility]) (L03.113) Cellulitis of right upper extremity 1. Necrotizing fasciitis of forearm (CMS/HCC) ([facility]) 2. Cellulitis of right upper extremity PLAN [...] Ayala MD Hand and Upper Extremity Surgery [facility] Department of Orthopaedics and Sports Medicine 06/11/2022 at 1:27 PM (Please note that portions of this note may have been completed with a voice recognition program. Efforts were made to edit the dictations but occasionally words are mis-transcribed.) documented in this encounter [facility] 06-11-2022 Instructions Jaylene Escobar ATC - 06/11/2022 1:00 PM EDT Please send clinical photos to [email or web address] Please include your name and date of in the subject line of e-mail documented in this encounter [facility] 06-09-2022 Miscellaneous Notes called back and information listed below given. Ann Bautista LPN Called and left message on patients voicemail to return call to the office and ask to speak with a triage nurse. Please relay message to below from PCP. Shobha Thompson Ma OK for Protonix as ordered Reyes Waite MD Pt's calls to report that pt was at [facility] and was released yesterday. Pt had [...] China Tobias LPN documented in this encounter [facility] 06-09-2022 Telephone encounter Note Patient discharged with [facility]. I spoke with Gabriel and he is aware of his follow up with Dr. Green. [facility] 06-08-2022 Note Discharge Summary Gabriel Carter : [...] and was clear for DC home with [facility] on 06/08. Pateint had ANGELIA on [...] Your Medications These medications were sent to [facility]/pharmacy #[id number] - [place], [place] - [address] [facility] [facility] [address] [facility] [address] [address] [facility] [address] Hours: 24-hours lisinopril 20 MG tablet oxyCODONE 5 MG immediate release tablet DIET: regular ACTIVITY: as tolerated. COMPLEXITY OF FOLLOW UP: [] Moderate Complexity: follow up within 7-14 calendar days (54520) [x] Severe Complexity: follow up within 7 calendar days (87640) FOLLOW UP TESTING, PENDING RESULTS OR REFERRALS AT TRANSITIONAL CARE VISIT: [] Yes [x] No DISPOSITION: Home with Home Health Care Follow up with Bharathi Ayala MD [address] [place] [address] Follow up in 1 week(s) Papi Ricketts DO [address] [facility] [address] Follow up Patient provided Oxycodone on [...] SIGNED: Ry Foster MD 06/09/2022, 8:20 AM [facility] 06-08-2022 Nurse Note Dressing completed per ordered, educated patient's spouse through process. Spouse verbalizes understanding. Discharge instructions reviewed with patient and spouse, all questions answered, patient and spouse verbalize understanding. Patient take to private vehicle by wheelchair. [facility] 06-08-2022 Nurse Note Dressing completed per [...] see the pt. documented in this encounter [facility] 06-08-2022 Miscellaneous Notes Patient Choice Patient Name: GABRIEL CARTER Date of : 1965 All Providers Sent Referral Name: [facility] Phone: [phone] Address: [address] [place] [address] Name: [facility] Phone: [phone] Address: [address] [place], [place] Name: [facility] Phone: [phone] Address: [address] [place] [address] Name: [facility] (All Offices) Phone: [phone] Address: [address], [place] [address] Name: [facility] Phone: [phone] Address: [address] [place] [address] Name: [facility] Centralized Intake Phone: [phone] Address: [address] [place] [address] Name: [facility] al[facility] Velázquez Phone: [phone] Address: [address] [place] [address] Name: [facility] Phone: [phone] Address: [address] [place] [address] Name: [facility] Address: [address] [facility] [address] [place] [address] Name: [facility] Phone: [phone] Address: [address] [place] [address] Name: [facility] Address: [address], [address] [place] [address] Name: [facility] Address: [address] [facility] [place] [address] Name: [facility]) Address: [address] [facility] [place] [address] Start PACC Note Home Health Referral Educated patient on Home Care and services available. Patient offered choice of available HHC and agreeable to SN / PTservices with [facility]. Care Types: [...] is noted as yes - consider a NEWSCAST PRODUCER evaluation once the patient returns home. START PATIENT REGISTRATION INFORMATION Order Information Order Signing Physician: Ry Foster MD Service Ordered RN ?: Yes Service Ordered PT ?: Yes Service Ordered OT ?: No Service Ordered ST ?: No Service Ordered NEWSCAST PRODUCER?:No Service Ordered HIGH SCHOOL TEACHER?: No Following Physician: DR Bharathi Ayala Following Physician Overseeing Physician: (Required for Residents only) Agreeable to Follow? Yes Date/Time of Call 06/08/22 12:13 PM Office is closed Care Coordination SOC Call from [facility] Required?: No Same Day SOC?: No Primary Care Physician: Papi Ricketts DO Primary Care Physician Primary Care Physician Address: [address] [facility] [address] Visit Instructions: N/A Service Discharge Location Type: Home with Home Health Care Service Facility Name: N/A Service Floor Facility: N/A Service Room No: N/A Demographics Patient Last Name: Emma Patient First Name: Gabriel Language/Communication Barrier: n/a Service Address: [address] Service City: [place] Service ST: [place] Service ZIP: [address] Service (home) Other phone numbers: Arpita [phone] Emergency Contact: Extended Emergency Contact Information Primary Emergency Contact: arpita tolbert [place] Relation: Relative Preferred language: Marshallese Supervisor Lace Tearing needed? No Admission Information Admit Date: 06/02/2022 [...] 12 noon and 2 pm Infusion Company: [facility] Infectious Disease Physician: Dr Sean [...] Uriel Trevino Caregiver Relationship to Patient: spouse Teachterrie Caregiver Teachable Caregiver Notes: N/A Teachable Caregiver [...] (06/03) Discharge Date: 06/08/2022 Referral Source-PACC: (Hospital/Unit): [facility] / H-6109/H-6109 A End PACC Note Problem: [...] home care option or Outpatient options include [facility] or [facility]. Discharge Milestones and Delays [...] Soco Jean, GASPER 06/03/2022 9:49 AM 06/05/2022 Soco Jean, GASPER [...] minimum of 2 weeks IV Antibiotics at [place]. Surgical drain remains, ortho notes plan to check in am. HC-L following and notified TCC that no home care agencies available Sat or Sun for home infusions and wound care needs if discharged prior to Thursday's antibiotic. TCC phoned [facility] at [phone] and left VMM with request to call back to discuss DC needs of pt. Contact info provided. Discharge Plan: Home Care available Thursday, if patient receives IV Antibiotic Thursday, can discharge home and be seen for timely administration on Thursday. Backup Options include [facility] or [facility]. Driving time to [facility] noted to be ~15 mins away from pts hometown of [place] whereas [facility] location is ~35 Pt refusing to [...] with TCC regarding discharge plan. Informed TCC, [facility] is unable to see pt for SOC until Thursday06/09/2022 due to staffing issues on weekend. Will send referral to other agencies that accept insurance/go to pt's area to see if any agency may be able to accept referral and able to see on weekend. Referrals sent to 12 agencies, received no from 8 and no response from 4. [facility] can see pt on Thursday if pt is agreeable for agency and benefits. Will have w/e PACC follow up with pt. TCC was made aware earlier this afternoon. IV order received this evening and sent to [facility]. Images from the original [...] Will review OP Infusion option available at [facility]. TCC will continue to follow Discharge Milestones and Delays Expected Date/Time: Unknown Discharge Milestones Place discharge order Enter post-discharge transportation status Complete med reconciliation Request transport Case mgmt discharge readiness PT discharge readiness Expected Discharge History Expected Date/Time Set By Reviewed At Unknown GASPER Colon 06/06/2022 9:34 AM SW est Unknown GASPER Colno 06/05/2022 9:05 AM Unknown Kristen Perkins CHIEF POWER DISPATCHER 06/04/2022 9:16 AM 06/05/2022 Soco Jean, [facility] 06/03/2022 9:49 AM 06/05/2022 Soco Jean [facility] 06/03/2022 9:42 AM NPO- poss OR-if agrees 06/05/2022 GASPER Conroy 06/03/2022 9:42 AM NPO- poss OR 06/05/2022 Jesse Cabral PA-C 06/03/2022 2:09 AM 06/05/2022 Jesse Cabral PA-C 06/02/2022 11:51 PM Length of Stay (Days): 4 GMLOS: 3.0 Update to she will meet patient in room 6109 Images from the original note were not included. [place] [address] [place] [address] Dept: [phone] Loc: [phone] Operative Report Patient Name: Gabriel Carter Date [...] patient's ASA was verified by the nurse mobile device engineer and the anesthesia staff. Fire risk was assessed. [place] was used to exsanguinate the limb and [...] None Bharathi Ayala MD Date: 06/05/2022 Location: [facility] OR Name: Gabriel Carter, : 1965, Diagnosis Pre-op Diagnosis * Necrotizing fasciitis (HCC) [M72.6] Post-op Diagnosis * Necrotizing fasciitis (HCC) [M72.6] Procedures INCISION AND DRAINAGE FOREARM AND OR WRIST BURSA, POSSIBLE CLOSURE, POSSIBLE WOUND VAC APPLICATION 80603 - UT INCISION & DRAINAGE FOREARM&/WRIST BURSA Surgeons * Bharathi Ayala - Primary Procedure Summary Anesthesia: General ASA: III Estimated Blood Loss: 10 mL Drains: Closed/Suction Drain Inferior;Proximal;Right Accordion 10 Fr. (Active) Staff: Marine Diesel Mechanic: Aldo Palafox RN Relief Marine Diesel Mechanic: Elva Winkler RN Scrub Person: Shavon Short [...] Set By Reviewed At Unknown Kristen Perkins CHIEF POWER DISPATCHER 06/04/2022 9:16 AM SW est 06/05/2022 Soco Jean [facility] 06/03/2022 9:49 AM 06/05/2022 Soco Jean [facility] 06/03/2022 9:42 AM NPO- poss OR-if agrees 06/05/2022 Soco Jean [facility] 06/03/2022 9:42 AM NPO- poss OR 06/05/2022 Jesse Cabral PA-C 06/03/2022 2:09 AM 06/05/2022 Jesse Cabral PA-C 06/02/2022 11:51 PM Length of Stay (Days): 2 GMLOS: No GMLOS Documented Correctional Supply Supervisor following case for Discharge Needs. Check benefits for possible home IV needs. Per [facility]: Referral Received Jolene eff02/09/2022 DED $5000 ($ 4968.71 remaining) OOP $5000 ($ 4968.71 remaining) Coinsurance 0%. He wont have any upfront cost. Patient's Alison, updated and will meet patient in his room Patient family/visitor updated by RN at this time. [address] [address] Dept: [phone] Loc: [phone] Operative Report Patient Name: Gabriel Carter Date [...] cellulitis and pain. He was seen at [facility] with markedly elevated infectious labs and [facility] to [facility]. On arrival at [facility] the patient stated that he felt better [...] patient's ASA was verified by the nurse mobile device engineer and the anesthesia staff. Fire risk was assessed. [place] was used to exsanguinate the limb and [...] boggy. Fascial soft tissues with a slight [place] green hue. The subcutaneous tissue was well [...] a well-padded posterior slab splint. Mr. Gabriel Cartre was taken to the recovery room in [...] Limits Permission given to speak with patient quality assurance representative/caregiver as indicated: Confirmation of Payer with patient/family: Yes Payer Name: Jolene Bizdom : No Confirmation of Primary Care Physician: [...] Living Prescription Coverage: Yes Pharmacy Used: [facility] in [place] Medication Management: Independent Transportation/Shopping: Independent Transportation Mode: [...] x 3. He was a transfer from [facility] for R arm swelling and possible need for surgery. ID, Nephrology, and ortho consulted. Started on IV antibiotics and IV fluids. Ortho wants to take to surgery and debride site. May need a wound vac. Wants to go home when stable, will follow for needs. Neetu Miranda RN documented in this encounter [facility] 06-08-2022 Note Formatting of this n ote might be different from the original. Patient Choice Patient Name: GABRIEL CARTER Date of : 1965 All Providers Sent Referral Name: [facility] Phone: [phone] Address: [address] [place] [address] Name: [facility] Phone: [phone] Address: [address] [place] [address] Name: [facility] Phone: [phone] Address: [address] [place] [address] Name: [facility] [place] (All Offices) Phone: [phone] Address: [address] [place] [address] Name: [facility] Phone: [phone] Address: [address] [place] [address] Name: [facility] Phone: [phone] Address: [address] [place] [address] Name: [facility] Phone: [phone] Address: [address] [place] [address] Name: [facility] Phone: [phone] Address: [address] [place] [address] Name: [facility] Address: [address] [place] [address] Name: [facility] Phone: [phone] Address: [address] [place] [address] Name: [facility] Address: [address] [place] [address] Name: [facility] Address: [address] [facility] [facility] [address] [place] [address] Name: [facility]) Address: [address] [facility] [facility] [address] [address] [place] [address] [facility] 06-08-2022 Note Formatting of this n ote might be different from the original. Patient Choice Patient Name: GABRIEL CARTER Date of : 1965 All Providers Sent Referral Name: [facility] Phone: [phone] Address: [address] [facility] [address] Name: [facility] Phone: [phone] Address: [address] [place] [address] Name: [facility] Phone: [phone] Address: [address] [place] [address] Name: [facility] [place] (All Offices) Phone: [phone] Address: [address] [place] [address] Name: [facility] Phone: [phone] Address: [address] [place] [address] Name: [facility] Int[facility] Phone: [phone] Address: [address] [place] [address] Name: [facility] Phone: [phone] Address: [address] [place] [address] Name: [facility] Phone: [phone] Address: [address] [place] [address] Name: [facility] Address: [address] [facility] [address] [place] [address] Name: [facility] Phone: [phone] Address: [address] [place] [address] Name: [facility] Address: [address] [facility] [address] [facility] [place] [address] Name: [facility] Address: [address] [facility] [place] [address] Name: [facility] Address: [address] [facility] [facility] [address] [address] [place] [address] [facility] 06-08-2022 Note Start PACC Note Home Health Referral Educated patient on Home Care and services available. Patient offered choice of available HHC and agreeable to SN / PTservices with [facility]. Care Types: [...] is noted as yes - consider a NEWSCAST PRODUCER evaluation once the patient returns home. START PATIENT REGISTRATION INFORMATION Order Information Order Signing Physician: Ry Foster MD Service Ordered RN ?: Yes Service Ordered PT ?: Yes Service Ordered OT ?: No Service Ordered ST ?: No Service Ordered NEWSCAST PRODUCER?:No Service Ordered HIGH SCHOOL TEACHER?: No Following Physician: DR Bharathi Ayala Following Physician Overseeing Physician: (Required for Residents only) Agreeable to Follow? Yes Date/Time of Call 06/08/22 12:13 PM Office is closed Care Coordination SOC Call from [facility] Required?: No Same Day SOC?: No Primary Care Physician: Papi Ricketts DO Primary Care Physician Primary Care Physician Address: [address] [place] [address] / [facility] [address] Visit Instructions: N/A Service Discharge Location Type: Home with Home Health Care Service Facility Name: N/A Service Floor Facility: N/A Service Room No: N/A Demographics Patient Last Name: Emma Patient First Name: Gabriel Language/Communication Barrier: n/a Service Address: [address] [place] [address] Service City: [facility] ST: [place] Service ZIP: [address] Service (home) Other phone numbers: [employer] [phone] Emergency Contact: Extended Emergency Contact Information Primary Emergency Contact: arpita tolbert [place] Relation: Relative Preferred language: Marshallese Supervisor Lace Tearing needed? No Admission Information Admit Date: 06/02/2022 Patient status at discharge: Inpatient Admitting Diagnosis ANGELIA (acute kidney injury) (CMS/HCC) (HCC) [N17.9] Cellulitis of right upper extremity [L03.113] Caregiver Information Caregiver First Name: Arpita Caregiver Last Name: Uriel Caregiver Relationship to Patient spouse Caregiver Caregiver Notes: N/A Oriel [employer] HIGHTECH: HI TECH - IV Orders: Ceftriaxone 2,000 mg every 24 hrs IV Method of Administration: IV Date and Time of Next Dose Due: 06/09/2022 between 12 noon and 2 pm Infusion Company: [facility] Infectious Disease Physician: Dr Sean [...] Sed rate 61. (more content not included)... [facility] 06-08-2022 Note Formatting of this n ote is different from the original. Start PACC Note Home Health Referral Educated patient on Home Care and services available. Patient offered choice of available HHC and agreeable to SN / PTservices with [facility]. Care Types: [...] is noted as yes - consider a NEWSCAST PRODUCER evaluation once the patient returns home. START PATIENT REGISTRATION INFORMATION Order Information Order Signing Physician: Ry Foster MD Service Ordered RN ?: Yes Service Ordered PT ?: Yes Service Ordered OT ?: No Service Ordered ST ?: No Service Ordered NEWSCAST PRODUCER?:No Service Ordered HIGH SCHOOL TEACHER?: No Following Physician: DR Bharathi Ayala Following Physician Overseeing Physician: (Required for Residents only) Agreeable to Follow? Yes Date/Time of Call 06/08/22 12:13 PM Office is closed Care Coordination SOC Call from [facility] Required?: No Same Day SOC?: No Primary Care Physician: Papi Ricketts DO Primary Care Physician Primary Care Physician Address: [address] [place] [address] / [facility] [address] Visit Instructions: N/A Service Discharge Location Type: Home with Home Health Care Service Facility Name: N/A Service Floor Facility: N/A Service Room No: N/A Demographics Patient Last Name: Emma Patient First Name: Gabriel Language/Communication Barrier: n/a Service Address: [address] [place] [address] Service City: [facility] ST: [place] Service ZIP: [address] Service (home) Other phone numbers: Arpita [phone] Emergency Contact: Extended Emergency Contact Information Primary Emergency Contact: arpita tolbert [place] Relation: Relative Preferred language: Marshallese Supervisor Lace Tearing needed? No Admission Information Admit Date: 06/02/2022 [...] 12 noon and 2 pm Infusion Company: [facility] Infectious Disease Physician: Dr Sean Green Teachable Caregiver Teachable Caregiver First Name: Arpita Reeves Last Name: Uriel Reeves Relationship to Patient: spouse Teachable Caregiver Teachable Caregiver Notes: N/A Teachable Caregiver available for SOC visit?: Yes Teachable Caregiver agreeable to provide skilled HITECH care per physician's orders?: Yes [employer]: [employer] TECH - WOUND CARE Orders: - Wound [...] Name: Arpita Trevino Caregiver Last Name: Uriel Combsable Caregiver Relationship to Patient: spouse Teachable Caregiver [...] (06/03) Discharge Date: 06/08/2022 Referral Source-PACC: (Hospital/Unit): [facility] / H-6109/H-6109 A End PACC Note [facility] 06-08-2022 Note Formatting of this n ote is different from the original. Start PACC Note Home Health Referral Educated patient on Home Care and services available. Patient offered choice of available HHC and agreeable to SN / PTservices with [facility]. Care Types: [...] is noted as yes - consider a NEWSCAST PRODUCER evaluation once the patient returns home. START PATIENT REGISTRATION INFORMATION Order Information Order Signing Physician: Ry Foster MD Service Ordered RN ?: Yes Service Ordered PT ?: Yes Service Ordered OT ?: No Service Ordered ST ?: No Service Ordered NEWSCAST PRODUCER?:No Service Ordered HIGH SCHOOL TEACHER?: No Following Physician: DR Bharathi Ayala Following Physician Overseeing Physician: (Required for Residents only) Agreeable to Follow? Yes Date/Time of Call 06/08/22 12:13 PM Office is closed Care Coordination SOC Call from [facility] Required?: No Same Day SOC?: No Primary Care Physician: Papi Ricketts DO Primary Care Physician Primary Care Physician Address: [address] [place], [place] [address] / [place] [address] Visit Instructions: N/A Service Discharge Location Type: Home with Home Health Care Service Facility Name: N/A Service Floor Facility: N/A Service Room No: N/A Demographics Patient Last Name: Emma Patient First Name: Gabriel Language/Communication Barrier: n/a Service Address: [address] Service City: [facility] ST: [place] Service ZIP: [address] Service (home) Other phone numbers: Arpita [phone] Emergency Contact: Extended Emergency Contact Information Primary Emergency Contact: arpita tolbert [place] Relation: Relative Preferred language: Marshallese Supervisor Lace Tearing needed? No Admission Information Admit Date: 06/02/2022 [...] 12 noon and 2 pm Infusion Company: [id number] [facility] Infectious Disease Physician: Dr Sean [...] (06/03) Discharge Date: 06/08/2022 Referral Source-PACC: (Hospital/Unit): [facility] / H-6109/H-6109 A End PACC Note [facility] 06-08-2022 Note Hospitalist Progress Note 06/08/2022 [phone]: Please secure chat me for patient care issues. [phone]: Please secure chat [facility] Hospitalist for any issues. Subjective: Admit Date: [...] to go to outpatient infusion center, wants [facility] for IV abx Adult diet Regular [...] PLT 372 438 508* BMP: Recent Labs 06/06/22 01106/07/2221506/08/22113 NA 135 135 132* K 4.5 4.2 [...] arpita tolbert [place] Relation: Relative Preferred language: Marshallese Supervisor Lace Tearing needed? No Ry Foster MD Division of Hospitalist Medicine [facility] PAGER: [employer] [facility] 06-08-2022 History of Present illness Narrative Images from the original note were not included. Hospitalist Progress Note 06/08/20226998799-5135: Please secure chat me for patient care issues. [phone]: Please secure chat [facility] Hospitalist for any issues. Subjective: Admit Date: [...] to go to outpatient infusion center, wants [facility] for IV abx Adult diet Regular 24HR INTAKE/OUTPUT: Intake/Output Summary (Last 24 hours) at 06/08/2022 0957 Last data filed at 06/08/2022 0527 Gross per 24 hour Intake -- Output 900 ml Net -900 ml Past Medical History: History reviewed. No pertinent past medical history. LABS: CBC: Recent Labs 06/06/22 0114 06/07/22 0216 06/08/22113 WBC 12.3* 10.9* 10.2 RBC 3.91* 3.96* 4.10* HGB 12.0* 12.4* 12.9* HCT 35.8* 36.4* 37.5* MCV 91.6 92.0 91.5 RDW 13.6 13.3 13.2 PLT 372 438 508* BMP: Recent Labs 06/06/22 01106/07/226 06/08/22113 NA 135 135 132* K 4.5 4.2 [...] arpita tolbert [place] Relation: Relative Preferred language: Marshallese Supervisor Lace Tearing needed? No Ry Foster MD Division of Hospitalist Medicine Acute care solutions PAGER: Epic chat Images from the original note were not included. [place] [address] [place] [address] Dept: [phone] Loc: [phone] Orthopedic Progress Note Name: Gabriel Carter Date:06/08/2022 [...] note were not included. Hospitalist Progress Note 06/07/20226993476-0600: Please secure chat me for patient care issues. [phone]: Please secure chat [facility] Hospitalist for any issues. Subjective: Admit Date: [...] Health Care - Pending the following - [facility] setup Extended Emergency Contact Information Primary Emergency Contact: arpita tolbert [place] Relation: Relative Preferred language: Marshallese Supervisor Lace Tearing needed? No Ry Foster MD Division of Hospitalist Medicine [employer] [facility] PAGER: Epic chat Physical Therapy Facility/Department: Physical [...] Diagnoses of ANGELIA (acute kidney injury) (CMS/HCC) (HCC) and Necrotizing fasciitis ([facility]) were also pertinent to this visit. 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 [place] [address] [place] [id number] Dept: [phone] Loc: [phone] Orthopedic Progress Note Name: Gabriel Carter Date:06/07/2022 [...] able. Araceli Lehman PT DPT [facility] Progress Note Following for ANGELIA Patient [...] -okay off IVF Parker Patel APRN - NET SOFTWARE DEVELOPER Associated attestation - Sudeep Vera MD - 06/06/2022 3:47 PM EDT Patient seen and examined. Agree with note as outlined by STORAGE WHARFAGE CLERK below -feels ok -appetite is good -off ivf -abx ongoing -renal function stable at 1.17mg/dL -nephrology will monitor peripherally Thank you, please call [phone] with any concerns. Sudeep Vera MD Images from the original note were not included. Hospitalist Progress Note 06/06/20226997445-0148: Please secure chat me for patient care issues. [phone]: Please secure chat [facility] Hospitalist for any issues. Subjective: Admit Date: [...] arpita tolbert [place] Relation: Relative Preferred language: Marshallese Supervisor Lace Tearing needed? No Ry Foster MD Division of Hospitalist Medicine Acute care solutions PAGER: [employer] chat PAGING: The Acute Pain Service providers are available exclusively via [employer] SECURE CHAT. APS does not utilize pagers. Due to the current environment of [place] [address], PPE was worn for the duration of [...] Pain Service providers are available exclusively via [employer]. APS does not utilize pagers. Vancomycin therapy has been discontinued by Dr. Sean Green on 06/06/22. Thank you for the consult. Pharmacy signing off for vancomycin dosing. Abbi Solitario RPh, PharmD Date: 06/06/22 Time: 10:42 AM Images from the original note were not included. Pharmacy Managed Vancomycin Dosing Service Progress Note Consult Date: 06/06/22 Room:H-6109/H-5587 A Patient Name: Gabriel Carter Lab Results [...] AM Abbi Solitario RPh PharmD (available on Feeb[employer]) Images from the original note were not included. [facility] - Infectious Diseases Attending Progress [...] 06/06/2022113 CREATININE 1.17 06/06/2022113 GLUCOSE 186 (H) 06/06/2022 0114 CALCIUM 8.0 (L) 06/06/2022 011 PROT 5.6 (L) 06/03/2022215 BILITOT 0.8 06/03/2022215 ALKPHOS 113 06/03/2022215 AST 34 06/03/2022215 ALT 21 06/03/2022215 PROCAL 2.20 (H) 06/04/2022 0503 Lab Results Component Value Date/Time WBC 12.3 (H) 06/06/2022 011 HGB 12.0 (L) 06/06/2022 011 HCT 35.8 (L) 06/06/2022 011 PLT 372 06/06/2022113 LYMPHOPCT 3.2 (L) 06/03/2022215 [...] M w/ PMH of HTN. Presented to [facility] ED 06/02 for RUE swelling. He was [...] fascitis d/t S pyogenes - Presented to [facility] ED 06/02 for RUE swelling - Transferred [...] accounting for open encounter. Sean Green DO [facility] Infectious Diseases Office Tel. [phone] Images from the original note were not included. [place] [address] [place] [address] Dept: [phone] Loc: [phone] Orthopedic Progress Note Name: Gabriel Carter Date:06/06/2022 Attending:Ry Foster MD Subjective Doing well this AM. Feeling much better. We discussed importance of moving the arm and I encouraged ROM of the fingers, wrist, elbow. Objective Vitals: Vitals: 06/05/22 1710 06/05/22 1715 06/05/22 1730 06/05/222033 BP: (!) 155/105 (!) 157/99 116/68 [...] Labs 06/04/22 0503 06/05/22 0158 06/06/22 011 SEDRATE 101* -- -- CRP -- 138.3* [...] had previously been started on abx (at [place] ED) which had improved his pain; Ortho [...] On: Kcal/kg Weight Used for Energy Requirements: [place] Weight for Energy Calculation (kg): 75.5 kg Total Energy Requirements (kcals/day): 6433-2666 kcal/day (25-30 kcal/kg) Weight Used for Protein Requirements: [place] Weight in Kg Used for Protein Requirements: [...] (No weight hx in EMR to review) [place] Body Weight (lbs) (Calculated): 166 lbs [place] Body Weight (Kg) (Calculated): 75 kg Weight [...] China Maciel RD Contact: Secure chat or *[phone] [facility] Progress Note Following for ANGELIA Patient [...] NPO, x12 hours Parker Patel APRN - NET SOFTWARE DEVELOPER Images from the original note were not included. Hospitalist Progress Note 06/05/2022 [phone]: Please secure chat me for patient care issues. [phone]: Please secure chat [facility] Hospitalist for any issues. Subjective: Admit Date: 06/02/2022 PCP: Papi Ricketts DO Room#: H-6546/H-5967 A Interval History: Gabriel Carter is a [...] arpita tolbert [place] Relation: Relative Preferred language: Marshallese Supervisor Lace Tearing needed? No Ry Foster MD Division of Hospitalist Medicine Acute [facility] PAGER: Epic chat Images from the original note were not included. [facility] - Infectious Diseases Attending Progress Note Subjective: [...] 06/05/2022157 HCT 32.7 (L) 06/05/2022157 PLT 323 06/05/20228 LYMPHOPCT 3.2 (L) 06/03/2022215 MONOPCT 4.6 06/03/2022215 [...] M w/ PMH of HTN. Presented to [facility] ED 06/02 for RUE swelling. He was [...] upper extremity necrotizing fascitis - Presented to [facility] ED 06/02 for RUE swelling - Transferred [...] accounting for open encounter. Sean Green DO [facility] Infectious Diseases Office Tel. [phone] Images from the original note were not included. [facility] [address] [place] [address] Dept: [phone] Loc: [phone] Orthopedic Progress Note Name: Gabriel Carter Date:06/05/2022 [...] follow Ray Romero MD Orthopaedic Surgery PGY-3 *[id number] Brief orthopedic progress note: Ortho to bedside [...] team to follow. Please page ortho resident production control expediter with any further concerns. Tasia Jarrett MD PGY-1 Orthopaedic Surgery 06/04/2022 3:53 PM Nutrition rescreen completed. Patient referred to the Dietitian. Wound. Images from the original note were not included. Hospitalist Progress Note 06/04/2022 [phone]: Please secure chat me for patient care issues. [phone]: Please secure chat [facility] Hospitalist for any issues. Subjective: Admit Date: [...] of Water with Meds Adult diet Regular @[id number]@ 24HR INTAKE/OUTPUT: Intake/Output Summary (Last 24 hours) [...] PLT 293 280 319 BMP: Recent Labs 06/02/22233306/03/2221506/04/22 0503 NA 132* 132* 138 K 3.7 [...] arpita tolbert [place] Relation: Relative Preferred language: Marshallese Supervisor Lace Tearing needed? No Ry Foster MD Division of Hospitalist Medicine Acute care solutions PAGER: Epic chat [facility] Progress Note Following for ANGELIA Patient [...] lower extremity edema Data: Labs: Recent Labs 06/02/22233306/03/22 0216 06/04/22 0503 WBC 24.7* 22.0* 20.3* HGB 12.2* 11.9* 12.3* HCT 36.5* 35.9* 37.3* MCV 91.6 93.8 92.4 PLT 293 280 319 Recent Labs 06/02/22233306/03/22 0216 06/04/22 0503 NA 132* 132* 138 [...] as documented in his note. Please call [phone] or message me through [employer] with any questions or concerns. Images from the original note were not included. [facility] - Infectious Diseases Attending Progress Note Subjective: [...] 109 (H) 06/04/2022 050 CO2 18 (L) 06/04/2022 050 BUN 32 (H) 06/04/2022 050 CREATININE 1.38 (H) 06/04/2022 050 GLUCOSE 148 (H) 06/04/2022502 CALCIUM 8.5 06/04/2022 050 PROT 5.6 (L) 06/03/2022215 BILITOT 0.8 06/03/2022215 [...] M w/ PMH of HTN. Presented to [facility] ED 06/02 for RUE swelling. He was [...] and soft tissue infection - Presented to [facility] ED 06/02 for RUE swelling - Transferred [...] accounting for open encounter. Sean Green DO [facility] Infectious Diseases Office Tel. [phone] Physical Therapy PT orders received. Pt is [...] and adjust dose as appropriate. Ashwin Lewis, PharmD. Images from the original note were not included. [place] [address] [place] [address] Dept: [phone] Loc: [phone] Orthopedic Progress Note Name: Gabriel Carter Date:06/04/2022 Attending:Ry Foster MD Subjective No events o/n. No increasing pain. Reports that he has some numbness overlying dorsal hand. Denies any fevers or chills. Denies any other complaints. Objective Vitals: Vitals: 06/03/22 2000 06/03/22202806/04/22 0030 06/04/22 0440 BP: 90/62 100/59 111/70 [...] Labs 06/02/22 2130 INR 1.1 Recent Labs 06/02/224 06/03/22 0216 06/04/22 0503 SEDRATE 61* -- 101* CRP [...] follow Ray Romero MD Orthopaedic Surgery PGY-3 *5696 Images from the original note were not included. Hospitalist Progress Note 06/03/20226996912-8117: Please secure chat me for patient care issues. [phone]: Please secure chat [facility] Hospitalist for any issues. Subjective: Admit Date: [...] arpita tolbert [place] Relation: Relative Preferred language: Marshallese Supervisor Lace Tearing needed? No Ry Foster MD Division of Hospitalist Medicine Acute care [facility] PAGER: Epic chat I personally evaluated the [...] significantly improved since administration of antibiotics at [place] ED. We will monitor patient for improvement [...] significantly improved since administration of antibiotics at [place] ED. We will monitor patient for improvement [...] 06/03/2022 2:42 AM documented in this encounter [facility] 06-08-2022 Plan of care note Problem: Pain - Adult Goal: Verbalizes/displays adequate comfort level or baseline comfort level Outcome: Progressing Problem: Safety - Adult Goal: Free from fall injury Outcome: Progressing Problem: Discharge Planning Goal: Discharge to home or other facility with appropriate resources Outcome: Progressing Problem: Problem Interventions Goal: Assess Nutritional Intake Outcome: Progressing [facility] 06-08-2022 Nurse Note Completed patients dressing change. Patient tolerated well. [facility] 06-07-2022 Note Hospitalist Progress Note 06/07/2022 [phone]: Please secure chat md for patient care issues. [phone]: Please secure chat [facility] Hospitalist for any issues. Subjective: Admit Date: 06/02/2022 PCP: Papi Ricketts DO Room#: H-0119/H-0874 A Interval History: Gabriel Carter is a [...] Health Care - Pending the following - [facility] setup Extended Emergency Contact Information Primary Emergency Contact: arpita tolbert [place] Relation: Relative Preferred language: Marshallese Supervisor Lace Tearing needed? No Ry Foster MD Division of Hospitalist Medicine Acute care solutions PAGER: [employer] [facility] 06-07-2022 Note Formatting of this n ote [...] home care option or Outpatient options include [facility] or [facility]. Discharge Milestones and Delays Expected [...] Unknown GASPER Colon 06/04/2022 9:16 AM 06/05/2022 GASPER Conroy 06/03/2022 9:49 AM 06/05/2022 GASPER Conroy 06/03/2022 9:42 AM NPO- poss OR-if agrees 06/05/2022 GASPER Conroy 06/03/2022 9:42 AM NPO- poss OR 06/05/2022 Jesse Cabral PA-C 06/03/2022 2:09 AM 06/05/2022 Jesse Cabral PA-C 06/02/2022 11:51 PM Length of Stay (Days): 5 GMLOS: 3.0 [facility] 06-07-2022 Note Formatting of this n [...] home care option or Outpatient options include [facility] or [facility]. Discharge Milestones and Delays [...] Colon 06/04/2022 9:16 AM 06/05/2022 [place], CHIEF POWER DISPATCHER 06/03/2022 9:49 AM 06/05/2022 [place], CHIEF POWER DISPATCHER 06/03/2022 9:42 AM NPO- poss OR-if agrees 06/05/2022 Soc[place], CHIEF POWER DISPATCHER 06/03/2022 9:42 AM NPO- poss OR 06/05/2022 Jesse Cabral PA-C 06/03/2022 2:09 AM 06/05/2022 Jesse Cabral PA-C 06/02/2022 11:51 PM Length of Stay (Days): 5 GMLOS: 3.0 [facility] 06-06-2022 Note PICC Procedure Note 06/06/22 at [...] Ultrasound guidance used. Site prior to insertion: [facility] Lot # [id number] Catheter type: 5 Spanish Double Lumen Location: Left basilic vein Trimmed [...] X-Ray: Ordered. Placed by Corbin Valdivia APRN [facility] 06-06-2022 Note Central Line Inserti on Checklist [...] follow escalation policy. Proceduralist: Corbin Valdivia APRN [facility] 06-06-2022 Procedure note Images from the original [...] Ultrasound guidance used. Site prior to insertion: [facility] Lot # [id number] Catheter type: 5 Spanish Double Lumen Location: Left basilic vein Trimmed [...] X-Ray: Ordered. Placed by Corbin Valdivia APRN [employer] Phone: 06-06-2022 Procedure note Central Line Insertion [...] follow escalation policy. Proceduralist: Corbin Valdivia APRN [facility] 06-06-2022 Procedure note Images from the original note were not included. [facility] Procedure Note 06/06/22 at 5:26 PM [...] Site prior to insertion: [facility] Lot # [id number] Catheter type: 5 Spanish Double Lumen Location: Left basilic vein Trimmed [...] Corbin Valdivia APRN documented in this encounter [facility] 06-06-2022 Note Case Management Prog ress Note TCC rec'd secure chat msg from Dr. Green that pt to receive PICC line with minimum of 2 weeks IV Antibiotics at [place]. Surgical drain remains, ortho notes plan to check in am. HC-L following and notified TCC that no home care agencies available Sat or Sun for home infusions and wound care needs if discharged prior to Thursday's antibiotic. TCC phoned [facility] at [phone] and left VMM with request to call back to discuss DC needs of pt. Contact info provided. Discharge Plan: Home Care available Thursday, if patient receives IV Antibiotic Thursday, can discharge home and be seen for timely administration on Thursday. Backup Options include [facility] or [facility]. Driving time to [facility] noted to be ~15 mins away from pts hometown of [place] whereas [facility] location is ~35 Pt refusing to work w/therapy and refused to speak with HC-L so he can sleep. TCC not able to meet w/him to discuss options above. Requested wknd TCC to follow and provided assistance if needed. [facility] 06-06-2022 Telephone encounter Note Images from the original note were not included. Patient still admitted will need discharge information. Patient will need notified of follow up appt on 06/17/22 @130pm [facility] 06-06-2022 Note Formatting of this n ote might be different from the original. Case Management Progress Note TCC rec'd secure chat msg from Dr. Green that pt to receive PICC line with minimum of 2 weeks IV Antibiotics at [place]. Surgical drain remains, ortho notes plan to check in am. HC-L following and notified TCC that no home care agencies available Sat or Sun for home infusions and wound care needs if discharged prior to Thursday's antibiotic. TCC phoned [facility] at [phone] and left VMM with request to call back to discuss DC needs of pt. Contact info provided. Discharge Plan: Home Care available Thursday, if patient receives IV Antibiotic Thursday, can discharge home and be seen for timely administration on Thursday. Backup Options include [facility] or [facility]. Driving time to [facility] noted to be ~15 mins away from pts hometown of [place] whereas [facility] location is ~35 Pt refusing to work w/therapy and refused to speak with HC-L so he can sleep. TCC not able to meet w/him to discuss options above. Requested wknd TCC to follow and provided assistance if needed. [facility] 06-06-2022 Note Formatting of this n ote might be different from the original. Case Management Progress Note TCC rec'd secure chat msg from Dr. Green that pt to receive PICC line with minimum of 2 weeks IV Antibiotics at [place]. Surgical drain remains, ortho notes plan to check in am. HC-L following and notified TCC that no home care agencies available Sat or Sun for home infusions and wound care needs if discharged prior to Thursday's antibiotic. TCC phoned [facility] at [phone] and left VMM with request to call back to discuss DC needs of pt. Contact info provided. Discharge Plan: Home Care available Thursday, if patient receives IV Antibiotic Thursday, can discharge home and be seen for timely administration on Thursday. Backup Options include [facility] or [facility]. Driving time to [facility] noted to be ~15 mins away from pts [place] whereas [facility] location is ~35 Pt refusing to work w/therapy and refused to speak with HC-L so he can sleep. TCC not able to meet w/him to discuss options above. Requested wknd TCC to follow and provided assistance if needed. [facility] 06-06-2022 Note Formatting of this n ote might be different from the original. Attempt to talk to pt, pt request I come back tomorrow, he is sleeping and doesn't want bothered now. Followed up with TCC regarding discharge plan. Informed TCC, [facility] [place] is unable to see pt for SOC [...] order received this evening and sent to [facility]. [facility] 06-06-2022 Note Formatting of this n ote might be different from the original. Attempt to talk to pt, pt request I come back tomorrow, he is sleeping and doesn't want bothered now. Followed up with TCC regarding discharge plan. Informed ROHAN, [facility] [place] is unable to see pt for SOC [...] order received this evening and sent to [facility]. [facility] 06-06-2022 Note Hospitalist Progress Note 06/06/20226991235-6442: Please secure chat me for patient care issues. [phone]: Please secure chat [facility] Hospitalist for any issues. Subjective: Admit Date: [...] arpita tolbert [place] Relation: Relative Preferred language: Marshallese Supervisor Lace Tearing needed? No Ry Foster MD Division of Hospitalist Medicine [facility] PAGER: [employer] [facility] 06-06-2022 Note Care Management Prog [...] Will review OP Infusion option available at [facility]. TCC will continue to follow Discharge [...] Colon 06/04/2022 9:16 AM 06/05/2022 Soco Jean, CHIEF POWER DISPATCHER 06/03/2022 9:49 AM 06/05/2022 Soco Jean, CHIEF POWER DISPATCHER 06/03/2022 9:42 AM NPO- poss OR-if agrees 06/05/2022 Soco Jean, CHIEF POWER DISPATCHER 06/03/2022 9:42 AM NPO- poss OR 06/05/2022 Jesse Cabral PA-C 06/03/2022 2:09 AM 06/05/2022 Jesse Cabral PA-C 06/02/2022 11:51 PM Length of Stay (Days): 4 GMLOS: 3.0 [facility] 06-06-2022 Note Pharmacy Managed Van comycin Dosing Service Progress Note Consult Date: 06/06/22 Room:[address] Patient Name: Gabriel Carter Lab Results [...] AM Abbi Solitario RPh PharmD (available on Haiku) [facility] 06-06-2022 Note [facility] - Infectious Diseases Attending Progress [...] HGB 12.0 (L) 06/06/2022113 HCT 35.8 (L) 06/06/2022 011 PLT 372 06/06/2022113 LYMPHOPCT 3.2 (L) 06/03/2022215 [...] M w/ PMH of HTN. Presented to [facility] ED 06/02 for RUE swelling. He was [...] fascitis d/t S pyogenes - Presented to [facility] ED 06/02 for RUE swelling - Transferred [...] at end of (more content not included)... [facility] 06-06-2022 Note Formatting of this n ote [...] Will review OP Infusion option available at [facility]. TCC will continue to follow Discharge Milestones and Delays Expected Date/Time: Unknown Discharge Milestones Place discharge order Enter post-discharge transportation status Complete med reconciliation Request transport Case mgmt discharge readiness PT discharge readiness Expected Discharge History Expected Date/Time Set By Reviewed At Unknown Kristen Perkins [facility] 06/06/2022 9:34 AM SW est Unknown Kristen Perkins [facility] 06/05/2022 9:05 AM Unknown Kristen Perkins [facility] 06/04/2022 9:16 AM 06/05/2022 [place], [facility] 06/03/2022 9:49 AM 06/05/2022 [place], [facility] 06/03/2022 9:42 AM NPO- poss OR-if agrees 06/05/2022 [place], [facility] 06/03/2022 9:42 AM NPO- poss OR 06/05/2022 Jesse Cabral PA-C 06/03/2022 2:09 AM 06/05/2022 Jesse Cabral PA-C 06/02/2022 11:51 PM Length of Stay (Days): 4 GMLOS: 3.0 [facility] 06-06-2022 Note Formatting of this n ote [...] Will review OP Infusion option available at [facility]. TCC will continue to follow Discharge Milestones and Delays Expected Date/Time: Unknown Discharge Milestones Place discharge order Enter post-discharge transportation status Complete med reconciliation Request transport Case mgmt discharge readiness PT discharge readiness Expected Discharge History Expected Date/Time Set By Reviewed At Unknown Kristen Perkins, [facility] 06/06/2022 9:34 AM SW est Unknown Kristen Perkins, [facility] 06/05/2022 9:05 AM Unknown Kristen Perkins, [facility] 06/04/2022 9:16 AM 06/05/2022 [place], [facility] 06/03/2022 9:49 AM 06/05/2022 [place], [facility] 06/03/2022 9:42 AM NPO- poss OR-if agrees 06/05/2022 [place], [facility] 06/03/2022 9:42 AM NPO- poss OR 06/05/2022 Jesse Cabral PA-C 06/03/2022 2:09 AM 06/05/2022 Jesse Cabral PA-C 06/02/2022 11:51 PM Length of Stay (Days): 4 GMLOS: 3.0 [facility] 06-05-2022 Note Patient: Gabriel packer Procedure Summary Date: 06/05/22 Room / Location: [facility] Operating Room Anesthesia Start: 1518 Anesthesia Stop: [...] once all PACU criteria has been met. [facility] 06-05-2022 Note Patient: Gabriel packer Procedure Summary Date: 06/05/22 Room / Location: [address] Operating Room Anesthesia Start: 1519 Anesthesia Stop: 1644 Procedure: INCISION AND DRAINAGE [...] opportunity for questions and acknowledgement of understanding. [facility] 06-05-2022 Note Airway Date/Time: 06/05/2022 3:27 PM Airway not difficult General Information and Staff Patient location during procedure: Procedural Resident/CUSTOMER SUPPORT COORDINATOR: Fareed Painter APRN - CUSTOMER SUPPORT COORDINATOR Performed: CUSTOMER SUPPORT COORDINATOR Indications and Patient Condition Indications for airway management: anesthesia Sedation level: Asleep Preoxygenated: yes Patient position: sniffing Mask difficulty assessment: 0 - not attempted Final Airway Details Final airway type: supraglottic airway Successful airway: Igel Size 4 Number of attempts at approach: 1 [facility] 06-05-2022 Note Formatting of this n ote might be different from the original. Update to she will meet patient in room 6109 [facility] 06-05-2022 Note Formatting of this n ote might be different from the original. Update to she will meet patient in room 6109 [facility] 06-05-2022 Note Formatting of this n ote might be different from the original. Images from the original note were not included. [facility] [address] [place] [address] Dept: [phone] Loc: [phone] Operative Report Patient Name: Gabriel Carter Date [...] patient's ASA was verified by the nurse mobile device engineer and the anesthesia staff. Fire risk was assessed. [place] was used to exsanguinate the limb and [...] refill less than 2 seconds. Mr. Gabriel Cartre was taken to the recovery room in stable condition. POST OPERATIVE PLAN Twice daily dry dressing changes Antibiotics per ID Encourage thumb and finger range of motion Pull drain Thursday morning Daily clinical images on rounds No plans for additional surgery F/U in office 2-3 days after DC Outpatient Follow-up XRays: None Bharathi Ayala MD [facility] 06-05-2022 Note Formatting of this n ote is different from the original. Date: 06/05/2022 Location: [facility] OR Name: Gabriel Carter, : 1965, Diagnosis Pre-op Diagnosis * Necrotizing fasciitis (HCC) [M72.6] Post-op Diagnosis * Necrotizing fasciitis (HCC) [M72.6] Procedures INCISION AND DRAINAGE FOREARM AND OR WRIST BURSA, POSSIBLE CLOSURE, POSSIBLE WOUND VAC APPLICATION 32228 - UT INCISION & DRAINAGE FOREARM&/WRIST BURSA Surgeons * Bharathi Ayala - Primary Procedure Summary Anesthesia: General ASA: III Estimated Blood Loss: 10 mL Drains: Closed/Suction Drain Inferior;Proximal;Right Accordion 10 Fr. (Active) Staff: Marine Diesel Mechanic: Aldo Palafox RN Relief Marine Diesel Mechanic: Elva Winkler RN Scrub Person: Shavon Short [...] 3:05 PM EDT Agree Bharathi Ayala MD [facility] 06-05-2022 Note Formatting of this n ote might be different from the original. Images from the original note were not included. [place] [address] [place] [address] Dept: [phone] Loc: [phone] Operative Report Patient Name: Gabriel Carter Date [...] patient's ASA was verified by the nurse mobile device engineer and the anesthesia staff. Fire risk was assessed. [place] was used to exsanguinate the limb and [...] Outpatient Follow-up XRays: None Bharathi Ayala MD [facility] 06-05-2022 Note Formatting of this n ote is different from the original. Date: 06/05/2022 Location: [facility] OR Name: Gabriel Carter, : 1965, Diagnosis Pre-op Diagnosis * Necrotizing fasciitis (HCC) [M72.6] Post-op Diagnosis * Necrotizing fasciitis (HCC) [M72.6] Procedures INCISION AND DRAINAGE FOREARM AND OR WRIST BURSA, POSSIBLE CLOSURE, POSSIBLE WOUND VAC APPLICATION 19995 - UT INCISION & DRAINAGE FOREARM&/WRIST BURSA Surgeons * Bharathi Ayala - Primary Procedure Summary Anesthesia: General ASA: III Estimated Blood Loss: 10 mL Drains: Closed/Suction Drain Inferior;Proximal;Right Accordion 10 Fr. (Active) Staff: Marine Diesel Mechanic: Aldo Palafox RN Relief Marine Diesel Mechanic: Elva Winkler RN Scrub Person: Shavon Short [...] 3:05 PM EDT Agree Bharathi Ayala MD [facility] 06-05-2022 Note [facility] Nephrology Progress [...] 91.6 PLT 280 319 323 Recent Labs 06/03/226 06/04/22 0503 06/05/22 0158 NA 132* 138 [...] NPO, x12 hours Parker Patel APRN - [facility] 06-05-2022 Note Hospitalist Progress Note 06/05/2022 [phone]: Please secure chat me for patient care issues. [phone]: Please secure chat [facility] Hospitalist for any issues. Subjective: Admit Date: [...] on file. LABS: CBC: Recent Labs 06/03/2221506/04/22 05006/05/22 0158 WBC 22.0* 20.3* 22.1* RBC 3.83* 4.04* 3.57* HGB 11.9* 12.3* 11.1* HCT 35.9* 37.3* 32.7* MCV 93.8 92.4 91.6 RDW 13.4 13.3 13.6 PLT 280 319 323 BMP: Recent Labs 06/03/2221506/04/22 05006/05/22 0158 NA 132* 138 136 K 3.5 [...] arpita tolbert Mobile Relation: Relative Preferred language: Marshallese Supervisor Lace Tearing needed? No Ry Foster MD Division of Hospitalist Medicine Acute care [facility] PAGER: [facility] 06-05-2022 Note Patient: Gabriel packer Procedure Information Date/Time: 06/05/22 1410 Procedure: INCISION AND DRAINAGE FOREARM AND OR WRIST BURSA (Right: Wrist) - requesting 12:00pm start Location: [facility] Operating Room Surgeons: Bharathi Ayala MD Relevant [...] Maryuri Lopez MD on 06/04/2022 1:35 PM [facility] 06-05-2022 Note [facility] - Infectious Diseases Attending Progress [...] M w/ PMH of HTN. Presented to [facility] ED 06/02 for RUE swelling. He was [...] upper extremity necrotizing fascitis - Presented to [facility] ED 06/02 for RUE swelling - Transferred [...] after visit incl (more content not included)... [facility] 06-04-2022 Note Brief orthopedic pro nahomy note: [...] team to follow. Please page ortho resident production control expediter with any further concerns. Tasia Jarrett MD PGY-1 Orthopaedic Surgery 06/04/2022 3:53 PM [facility] 06-04-2022 Note Care Management Prog ress Note [...] 9:16 AM SW est 06/05/2022 [place], [facility] 06/03/2022 9:49 AM 06/05/2022 [place] 06/03/2022 9:42 AM NPO- poss OR-if agrees 06/05/2022 [place] 06/03/2022 9:42 AM NPO- poss OR 06/05/2022 Jesse Cabral PA-C 06/03/2022 2:09 AM 06/05/2022 Jesse Cabral PA-C 06/02/2022 11:51 PM Length of Stay (Days): 2 GMLOS: No GMLOS Documented [facility] 06-04-2022 Note Hospitalist Progress Note 06/04/[id number]: Please secure chat me for patient care issues. [phone]: Please secure chat [facility] Hospitalist for any issues. Subjective: Admit Date: [...] of Water with Meds Adult diet Regular @LHHC3IBSLCV@ 24HR INTAKE/OUTPUT: Intake/Output Summary (Last 24 hours) [...] 4 10 LIVER PROFILE: Recent Labs 06/02/224 06/03/22 021 AST 30 34 ALT 21 21 BILITOT [...] arpita tolbert Mobile Relation: Relative Preferred language: Marshallese Supervisor Lace Tearing needed? No Ry Foster MD Division of Hospitalist Medicine Acute [facility] PAGER: [facility] 06-04-2022 Note [facility] [...] as documented in his note. Please call [phone] or message me through [employer] with any questions or concerns. [facility] 06-04-2022 Note [facility] - Infectious Diseases Attending Progress [...] WBC 20.3 (H) 06/04/2022502 HGB 12.3 (L) 06/04/2022502 HCT 37.3 (L) 06/04/2022502 PLT 319 06/04/2022502 LYMPHOPCT 3.2 (L) 06/03/2022215 [...] M w/ PMH of HTN. Presented to [facility] ED 06/02 for RUE swelling. He was [...] and soft tissue infection - Presented to [facility] ED 06/02 for RUE swelling - Transferred [...] continue to follo (more content not included)... [facility] 06-04-2022 Note Formatting of this n ote [...] Date/Time Set By Reviewed At Unknown Kristen Perkins, [facility] 06/04/2022 9:16 AM SW est 06/05/2022 [place], [facility] 06/03/2022 9:49 AM 06/05/2022 [place], [facility] 06/03/2022 9:42 AM NPO- poss OR-if agrees 06/05/2022 [place], [facility] 06/03/2022 9:42 AM NPO- poss OR 06/05/2022 Jesse Cabral PA-C 06/03/2022 2:09 AM 06/05/2022 Jesse Cabral PA-C 06/02/2022 11:51 PM Length of Stay (Days): 2 GMLOS: No GMLOS Documented T [facility] 06-04-2022 Note Formatting of this n [...] Expected Date/Time Set By Reviewed At Unknown DANYEL ColonW 06/04/2022 9:16 AM SW est 06/05/2022 [place], [facility] 06/03/2022 9:49 AM 06/05/2022 [place], CHIEF POWER DISPATCHER 06/03/2022 9:42 AM NPO- poss OR-if agrees 06/05/2022 [place], CHIEF POWER DISPATCHER 06/03/2022 9:42 AM NPO- poss OR 06/05/2022 Jesse Cabral PA-C 06/03/2022 2:09 AM 06/05/2022 Jesse Cabral PA-C 06/02/2022 11:51 PM Length of Stay (Days): 2 GMLOS: No GMLOS Documented [facility] 06-04-2022 Note Formatting of this n ote might be different from the original. Correctional Supply Supervisor following case for Discharge Needs. Check benefits for possible home IV needs. Per [facility] Home Infusion: Referral Received [place] eff02/09/2022 DED $5000 ($ 4968.71 remaining) OOP $5000 ($ 4968.71 remaining) Coinsurance 0%. He wont have any upfront cost. [facility] 06-04-2022 Note Formatting of this n ote might be different from the original. Correctional Supply Supervisor following case for Discharge Needs. Check benefits for possible home IV needs. Per [facility]fusion: Referral Received [place] eff02/09/2022 DED $5000 ($ 4968.71 remaining) OOP $5000 ($ 4968.71 remaining) Coinsurance 0%. He wont have any upfront cost. [facility] 06-03-2022 Consult note Associated Order (s): IP CONSULT TO INFECTIOUS DISEASES Images from the original note were not included. [facility] - Infectious Diseases Attending Consult Note Reason for Consult: Right upper extremity skin and soft tissue infection History of Present Illness: Mr. Carter is a 57 y/o M w/ PMH of HTN. He presented to [facility] ED 06/02 for RUE swelling. He was [...] tablet 650 mg 650 mg Oral Q4H Eliane Adam APRN - JAY 650 mg at 06/03/222044 clindamycin in NS [...] M w/ PMH of HTN. Presented to [facility] ED 06/02 for RUE swelling. He was [...] and soft tissue infection - Presented to [facility] ED 06/02 for RUE swelling - Transferred [...] accounting for open encounter. Sean Green DO [facility] Infectious Diseases Office Tel. [phone] [facility] 06-03-2022 Consult note Associated Order (s): IP CONSULT TO INFECTIOUS DISEASES Images from the original note were not included. [facility] - Infectious Diseases Attending Consult Note Reason for Consult: Right upper extremity skin and soft tissue infection History of Present Illness: Mr. Carter is a 57 y/o M w/ PMH of HTN. He presented to [facility] ED 06/02 for RUE swelling. He was [...] Q4H LORENA Vasques CNP 650 mg at 06/03/22 2045 clindamycin in [...] M w/ PMH of HTN. Presented to [facility] ED 06/02 for RUE swelling. He was [...] and soft tissue infection - Presented to [facility] ED 06/02 for RUE swelling - Transferred [...] accounting for open encounter. Sean Green DO [facility] Infectious Diseases Office Tel. [phone] Associated Order(s): IP CONSULT TO NEPHROLOGY [facility] [address] [place] [address] Consult Note Patient's Name: Gabriel Carter 11:33 [...] as documented in his note. Please call [phone] or message me through [employer] with any questions or concerns. Pharmacy Managed Vancomycin Dosing Service Consult Note Consult Date: 06/03/22 Consulted By: Dr. Dick Room: Patient Name: Gabriel Carter Allergies: Patient has no known allergies. Age: 57 y.o. Sex: male Ht: @CityNewsAMB(11)@ TBW: @CityNewsAMB(14)@ BMI: Body mass index is 27.98 kg/m [...] AM Name: Wes Cross RPh, PharmD Ext. [phone] Images from the original note were not included. Discussed with orthopedic resident last night. Formal exam today. See progress note for plan. Bharathi Ayala MD Ortho H&P/Consult Patient: Gabriel Carter Date of : 1965 Acct: [id number] PCP: Papi Ricketts DO Date of Admission: [...] spread proximally. He presented earlier today to [place] emergency department for evaluation secondary to severe pain in the right upper extremity. He states that they gave him antibiotics earlier today and his pain has since significantly improved. Due to concern for necrotizing fasciitis he was transferred to [facility] for further evaluation and management. Patient states [...] significantly improved since administration of antibiotics at [place] ED. We will monitor patient for improvement [...] PGY-2 Orthopaedic Surgery documented in this encounter [facility] 06-03-2022 Note Formatting of this n ote might be different from the original. Patient's Alison, updated and will meet patient in his room [facility] 06-03-2022 Note Formatting of this n ote might be different from the original. Patient's Alison, updated and will meet patient in his room [facility] 06-03-2022 Note Formatting of this n ote might be different from the original. Patient family/visitor updated by RN at this time. [facility] 06-03-2022 Note Formatting of this n ote might be different from the original. Patient family/visitor updated by RN at this time. [facility] 06-03-2022 Note Airway Date/Time: 06/03/2022 4:14 PM Urgency: scheduled Airway not difficult General Information and Staff Patient location during procedure: Procedural Anesthesiologist: Christoph Maldonado MD Resident/CUSTOMER SUPPORT COORDINATOR: Yumiko Coe APRN - CUSTOMER SUPPORT COORDINATOR Performed: CUSTOMER SUPPORT COORDINATOR Indications and Patient Condition Indications for airway management: anesthesia and airway protection Sedation level: Asleep Preoxygenated: yes Patient position: sniffing MILS maintained throughout Mask difficulty assessment: 1 - vent by mask Final Airway Details Final airway type: supraglottic airway Successful airway: Igel Size 4 Number of attempts at approach: 1 [facility] 06-03-2022 Note Patient: Gabriel packer Procedure Information Date/Time: 06/03/22 1415 Procedure: INCISION AND DRAINAGE FOREARM AND OR WRIST BURSA (Right: Wrist) Location: [facility] OR [address] [place] [address] Operating Room Surgeons: Bharathi Ayala MD Relevant [...] Information might be incomplete. Impression Sinus rhythm [facility] 06-03-2022 Note Hospitalist Progress Note 06/03/2022 [phone]: Please secure chat me for patient care issues. [phone]: Please secure chat [facility] Hospitalist for any issues. Subjective: Admit Date: [...] arpita tolbert Mobile Relation: Relative Preferred language: Marshallese Supervisor Lace Tearing needed? No Ry Foster MD Division of Hospitalist Medicine Acute [facility] PAGER: [employer] [facility] 06-03-2022 Note Formatting of this n ote might be different from the original. [facility] [address] [place] [address] Dept: [phone] Loc: [phone] Operative Report Patient Name: Gabriel Carter Date [...] cellulitis and pain. He was seen at [facility] with markedly elevated infectious labs and transferred to [facility]. On arrival at [facility] the patient stated that he felt better [...] patient's ASA was verified by the nurse mobile device engineer and the anesthesia staff. Fire risk was assessed. [place] was used to exsanguinate the limb and [...] boggy. Fascial soft tissues with a slight [place] green hue. The subcutaneous tissue was well [...] Outpatient Follow-up XRays: None Bharathi Ayala MD [facility] 06-03-2022 Note Formatting of this n ote might be different from the original. [place] [address] [place] [phone] Dept: [phone] Loc: [phone] Operative Report Patient Name: Gabriel Carter Date [...] cellulitis and pain. He was seen at [facility] with markedly elevated infectious labs and transferred to [facility]. On arrival at [facility] the patient stated that he felt better [...] patient's ASA was verified by the nurse mobile device engineer and the anesthesia staff. Fire risk was assessed. [place] was used to exsanguinate the limb and [...] boggy. Fascial soft tissues with a slight [place] green hue. The subcutaneous tissue was well [...] Outpatient Follow-up XRays: None Bharathi Ayala MD [facility] 06-03-2022 Note Formatting of this n ote might be different from the original. Care Managment Initial Assessment Date: 06/03/2022 Patient Name: Gabriel Carter : 1965 Patient Information Source of Information: Cognition/Language: WFL - Within Functional Limits Permission given to speak with patient quality assurance representative/caregiver as indicated: Confirmation of Payer with patient/family: Yes Payer Name: Jolene Arndt Blackburn: No Confirmation of Primary Care Physician: Confirmed [...] Coverage: Yes Pharmacy Used: [facility] in [place] Medication Management: Independent Transportation/Shopping: Independent Transportation Mode: [...] x 3. He was a transfer from [facility] for R arm swelling and possible need for surgery. ID, Nephrology, and ortho consulted. Started on IV antibiotics and IV fluids. Ortho wants to take to surgery and debride site. May need a wound vac. Wants to go home when stable, will follow for needs. Neetu Miranda RN [facility] 06-03-2022 Note Formatting of this n ote might be different from the original. Care Managment Initial Assessment Date: 06/03/2022 Patient Name: Gabriel Carter : 1965 Patient Information Source of Information: Cognition/Language: WFL - Within Functional Limits Permission given to speak with patient quality assurance representative/caregiver as indicated: Confirmation of Payer with [...] Daily Living Prescription Coverage: Yes Pharmacy Used: [facility] in [place] Medication Management: Independent Transportation/Shopping: Independent Transportation Mode: [...] x 3. He was a transfer from [facility] for R arm swelling and possible need for surgery. ID, Nephrology, and ortho consulted. Started on IV antibiotics and IV fluids. Ortho wants to take to surgery and debride site. May need a wound vac. Wants to go home when stable, will follow for needs. Neetu Miranda RN [facility] 06-03-2022 Consult note Associated Order (s): IP CONSULT TO NEPHROLOGY [facility] [address] [place], [place] [id number] Consult Note Patient's Name: Gabriel Carter 11:33 [...] 93.8 PLT 291 293 280 Recent Labs 06/02/22205306/02/22 2334 06/03/22 0216 NA 132* 132* 132* [...] as documented in his note. Please call [phone] or message me through [employer] with any questions or concerns. T [facility] 06-03-2022 Hospital Discharge instructions Hina Cook MD [...] AM EDT Discharging to Facility/ Agency Name: [facility] Address: [address] [place] [address] Ry Foster MD - 06/08/2022 12:05 PM [...] arpita tolbert Mobile Relation: Relative Preferred language: Marshallese Supervisor Lace Tearing needed? No Past Surgical History: Past Surgical [...] MD Added automatically from request for surgery [id number] Isolation/Infection: No active isolations No active infections [...] (88.5 kg) Mental Status: {KATE Patient Mental Status:51637} IV Access: {KATE IV Access:86298} Nursing Mobility/ADLs: Walking {RAYNE ADL::: Independent } Transfer {RAYNE ADL::: Independent } Bathing {RAYNE ADL::: Independent } Dressing {RAYNE ADL:00358:: Independent } Toileting {RAYNE ADL::: Independent } Feeding {RAYNE ADL::: Independent } Hotel Valet Attendant {RAYNE ADL::: Independent } Med Delivery {yes/no:87608} Wound Care Documentation and Therapy: Wound/Incision 06/03/22 [...] Number of days: 4 Elimination: Continence: Bowel: {yes/no:60228} Bladder: {yes/no:82668} Urinary Catheter: {KATE Urinary Catheter:99492} Colostomy/Ileostomy/Ileal Conduit: {YES / NO:} Date of Last BM: Intake/Output Summary (Last 24 hours) at 06/08/2022 1205 Last data filed at 06/08/2022 0527 Gross per 24 hour Intake -- Output 900 ml Net -900 ml I/O last 3 completed shifts: In: - (0 mL/kg) Out: 1700 (19.2 mL/kg) [Urine:1700 (0.5 mL/kg/hr)] Weight: 88.5 kg Safety Concerns: {KATE Safety Concerns:32391} Impairments/Disabilities: {KATE Impairments/Disabilities:24988} Nutrition Therapy: Current Nutrition Therapy: {KATE Diet List:15035} Routes of Feeding: {routes of feedin} Liquids: {liquid consistency:28830} Daily Fluid Restriction: {daily fluid restriction:98879} Last Modified Barium Swallow with Video (Video Swallowing Test): {done not done:41743} Treatments at the Time of Hospital Discharge: Respiratory Treatments: Oxygen Therapy: {Therapy; copd oxygen:62829} Ventilator: {KATE Ventilator:25165} Rehab Therapies: {GEN THERAPY DISCIPLINE SCAL:9910676} Weight Bearing Status/Restrictions: {POD WEIGHT BEARIN} Other Medical Equipment (for information only, NOT a DME order): {Assistive Devices DME:78719} Other Treatments: Patient's personal belongings (please select all that are sent with patient): {KATE Patient Belongings:48382} RN SIGNATURE: {E-signature:53598} CASE MANAGEMENT/SOCIAL WORK SECTION Inpatient Status Date: Readmission Risk Assessment Score: @READMISSIONRISKDETAILS@ Discharging to Facility/ Agency Name: Address: Phone: Fax: Dialysis Facility (if applicable) Name: Address: Dialysis Schedule: Phone: Fax: Showcase Tr[employer]/Collet Maker signature: {E-signature:95717} PHYSICIAN SECTION Prognosis: {Rehab Prognosis:67092} Condition at Discharge: {Patient Condition:29773} Rehab Potential (if transferring to Rehab): {Rehab Prognosis:21649} Recommended Labs or Other Treatments After Discharge: Physician Certification: I certify the above information and transfer of Gabriel Carter is necessary for the continuing treatment of the diagnosis listed and that he requires {KATE Level of Care:48472} for {greater less than:96007} 30 days. Update Admission H&P: {KATE Changes in H&P:26793} PHYSICIAN SIGNATURE: {E-signature:26741} documented in this encounter [facility] 06-03-2022 Note Orthopaedic Progress Note Ortho to [...] significantly improved since administration of antibiotics at [place] ED. We will monitor patient for improvement [...] MD PGY2 Orthopaedic Surgery 06/03/2022 7:51 AM [facility] 06-03-2022 Nurse Note Paged ortho that pt is refusing to keep arm and hand in ciarra wrap and splint. Dr Mar aware and told to give the pt ice for his arm. He would be up to see the pt. [facility] 06-03-2022 Note Orthopaedic Progress Note Ortho to [...] significantly improved since administration of antibiotics at [place] ED. We will monitor patient for improvement [...] MD PGY2 Orthopaedic Surgery 06/03/2022 2:42 AM [facility] 06-03-2022 Note History Of Present I vick Carter is a 57 y.o. male who [...] gross facial drooping. No obvious neurologic deficits. Highway Engineer strength symmetrical. Moves all 4 extremities spontaneously. [...] hold lisinopril # DVT ppx - SCDs [facility] 06-03-2022 Emergency department Note Patient updated on bed assignment Ro Maria RN 06/03/22 0119 [facility] 06-03-2022 Emergency department Note Patient updated [...] is now refusing Ro Maria RN 06/02/22 1067 Unable to obtain 2nd set of Bld Cx after 3 unsuccessful attempts. Other labs obtained from already placed LAC IV site. RN aware. Pt anxious but cooperative. Told him that someone else will be back at a later time to attempt them again, he was agreeable. Traci Sow 06/02/22 1061 1st set of Blood Cultures obtained P&P from [facility] P&P. Traci 06/02/222236 Traci 06/02/222237 Provider at the bedside wrapping the patients right arm, injection molding process technician attempting blood cultures Ro Maria RN 06/02/222206 Xray at the bedside Ro Maria RN 06/02/222131 ED injection molding process technician called for blood cultures Ro Maria RN [...] by ems as a pt transfer from [facility]. Pt has right arm swelling. Pt transferred to [facility] for necrotizing fasciitis, and per ems, the doctor at [place] wanted pt seen for infection. SHIVANI Rodriguez [...] gross facial drooping. No obvious neurologic deficits. Highway Engineer strength symmetrical. Moves all 4 extremities spontaneously. [...] Department Physician in the absence of a recreation manager. see their note for interpretation of EKG. [...] upper extremity 2. ANGELIA (acute kidney injury) (CMS/HCC) (HCC) Medications vancomycin (Vancocin) 1,500 mg in dextrose [...] 4 mg (4 mg IntraVENous Given 06/02/22 2313) CRITICAL CARE TIME Total Critical Care time was 35 minutes, excluding separately reportable procedures. There was a high probability of clinically significant/life threatening deterioration in the patient's condition which required my urgent intervention. CONSULTS: None PROCEDURES: Unless otherwise noted below, none Procedures DISPOSITION/PLAN Admit 06/02/2022 11:51:04 PM PATIENT REFERRED TO: No follow-up provider specified. DISCHARGE MEDICATIONS: New Prescriptions No medications on file @[facility]([id number]:LAST:1)@ (Please note: Portions of this note were completed with a voice recognition program. Efforts were made to edit the dictations but occasionally words and phrases are mis-transcribed.) Form v2016.J.5-cn Jesse Cabral PA-C [facility] Jesse Cabral PA-C 06/03/22 0015 Emergency Department Encounter [facility] EMERGENCY DEPT Patient: Gabriel Carter : 1965 [...] arm swelling. The patient was transferred from [place]. There was a concern for necrotizing fasciitis. Patient states he is unsure as to how this happened, states that he recently had some infections of his knee was started on steroid. Patient did have swelling of the arm and came to the ED of [facility] for evaluation patient was transferred here to the ED. Focused exam: Patient is awake alert, arm is bandaged at this time I did not take the bandage down patient is not tachycardic he is speaking in full clear sentences, heart and lung exam was otherwise negative. Brief ED course/MDM: Patient at this time did present from [place]. I did take the call from the [...] time: Means of arrival: Comments: EMS - [place] transfer (when ready) Liliana Kirkland RN 06/02/222008 documented in this encounter [facility] 06-03-2022 Emergency department Note Ortho at the bedside attempting to re wrap the right arm and elevate it with stocking attached to IV pole Ro Maria RN 06/03/22 0114 [facility] 06-03-2022 Consult note Formatting of th is [...] 06/03/22 Time: 12:38 AM Name: Wes Cross kirill, PharmD Ext. -[id number] T [facility] 06-03-2022 Emergency department Note Patient is sleeping and appears comfortable Ro Maria RN 06/03/22 0030 T [facility] 06-03-2022 History and physical note History Of [...] gross facial drooping. No obvious neurologic deficits. Highway Engineer strength symmetrical. Moves all 4 extremities spontaneously. [...] hold lisinopril # DVT ppx - SCDs [employer] Phone: 06-03-2022 History and physical note [...] gross facial drooping. No obvious neurologic deficits. Highway Engineer strength symmetrical. Moves all 4 extremities spontaneously. [...] ppx - SCDs documented in this encounter [facility] 06-03-2022 Emergency department Note Patient given urinal, he has removed part of ciarra wrap on the proximal part of the upper arm and is refusing for it to be placed back on. Ro Maria RN 06/03/22 0009 [facility] 06-02-2022 Emergency department Note Unable to obtain 2nd set of blood cultures, after 3 attempts patient is now refusing Ro Maria RN 06/02/22 3607 [facility] 06-02-2022 Emergency department Note Unable to obtain 2nd set of Bld Cx after 3 unsuccessful attempts. Other labs obtained from already placed LAC IV site. RN aware. Pt anxious but cooperative. Told him that someone else will be back at a later time to attempt them again, he was agreeable. Traci Sow 06/02/22 8376 [facility] 06-02-2022 Note Discussed with ortho pedic resident last night. Formal exam today. See progress note for plan. Bharathi Ayala MD Ortho H&P/Consult Patient: Gabriel Carter Date of : 1965 Acct: [id number] PCP: Papi Ricketts DO Date of Admission: [...] spread proximally. He presented earlier today to [place] emergency department for evaluation secondary to severe pain in the right upper extremity. He states that they gave him antibiotics earlier today and his pain has since significantly improved. Due to concern for necrotizing fasciitis he was transferred to [facility] for further evaluation and management. Patient states [...] the dorsal forea (more content not included)... [facility] 06-02-2022 Emergency department Note 1st set of Blood Cultures obtained P&P from [facility] P&P. Traci Sow 06/02/222236 Traci Sow 06/02/222237 [facility] 06-02-2022 Emergency department Note Provider at the bedside wrapping the patients right arm, injection molding process technician attempting blood cultures Ro Maria RN 06/02/222206 [facility] 06-02-2022 Emergency department Note Xray at the bedside Ro Maria RN 04/24/23 2132 [facility] 06-02-2022 Emergency department Note ED injection molding process technician called for blood cultures Ro Maria RN 06/02/222111 [facility] 06-02-2022 Consult note Formatting of th is note is different from the original. Images from the original note were not included. Discussed with orthopedic resident last night. Formal exam today. See progress note for plan. Bharathi Ayala MD Ortho H&P/Consult Patient: Gabriel Carter Date of : 1965 Acct: [id number] PCP: Papi Ricketts DO Date of Admission: [...] spread proximally. He presented earlier today to [place] emergency department for evaluation secondary to severe pain in the right upper extremity. He states that they gave him antibiotics earlier today and his pain has since significantly improved. Due to concern for necrotizing fasciitis he was transferred to [facility] for further evaluation and management. Patient states [...] significantly improved since administration of antibiotics at [place] ED. We will monitor patient for improvement [...] immediately Reny Mar MD PGY-2 Orthopaedic Surgery [facility] 06-02-2022 Emergency department Note ED provider at the bedside, labs collected and sent Ro Maria RN 06/02/222054 [facility] 06-02-2022 Emergency department Note During triage questionnaire, pt also informed similar issue happed to right leg about a month and a half ago, and last week it was his left ankle. ADELSO Edwards 06/02/222041 [facility] 04-24-2023 Emergency department Note Bed: 37 Expected date: Expected time: Means of arrival: Comments: EMS - [place] transfer (when ready) Liliana Kirkland RN 06/02/222008 [facility] 06-02-2022 Physician Emergency department Note Emergency [...] by ems as a pt transfer from [facility]. Pt has right arm swelling. Pt transferred to [facility] for necrotizing fasciitis, and per ems, the doctor at [place] wanted pt seen for infection. SHIVANI Rodriguez [...] gross facial drooping. No obvious neurologic deficits. Highway Engineer strength symmetrical. Moves all 4 extremities spontaneously. [...] Department Physician in the absence of a recreation manager. see their note for interpretation of EKG. [...] upper extremity 2. ANGELIA (acute kidney injury) (CMS/HCC) (HCC) Medications vancomycin (Vancocin) 1,500 mg in dextrose [...] MEDICATIONS: New Prescriptions No medications on file @[facility]([id number]:LAST:1)@ (Please note: Portions of this note were completed with a voice recognition program. Efforts were made to edit the dictations but occasionally words and phrases are mis-transcribed.) Form v2016.J.[id number] Jesse Cabral PA-C Acute Care [facility] ' Jesse Cabral PA-C 06/03/22 0015 [facility] 06-02-2022 Physician Emergency department Note Emergency Department Encounter [facility] EMERGENCY DEPT Patient: Gabriel Carter : 1965 [...] arm swelling. The patient was transferred from [place]. There was a concern for necrotizing fasciitis. Patient states he is unsure as to how this happened, states that he recently had some infections of his knee was started on steroid. Patient did have swelling of the arm and came to the ED of [facility] for evaluation patient was transferred here to the ED. Focused exam: Patient is awake alert, arm is bandaged at this time I did not take the bandage down patient is not tachycardic he is speaking in full clear sentences, heart and lung exam was otherwise negative. Brief ED course/MDM: Patient at this time did present from [place]. I did take the call from the [...] [employer] Beau Joseph DO 06/02/222236 [employer] Phone: 06-02-2022 Note HNO ID: [id number] Author: Elmer Rodriguez APRN.NET SOFTWARE DEVELOPER Service: ? Author Type: Nurse Practitioner Type: [...] will call EMS to transport him to [facility]. He adamantly declined and left the office with stating that he would go to [facility] on his own. I was [...] with multiple attempts. Heads up given to [facility]. Elmer Rodriguez APRN.NET SOFTWARE DEVELOPER This note was partly generated using [employer] voice recognition dictation and may contain some misspelled or inaccurate words missed on review. [facility] 06-02-2022 History of Present illness [...] will call EMS to transport him to [facility]. He adamantly declined and left the office with stating that he would go to [facility] on his own. I was [...] with multiple attempts. Heads up given to [facility]. Elmer Rodriguez APRN.CNP This note was partly generated using [employer] voice recognition dictation and may contain some misspelled or inaccurate words missed on review. documented in this encounter [facility] 05-26-2022 Note HNO ID: [id number] Author: RT Horacio(R) Service: Radiology Author Type: [...] PERIPHERAL IV DATA: Not applicable SIGNED BY: RT Horacio(R) May 26, 2022 12:10 PM [facility] 05-26-2022 Note HNO ID: [id number] Author: Elmer Rodriguez APRN.NET SOFTWARE DEVELOPER Service: ? Author Type: Nurse Practitioner Type: [...] TABLETS IN A DOSE PACK Elmer Rodriguez APRN.NET SOFTWARE DEVELOPER This note was partly generated using [employer] voice recognition dictation and may contain some misspelled or inaccurate words missed on review. [facility] 04-24-2022 Note HNO ID: [id number] Author: Reyes Waite MD Service: ? Author [...] HISTORY OF N/A 02/22/2018 Heart Cath at [facility] Family History FAMILY HISTORY Problem Relation Age of Onset other (Cypress palsy) Mother Coronary Artery Disease Father Colon [...] Past Histories independently gathered by the clinical field support specialist and the remaining scribed note accurately describes my personal service to the patient. Medical Decision Making: Problems: Low: Acute, uncomplicated illness or injury Risk: Moderate: Drug management Medical Decision Making Level: 3 - Low Reyes Waite MD The documentation for this note was completed by Michelle Hamilton Ma acting as scribe for Reyes Waite MD. April 24, 2022 9:51 AM. Michelle Hamilton Ma [facility] 04-24-2022 History of Present illness [...] HISTORY OF N/A 02/22/2018 Heart Cath at [facility] Family History FAMILY HISTORY Problem Relation Age of Onset other (Cypress palsy) Mother Coronary Artery Disease Father Colon [...] Past Histories independently gathered by the clinical field support specialist and the remaining scribed note accurately describes [...] Michelle Hamilton Ma documented in this encounter [facility] 02-20-2022 Miscellaneous Notes Pt called and is notified of providers message and instructions. Pt voices understanding. Clary Tolliver, RN It is not considered an error. I apologize for using that term. It would be considered a lab variance in the way it was collected possibly. Or it could be accurate and we would need to investigate further. Elmer Rodriguez APRN.JAY Phoned patient and given provider's message below. [...] ensure labs are actually normal. Elmer Rodriguez APRN.JAY documented in this encounter [facility] 02-18-2022 Note HNO ID: [id number] Author: Elmer Rodriguez APRN.CNP Service: ? Author [...] needed. This note was partly generated using [employer] voice recognition dictation and may contain some misspelled or inaccurate words missed on review. [facility] 02-18-2022 Instructions Elmer Rodriguez APRN.CNP - 02/18/2022 1:48 PM EST Back medications sent, let us know if you need to go back to Dr. Price Get labs today Continue with current medications Follow up yearly and as needed. Elmer Rodriguez APRN.CNP documented in this encounter [facility] 02-18-2022 History of Present illness Narrative Chief [...] ICD10: Z12.5 - PSA/PROSTSPECAG SCRN Elmer Rodriguez APRN.JAY RTO in 12 months, sooner if needed. This note was partly generated using [employer] voice recognition dictation and may contain some misspelled or inaccurate words missed on review. documented in this encounter [facility] 05-03-2021 Instructions An Garrison APRN.CNP - 05/03/2021 9:45 AM EDT 1. Start the prednisone taper. 2. Start the zanaflex as needed. 3. Start the gabapentin -- 1-2 tablets three times daily as needed. 4. Schedule w/ spine. 5. Consider PT. documented in this encounter [facility] 05-03-2021 History of Present illness Narrative This [...] HISTORY OF N/A 02/22/2018 Heart Cath at [facility] ALLERGIES Naproxen MEDICATIONS Current Outpatient Medications Medication [...] HISTORY Problem Relation Age of Onset other (Cypress palsy) Mother Coronary Artery Disease Father Colon [...] APRN.JAY This note was partially generated using [employer] voice recognition system. Note was reviewed for accuracy. There may be minor misspellings or grammar miscues with [employer] voice recognition. Medical Decision Making: Problems: Low: Acute, uncomplicated illness or injury Data: Unique source(s) for external note(s) reviewed: 1 Unique test result(s) reviewed: 1 Assessment requiring an independent historian(s) Risk: Moderate: Drug management Medical Decision Making Level: 4 - Moderate documented in this encounter [facility] Diagnosis Hypertension, essential- Primary Unspecified essential hypertension Chronic low back pain without sciatica, unspecified back pain laterality Screening for prostate cancer Special screening for malignant neoplasm of prostate documented in this encounter [facility] note* Diagnosis Hypertension, essential- Primary Unspecified essential hypertension Hyperkalemia Hyperpotassemia [facility]* Diagnosis Patellar tendinitis of right knee- Primary Patellar tendinitis [facility]* Diagnosis Cellulitis of skin- Primary Cellulitis and abscess of unspecified site [facility]* Diagnosis Cellulitis of right upper extremity- Primary Cellulitis of right upper extremity ANGELIA (acute kidney injury) (CMS/HCC) (HCC) Necrotizing fasciitis (HCC) Necrotizing fasciitis Necrotizing fasciitis (HCC) Necrotizing fasciitis HTN (hypertension) Unspecified essential hypertension [facility] Diagnosis Necrotizing fasciitis of forearm (CMS/HCC) (HCC) Cellulitis of right upper extremity [facility] Diagnosis Necrotizing fasciitis (HCC)- Primary Necrotizing fasciitis Cellulitis of right upper extremity [facility] Diagnosis Necrotizing fasciitis of forearm (CMS/HCC) (HCC) [facility] Diagnosis Necrotizing fasciitis of forearm (CMS/HCC) (HCC) Cellulitis of right upper extremity [facility] Necrotizing fasciitis of forearm (CMS/HCC) (HCC) Cellulitis of right upper extremity Chronic pain of right upper extremity documented in this encounter [facility]* Diagnosis Herpes zoster without complication- Primary Herpes zoster without mention of complication [facility] Consultation (Routine) - Pending Review Specialty Diagnoses / Procedures Referred By Contac t Referred To Contact Pain Medicine Diagnoses Necrotizing fasciitis of forearm (CMS/HCC) (HCC) Cellulitis of right upper extremity Chronic pain of right upper extremity Procedures [place] OFFICE/OUTPATIENT [facility] 60-74 MINUTES Bharathi Ayala MD [address] [facility] [address] [place] [address] [facility] [address] [place] [address] Referral ID Status Reason Start Date Expiration Date Visits Requested Visits Authorized [id number] Pending Review Specialty Services Required 09/25/2022 09/25/2023 1 1 [facility] Reason for Referral Specialty Diagnoses / Procedures Referred By Contac t Referred To Contact [facility] [place] Diagnoses Right-sided low back pain with right-sided sciatica, unspecified chronicity Procedures CONSULT TO [facility] OFFICE/OUTPATIENT [facility] 60-74 MINUTES An Garrison APRN.NET SOFTWARE DEVELOPER [address] [place] [address] Referral ID Status Reason Start Date Expiration Date Visits Requested Visits Authorized [id number] Authorized PCP Requested Referral 05/03/2021 05/03/2022 1 1 Specialty Diagnoses / Procedures Referred By Contac t Referred To Contact Occupational Therapy Diagnoses Necrotizing fasciitis of forearm (CMS/HCC) (HCC) Cellulitis of right upper extremity Procedures [place] OFFICE/OUTPATIENT [facility] 60-74 MINUTES Bharathi Ayala MD [address] [facility] [address] [place] [address] Referral ID Status Reason Start Date Expiration Date Visits Requested Visits Authorized [id number] Pending Review Eval and Treat 07/24/2022 07/25/2023 [...] or prosecute any alcohol or drug abuse patient.[facility] the event this information is protected by the Federal Confidentiality of Alcohol and Drug Abuse Patient Records regulations: The Federal rules restrict any use of the information to criminally investigate or prosecute any alcohol or drug abuse patient.[facility] the event this information is protected by the Federal Confidentiality of Alcohol and Drug Abuse Patient Records regulations: The Federal rules restrict any use of the information to criminally investigate or prosecute any alcohol or drug abuse patient.[facility] the event this information is protected by the Federal Confidentiality of Alcohol and Drug Abuse Patient Records regulations: The Federal rules restrict any use of the information to criminally investigate or prosecute any alcohol or drug abuse patient.[facility] the event this information is protected by the Federal Confidentiality of Alcohol and Drug Abuse Patient Records regulations: The Federal rules restrict any use of the information to criminally investigate or prosecute any alcohol or drug abuse patient.[facility] the event this information is protected by the Federal Confidentiality of Alcohol and Drug Abuse Patient Records regulations: The Federal rules restrict any use of the information to criminally investigate or prosecute any alcohol or drug abuse patient.[facility] the event this information is protected by the Federal Confidentiality of Alcohol and Drug Abuse Patient Records regulations: The Federal rules restrict any use of the information to criminally investigate or prosecute any alcohol or drug abuse patient.[facility] Reason for Visit (unrecogniz ed section and content) Reason Comments F/U 6 Month Reason Comments Results Reason Comments Knee Pain right Reason Comments Acute Visit RIGHT wrist/hand sor e x 2 days Reason Comments Right arm swelling Pt arrived to ED by ems as a pt transfer from [facility]. Pt has right arm swelling. Pt transferred to [facility] for necrotizing fasciitis, and per ems, the doctor at [place] wanted pt seen for infection. Specialty Diagnoses / Procedures Referred By Contac t Referred To Contact Diagnoses ANGELIA (acute kidney injury) (CMS/HCC) ([facility]) Cellulitis of right upper extremity Procedures . Rob Dick MD [address] [place] [address] [facility] 5w Telemetry [address] [place] [id number] Referral ID Status Reason Start Date Expiration Date Visits Re quested Visits Authorized [id number] 1 Reason Comments acid reflux Reason Comments Post-op DOS 06/05/2022 Repeat excisional debridement skin, subcutaneous tissue, and fascia of right hand/wrist/forearm measuring 300 sq cm with secondary wound closure. DOS 06/03/2022 Excisional debridement skin, subcutaneous tissue, and fascia of right hand/wrist/forearm measuring 300 sq cm, extensor synoectomy right wrist Reason Onset Date Comments IV Medication 06/06/2022 IV antibiotic eet_Peter Reason Comments Follow-up Reason Comments Post-op Wound [...] Care Teams (unrecognized sec tion and content) [employer]person [employer] Relationship Specialty Start Date End Date Reyes Waite MD [address] [place] [address] PCP - General Family Medicine 12/31/16 [employer] Relationship Specialty Start Date End Date Reyes Waite MD [address] [place] [address] PCP - General Family Medicine 12/31/16 [employer] Relationship Specialty Start Date End Date Reyes Waite MD [address] [place] [address] PCP - General Family Medicine 12/31/16 [employer]person [employer] Relationship Specialty Start Date End Date Reyes Waite MD [address] [facility] [place] [id number] PCP - General Family Medicine 12/31/16 [employer]person [employer] Relationship Specialty Start Date End Date Papi Ricketts DO [address] [place] [address] PCP - General Emergency Medicine - Hospice and Palliative Medicine 06/02/22 [employer]person [employer] Relationship Specialty Start Date End Date Papi Ricketts DO [address] [place] [address] PCP - General Emergency Medicine - Hospice and Palliative Medicine 06/02/22 [employer]person [employer] Relationship Specialty Start Date End Date Papi Ricketts DO [address] [place] [address] PCP - General Emergency Medicine - Hospice and Palliative Medicine 06/02/22 Salesperson [employer] Relationship Specialty Start Date End Date Papi Ricketts DO [address] [place] [address] PCP - General Emergency Medicine - Hospice and Palliative Medicine 06/02/22 Salesperson [employer] Relationship Specialty Start Date End Date Papi Ricketts DO [address] [place], [place] [id number] PCP - General Emergency Medicine - Hospice and Palliative Medicine 06/02/22 Salesperson [employer] Relationship Specialty Start Date End Date Papi Ricketts DO [address] [place], [place] [id number] PCP - General Emergency Medicine - Hospice and Palliative Medicine 06/02/22 Salesperson [employer] Relationship Specialty Start Date End Date Papi Ricketts DO [address] [place] [address] PCP - General Emergency Medicine - Hospice and Palliative Medicine 06/02/22 Salesperson [employer] Relationship Specialty Start Date End Date Papi Ricketts DO [address] [place] [address] PCP - General Emergency Medicine - Hospice and Palliative Medicine 06/02/22 Salesperson [employer] Relationship Specialty Start Date End Date Papi Ricketts DO [address] [place] [address] PCP - General Emergency Medicine - Hospice and Palliative Medicine 06/02/22 Salesperson [employer] Relationship Specialty Start Date End Date Reyes Waite MD [address] [place], [place] [id number] PCP - General Family Medicine 12/31/16 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 [employer] Relationship Specialty Start Date End Date Paip Ricketts DO [address] [place] [address] PCP - General Emergency Medicine - Hospice and Palliative Medicine 06/02/22 (unrecognized sect ion and content) No Status Records FoundNo Status Records FoundNo Status Records Found INFORMATION SOURCE (unrecogn ized section and content) DATE CREATED AUTHOR AUTHOR'S ORGANIZ ATION 11/30/2022 [facility] DATE CREATED AUTHOR AUTHOR'S ORGANIZ ATION 02/21/2023 [facility] Scheduled Active and Recently Administ ered [...] from blister pack until just before administering. 1745 (See Alternative - Provider: Naye Avina, BRAYDON) oxyCODONE (Roxicodone) immediate release tablet 10 mg(Linked Group 3) 10 mg, Oral, Every 4 hours PRN, severe pain (7-10), Starting on Thu06/03/22 at 2020 0034 (Given - Provider: Ita Grant, BRAYDON)0507 (Given - Provider: Ita Grant, RN)1121 (Given - Provider: Naye Avina, BRAYDON)1857 (Given - Provider: Naye Avina RN) 0211 (Given - Provider: Galina Wilson, BRAYDON)0624 (Given - Provider: Keiry Mg, BRAYDON)1029 (Given - Provider: Ro Vega, BRAYDON)1441 (Given - Provider: Elizabeth Huntley RN)2028 (Given - Provider: Azael Ascencio, BRAYDON) 0525 (Given - Provider: Azael Ascencio RN)1159 (Given - Provider: Ro Vega, RN)1642 (Given - Provider: Ro Vega, RN) oxyCODONE (Roxicodone) immediate release tablet 5 mg(Linked Group 3) 5 mg, Oral, Every 4 hours PRN, moderate pain (4-6), Starting on Thu06/03/22 at 2020 0034 (See Alternative - Provider: Ita Grant, BRAYDON)0507 (See Alternative - Provider: Ita Grant RN)1121 (See Alternative - Provider: Naye Avina, RN)1857 (See Alternative - Provider: Naye Avina, RN) 0211 (See Alternative - Provider: Galina Wilson, BRAYDON)0624 (See Alternative - Provider: Keiry Mg, RN)1029 (See Alternative - Provider: Ro Vega, RN)1441 [...] Starting on Thu06/03/22 at 021
1st Line. If inadequate response within 60 minutes, proceed to next-line agent or contact provider if no further options ordered. Patient should allow tablet to dissolve on tongue. Do not remove from blister pack until just before administering.
Or ondansetron (Zofran) injection 4 mgJump to med 4 mg, IntraVENous, Every 6 hours PRN, nausea, vomiting, Starting on Thu06/03/22 at 0213
1st Line. Give IV if patient is [...] BE BASED ON THE PRIMARY CLINICAL RECORDS. [facility] [employer] [facility]. provides no warranty or guarantee of the accuracy or completeness of information in this document.
== END | disposition home or self-care (01) ==
PROVIDERS: PCP Family Medicine; Referring Provider Urology; Visit Provider Urology
DX: N20.1 Calculus of ureter (principal)
CPT/HCPCS: 74018

== ENCOUNTER 2023-03-11 12:34 | Day surgery (SDC) | payer BC, SELFPAY ==
[2023-03-11] VITALS (12 sets, daily range): BP systolic 117–139; BP diastolic 84–94; PULSE 60–79; RESP 16–17; TEMP 36.1–36.7; O2SAT 98–100; BMI 28.5
--- NOTE | 2023-03-11 12:40 | RAD_ITS ---
STUDY: X-RAY - ABDOMEN/PELVIS REASON FOR EXAM: Male, 57 years old. Kidney stone TECHNIQUE: Single AP view of the abdomen / pelvis. COMPARISON: Comparison is made with prior study dated February 24, 2023. FINDINGS: There is a moderate amount of colonic fecal material. Stable tiny calcification in the left hemipelvis. This most likely represents a small phlebolith. Normal soft tissue structures. Normal visualized osseous structures. RAD/Abdomen Single View IMPRESSION: Stable examination. Electronically Signed: Basilio Mccallum MD at 12:59 EST ,
[2023-03-11] MEDS: Lactated Ringers 1,000 ML 15 ML IV (13:00)
[2023-03-11] MEDS: Cefazolin 2 GM in 0.9% Normal Saline (100mL Bag) 100 ML IV (13:48)
--- NOTE | 2023-03-11 14:17 | PCM.HP.STD ---
HPI - General General Date of Admission: 03/11/23 Chief Complaint: Left ureteral calculi HPI Narrative LISA LARSON, is a 57 M who presents for treatment of left ureteral calculi PFSH Medical History Anxiety Arthritis Depression History of echocardiogram History of stress test HTN (hypertension) Injury of back Smoker Wears glasses Home Medications lisinopril 20 mg tablet 20 mg PO DAILY 06/02/22 [History Last Taken Unknown] meloxicam 15 mg tablet 15 mg PO DAILY 03/10/23 [History Last Taken Unknown] pregabalin 75 mg capsule 75 mg PO BID 03/10/23 [History Last Taken Unknown] ciprofloxacin HCl 500 mg tablet (Cipro) 500 mg PO Q12H #6 tabs 03/11/23 [Rx Last Taken Unknown] ibuprofen 600 mg tablet 600 mg PO Q6H PRN fever or pain #10 tabs 03/11/23 [Rx Last Taken Unknown] Allergy/AdvReac Type Severity Reaction Status Date / Time No Known Allergies Allergy Verified 03/10/23 07:59 Surgical History Hx of colonoscopy Hx of surgical procedure S/P cardiac catheterization (~02/23/18) Social History Smoking Status: Current every day smoker tobacco type: cigarettes Vital Signs Vital Signs Vital Signs: 03/11/23 13:13 03/11/23 13:13 Temperature 98.1 F Temperature Source Temporal Pulse Rate 79 Respiratory Rate 17 Respiratory Pattern Normal Blood Pressure 119/90 H Blood Pressure Mean 99 Blood Pressure Source Monitor Blood Pressure Position Semi-Fowlers Blood Pressure Location Left Arm Pulse Ox 98 Oxygen Delivery Method Room Air Weight Weight: 90.43 kg Body Mass Index (BMI) 28.5 Results Imaging Radiology Impression KUB X-Ray 03/11/23 12:40 IMPRESSION: Stable examination. Electronically Signed: Basilio Mccallum MD at 12:59 EST ,
--- NOTE | 2023-03-11 14:17 | PCM.DC ---
Discharge Instructions Diet Discharge Diet: No restrictions Activity Discharge Activity: Return to Normal Activity and May Not Drive (while taking narcotic pain medications.) Dressing / Incision Call your doctor if you observe: Fever of 101 or Higher Follow Up Care Please Follow Up With: Jeffrey Chong MD When: Call [phone] for an appointment Test Results: Test results from this visit will be discussed in further detail at your follow-up appointment, if applicable. Discharge Plan Admission Primary Reason for Your Visit: STONE Attending Provider: Jeffrey Chong Primary Care Provider: Tee Waite Discharge Orders/Prescriptions Prescriptions: New ciprofloxacin HCl [Cipro] 500 mg tablet 500 mg PO Q12H Qty: 6 0RF ibuprofen 600 mg tablet 600 mg PO Q6H PRN (Reason: fever or pain) Qty: 10 0RF Continued lisinopril 20 mg tablet 20 mg PO DAILY Patient Comments: take 1 tablet by mouth once daily pregabalin 75 mg capsule 75 mg PO BID Patient Comments: take 1 capsule by mouth twice a day meloxicam 15 mg tablet 15 mg PO DAILY Patient Comments: take 1 tablet by mouth once daily Other Ambulatory Orders: Abdomen Single View (Routine) Timeframe: [id number] Facility: [facility] - Location: [facility] Ordered By: Dr. Jeffrey Chong Referrals / Follow Up: Jeffrey Chong MD [Med Staff - Active Staff] - Tee Waite MD [Primary Care Provider] - Disposition Disposition (needs filled in before D/C Order can be placed): Home, Self Care
--- NOTE | 2023-03-11 14:18 | OP.PCM_ITS ---
Report of Operation Date of Procedure: 03/11/23 Pre-Operative Diagnosis: Left ureteral calculi Post-Operative Diagnosis: The same Surgery/Procedure Performed:: Cystoscopy left retrograde pyelogram left ureteroscopy Description of Surgical Findings:: Patient was taken back to the operative room at a smooth induction of anesthesia he was placed in dorsolithotomy position. Is a 57-year-old male had a stone in the distal left ureter and questioning the preoperative setting he feels like he has not passed a stone still having pain off and on the left side so we will proceed with shockwave lithotripsy. Patient is taken back to the operating room after smooth induction of anesthesia we looked under fluoroscopy I could identify the stone on the fluoroscopy so I went in the bladder with a 21 [place] rigid cystourethroscope cannulated the left ureter put a wire up in the left kidney and then we went over the wire with a flexible ureteroscope we inspected the upper pole midpole lower pole the kidney worked my way all the way down the ureter there was no stone along the course of the ureter there is a lot of inflammation in the distal ureter so he just passed a stone. So because of this we performed a retrograde pyelogram contrast one of the kidney drained normally drained the bladder did not place a stent spoke to the family let him know that the stone passed. Surgeon: Jeffrey Chong Type of Anesthesia: General Admit VTE Documentation VTE Present on Admission: No VTE Mechan Device Prophylaxis: SCD's VTE Pharm Prophylaxis ordered?: No
[2023-03-11] MEDS: Ketorolac 15 MG/ML Vial IV (14:56)
[2023-03-11] MEDS: Ketorolac 30 MG/ML Syringe IV (15:09)
[2023-03-11] MEDS: oxyCODONE 5 MG Tablet PO (16:18)
[2023-03-11] MEDS: Acetaminophen 325 MG Tablet 650 MG PO (16:18)
== END 2023-03-11 16:51 | disposition home or self-care (01) ==
LOC: SDC 12:36 → AC 12:39
PROVIDERS: PCP Family Medicine; Referring Provider Urology; Visit Provider Urology
PROC: (CPT 50590; principal; 2023-03-11 14:40)
DX: N20.1 Calculus of ureter (principal); I10 Essential (primary) hypertension; F17.210 Nicotine dependence, cigarettes, uncomplicated
CPT/HCPCS: 52005; 00910; 74018; C1769; J2405